=== PATIENT | male | born 1960 | race Hispanic/Latino ===

== ENCOUNTER 2018-06-22 18:56 | Emergency (ER) | payer OTHER ==
[2018-06-22 19:43] LABS: Absolute Lymphocytes (CBC) 1.8 K/uL (0.7-4.9); Absolute Monocytes 0.6 K/uL (0.1-1.3); Absolute Neutrophil 2.9 K/uL (1.8-8.0); Basophils % 0.7 % (0-1.3); Eosinophils % 2.5 % (0-4.4); Hematocrit 41.5 % (39.6-49.0); Lymphocytes % 32.4 % (15.3-44.8); MCH 32.9 pg (27.0-35.0); MPV 9.9 fL (7.6-11.3); Monocytes % 11.2 % (3.3-12.3); RBC Red Blood Cell Count 4.46 M/uL (4.33-5.43)
--- NOTE | 2018-06-22 20:16 | RAD REPORT ---
EXAM DESCRIPTION: CT - Head Brain Wo Cont - 06/22/2018 7:52 pm CLINICAL HISTORY: Right arm tremor/CVA COMPARISON: 2015 TECHNIQUE: Computed axial tomography of the head was obtained. IV contrast was not requested. All CT scans are performed using dose optimization technique as appropriate and may include automated exposure control or mA/KV adjustment according to patient size. FINDINGS: An intracranial bleed is not seen . The ventricles are normal in caliber. No extra-axial fluid collection is noted. Moderate to large area of cystic encephalomalacia is presen t within the right occipital lobe secondary to an old infarction. Fluid within the sinuses/ mastoids is not seen. IMPRESSION: No acute intracranial abnormality is seen. If patient's symptoms persist MRI of the bra in would be recommended.
[2018-06-22 21:00] LABS: Potassium 4.2 mmol/L (3.5-5.1)
--- NOTE | 2018-06-22 21:19 | ER ---
Nurse's Notes [facility] Name: Jd Rico Age: 58 yrs Sex: Male : 1960 Arrival Date: 06/22/2018 Time: 18:58 Bed 18 Private MD: Diagnosis: Tremor, unspecified Presentation: 06/22 19:01 Presenting complaint: Patient states: he has had an uncontrollable tremor in his right bb foot for the last 2 months and over the last two weeks it has moved to his right arm and to his tongue. Transition of care: patient was not received from another setting of care. Onset of symptoms was April 2018. Risk Assessment: Do you want to hurt yourself or someone else? Patient reports no desire to harm self or others. Initial Sepsis Screen: Does the patient meet any 2 criteria? No. Patient's initial sepsis screen is negative. Does the patient have a suspected source of infection? No. Patient's initial sepsis screen is negative. Care prior to arrival: None. 19:01 Method Of Arrival: Wheelchair bb 19:01 Acuity: MARIA L 3 bb Triage Assessment: 19:33 General: Appears in no apparent distress. Behavior is cooperative, anxious. Pain: ak1 Denies pain. EENT: No signs and/or symptoms were reported regarding the EENT system. Neuro: Level of Consciousness is awake, alert, obeys commands, Oriented to person, place, time, situation, [employer] are equal bilaterally Moves all extremities. Gait is steady, Speech is normal, Facial symmetry appears normal. Cardiovascular: No deficits noted. Respiratory: No deficits noted. GI: No signs and/or symptoms were reported involving the gastrointestinal system. : No signs and/or symptoms were reported regarding the genitourinary system. Derm: No signs and/or symptoms reported regarding the dermatologic system. Musculoskeletal: No signs and/or symptoms reported regarding the musculoskeletal system. Historical: - Allergies: 19:24 Trazodone; bb - Home Meds: 19:24 atorvastatin 40 mg Oral tab 1 tab once daily [Active]; buspirone 15 mg Oral tab 1 tab 2 bb times per day [Active]; divalproex 500 mg Oral Tb24 2 tabs once daily [Active]; divalproex 250 mg Oral Tb24 once daily [Active]; etodolac 400 mg Oral tab 1 tab 2 times per day [Active]; lisinopril-hydrochlorothiazide 10-12.5 mg Oral tab 1 tab once daily [Active]; metoprolol tartrate 50 mg Oral tab 2 tabs once daily [Active]; quetiapine 100 mg Oral tab 1 tab qhs prn [Active]; - PMHx: 19:24 Angina; Bipolar disorder; CVA; Hypertension; insomnia; Myocardial infarction; bb peripheral vision loss; Seizures; - PSHx: 19:24 Hernia repair; back surg; Heart stents; bb - Immunization history:: Adult Immunizations up to date. - Social history:: Smoking status: Patient/guardian denies using tobacco, Patient/guardian denies using alcohol, street drugs. - Ebola Screening: : No symptoms or risks identified at this time. - Family history:: not pertinent. - Hospitalizations: : No recent hospitalization is reported. Screenin:32 Abuse screen: Denies threats or abuse. Denies injuries from another. Nutritional ak1 screening: No deficits noted. Tuberculosis screening: No symptoms or risk factors identified. Fall Risk None identified. Assessment: 19:34 Reassessment: Patient appears in no apparent distress at this time. No changes from ak1 previously documented assessment. Patient and/or family updated on plan of care and expected duration. Pain level reassessed. Patient is alert, oriented x 3, equal unlabored respirations, skin warm/dry/pink. see triage assessment. General: Appears in no apparent distress. 21:03 Reassessment: Patient appears in no apparent distress at this time. No changes from ak1 previously documented assessment. Patient and/or family updated on plan of care and expected duration. Pain level reassessed. Patient is alert, oriented x 3, equal unlabored respirations, skin warm/dry/pink. Patient states symptoms have improved. pt resting comfortably in ER18 with no "twitching" or "tremors" observed at this time. will continue to monitor. . Vital Signs: 19:24 BP 165 / 95; Pulse 77; Resp 16 S; Temp 99(O); Pulse Ox 98% on R/A; Weight 65.77 kg (R); bb Height 5 ft. 4 in. (162.56 cm) (R); Pain 0/10; 20:39 BP 134 / 88; Pulse 59; Resp 16; Pulse Ox 98% on R/A; Pain 0/10; ak1 21:50 BP 132 / 84; Pulse 64; Resp 20; Temp 98.1; Pulse Ox 98% on R/A; Pain 0/10; ak1 19:24 Body Mass Index 24.89 (65.77 kg, 162.56 cm) ED Course: 18:58 Patient arrived in ED. tw3 19:04 Christiano Mccormack MD is Attending Physician. rn 19:19 Gosia Harp, RN is Primary Nurse. ak1 19:23 Triage completed. bb 19:24 Arm band placed on Patient placed in an exam room, on a stretcher, on pulse oximetry. bb Family accompanied patient. 19:32 Initial lab(s) drawn, by me, sent to lab. EKG done, by ED staff, reviewed by Christiano Mccormack MD. Inserted saline lock: 20 gauge in right forearm, using aseptic technique. Blood collected. 19:35 Patient has correct armband on for positive identification. Placed in gown. Bed in low ak1 position. Call light in reach. Side rails up X2. Adult w/ patient. court recording monitor on. Pulse ox on. NIBP on. 19:[address] mt 19:51 CT Head Brain wo Cont In Process Unspecified. EDMS 20:38 Lab(s) recollected, by me, sent to lab. ak1 21:04 No provider procedures requiring assistance completed. ak1 21:49 IV discontinued, intact, bleeding controlled, No redness/swelling at site. Pressure ak1 dressing applied. Administered Medications: No medications were administered Outcome: 21:18 Discharge ordered by . rn 21:50 Discharged to home ambulatory, with family. ak1 21:50 Condition: good 21:50 Discharge instructions given to patient, family, Instructed on discharge instructions, follow up and referral plans. Demonstrated understanding of instructions, follow-up care. 21:51 Patient left the ED. ak1 Signatures: Dispatcher [employer] EDMS Haydee Haile RN RN bb Nieto, Roman, MD MD rn Krenek, Amber, RN RN Shivam Fong, Shalonda tw3
--- NOTE | 2018-06-22 21:19 | EDPHYS ---
Physician Documentation [facility] Name: Jd Rico Age: 58 yrs Sex: Male : 1960 Arrival Date: 06/22/2018 Time: 18:58 Bed 18 Private MD: ED Physician Christiano Mccormack HPI: 06/22 19:37 This 58 yrs old Male presents to ER via Wheelchair with complaints of Tremor, rn S/S of Possible Stroke. 19:37 The patient's problem is reported as tremor, balance issues. rn 19:38 Onset: The symptoms/episode began/occurred 2 month(s) ago. Duration: The episodes are rn intermittent. The symptoms are alleviated by nothing. The symptoms are aggravated by nothing. Severity of symptoms: At their worst the symptoms were moderate in the emergency department the symptoms are unchanged. The patient has experienced similar episodes in the past. Reports last known stroke 2 months ago, since then has been having progressive tremors of right leg, now going to right arm, reports feels unsteady and has balance issues, not falling, almost fell off a ladder step, came in for evaluation. Reports depakote increased 4-5 months ago for manic episode, no other medication changes. No vomiting/diarrhea/chest pain/sob. . Historical: - Allergies: 19:24 Trazodone; bb - Home Meds: 19:24 atorvastatin 40 mg Oral tab 1 tab once daily [Active]; buspirone 15 mg Oral tab 1 tab 2 bb times per day [Active]; divalproex 500 mg Oral Tb24 2 tabs once daily [Active]; divalproex 250 mg Oral Tb24 once daily [Active]; etodolac 400 mg Oral tab 1 tab 2 times per day [Active]; lisinopril-hydrochlorothiazide 10-12.5 mg Oral tab 1 tab once daily [Active]; metoprolol tartrate 50 mg Oral tab 2 tabs once daily [Active]; quetiapine 100 mg Oral tab 1 tab qhs prn [Active]; - PMHx: 19:24 Angina; Bipolar disorder; CVA; Hypertension; insomnia; Myocardial infarction; bb peripheral vision loss; Seizures; - PSHx: 19:24 Hernia repair; back surg; Heart stents; bb - Immunization history:: Adult Immunizations up to date. - Social history:: Smoking status: Patient/guardian denies using tobacco, Patient/guardian denies using alcohol, street drugs. - Ebola Screening: : No symptoms or risks identified at this time. - Family history:: not pertinent. - Hospitalizations: : No recent hospitalization is reported. ROS: 19:38 Constitutional: Negative for fever, chills, and weight loss, Eyes: Negative for injury, rn pain, redness, and discharge, Neck: Negative for injury, pain, and swelling, Cardiovascular: Negative for chest pain, palpitations, and edema, Respiratory: Negative for shortness of breath, cough, wheezing, and pleuritic chest pain, Abdomen/GI: Negative for abdominal pain, nausea, vomiting, diarrhea, and constipation, MS/Extremity: Negative for injury and deformity, Skin: Negative for injury, rash, and discoloration, Neuro: Negative for headache, numbness, tingling, and seizure. Exam: 19:38 Constitutional: This is a well developed, well nourished patient who is awake, alert, rn and in no acute distress. Head/Face: Normocephalic, atraumatic. Eyes: Pupils equal round and reactive to light, extra-ocular motions intact. Lids and lashes normal. Conjunctiva and sclera are non-icteric and not injected. Cornea within normal limits. Periorbital areas with no swelling, redness, or edema. Cardiovascular: Regular rate. no murmur. No pulse deficits. Respiratory: Lungs have equal breath sounds bilaterally, clear to auscultation. Speaking full sentences. Abdomen/GI: Soft, non-tender, with normal bowel sounds. No distension or tympany. No guarding or rebound. No evidence of tenderness throughout. Skin: Warm, dry with normal turgor. Normal color with no rashes, no lesions, and no evidence of cellulitis. MS/ Extremity: Pulses equal, no cyanosis. Neurovascular intact. Full, normal range of motion. Equal circumference. Neuro: Awake and alert, GCS 15, oriented to person, place, time, and situation. Cranial nerves II-XII grossly intact. Motor strength 5/5 in all extremities. Sensory grossly intact. Cerebellar exam normal. + RLE coarse tremor. Worse with purposeful movement. Vital Signs: 19:24 BP 165 / 95; Pulse 77; Resp 16 S; Temp 99(O); Pulse Ox 98% on R/A; Weight 65.77 kg (R); bb Height 5 ft. 4 in. (162.56 cm) (R); Pain 0/10; 20:39 BP 134 / 88; Pulse 59; Resp 16; Pulse Ox 98% on R/A; Pain 0/10; ak1 21:50 BP 132 / 84; Pulse 64; Resp 20; Temp 98.1; Pulse Ox 98% on R/A; Pain 0/10; ak1 19:24 Body Mass Index 24.89 (65.77 kg, 162.56 cm) bb MDM: 19:04 Patient medically screened. rn 21:16 Differential diagnosis: CVA, TIA, metabolic disorder, drug effects. Data reviewed: rn vital signs, nurses notes, lab test result(s), EKG, radiologic studies, CT scan, and as a result, I will discharge patient. 21:17 Counseling: I had a detailed discussion with the patient and/or guardian regarding: the rn historical points, exam findings, and any diagnostic results supporting the discharge/admit diagnosis, lab results, radiology results, the need for outpatient follow up, to return to the emergency department if symptoms worsen or persist or if there are any questions or concerns that arise at home. Special discussion: I discussed with the patient/guardian in detail that at this point there is no indication for admission to the hospital. It is understood, however, that if the symptoms persist or worsen the patient needs to return immediately for re-evaluation. Based on the history and exam findings, there is no indication for further emergent testing or inpatient evaluation. I discussed with the patient/guardian the need to see the neurologist for further evaluation of the symptoms. ED course: NO new findings, tremor likely secondary to encephalomalacia from old stroke vs depakote side effect. . 06/22 19:19 Order name: Basic Metabolic Panel; Complete Time: : rn 06/22 19:19 Order name: CBC with Diff; Complete Time: rn 06/22 19:19 Order name: CT Head Brain wo Cont; Complete Time: : rn 06/22 19:19 Order name: Magnesium; Complete Time: : rn 06/22 19:19 Order name: Depakote; Complete Time: : rn 06/22 19:19 Order name: EKG; Complete Time: 19: rn 06/22 19:19 Order name: Cardiac monitoring; Complete Time: 19: rn 06/22 19:19 Order name: EKG - Nurse/Tech; Complete Time: : rn 06/22 19:19 Order name: IV Saline Lock; Complete Time: :29 rn 06/22 19:19 Order name: Labs collected and sent; Complete Time: :29 rn 06/22 19:19 Order name: NPO; Complete Time: : rn 06/22 19: Order name: O2 Per Protocol; Complete Time: : rn 06/22 19:19 Order name: O2 Sat Monitoring; Complete Time: :29 rn Administered Medications: No medications were administered Disposition: 06/22/18 21:18 Discharged to Home. Impression: Tremor, unspecified. - Condition is Stable. - Discharge Instructions: Tremor, Ataxia. - Medication Reconciliation Form, Thank You Letter, Antibiotic Education, Prescription Opioid Use form. - Follow up: Private Physician; When: As needed; Reason: Recheck today's complaints, Re-evaluation by your physician. - Problem is an ongoing problem. - Symptoms have improved. Signatures: Dispatcher [employer] [facility] Haydee Haile RN RN Christiano Rendon MD MD rn Krenek, Amber, RN RN ak1 Corrections: (The following items were deleted from the chart) 21:13 19:19 AMMONIA+C.LAB.BRZ ordered. [facility] 21:51 21:18 06/22/2018 21:18 Discharged to Home. Impression: Tremor, unspecified. Condition ak1 is Stable. Forms are Medication Reconciliation Form, Thank You Letter, Antibiotic Education, Prescription Opioid Use. Follow up: Private Physician; When: As needed; Reason: Recheck today's complaints, Re-evaluation by your physician. Problem is an ongoing problem. Symptoms have improved. rn
[2018-06-22 21:55] VITALS: O2SAT 98
[2018-06-22 21:58] VITALS: BP 132/84; TEMP 98.1
--- NOTE | 2018-06-23 17:34 | EKG ---
Test Date: 2018-06-22 Test Time: 19:34:36 Credentialer: JARRETT MEASUREMENT RESULTS: Intervals: Rate: 62 WA: 152 QRSD: 102 QT: 378 QTc: 383 Bayard: P: 41 WA: 152 QRS: -18 T: 55 INTERPRETIVE STATEMENTS: Normal sinus rhythm Minimal voltage criteria for LVH, may be normal variant Possible Anterior infarct, age undetermined Abnormal ECG Compared to ECG 06/03/2017 22:10:51 Left ventricular hypertrophy now present Sinus bradycardia no longer present Myocardial infarct finding still present Electronically Signed On 06-23-18 17:33:30 CDT by Gavino Looney
== END 2018-06-22 21:51 | disposition home or self-care (01) ==
LOC: ER 18:56
DX: R25.1 Tremor, unspecified (principal); I10 Essential (primary) hypertension; I25.2 Old myocardial infarction; Z88.5 Allergy status to narcotic agent; Z86.73 Personal history of transient ischemic attack (TIA), and cerebral infarction without residual deficits; Z95.818 Presence of other cardiac implants and grafts
CPT/HCPCS: 70450; 80048; 80164; 83735; 85025; 93005; 99285

== ENCOUNTER 2019-06-22 19:10 | Observation (INO) | payer OTHER ==
[2019-06-22] MEDS ORDERED: NA CHLORIDE 0.9% 1,000 ML ONE (19:36)
[2019-06-22] MEDS ORDERED: ONDANSETRON 4 MG/2 ML VIAL ONE (19:36)
[2019-06-22 19:46] LABS: Absolute Lymphocytes (CBC) 1.2 K/uL (0.7-4.9); Basophils % 0.5 % (0-1.3); Hematocrit 43.1 % (39.6-49.0); MPV 8.5 fL (7.6-11.3); RBC Red Blood Cell Count 4.67 M/uL (4.33-5.43)
[2019-06-22 19:49] LABS: Protime INR 0.99
--- NOTE | 2019-06-22 20:03 | RAD REPORT ---
EXAM DESCRIPTION: [facility] Single View06/22/2019 7:51 pm CLINICAL HISTORY: Chest pain COMPARISON: April 2019 FINDINGS: The lungs appear clear of acute infiltrate. The heart is normal size IMPRESSION: No acute abnormalities displayed
[2019-06-22 20:11] LABS: ALT/SGPT 37 U/L (12-78); AST/SGOT 23 U/L (15-37); Albumin 3.6 g/dL (3.4-5.0); Alkaline Phosphatase 64 U/L (45-117); BUN Blood Urea Nitrogen 16 mg/dL (7-18); Bicarbonate 32 mmol/L (21-32); Bilirubin Direct 0.1 mg/dL (0-0.2); Bilirubin Total 0.4 mg/dL (0.2-1.0); Creatine Phosphokinase 56 U/L (39-308); Glucose Level 166 mg/dL (74-106); HDL Cholesterol 57 mg/dL (40-60); LDL Cholesterol, Calculated 69 (<130); Lipase 68 U/L (73-393); NT PRO-BNP 322 pg/mL (<125); Potassium 4.2 mmol/L (3.5-5.1); Protein, Total 7.9 g/dL (6.4-8.2); Sodium Level 136 mmol/L (136-145); Troponin (Emerg Dept Use Only) < 0.02 ng/mL (0.0-0.045)
[2019-06-22] MEDS ORDERED: LORazepam 2 MG/ML VIAL ONE (20:23)
--- NOTE | 2019-06-22 20:24 | RAD REPORT ---
EXAM DESCRIPTION: CT - Head Brain Wo Cont - 06/22/2019 8:03 pm CLINICAL HISTORY: Weakness/CVA COMPARISON: 2018 TECHNIQUE: Computed axial tomography of the head was obtained. IV contrast was not requested. All CT scans are performed using dose optimization technique as appropriate and may include automated exposure control or mA/KV adjustment according to patient size. FINDINGS: An intracranial bleed is not seen . The ventricles are normal in caliber. No extra-axial fluid collection is noted. Moderate area of cystic encephalomalacia within the right occipital parietal region likely secondary to an old infarction. Fluid within the sinuses/ mastoids is not seen. IMPRESSION: No acute intracranial abnormality is seen. If patient's symptoms persist MRI of the bra in would be recommended.
--- NOTE | 2019-06-22 21:38 | ER ---
Nurse's Notes [facility] Name: Jd Rico Age: 59 yrs Sex: Male : 1960 Arrival Date: 06/22/2019 Time: 19:12 Bed 18 Private MD: Diagnosis: Vomiting;Weakness;Ataxic gait;Dizziness and giddiness;Bipolar disorder Presentation: 06/22 19:14 Presenting complaint: Patient states: nausea and vomiting X1 day. pt c/o dizziness, ak1 generalized weakness and fatigue. Transition of care: patient was not received from another setting of care. Onset of symptoms is unknown. Risk Assessment: Do you want to hurt yourself or someone else? Patient reports no desire to harm self or others. Initial Sepsis Screen: Does the patient meet any 2 criteria? No. Patient's initial sepsis screen is negative. Does the patient have a suspected source of infection? No. Patient's initial sepsis screen is negative. Care prior to arrival: None. 19:14 Method Of Arrival: EMS: [facility] ak1 19:14 Acuity: MARIA L 3 ak1 Triage Assessment: 19:13 General: Appears in no apparent distress. Behavior is calm, cooperative. Pain: Denies ak1 pain. EENT: No signs and/or symptoms were reported regarding the EENT system. Neuro: Level of Consciousness is awake, alert, obeys commands, Oriented to person, place, time, situation, Appropriate for age Edge Grinder are equal bilaterally Moves all extremities. Full function Gait is unsteady, pt with hx stroke and Parkinson's . Speech is normal. Cardiovascular: No deficits noted. Respiratory: No deficits noted. GI: Abdomen is round Reports nausea, vomiting. : No signs and/or symptoms were reported regarding the genitourinary system. Derm: No signs and/or symptoms reported regarding the dermatologic system. Musculoskeletal: No signs and/or symptoms reported regarding the musculoskeletal system. Historical: - Allergies: 19:17 Trazodone; ak1 - Home Meds: 19:17 Amitriptyline Oral 4 times per day [Active]; aspirin 325 mg Oral tab [Active]; ak1 divalproex 500 mg Oral Tb24 3 tabs once daily [Active]; lisinopril-hydrochlorothiazide 10-12.5 mg Oral tab 1 tab once daily [Active]; metoprolol tartrate 50 mg Oral tab 1 tab once daily [Active]; pravastatin 40 mg Oral tab 1 tab once daily [Active]; Xanax 0.5 mg Oral tab twice a day [Active]; - PMHx: 19:17 Angina; Bipolar disorder; CVA; Hypertension; insomnia; peripheral vision loss; ak1 Myocardial infarction; Seizures; - PSHx: 19:17 Hernia repair; Heart stents; back surg; ak1 - Immunization history:: Adult Immunizations unknown. - Social history:: Smoking status: Patient/guardian denies using tobacco. - Ebola Screening: : No symptoms or risks identified at this time. Screenin:18 Abuse screen: Denies threats or abuse. Denies injuries from another. Nutritional ak1 screening: No deficits noted. Tuberculosis screening: No symptoms or risk factors identified. Fall Risk None identified. Assessment: 19:18 Reassessment: Patient appears in no apparent distress at this time. No changes from ak1 previously documented assessment. Patient is alert, oriented x 3, equal unlabored respirations, skin warm/dry/pink. 20:39 Reassessment: Patient appears in no apparent distress at this time. Patient and/or aa1 family updated on plan of care and expected duration. Pain level reassessed. Patient is alert, oriented x 3, equal unlabored respirations, skin warm/dry/pink. Pt awaiting provider reassessment. 21:19 Reassessment: Patient appears in no apparent distress at this time. Patient and/or aa1 family updated on plan of care and expected duration. Pain level reassessed. Patient is alert, oriented x 3, equal unlabored respirations, skin warm/dry/pink. Continues to await provider reassessment. 22:15 Reassessment: Patient appears in no apparent distress at this time. Patient and/or aa1 family updated on plan of care and expected duration. Pain level reassessed. Patient is alert, oriented x 3, equal unlabored respirations, skin warm/dry/pink. Awaiting bed assignment. Pt resting quietly. 23:13 Reassessment: Patient appears in no apparent distress at this time. Patient and/or aa1 family updated on plan of care and expected duration. Pain level reassessed. Attempted to call report to 4th floor; pt has not been assigned to a nurse yet. Will call back. 23:29 Reassessment: Patient appears in no apparent distress at this time. Report given to salbador Oviedo RN on 4th floor. Vital Signs: 19:12 BP 161 / 118; Pulse 101; Resp 20; Temp 99.2(O); Pulse Ox 98% on R/A; Weight 68.49 kg ak1 (R); Height 5 ft. 4 in. (162.56 cm) (R); Pain 0/10; 20:24 BP 160 / 100; Pulse 99; Resp 14; Pulse Ox 98% on R/A; Pain 0/10; aa1 20:39 BP 139 / 99; Pulse 93; Resp 14; Pulse Ox 95% on R/A; Pain 0/10; aa1 21:19 BP 127 / 85; Pulse 94; Resp 18; Temp 97.7; Pulse Ox 95% on R/A; Pain 0/10; aa1 22:15 BP 113 / 85; Pulse 92; Resp 16; Pulse Ox 93% on R/A; Pain 0/10; aa1 23:17 BP 123 / 84; Pulse 83; Resp 20; Temp 97.9; Pulse Ox 94% on R/A; Pain 0/10; aa1 19:12 Body Mass Index 25.92 (68.49 kg, 162.56 cm) ak1 NIH Stroke Scale Scores: 19:54 NIHSS Score: 0 rosangela ED Course: 19:12 Patient arrived in ED. ak1 19:12 Arm band placed on Patient placed in an exam room, on a stretcher, on monitoring and evaluation advisor, ak1 on pulse oximetry, Patient notified of wait time. 19:16 Triage completed. ak1 19:18 Patient has correct armband on for positive identification. Placed in gown. Bed in low ak1 position. Call light in reach. Side rails up X2. monitor technician on. Pulse ox on. NIBP on. 19:31 Gosia Harp RN is Primary Nurse. ak1 19:32 Kareem Suarez MD is Attending Physician. [facility] 19:45 Initial lab(s) drawn, by ED staff, sent to lab. EKG done, by ED staff, reviewed by santana Suarez MD X-ray(s) taken. Inserted saline lock: 20 gauge in right antecubital area, using aseptic technique. ,using aseptic technique. placed by Abilio S. Blood collected. 19:51 XRAY Chest (1 view) In Process Unspecified. EDMS 19:57 CT Head Brain wo Cont Sent. ak1 20:03 CT Head Brain wo Cont In Process Unspecified. EDMS 20:03 CT completed. Patient tolerated procedure well. Patient moved back from CT. bq 21:35 Joey Navarrete is Hospitalizing Provider. rosangela 23:11 No provider procedures requiring assistance completed. Patient admitted, IV remains in aa1 place. Administered Medications: 19:57 Drug: NS 0.9% 1000 ml Route: IV; Rate: 125 ml/hr; Site: right antecubital; ak1 23:29 Follow up: IV Status: Infusion continued upon admission aa1 19:57 Drug: Zofran 4 mg Route: IVP; Site: right antecubital; ak1 19:57 Follow up: Response: No adverse reaction ak1 20:17 CANCELLED (Duplicate Order): Norvasc 10 mg PO once rosangela 20:26 Drug: Ativan 1 mg Route: IVP; Site: right antecubital; ak1 21:26 Follow up: Response: No adverse reaction; Marked relief of symptoms aa1 Outcome: 21:37 Decision to Hospitalize by Provider. rosangela 23:50 Admitted to Tele accompanied by tech, via stretcher, room 407, with chart, Report aa1 called to EHSAN Oviedo 23:50 Condition: stable 23:50 Discharge instructions given to significant other, Instructed on the need for admit, Demonstrated understanding of instructions, follow-up care. 23:51 Patient left the ED. aa1 NIH Stroke Scale - NIH Stroke Score Date: 06/22/2019 Time: 19:54 Total Score = 0 1a. Level of Consciousness (LOC) - 0(Alert) 1b. Level of Consciousness (LOC) (Year \T\ Age) - 0(Both) 1c. LOC Commands (Open \T\ Closes Eyes/Food Mixer Assembler) - 0(Both) 2. Best Gaze (Lateral Gaze Paresis) - 0(Normal) 3. Visual Field Loss - 0(No visual loss) 4. Facial Palsy - 0(Normal) 5a. Left Arm: Motor (10-second hold) - 0(No drift) 5b. Right Arm: Motor (10-second hold) - 0(No drift) 6a. Left Leg: Motor (5-second hold - always test supine) - 0(No drift) 6b. Right Leg: Motor (5-second hold - always test supine) - 0(No drift) 7. Limb Ataxia (finger/nose \T\ heel/barros - test with eyes open) - 0(Absent) 8. Sensory Loss (pinprick arms/legs/face) - 0(Normal) 9. Best Language: Aphasia (description/naming/reading) - 0(No aphasia) 10. Dysarthria (speech clarity - read or repeat words) - 0(Normal) 11. Extinction and Inattention (visual/tactile/auditory/spatial/personal) - 0(No abnormality) Initials: rosangela Signatures: Dispatcher [employer] EDWilla Zhang, RN RN aa1 Kareem Suarez MD MD cha Quilty, Betty bq Krenek, Amber, RN RN ak1
--- NOTE | 2019-06-22 21:39 | EDPHYS ---
Physician Documentation [facility] Name: Jd Rico Age: 59 yrs Sex: Male : 1960 Arrival Date: 06/22/2019 Time: 19:12 Bed 18 Private MD: ED Physician Kareem Suarez HPI: 06/22 19:49 This 59 yrs old Male presents to ER via EMS with complaints of Nausea/Vomiting.rosangela 19:49 The patient presents to the emergency department with nausea, that is mild. Onset: The rosangela symptoms/episode began/occurred 2 day(s) ago. Possible causes: unknown. The symptoms are aggravated by. Historical: - Allergies: 19:17 Trazodone; ak1 - Home Meds: 19:17 Amitriptyline Oral 4 times per day [Active]; aspirin 325 mg Oral tab [Active]; ak1 divalproex 500 mg Oral Tb24 3 tabs once daily [Active]; lisinopril-hydrochlorothiazide 10-12.5 mg Oral tab 1 tab once daily [Active]; metoprolol tartrate 50 mg Oral tab 1 tab once daily [Active]; pravastatin 40 mg Oral tab 1 tab once daily [Active]; Xanax 0.5 mg Oral tab twice a day [Active]; - PMHx: 19:17 Angina; Bipolar disorder; CVA; Hypertension; insomnia; peripheral vision loss; ak1 Myocardial infarction; Seizures; - PSHx: 19:17 Hernia repair; Heart stents; back surg; ak1 - Immunization history:: Adult Immunizations unknown. - Social history:: Smoking status: Patient/guardian denies using tobacco. - Ebola Screening: : No symptoms or risks identified at this time. ROS: 19:53 Constitutional: Negative for fever, chills, and weight loss, Eyes: Negative for injury, rosangela pain, redness, and discharge, ENT: Negative for injury, pain, and discharge, Neck: Negative for injury, pain, and swelling, Cardiovascular: Negative for chest pain, palpitations, and edema, Respiratory: Negative for shortness of breath, cough, wheezing, and pleuritic chest pain, Back: Negative for injury and pain, : Negative for injury, bleeding, discharge, and swelling, MS/Extremity: Negative for injury and deformity, Skin: Negative for injury, rash, and discoloration, Psych: Negative for depression, anxiety, suicide ideation, homicidal ideation, and hallucinations, Allergy/Immunology: Negative for hives, rash, and allergies, Endocrine: Negative for neck swelling, polydipsia, polyuria, polyphagia, and marked weight changes, Hematologic/Lymphatic: Negative for swollen nodes, abnormal bleeding, and unusual bruising. 19:53 Abdomen/GI: Positive for nausea, vomiting. 19:53 Neuro: Positive for dizziness, weakness. Exam: 19:54 Constitutional: This is a well developed, well nourished patient who is awake, alert, rosangela and in no acute distress. Head/Face: Normocephalic, atraumatic. Eyes: Pupils equal round and reactive to light, extra-ocular motions intact. Lids and lashes normal. Conjunctiva and sclera are non-icteric and not injected. Cornea within normal limits. Periorbital areas with no swelling, redness, or edema. ENT: Nares patent. No nasal discharge, no septal abnormalities noted. Tympanic membranes are normal and external auditory canals are clear. Oropharynx with no redness, swelling, or masses, exudates, or evidence of obstruction, uvula midline. Mucous membranes moist. Neck: Trachea midline, no thyromegaly or masses palpated, and no cervical lymphadenopathy. Supple, full range of motion without nuchal rigidity, or vertebral point tenderness. No Meningismus. Chest/axilla: Normal chest wall appearance and motion. Nontender with no deformity. No lesions are appreciated. Cardiovascular: Regular rate and rhythm with a normal S1 and S2. No gallops, murmurs, or rubs. Normal PMI, no JVD. No pulse deficits. Respiratory: Lungs have equal breath sounds bilaterally, clear to auscultation and percussion. No rales, rhonchi or wheezes noted. No increased work of breathing, no retractions or nasal flaring. Abdomen/GI: Soft, non-tender, with normal bowel sounds. No distension or tympany. No guarding or rebound. No evidence of tenderness throughout. Back: No spinal tenderness. No costovertebral tenderness. Full range of motion. Skin: Warm, dry with normal turgor. Normal color with no rashes, no lesions, and no evidence of cellulitis. MS/ Extremity: Pulses equal, no cyanosis. Neurovascular intact. Full, normal range of motion. Neuro: Awake and alert, GCS 15, oriented to person, place, time, and situation. Cranial nerves II-XII grossly intact. Motor strength 5/5 in all extremities. Sensory grossly intact. Cerebellar exam normal. Normal gait. Psych: Awake, alert, with orientation to person, place and time. Behavior, mood, and affect are within normal limits. Vital Signs: 19:12 BP 161 / 118; Pulse 101; Resp 20; Temp 99.2(O); Pulse Ox 98% on R/A; Weight 68.49 kg ak1 (R); Height 5 ft. 4 in. (162.56 cm) (R); Pain 0/10; 20:24 BP 160 / 100; Pulse 99; Resp 14; Pulse Ox 98% on R/A; Pain 0/10; aa1 20:39 BP 139 / 99; Pulse 93; Resp 14; Pulse Ox 95% on R/A; Pain 0/10; aa1 21:19 BP 127 / 85; Pulse 94; Resp 18; Temp 97.7; Pulse Ox 95% on R/A; Pain 0/10; aa1 22:15 BP 113 / 85; Pulse 92; Resp 16; Pulse Ox 93% on R/A; Pain 0/10; aa1 23:17 BP 123 / 84; Pulse 83; Resp 20; Temp 97.9; Pulse Ox 94% on R/A; Pain 0/10; aa1 19:12 Body Mass Index 25.92 (68.49 kg, 162.56 cm) ak NIH Stroke Scale Scores: 19:54 NIHSS Score: 0 rosangela MDM: 19:32 Patient medically screened. rosangela 19:55 Data reviewed: vital signs, nurses notes, lab test result(s), EKG, radiologic studies. [facility] 06/22 19:32 Order name: Basic Metabolic Panel; Complete Time: 20:16 [facility] 06/22 19:32 Order name: CBC with Diff; Complete Time: 20:16 [facility] 06/22 19:32 Order name: LFT's; Complete Time: 20:16 [facility] 06/22 19:32 Order name: Magnesium; Complete Time: 20:16 [facility] 06/22 19:32 Order name: NT PRO-BNP; Complete Time: 20:16 [facility] 06/22 19:32 Order name: PT-INR; Complete Time: 20:16 [facility] 06/22 19:32 Order name: Troponin (emerg Dept Use Only); Complete Time: 20:16 ak 06/22 19:32 Order name: Creatinine for Radiology; Complete Time: 20:16 [facility] 06/22 19:32 Order name: Lipase; Complete Time: 20:16 [facility] 06/22 19:32 Order name: Lipid Profile; Complete Time: 20:16 [facility] 06/22 19:58 Order name: Creatine Phosphokinase; Complete Time: 20:16 EDMS 06/22 19:32 Order name: XRAY Chest (1 view); Complete Time: 20:16 [facility] 06/22 19:32 Order name: EKG; Complete Time: 19:33 [facility] 06/22 19:32 Order name: Cardiac monitoring; Complete Time: 19:32 [facility] 06/22 19:32 Order name: EKG - Nurse/Tech; Complete Time: 19:45 [facility] 06/22 19:32 Order name: IV Saline Lock; Complete Time: 19:45 [facility] 06/22 19:32 Order name: Labs collected and sent; Complete Time: 19:45 [facility] 06/22 19:32 Order name: O2 Per Protocol; Complete Time: 19:32 [facility] 06/22 19:32 Order name: O2 Sat Monitoring; Complete Time: 19:32 [facility] 06/22 19:45 Order name: CT Head Brain wo Cont; Complete Time: 21:34 [facility] 06/22 19:58 Order name: CKMB Creatine Kinase MB; Complete Time: 20:16 EDMS 06/22 19:58 Order name: Valproic Acid (Depakene) Level; Complete Time: 20:16 EDMS 06/22 21:23 Order name: Urine Dipstick--Ancillary (enter results) [facility] 06/22 19:45 Order name: Urine Dipstick-Ancillary (obtain specimen); Complete Time: 21:19 rosangela Administered Medications: 19:57 Drug: NS 0.9% 1000 ml Route: IV; Rate: 125 ml/hr; Site: right antecubital; ak1 23:29 Follow up: IV Status: Infusion continued upon admission aa1 19:57 Drug: Zofran 4 mg Route: IVP; Site: right antecubital; ak1 19:57 Follow up: Response: No adverse reaction ak1 20:17 CANCELLED (Duplicate Order): Murrayc 10 mg PO once rosangela 20:26 Drug: Ativan 1 mg Route: IVP; Site: right antecubital; ak1 21:26 Follow up: Response: No adverse reaction; Marked relief of symptoms aa1 Disposition: 06/22/19 21:37 Hospitalization ordered by Joey Navarrete for Inpatient Admission. Preliminary diagnosis are Vomiting, Weakness, Ataxic gait, Dizziness and giddiness, Bipolar disorder. - Bed requested for Telemetry/MedSurg (Inpatient). - Status is Inpatient Admission. aa1 - Condition is Fair. - Problem is new. - Symptoms have improved. UTI on Admission? No NIH Stroke Scale - NIH Stroke Score Date: 06/22/2019 Time: 19:54 Total Score = 0 1a. Level of Consciousness (LOC) - 0(Alert) 1b. Level of Consciousness (LOC) (Year \T\ Age) - 0(Both) 1c. LOC Commands (Open \T\ Closes Eyes/Quality Control Auditor) - 0(Both) 2. Best Gaze (Lateral Gaze Paresis) - 0(Normal) 3. Visual Field Loss - 0(No visual loss) 4. Facial Palsy - 0(Normal) 5a. Left Arm: Motor (10-second hold) - 0(No drift) 5b. Right Arm: Motor (10-second hold) - 0(No drift) 6a. Left Leg: Motor (5-second hold - always test supine) - 0(No drift) 6b. Right Leg: Motor (5-second hold - always test supine) - 0(No drift) 7. Limb Ataxia (finger/nose \T\ heel/barros - test with eyes open) - 0(Absent) 8. Sensory Loss (pinprick arms/legs/face) - 0(Normal) 9. Best Language: Aphasia (description/naming/reading) - 0(No aphasia) 10. Dysarthria (speech clarity - read or repeat words) - 0(Normal) 11. Extinction and Inattention (visual/tactile/auditory/spatial/personal) - 0(No abnormality) Initials: rosangela Signatures: Dispatcher [employer] EDMS Willa Troy RN RN aa1 Kareem Suarez MD MD cha Krenek, Amber, RN RN ak1 Manju Castanon RN RN cg Corrections: (The following items were deleted from the chart) 19:59 19:56 VALPROIC ACID (DEPAKOTE)+C.LAB.BRZ ordered. EDMS EDMS 19:59 19:56 CREATINE PHOSPHOKINASE+C.LAB.BRZ ordered. EDMS EDMS 19:59 19:56 CKMB+C.LAB.BRZ ordered. EDNE EDMS 20:17 20:13 Norvasc 10 mg PO once ordered. [facility] 23:06 21:37 Hospitalization Ordered by Joey Navarrete for Inpatient Admission. cg Preliminary diagnosis is Vomiting; Weakness; Ataxic gait; Dizziness and giddiness; Bipolar disorder. Bed requested for Telemetry/MedSurg (Inpatient). Status is Inpatient Admission. Condition is Fair. Problem is new. Symptoms have improved. UTI on Admission? No. [facility] 23:51 23:06 06/22/2019 21:37 Hospitalization Ordered by Joey Navarrete for Inpatient aa1 Admission. Preliminary diagnosis is Vomiting; Weakness; Ataxic gait; Dizziness and giddiness; Bipolar disorder. Bed requested for Telemetry/MedSurg (Inpatient). Status is Inpatient Admission. Condition is Fair. Problem is new. Symptoms have improved. UTI on Admission? No. cg
[2019-06-22 21:42] LABS: Urine Blood NEGATIVE (NEG); Urine Glucose NEGATIVE (NEG); Urine Protein NEGATIVE (NEG)
--- NOTE | 2019-06-22 23:41 | P.HP ---
Certification for Inpatient Patient admitted to: Observation With expected LOS: <2 Midnights Practitioner: I am a practitioner with admitting privileges, knowledge of patient current condition, hospital course, and medical plan of care. Services: Services provided to patient in accordance with Admission requirements found in Title 42 Section 412.3 of the Code of Federal Regulations Patient History Date of Service: 06/23/19 Reason for admission: Vertigo, nausea and vomiting History of Present Illness: 59-year-old gentleman with a history of bipolar disorder. 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 According to the spouse, patient had been vomiting all day and have not been able to hold anything in. He has also been complaining of dizziness and unsteady gait. Spouse mentioned patient has been leaning to his right and needing assistance with ambulation which is new. He is on aspirin daily He was drowsy during my examination in the ED and could not provide much history. He is on Depakote for both seizure disorder and bipolar. Depakote level was only slightly above normal limit. CT head is unremarkable. EKG unremarkable and showing sinus rhythm and repolarization abnormalities. Patient is placed under observation for further stroke workup. Allergies No Known Drug Allergies Allergy (Unverified 02/16/15 05:49) Unknown Home medications list reviewed: Yes Home Medications: Amitriptyline HCl 10 mg PO BEDTIME 04/18/19 Aspirin Tab [Kayla Aspirin*] 325 mg PO DAILY 04/18/19 Atorvastatin Calcium [Lipitor] 40 mg PO DAILY 04/18/19 Divalproex Sodium [Depakote] 3 tab PO DAILY 04/18/19 ALPRAZolam [Alprazolam] 1 tab PO BID 06/23/19 Lisinopril 1 tab PO DAILY 06/23/19 Metoprolol Succinate [Toprol Xl*] 1 tab PO DAILY 06/23/19 - Past Medical/Surgical History Diabetic: No -: GA -: CARDIAC STENTS -: HYPERTENSION -: HYPERLIPIDEMIA -: STROKE -: PARKINSONS -: BACK SURGERY FOR HERNIATED DISC - Family History Father -: Heart disease, Hypertension Mother Notes: NO MEDICAL HISTORY - Social History Alcohol use: No CD- Drugs: No Caffeine use: Yes Review of Systems Other: General: No fever, no malaise, no unintentional weight loss. Eyes: No eye discharge, Respiratory: No cough, no shortness of breath. CVS: No chest pain, no palpitation, no lightheadedness. GI: No abdominal pain, no constipation, no diarrhea. Genitourinary: No dysuria, no urinary frequency, no incontinence, no hematuria. Musculoskeletal: No joint pains, or joint swelling. Neurology: No headache, no asymmetric, weakness, no problem with swallowing. Except as documented, all other systems reviewed and negative. Physical Examination - Physical Exam General: In no apparent distress, Cooperative, Other (Drowsy but easily arousable) HEENT: Atraumatic, Normocephalic, PERRLA, Mucous membr. moist/pink, EOMI Neck: Supple, 2+ carotid pulse no bruit, JVD not distended, No Thyromegaly Respiratory: Clear to auscultation bilaterally, Normal air movement Cardiovascular: No edema, Regular rate/rhythm, Normal S1 S2, No murmurs Capillary refill: <2 Seconds Gastrointestinal: Normal bowel sounds, Soft and benign, Non-distended, No tenderness Musculoskeletal: No swelling, No erythema Integumentary: No rashes, No erythema Neurological: Normal strength at 5/5 x4 extr, Cranial nerves 3-12 intact, Other (Incoordination, past-pointing in both the upper extremities. Past-pointing test is limited due to vision impairment.) - Studies Laboratory Data (last 24 hrs) 06/22/19 19:35: Creatinine 1.18 06/22/19 19:35: PT 11.7, INR 0.99 06/22/19 19:35: WBC 5.7, Hgb 14.7, Hct 43.1, Plt Count 170 06/22/19 19:35: Sodium 136, Potassium 4.2, BUN 16, Creatinine 1.21, Glucose 166 H, Magnesium 2.0, Total Bilirubin 0.4, AST 23, ALT 37, Alkaline Phosphatase 64, Triglycerides 108, Cholesterol 148, HDL Cholesterol 57, Cholesterol/HDL Ratio 2.60, Lipase 68 L Assessment and Plan - Problems (Diagnosis) (1) Vertigo Current Visit: Yes Status: Acute (2) Nausea & vomiting Current Visit: Yes Status: Acute (3) History of CVA (cerebrovascular accident) Current Visit: Yes Status: Acute (4) History of Parkinson's disease Current Visit: No Status: Acute (5) Presence of stent in coronary artery in patient with coronary artery disease Current Visit: No Status: Acute (6) Seizure disorder Current Visit: Yes Status: Acute - Plan Place patient under observation. Stroke workup with MRI of the brain, echocardiogram, carotid doppler. Neurology consult ASA, plavix and lipitor Supportive measures with Ativan and meclizine prn for vertigo Zofran p.r.n. for nausea Continue Depakote for seizures and bipolar disorder Xanax p.r.n. for Parkinson's tremors. Spouse states Xanax helps with his tremors. Continue home antihypertensives to keep SBP around 140. - Advance Directives Does patient have a Living Will: No Does patient have a Durable POA for Healthcare: No
[2019-06-23] MEDS ORDERED: NA CHLORIDE 0.9% 1,000 ML IV SCH (00:13)
[2019-06-23] MEDS ORDERED: ACETAMINOPHEN 500 MG TAB PO PRN (00:13)
[2019-06-23] MEDS ORDERED: ONDANSETRON 4 MG/2 ML VIAL IV PRN (00:13)
[2019-06-23] MEDS ORDERED: ALPRAZOLAM 0.5 MG TABLET PO PRN (00:13)
[2019-06-23 01:53] VITALS: BMI 26.1
[2019-06-23 05:36] LABS: Absolute Lymphocytes (CBC) 1.9 K/uL (0.7-4.9); Basophils % 0.6 % (0-1.3); Hematocrit 39.7 % (39.6-49.0); Lymphocytes % 29.8 % (15.3-44.8); MPV 8.7 fL (7.6-11.3); RBC Red Blood Cell Count 4.26 M/uL (4.33-5.43)
[2019-06-23 05:59] LABS: Magnesium 1.9 mg/dL (1.8-2.4); Phosphorus 2.9 mg/dL (2.5-4.9); Potassium 4.3 mmol/L (3.5-5.1); Thyroid Stimulating Hormone 1.19 uIU/mL (0.360-3.740)
--- NOTE | 2019-06-23 07:52 | EKG ---
Test Date: 2019-06-22 Test Time: 19:41:26 Bicycle Repairer: KELSEA MEASUREMENT RESULTS: Intervals: Rate: 90 DC: 150 QRSD: 90 QT: 324 QTc: 396 [place]: P: 46 DC: 150 QRS: -19 T: 25 INTERPRETIVE STATEMENTS: Normal sinus rhythm Left ventricular hypertrophy with repolarization abnormality Cannot rule out Septal infarct, age undetermined Abnormal ECG Compared to ECG 04/18/2019 01:12:10 Myocardial infarct finding still present Electronically Signed On 06-23-19 07:51:46 CDT by Conor Meza
[2019-06-23 08:18] VITALS: O2SAT 96
[2019-06-23] MEDS ORDERED: DIVALPROEX ER 250 MG TAB PO SCH (09:00)
[2019-06-23] MEDS ORDERED: METOPROLOL XL 25 MG TAB PO SCH (09:00)
[2019-06-23] MEDS ORDERED: ASPIRIN EC 81 MG TAB PO SCH (09:00)
[2019-06-23] MEDS ORDERED: ATORVASTATIN 40 MG TAB PO SCH (09:00)
[2019-06-23] MEDS ORDERED: ASPIRIN 325 MG TAB PO SCH (09:00)
[2019-06-23] MEDS ORDERED: DIVALPROEX DR 500MG TAB PO SCH (09:00)
[2019-06-23] MEDS ORDERED: CLOPIDOGREL 75 MG TABLET PO SCH (09:00)
[2019-06-23] MEDS ORDERED: ALPRAZOLAM 0.5 MG TABLET PO SCH (09:00)
[2019-06-23] MEDS ORDERED: ENOXAPARIN 40 MG/0.4 ML SQ SCH (09:00)
--- NOTE | 2019-06-23 10:19 | RAD REPORT ---
EXAM DESCRIPTION: MRI - Brain Wo Cont - 06/23/2019 8:43 am CLINICAL HISTORY: Vertigo and ataxia COMPARISON: June 22, 2019 cat scan TECHNIQUE: Axial, sagittal, and coronal magnetic images of the brain were obtained. Contrast was not requested FINDINGS: Moderate tumor area of abnormal signal within the right occipital lobe consistent with cys tic encephalomalacia secondary to old infarction. Diffusion-weighted/ADC mapping does not reveal evidence of acute infarction. The ventricles are normal caliber. 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
--- NOTE | 2019-06-23 11:07 | ECHO ---
HEIGHT: 5 ft 4 in WEIGHT: 152 lb 3.2 oz DATE OF STUDY: 06/23/[address]: laurence mata 2-DIMENSIONAL: YES M.MODE: YES DOPPLER: YES COLOR FLOW: YES TDS: NO PORTABLE: NO DEFINITY: NO BUBBLE STUDY: NO DIAGNOSIS: STROKE CARDIAC HISTORY: CATHERIZATION: YES SURGERY: NO PROSTHETIC VALVE: NO PACEMAKER: NO MEASUREMENTS (cm) DIASTOLIC (NORMALS) SYSTOLIC (NORMALS) IVSd 1.3 (0.6-1.2) LA Diam 3.0 (1.9-4.0) LVEF 50-55% LVIDd 3.4 (3.5-5.7) LVIDs 2.4 (2.0-3.5) %FS 31% LVPWd 0.9 (0.6-1.2) Ao Diam 2.3 (2.0-3.7) 2 DIMENSIONAL ASSESSMENT: RIGHT ATRIUM: NORMAL LEFT ATRIUM: NORMAL RIGHT VENTRICLE: NORMAL LEFT VENTRICLE: SEPTAL HYPERTROPHY TRICUSPID VALVE: NORMAL MITRAL VALVE: NORMAL PULMONIC VALVE: NORMAL AORTIC VALVE: NORMAL PERICARDIAL EFFUSION: NONE AORTIC ROOT: NORMAL LEFT VENTRICULAR WALL MOTION: DISTAL ANTERIOR, DISTAL SEPTAL, APICAL AKINESIS. DOPPLER/COLOR FLOW: NORMAL COMMENTS: NORMAL GLOBAL LEFT VENTRICULAR EJECTION FRACTION WITH ANTERIOR, SEPTAL, APICAL AKINESIS. LEFT VENTRICULAR SEPTAL HYPERTROPHY. NORMAL CARDIA DOPPLER, NO LEFT VENTRICULAR OUTFLOW TRACT GRADIENT. TECHNOLOGIST: Bonita GRACE
--- NOTE | 2019-06-23 11:12 | RAD REPORT ---
EXAM DESCRIPTION: USCarotid Artery Qpisokzio38/21/2019 9:36 am CLINICAL HISTORY: Vertigo COMPARISON: None FINDINGS: The velocity of the right internal carotid artery equals 69 cm/sec. The right ICA/CCA rati o 0.9 The velocity of the left internal carotid artery equals 70 cm/sec. The left ICA/CCA ratio 1 Mild plaque is present within the carotid arteries. The vertebral arteries demonstrate antegrade flow IMPRESSION: Mild plaque within the carotid arteries without evidence of a hemodynamically significan t stenosis NASCET criteria used. Mild 0-49% stenosis Moderate 50-69% stenosis Severe 70-99% stenosis
[2019-06-23 12:30] VITALS: BP 167/99; TEMP 97.6
--- NOTE | 2019-06-23 14:28 | P.SSS ---
Patient History Date of Service: 06/23/19 Reason for admission: Vertigo, nausea and vomiting History of Present Illness: 59-year-old gentleman with a history of bipolar disorder. 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 According to the spouse, patient had been vomiting all day and have not been able to hold anything in. He has also been complaining of dizziness and unsteady gait. Spouse mentioned patient has been leaning to his right and needing assistance with ambulation which is new. He is on aspirin daily He was drowsy during my examination in the ED and could not provide much history. He is on Depakote for both seizure disorder and bipolar. Depakote level was only slightly above normal limit. CT head is unremarkable. EKG unremarkable and showing sinus rhythm and repolarization abnormalities. Patient is placed under observation for further stroke workup. Allergies trazodone Allergy (Verified 06/23/19 09:33) Nausea/Vomiting Home Medications: Amitriptyline HCl 10 mg PO BEDTIME 04/18/19 Aspirin Tab [Kayla Aspirin*] 325 mg PO DAILY 04/18/19 Atorvastatin Calcium [Lipitor] 40 mg PO DAILY 04/18/19 Divalproex Sodium [Depakote] 3 tab PO DAILY 04/18/19 ALPRAZolam [Alprazolam] 1 tab PO BID 06/23/19 Aspirin 81 mg PO DAILY #30 tab.chew 06/23/19 Clopidogrel Bisulfate [Plavix*] 75 mg PO DAILY #30 tablet 06/23/19 Lisinopril 1 tab PO DAILY 06/23/19 Metoprolol Succinate [Toprol Xl*] 1 tab PO DAILY 06/23/19 - Past Medical/Surgical History Has patient received pneumonia vaccine in the past: No Diabetic: No -: VT -: CARDIAC STENTS -: HYPERTENSION -: HYPERLIPIDEMIA -: STROKE -: PARKINSONS -: CVA -: ANGINA -: BIPOLAR DISORDER -: INSOMNIA -: BACK SURGERY FOR HERNIATED DISC -: CARDIAC STENTS -: HERNIA REPAIR - Family History Father -: Heart disease, Hypertension Mother -: Heart disease Notes: NO MEDICAL HISTORY - Social History Smoking Status: Never smoker Alcohol use: No CD- Drugs: No Caffeine use: Yes Place of Residence: Home Review of Systems 10-point ROS is otherwise unremarkable Physical Examination - Vital Signs Temperature: 97.6 F Blood Pressure: 167/99 Pulse: 70 Respirations: 18 Pulse Ox (%): 98 - Physical Exam General: Alert, In no apparent distress HEENT: Atraumatic, PERRLA, Mucous membr. moist/pink, EOMI, Sclerae nonicteric Neck: Supple, 2+ carotid pulse no bruit, No LAD, Without JVD or thyroid abnormality Respiratory: Clear to auscultation bilaterally, Normal air movement Cardiovascular: Regular rate/rhythm, Normal S1 S2 Gastrointestinal: Normal bowel sounds, No tenderness Musculoskeletal: No tenderness Integumentary: No rashes Neurological: Normal gait, Normal speech, Normal strength at 5/5 x4 extr, Normal tone, Normal affect Lymphatics: No axilla or inguinal lymphadenopathy - Studies Laboratory Data (last 24 hrs) 06/22/19 19:35: Creatinine 1.18 06/22/19 19:35: PT 11.7, INR 0.99 06/22/19 19:35: WBC 5.7, Hgb 14.7, Hct 43.1, Plt Count 170 06/22/19 19:35: Sodium 136, Potassium 4.2, BUN 16, Creatinine 1.21, Glucose 166 H, Magnesium 2.0, Total Bilirubin 0.4, AST 23, ALT 37, Alkaline Phosphatase 64, Triglycerides 108, Cholesterol 148, HDL Cholesterol 57, Cholesterol/HDL Ratio 2.60, Lipase 68 L - Diagnosis (Problem(s)) (1) Vertigo Status: Acute (2) Nausea & vomiting Status: Acute Qualifiers: Vomiting type: unspecified Vomiting Intractability: non-intractable Qualified Code(s): R11.2 - Nausea with vomiting, unspecified (3) History of CVA (cerebrovascular accident) Status: Chronic (4) History of Parkinson's disease Status: Chronic (5) Seizure disorder Status: Chronic Treatment Summary: Overall during the hospital stay patient main stable Patient was initially admitted to the hospital for nausea vomiting generalized weakness along with signs and symptoms of vertigo. Patient however was to be ruled out for TIA or CVA due to extensive past medical history. Patient had MRI and ultrasound done here in the hospital which were both negative for any acute abnormality. Patient was admitted to the hospital for observation. Did well over the 24 hr. Was hydrated well started feeling well. Patient then was discharged home under stable condition was asked to follow up with Neurology in about 1-2 days post discharge. Patient's symptoms may be secondary to BPPV versus dehydration. Patient was also asked to follow up with primary care provider in about 1-2 days post discharge. Patient's medications were changed from aspirin 3252 aspirin 81 mg and Plavix was added along with Lipitor to prevent future CVA - Disposition Disposition: ROUTINE DISCHARGE Condition: GOOD Patient Discharge Instructions: New medication. ASA 81mg daily. Plavix 75mg Daily Diet: Regular Activity: Ad ariane
[2019-06-23] MEDS ORDERED: AMITRIPTYLINE 10 MG TAB PO SCH (21:00)
[2019-06-23] MEDS ORDERED: ATORVASTATIN 20 MG TAB PO SCH (21:00)
--- OUTSIDE RECORDS SUMMARY | 2019-07-13 03:36 | XMS REPORT ---
:1960 [facility] Address [address] [place] [address] Dr. Mejia [address] [place] [address] Care Team Providers Name Role Phone Unavailable Unavailable Unavailable Problems This patient has no known problems. Allergies, Adverse Reactions, Alerts This patient has no known allergies or adverse reactions. Medications This patient has no known medications.
--- OUTSIDE RECORDS SUMMARY | 2019-07-13 03:37 | XMS REPORT | Summary of Care ---
:1960 Author Organization [facility] Address [address] [place] [address] Care Team Providers Name Role Phone Zandra Cowart MD Primary Care Provider Seb Allison MD Unavailable Reason for Visit Reason Comments Refill Request Encounter Details Date Type Department Care Team Description 05/08/2019 Refill [facility] Laith Lopez MD Refill Request Neurology-[address] [place] [phone] [place] [address] [address] [place] [address] [phone] Allergies Active Allergy Reactions Severity Noted Date Comments Aripiprazole Other - See comments 11/12/2014 insomnia Trazodone Other - See comments 11/12/2014 insomnia documented as of this encounter (statuses as of 05/09/2019) Medications Medication Sig Dispensed Refills Start Date End Date Status aspirin 325 mg Take 325 mg by 0 Active tablet mouth daily. OMEGA-3 FATTY Take by mouth 0 Active ACIDS/FISH OIL daily. (OMEGA 3 FISH OIL ORAL) Cholecalciferol, Take by mouth 0 Active Vitamin D3, (VITAMIN daily. D3) 2,000 unit Cap VITAMIN E, Take 200 Units 0 Active DL,TOCOPHERYL ACET, by mouth (VITAMIN E, DL, daily. ACETATE, ORAL) atorvastatin 40 mg Take 1 tablet 90 tablet 3 08/08/2018 Active tablet by mouth daily. Diclofenac Sodium Apply to 300 g 3 09/09/2018 Active (VOLTAREN) 1 % area(s) 2 gelIndications: (two) times Chronic midline low daily as back pain without needed for sciatica Pain (scale 4-6). Olopatadine 0.2 % Place 1 Drop 2.5 mL 3 12/09/2018 Active ophthalmic in each eye dropsIndications: daily. Seasonal allergies amitriptyline 10 mg Take 1 tablet 120 tablet 3 01/03/2019 Active tabletIndications: by mouth at Primary insomnia bedtime. Can increase up to 4 at night to help with sleep. rOPINIRole (REQUIP One by mouth 30 tablet 1 01/07/2019 Active XL) 2 mg 24 hr per day. Take tabletIndications: in the am. Paralysis agitans lisinopril 10 mg Take 1 tablet 90 tablet 2 01/13/2019 Active tablet by mouth daily. OLANZapine 5 mg Take 1/2 30 tablet 1 01/20/2019 Active tabletIndications: tablet at Bipolar 1 disorder night with option to increase to full tablet after 2 days mirtazapine Take 1 tablet 30 tablet 2 01/20/2019 Active (REMERON) 15 mg by mouth at tabletIndications: bedtime as Insomnia, needed for unspecified type Insomnia. cholestyramine 4 Take 1 Packet 160 Packet 3 02/21/2019 Active gram by mouth 4 powderIndications: (four) times Tremor, Short-term daily. memory loss divalproex 500 mg EC Take 3 tablets 270 tablet 3 03/10/2019 Active tabletIndications: by mouth Seizure disorder, daily. Bipolar 1 disorder ALPRAZOLAM 0.5 mg TAKE 1 TABLET 60 tablet 0 05/09/2019 Active tabletIndications: BY MOUTH TWICE Paralysis agitans A DAY ALPRAZolam 0.5 mg Take 1 tablet 60 tablet 0 04/02/2019 Discontinued tabletIndications: by mouth 2 9 Paralysis agitans (two) times daily. 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 CAD (coronary artery disease) 11/25/2014 Seizure disorder 11/25/2014 Bipolar 1 disorder 11/25/2014 TIA (transient ischemic attack) 11/25/2014 Insomnia 11/25/2014 documented as of this encounter (statuses as of 05/09/2019) Immunizations Name Administration Dates Next Due Influenza Virus Vaccine 06/03/2018, 06/15/2016 Tdap 11/13/2016 documented as of this encounter Social History Tobacco Use Types Packs/Day Years Used Date Former Smoker Quit: 09/28/2000 Smokeless Tobacco: Never Used Alcohol Use Drinks/Week oz/Week Comments No Sex Assigned at Date Recorded Not on file Job Start Date Occupation Industry Not on file Not on file Not on file Travel History Travel Start Travel End No recent travel history available. documented as of this encounter Last Filed Vital Signs Not on filedocumented in this encounter Plan of Treatment Date Type Specialty Care Team Description 05/12/2019 Office Visit Cardiology Seb Allison MD [address] [place] [address] [address] [place], [place] [phone] 06/10/2019 Office Visit Internal Medicine Zandra Cowart MD [address] [place] [address] [address] [place], [place] [phone] Health Maintenance Due Date Last Done Comments PNEUMOCOCCAL 0-64 YEARS 1966 COMBINED SERIES (1 of 1 - PPSV23) INFLUENZA VACCINE (#1) 2019 06/03/2018, 06/15/2016 Zoster Recombinant Vaccine 09/09/2019 Postponed from 2009 (SHINGRIX) (1 of 2) (Parent Refused) COLONOSCOPY 05/19/2024 05/19/2014 (Previously completed) DTaP,Tdap,and Td Vaccines (2 11/13/2026 11/13/2016 - Td) HEPATITIS C (HCV) SCREEN Completed 2018 documented as of this encounter Results Not on filedocumented in this encounter Visit Diagnoses Diagnosis Paralysis agitans documented in this encounter Insurance Payer Benefit Plan / Subscriber ID Effective Dates Phone Address Type Group MEDICARE MEDICARE PART xxxxxxxxxxx 1996-Rodrigo [phone] Medicare A & B t 2 [id number] [place] [address] [facility] MEDICAID OF xxxxxxxxx 2013-Rodrigo [phone] Medicaid [place] t 0 [id number] [place] [address] documented as of this encounter Advance Directives Name Relationship Healthcare Agent Communication Relationship Jodi Tatum Spouse Primary healthcare agent [phone] (Mobile) [email or web address]
--- OUTSIDE RECORDS SUMMARY | 2019-07-13 03:37 | XMS REPORT | Summary of Care ---
:1960 Author Organization [facility] Address [address] [place] [address] Care Team Providers Name Role Phone Zandra Cowart MD Primary Care Provider Seb Allison MD Unavailable Reason for Visit Reason Comments Refill Request Encounter Details Date Type Department Care Team Description 05/09/2019 Refill [facility] Cardiology- Seb Allison MD Refill Request [address] [facility], [address] [place] [address] [place] [phone] Allergies Active Allergy Reactions Severity Noted Date [...] mouth Seizure disorder, daily. Bipolar 1 disorder ALPRAZolam 0.5 mg Take 1 tablet 60 tablet 0 04/02/2019 Active tabletIndications: by mouth 2 Paralysis agitans (two) times daily. metoprolol succinate Take 1 tablet 30 tablet 0 05/09/2019 Active XL 25 mg 24 hr by mouth tablet daily. metoprolol succinate Take 1 tablet 30 tablet 5 12/19/2018 Discontinued XL 25 mg 24 hr by mouth 9 tablet daily. 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 Medicare A & B t 2 [id number] [place] [id number] [facility] MEDICAID OF xxxxxxxxx 2013-Presen [phone] [address] Medicaid [place] t 0 [id number] [place] [address] documented as of this encounter Advance Directives Name Relationship Healthcare Agent Communication Relationship Jodi Tatum Spouse Primary healthcare agent [phone] (Mobile) [email or web address]
--- OUTSIDE RECORDS SUMMARY | 2019-07-13 03:38 | XMS REPORT | Summary of Care ---
:1960 Author Organization [facility] Address [address] [place] [address] Care Team Providers Name Role Phone Zandra Cowart MD Primary Care Provider Seb [place] MD Unavailable Reason for Visit Reason Comments Hospital F/U Ekg Done in office today CAD Coronary artery disease involving [place] coronary artery of [place] heart without angina pectoris Encounter Details Date Type Department Care Team Description 05/19/2019 Office Visit [facility] Seb [place] MD Coronary artery disease involving [place] coronary artery of [place] heart without angina pectoris (Primary Dx); Cardiology- [address] Essential hypertension, benign; [address] [place] [address] DRIVE Weakness; Drive, [address] Fall, initial encounter; [place] [address] Chronic systolic heart failure [id number] Allergies Active Allergy Reactions Severity Noted Date Comments Aripiprazole Other - See comments 11/12/2014 insomnia Trazodone Other - See comments 11/12/2014 insomnia documented as of this encounter (statuses as of 05/19/2019) Medications Medication Sig Dispensed Refills Start Date End Date Status aspirin 325 mg tablet Take 325 mg by 0 Active mouth daily. OMEGA-3 FATTY Take by mouth 0 Active ACIDS/FISH OIL (OMEGA 3 daily. FISH OIL ORAL) Cholecalciferol, Take by mouth 0 Active Vitamin D3, (VITAMIN daily. D3) 2,000 unit Cap VITAMIN E, Take 200 Units 0 Active DL,TOCOPHERYL ACET, by mouth daily. (VITAMIN E, DL, ACETATE, ORAL) atorvastatin 40 mg Take 1 tablet by 90 tablet 3 08/08/2018 Active tablet mouth daily. Diclofenac Sodium Apply to 300 g 3 09/09/2018 Active (VOLTAREN) 1 % area(s) 2 (two) gelIndications: Chronic times daily as midline low back pain needed for Pain without sciatica (scale 4-6). Olopatadine 0.2 % Place 1 Drop in 2.5 mL 3 12/09/2018 Active ophthalmic each eye daily. dropsIndications: Seasonal allergies amitriptyline 10 mg Take 1 tablet by 120 tablet 3 01/03/2019 Active tabletIndications: mouth at Primary insomnia bedtime. Can increase up to 4 at night to help with sleep. rOPINIRole (REQUIP XL) One by mouth per 30 tablet 1 01/07/2019 Active 2 mg 24 hr day. Take in the tabletIndications: am. Paralysis agitans lisinopril 10 mg tablet Take 1 tablet by 90 tablet 2 01/13/2019 Active mouth daily. OLANZapine 5 mg Take 1/2 tablet 30 tablet 1 01/20/2019 Active tabletIndications: at night with Bipolar 1 disorder option to increase to full tablet after 2 days mirtazapine (REMERON) Take 1 tablet by 30 tablet 2 01/20/2019 Active 15 mg mouth at bedtime tabletIndications: as needed for Insomnia, unspecified Insomnia. type cholestyramine 4 gram Take 1 Packet by 160 Packet 3 02/21/2019 Active powderIndications: mouth 4 (four) Tremor, Short-term times daily. memory loss divalproex 500 mg EC Take 3 tablets 270 tablet 3 03/10/2019 Active tabletIndications: by mouth daily. Seizure disorder, Bipolar 1 disorder ALPRAZOLAM 0.5 mg TAKE 1 TABLET BY 60 tablet 0 05/09/2019 Active tabletIndications: MOUTH TWICE A Paralysis agitans DAY metoprolol succinate XL Take 1 tablet by 30 tablet 0 05/09/2019 Active 25 mg 24 hr tablet mouth daily. 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 CAD (coronary artery disease) 11/25/2014 Seizure disorder 11/25/2014 Bipolar 1 disorder 11/25/2014 TIA (transient ischemic attack) 11/25/2014 Insomnia 11/25/2014 documented as of this encounter (statuses as of 05/19/2019) Immunizations Name Administration Dates Next Due Influenza [...] of this encounter Last Filed Vital Signs Vital Sign Reading Time Taken Comments Blood Pressure 119/83 05/19/2019 2:08 PM CDT Pulse 72 05/19/2019 2:08 PM CDT Temperature - - Respiratory Rate 19 05/19/2019 2:08 PM CDT Oxygen Saturation 96% 05/19/2019 2:08 PM CDT Inhaled Oxygen Concentration - - Weight 69.1 kg (152 lb 4.8 oz) 05/19/2019 2:08 PM CDT Height 162.6 cm (5' 4") 05/19/2019 2:08 PM CDT Body Mass Index 26.14 05/19/2019 2:08 PM CDT documented in this encounter Progress Notes Seb [place] MD - 05/19/2019 2:40 PM CDT CARDIOLOGY CLINIC NOTE 05/19/2019 Reason for Referral/Presenting Complaint: CAD, HTN, HFrEF PCP: Zandra Cowart History of Present Illness: Jd Rico is a 58 years old male with history of HTN, HLD, CAD AR s/p PCI in 1998, ICMP [id number]%, stroke, bipolar, anxiety, and seizure. He had AR in 1998. He underwent PCI with stenting in [place]. Stress test 2012-- reportedly normal. His activity level is normal. NO chest pain or GUERIN. Last ECHO in 09/2016 showed LVEF 35-40%. Last visitwe adjusted BP medications. His BP is normal now. No chest pain, dyspnea, or edema. No changes sincelast visit. In 04/2019 while at home he felt weak and fell. No syncope. Sharp chest pain lasting seconds before the fall. He went o [facility]. Unclear what was done. Possible stress test done. Past Medical History: Past Medical History: Diagnosis Date Anxiety Bipolar 1 disorder CAD (coronary artery disease) Hypertension Other and unspecified hyperlipidemia Seizures 2012 Stroke 2006 lost peripheral vision Current Medications: Current Outpatient Medications Medication Sig Dispense Refill ALPRAZOLAM 0.5 mg tablet TAKE 1 TABLET BY MOUTH TWICE A DAY 60 tablet 0 metoprolol succinate XL 25 mg 24 hr tablet Take 1 tablet by mouth daily. 30 tablet 0 divalproex 500 mg EC tablet Take 3 tablets by mouth daily. 270 tablet 3 cholestyramine 4 gram powder Take 1 Packet by mouth 4 (four) times daily. 160 Packet 3 mirtazapine (REMERON) 15 mg tablet Take 1 tablet by mouth at bedtime as needed for Insomnia. 30 tablet 2 OLANZapine 5 mg tablet Take 1/2 tablet at night with option to increase to full tablet after 2 days 30 tablet 1 lisinopril 10 mg tablet Take 1 tablet by mouth daily. 90 tablet 2 rOPINIRole (REQUIP XL) 2 mg 24 hr tablet One by mouth per day. Take in the am. 30 tablet 1 amitriptyline 10 mg tablet Take 1 tablet by mouth at bedtime. Can increase up to 4 at night to help with sleep. 120 tablet 3 Olopatadine 0.2 % ophthalmic drops Place 1 Drop in each eye daily. 2.5 mL 3 Diclofenac Sodium (VOLTAREN) 1 % gel Apply to area(s) 2 (two) times daily as needed for Pain (scale 4-6). 300 g 3 atorvastatin 40 mg tablet Take 1 tablet by mouth daily. 90 tablet 3 aspirin 325 mg tablet Take 325 mg by mouth daily. Cholecalciferol, Vitamin D3, (VITAMIN D3) 2,000 unit Cap Take by mouth daily. OMEGA-3 FATTY ACIDS/FISH OIL (OMEGA 3 FISH OIL ORAL) Take by mouth daily. VITAMIN E, DL,TOCOPHERYL ACET, (VITAMIN E, DL, ACETATE, ORAL) Take 200 Units by mouth daily. No current facility-administered medications for this visit. Allergies: Allergies Allergen Reactions Abilify [Aripiprazole] Other - See comments insomnia Trazodone Other - See comments insomnia Social History: Social History Socioeconomic History Marital status: Spouse name: Not on file Number of children: Not on file Years of education: Not on file Highest education level: Not on file Occupational History Not on file Social Needs Financial resource strain: Not on file Food insecurity: Worry: Not on file Inability: Not on file Transportation needs: Medical: Not on file Non-medical: Not on file Tobacco Use Smoking status: Former Smoker Last attempt to quit: 09/28/2000 Years since quittin.6 Smokeless tobacco: Never Used Substance and Sexual Activity Alcohol use: No Drug use: No Sexual activity: Not on file Lifestyle Physical activity: Days per week: Not on file Minutes per session: Not on file Stress: Not on file Relationships Social connections: Talks on phone: Not on file Gets together: Not on file Attends yazidi service: Not on file Active member of club or organization: Not on file Attends meetings of clubs or organizations: Not on file Relationship status: Not on file Intimate partner violence: Fear of current or ex partner: Not on file Emotionally abused: Not on file Physically abused: Not on file Forced sexual activity: Not on file Other Topics Concern Not on file Social History Narrative Not on file Family History Family History Problem Relation Age of Onset Heart Father CABG@72 Review of Systems: (-)=Negative,(+)=Positive General: (-) fever, (-) chills, (-) weight change, (-) dizziness, (-) fatigue Skin: (-) rash HEENT: (-) headache, (-) change in vision Neck: (-) difficulty swallowing Heme: negative Resp: (-) cough, (-) dyspnea on exertion Cardio: (-) chest pain, (-) palpitations, (-) syncope GI: (-) vomiting, (-) diarrhea : negative Endo: (-) diabetes, (-) thyroid disease Neuro: (-) numbness, (-) tingling, (-) weakness Back: (-) pain CATALINO: (-) muscle pain, (-) claudication Psych: (-) anxiety, (-) depression Physical Examination: BP 119/83 (BP Location: Left arm, Patient Position: Sitting, BP CUFF SIZE: Adult Medium) | Pulse 72 | Resp 19 | Ht 5' 4" (1.626 m) | Wt 152 lb 4.8 oz ( 69.1 kg) | SpO2 96% | BMI 26.14 kg/m Constitutional: alert and oriented x 3 (person, place and date/time); no apparent distress ENT: normocephalic atraumatic, supple, no lymphadenopathy, no bruits, no JVD Lungs: clear to auscultation bilaterally Cardiovascular: S1, S2 normal, regular; no murmurs, rubs or gallops GI: soft; non-tender; non-distended; normoactive bowel sounds : not examined Musculoskeletal: Extremities: no clubbing, cyanosis, or edema Skin: no rashes Neuro: no focal deficits Labs: CBC BMP PT/INR WBC (10*3/L) Date Value 2018 5.54 NA (mmol/L) Date Value 09/09/2018 139 No results found for: PT PLT (10*3/L) Date Value 2018 159 K (mmol/L) Date Value 09/09/2018 5.0 No results found for: PTINR HGB (g/dL) Date Value 2018 15.4 BUN (mg/dL) Date Value 09/09/2018 27 (H) HCT (%) Date Value 2018 45.2 CREATININE (mg/dL) Date Value 09/09/2018 1.20 LIPID PROFILE GLUCOSE (mg/dL) Date Value 09/09/2018 83 CHOL (mg/dL) Date Value 2018 160 TSH LDL CHOL (mg/dL) Date Value 2018 75 TSH (mIU/L) Date Value 2018 2.33 CARDIAC ENZYMES HDL (mg/dL) Date Value 2018 57 No results found for: CK TRIG (mg/dL) Date Value 2018 140 LFTs No results found for: CKMB AST(SGOT) (U/L) Date Value 09/09/2018 21 No results found for: TROPNI ALT(SGPT) (U/L) Date Value 09/09/2018 17 No results found for: BNP EKG: Sinus bradycardia, HR 49 bpm, anteroseptal infarct, probably old. ST-T abnormalities suggesting anterolateral ischemia. 05/19/2019 --- reviewed by me---Sinus rhythm, HR 67 bpm, anteroseptal infarct Cardiac Cath: 1998--PCI with stenting Stress Test: 2012--Nuclear stress test--no ischemia ECHO Left ventricular systolic function is moderately reduced. Ejection Fraction=35- 40%. Diastolic dysfunction. There are regional wall motion abnormalities as specified. Assessment/Plan: ICD-10-CM ICD-9-CM 1. Fall, initial encounter W19.XXXA E888.9 2. Essential hypertension, benign I10 401.1 3. Weakness R53.1 780.79 4. Chronic systolic heart failure I50.22 428.22 5. Coronary artery disease involving [place] coronary artery of [place] heart without angina pectoris I25.10 414.01 Weakness and fall--Unclear etiology. Different from previous cardiac symptoms. Will request records to decide on ECHO and stress test. HTN--Now well controlled. Will continue lisinopril/HCTZ 2 tablets daily. Continue Toprol XL 50 mg daily. HLD--His LDL was 75 in 2018. On lipitor 40 mg daily. CAD--s/p PCI. No angina. Continue ASA/metoprolol. HFrEF--No clinical volume overload. LVEF is stable. Not on lasix RTC 6 months if testing normal Seb [place] MD, FACC, FACP, ЕКАТЕРИНА Coverage Specialist, Division of Cardiology [facility] documented in this encounter Plan of Treatment Date Type Specialty Care Team Description 06/02/2019 Office Visit Internal Medicine Zandra Cowart MD [address] [place] [address] Dr Lu[address] [place] [address] [phone] 06/10/2019 Office Visit Internal Medicine Zandra Cowart MD [address] [place] [address] Dr Lu[address] [place] [address] [phone] 11/17/2019 Office Visit Cardiology Seb [place] MD [address] [place] [address] [address] [place], [place] 939385 Name Type Priority Associated Diagnoses Order Schedule EKG-12 LEAD ROUTINE HEART STATION Routine Essential Ordered: 05/19/2019 hypertension, benign Health Maintenance Due Date Last Done Comments [...] filedocumented in this encounter Visit Diagnoses Diagnosis Coronary artery disease involving [place] coronary artery of [place] heart without angina pectoris - Primary Essential hypertension, benign Weakness Other malaise and fatigue Fall, initial encounter Chronic systolic heart failure documented in this encounter Insurance Payer Benefit Plan / Subscriber ID Effective Dates Phone Address Type Group MEDICARE MEDICARE PART xxxxxxxxxxx 1996-Presen [phone] [address] Medicare A & B t 2 [id number] [place] [address] [facility] MEDICAID OF xxxxxxxxx 2013-Presen [phone] [address] Medicaid [place] t 0 [id number] [place] [address] documented as of this encounter Advance Directives Name Relationship Healthcare Agent Communication Relationship Jodi Tatum Spouse Primary healthcare agent [phone] (Mobile) [email or web address]
--- OUTSIDE RECORDS SUMMARY | 2019-07-13 03:38 | XMS REPORT | Summary of Care ---
:1960 Author Organization [facility] Address [address] [place] [address] Care Team Providers Name Role Phone Zandra Cowart MD Primary Care Provider Seb [place] MD Unavailable Reason for Visit Reason Comments Rx Concern/Question Encounter Details Date Type Department Care Team Description 05/09/2019 Telephone [facility] Cardiology- Seb [place] MD Rx Concern/Question [address], [address] [place] [address] [place], [place] 404175 Allergies Active Allergy Reactions Severity Noted Date Comments Aripiprazole Other - See comments 11/12/2014 insomnia Trazodone Other - See comments 11/12/2014 insomnia documented as of this encounter (statuses as of 05/12/2019) Medications Medication Sig Dispensed Refills Start Date [...] as of this encounter (statuses as of 05/12/2019) Active Problems Problem Noted Date Essential hypertension, benign 11/25/2014 Mixed hyperlipidemia 11/25/2014 Osteoarthritis 11/25/2014 Anxiety 11/25/2014 Vitamin D deficiency 11/25/2014 Overview: ICD10 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 CAD (coronary artery disease) 11/25/2014 Seizure disorder 11/25/2014 Bipolar 1 disorder 11/25/2014 TIA (transient ischemic attack) 11/25/2014 Insomnia 11/25/2014 documented as of this encounter (statuses as of 05/12/2019) Immunizations Name Administration Dates Next Due Influenza [...] Treatment Date Type Specialty Care Team Description 05/19/2019 Office Visit Cardiology Seb [place] MD [address] [place] [address] [address] [place], [place] [phone] 06/02/2019 Office Visit Internal Medicine Zandra Cowart MD [address] [place] [address] Dr Lu[address] [place] [address] [phone] 06/10/2019 Office Visit Internal Medicine Zandra Cowart MD [address] [place] [address] Dr Lu[address] [place] [address] [phone] Health Maintenance Due Date Last Done Comments [...] MEDICARE PART xxxxxxxxxxx 1996-Rodrigo [phone] [address] [facility] Medicare A & B t 2 [id number] [place] [id number] [facility] MEDICAID OF xxxxxxxxx 2013-Presen [phone] [address] Medicaid [place] t 0 [id number] [place] [address] documented as of this encounter Advance Directives Name Relationship Healthcare Agent Communication Relationship Jodi Tatum Spouse Primary healthcare agent [phone] (Mobile) [email or web address]
--- OUTSIDE RECORDS SUMMARY | 2019-07-13 03:38 | XMS REPORT | Summary of Care ---
:1960 Author Organization [facility] Address [address] [place] [address] Care Team Providers Name Role Phone Zandra Cowart MD Primary Care Provider Seb [place] MD Unavailable Reason for Visit Reason Comments Hospital F/U Ekg Done in office today CAD Coronary artery disease involving [place] coronary artery of [place] heart without angina pectoris Encounter Details Date Type Department Care Team Description 05/19/2019 Office Visit [facility] Seb [place] MD Coronary artery disease involving [place] coronary artery of [place] heart without angina pectoris (Primary Dx); Cardiology- [address] Essential hypertension, benign; [address] [place] [address] DRIVE Weakness; [address], [address] Fall, initial encounter; [place] [address] Chronic systolic heart failure [id number] Allergies Active Allergy Reactions Severity Noted Date [...] D deficiency 11/25/2014 Overview: ICD10 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 He had SD in 1998. He underwent PCI with stenting in [place]. Stress test 2012-- reportedly normal. His activity [...] seconds before the fall. He went o [facility]. Unclear what was done. Possible stress [...] file Gets together: Not on file Attends sabianist service: Not on file Active member of [...] I50.22 428.22 5. Coronary artery disease involving [place] coronary artery of [place] heart without angina pectoris I25.10 414.01 Weakness [...] normal Seb [place] MD, FACC, FACP, ЕКАТЕРИНА Credit Assessment Analyst, Division of Cardiology [facility] documented in this encounter Plan of Treatment Date Type Specialty Care Team Description 06/02/2019 Office Visit Internal Medicine Zandra Cowart MD [address] [place] [address] Dr Lu[address] [place] [address] [phone] 06/10/2019 Office Visit Internal Medicine Zandra Cowart MD [address] [place] [address] Dr Lu[address] [place] [address] [phone] 11/17/2019 Office Visit Cardiology Seb [place] MD [address] [place] [address] [address] [place], [place] 300155 Name Type Priority Associated Diagnoses Order Schedule [...] Visit Diagnoses Diagnosis Coronary artery disease involving [place] coronary artery of [place] heart without angina pectoris - Primary Essential hypertension, benign Weakness Other malaise and fatigue Fall, initial encounter Chronic systolic heart failure documented in this encounter Insurance Payer Benefit Plan / Subscriber ID Effective Dates Phone Address Type Group MEDICARE MEDICARE PART xxxxxxxxxxx 1996-Presen [phone] [address] Medicare A & B t 2 [id number] [place] [address] [facility] MEDICAID OF xxxxxxxxx 2013-Presen [phone] [address] Medicaid [place] t 0 [id number] [place] [address] documented as of this encounter Advance Directives Name Relationship Healthcare Agent Communication Relationship Jodi Tatum Spouse Primary healthcare agent [phone] (Mobile) [email or web address]
--- OUTSIDE RECORDS SUMMARY | 2019-07-13 03:39 | XMS REPORT | Summary of Care ---
:1960 Author Organization [facility] - Health Address [address] [place] [address] Care Team Providers Name Role Phone Zandra Cowart MD Primary Care Provider Seb [place] MD Unavailable Reason for Visit Reason Comments Refill Request Encounter Details Date Type Department Care Team Description 05/23/[address] [facility] Pediatric and Zandra Cowart, Refill Request Adult Primary Care- [address] [facility], [address] [place] [address] [place] [address] Allergies Active Allergy Reactions Severity Noted Date Comments Aripiprazole Other - See comments 11/12/2014 insomnia Trazodone Other - See comments 11/12/2014 insomnia documented as of this encounter (statuses as of 05/23/2019) Medications Medication Sig Dispensed Refills Start Date [...] 3 08/08/2018 Active tablet by mouth daily. Olopatadine 0.2 % Place 1 Drop 2.5 [...] BY MOUTH TWICE Paralysis agitans A DAY metoprolol succinate Take 1 tablet 30 tablet 0 05/09/2019 Active XL 25 mg 24 hr by mouth tablet daily. DICLOFENAC SODIUM 1 APPLY TO 900 g 1 05/23/2019 Active % gelIndications: AREA(S) 2 Chronic midline low (TWO) TIMES back pain without DAILY sciatica NEEDED FOR PAIN (SCALE 4-6). Diclofenac Sodium Apply to 300 g 3 09/09/2018 Discontinued (VOLTAREN) 1 % area(s) 2 9 gelIndications: (two) times Chronic midline low daily as back pain without needed for sciatica Pain (scale 4-6). 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 CAD (coronary artery disease) 11/25/2014 Seizure disorder 11/25/2014 Bipolar 1 disorder 11/25/2014 TIA (transient ischemic attack) 11/25/2014 Insomnia 11/25/2014 documented as of this encounter (statuses as of 05/23/2019) Immunizations Name Administration Dates Next Due Influenza [...] Treatment Date Type Specialty Care Team Description 06/10/2019 Office Visit Internal Medicine Zandra Cowart MD [address] [place] [address] Dr Lujan [address] [place] [address] [phone] 07/03/2019 Office Visit Internal Medicine Zandra Cowart MD [address] [place] [address] Dr Lujan [address] [place] [address] [phone] 11/17/2019 Office Visit Cardiology Seb [place] MD [address] [place] [address] [address] [place], [place] 588155 Health Maintenance Due Date Last Done Comments [...] filedocumented in this encounter Visit Diagnoses Diagnosis Chronic midline low back pain without sciatica documented in this encounter Insurance Payer Benefit Plan / Subscriber ID Effective Dates Phone Address Type Group MEDICARE MEDICARE PART xxxxxxxxxxx 1996-Rodrigo [phone] [address] Medicare A & B t 2 [id number] [place] [address] [facility] MEDICAID OF xxxxxxxxx 2013-Rodrigo [phone] [address] Medicaid [place] t 0 [id number] [place] [address] documented as of this encounter Advance Directives Name Relationship Healthcare Agent Communication Relationship Jodi Tatum Spouse Primary healthcare agent [phone] (Mobile) [email or web address]
--- OUTSIDE RECORDS SUMMARY | 2019-07-13 03:39 | XMS REPORT | Summary of Care ---
:1960 Author Organization [facility] Health Address [address] [place] [address] Care Team Providers Name Role Phone Zandra Cowart MD Primary Care Provider Seb Allison MD Unavailable Encounter Details Date Type Department Care Team Description 05/19/2019 Orders Only [facility] Doctor Unassigned, No [address] [facility] [place] [address] [place] [address] Allergies Active Allergy Reactions Severity Noted Date Comments Aripiprazole Other - See comments 11/12/2014 insomnia Trazodone Other - See comments 11/12/2014 insomnia documented as of this encounter (statuses as of 05/22/2019) Medications Medication Sig Dispensed Refills Start Date [...] as of this encounter (statuses as of 05/22/2019) Active Problems Problem Noted Date Essential hypertension, benign 11/25/2014 Mixed hyperlipidemia 11/25/2014 Osteoarthritis 11/25/2014 Anxiety 11/25/2014 Vitamin D deficiency 11/25/2014 Overview: ICD10 Diagnosis Term Appeals Assistant Utility CAD (coronary artery disease) 11/25/2014 Seizure disorder 11/25/2014 Bipolar 1 disorder 11/25/2014 TIA (transient ischemic attack) 11/25/2014 Insomnia 11/25/2014 documented as of this encounter (statuses as of 05/22/2019) Immunizations Name Administration Dates Next Due Influenza [...] Office Visit Internal Medicine Zandra Cowart MD [address] [place] [address] Dr Lujan [address] [place] [address] [phone] 07/03/2019 Office Visit Internal Medicine Zandra Cowart MD [address] [place] [address] Dr Lujan [address] [place] [address] [id number] 11/17/2019 Office Visit Cardiology Seb Allison MD [address] [place] [address] [address] [place], [place] [id number] Health Maintenance Due Date Last Done Comments PNEUMOCOCCAL 0-64 YEARS 1966 COMBINED SERIES (1 of 1 - PPSV23) INFLUENZA VACCINE (#1) 2019 06/03/2018, 06/15/2016 Zoster Recombinant Vaccine 09/09/2019 Postponed from 2009 (SHINGRIX) (1 of 2) (Parent Refused) COLONOSCOPY 05/19/2024 05/19/2014 (Previously completed) DTaP,Tdap,and Td Vaccines (2 11/13/2026 11/13/2016 - Td) HEPATITIS C (HCV) SCREEN Completed 2018 documented as of this encounter Procedures Procedure Name Priority Date/Time Associated Diagnosis Comments AUTHORIZATION TO RELEASE Routine 05/19/2019 12:01 AM PHI TO [facility] CDT documented in this encounter Results Not on filedocumented in this encounter Insurance Payer Benefit Plan / Subscriber ID Effective Dates Phone Address Type Group MEDICARE MEDICARE PART xxxxxxxxxxx 1996-Rodrigo [phone] [address] Medicare A & B t 2 [id number] [place] [id number] [employer] MEDICAID OF xxxxxxxxx 2013-Presen [phone] Medicaid [place] [id number] [place] [address] documented as of this encounter Advance Directives Name Relationship Healthcare Agent Communication Relationship Jodi Tatum Spouse Primary healthcare agent [phone] (Mobile) [email or web address]
--- OUTSIDE RECORDS SUMMARY | 2019-07-13 03:39 | XMS REPORT | Clinical Summary ---
:1960 Author Organization [facility] Address [address] [place] [address] Care Team Providers Name Role Phone Zandra Cowart MD Primary Care Provider Seb Allison MD Unavailable Allergies Active Allergy Reactions Severity Noted Date Comments Aripiprazole Other - See comments 11/12/2014 insomnia Trazodone Other - See comments 11/12/2014 insomnia Medications Medication Sig Dispensed Refills Start Date [...] tablet 3 08/08/2018 Active tablet mouth daily. Olopatadine 0.2 % Place 1 Drop in [...] increase to full tablet after 2 days cholestyramine 4 gram Take 1 Packet by [...] 25 mg 24 hr tablet mouth daily. DICLOFENAC SODIUM 1 % APPLY TO AREA(S) 900 g 1 05/23/2019 Active gelIndications: Chronic 2 (TWO) TIMES midline low back pain DAILY NEEDED without sciatica FOR PAIN (SCALE 4-6). mirtazapine (REMERON) Take 1 tablet by 30 tablet 0 06/09/2019 Active 15 mg mouth at bedtime tabletIndications: as needed for Insomnia, unspecified Insomnia. type Active Problems Problem Noted Date Essential hypertension, benign 11/25/2014 Mixed hyperlipidemia 11/25/2014 Osteoarthritis 11/25/2014 Anxiety 11/25/2014 Vitamin D deficiency 11/25/2014 Overview: ICD10 Diagnosis Term Remedy Developer Utility CAD (coronary artery disease) 11/25/2014 Seizure disorder 11/25/2014 Bipolar 1 disorder 11/25/2014 TIA (transient ischemic attack) 11/25/2014 Insomnia 11/25/2014 Encounters Date Type Specialty Care Team Description 05/23/2019 Refill Internal Medicine Zandra Cowart Refill Request MD Sammy 05/19/2019 Office Visit Cardiology Seb Allison MD Coronary artery disease involving tangirnaq coronary artery of tangirnaq heart without angina pectoris (Primary Dx); Essential hypertension, benign; Weakness; Fall, initial encounter; Chronic systolic heart failure 05/19/2019 Orders Only Doctor Unassigned, [place] 05/09/2019 Telephone Cardiology Seb Allison MD Rx Concern/Question 05/09/2019 Refill Cardiology Seb Allison MD Refill Request 05/08/2019 Refill Neurology Laith Lopez Refill Request MD 04/15/2019 Telephone Internal Medicine Zandra Cowart MD 04/04/2019 Telephone Internal Medicine Zandra Cowart MD 04/02/2019 Refill Neurology Laith Lopez Refill Request from Last 3 Months Immunizations Name Administration Dates Next Due Influenza Virus Vaccine 06/03/2018, 06/15/2016 Tdap 11/13/2016 Family History Medical History Relation Name Comments Heart Father [id number] Relation Name Status Comments Father Social History Tobacco Use Types Packs/Day Years Used Date Former Smoker Quit: 09/28/2000 Smokeless Tobacco: Never Used Tobacco Cessation: Counseling Given: No Alcohol Use Drinks/Week oz/Week Comments No Sex Assigned at Date Recorded Not on file Job Start Date Occupation Industry Not on file Not on file Not on file Travel History Travel Start Travel End No recent travel history available. Last Filed Vital Signs Vital Sign Reading Time Taken Comments Blood Pressure 119/83 05/19/2019 2:08 PM CDT Pulse 72 05/19/2019 2:08 PM CDT Temperature 36.6 C (97.9 F) 02/04/2019 2:23 PM CDT Respiratory Rate 19 05/19/2019 2:08 PM CDT Oxygen Saturation 96% 05/19/2019 2:08 PM CDT Inhaled Oxygen Concentration - - Weight 69.1 kg (152 lb 4.8 oz) 05/19/2019 2:08 PM CDT Height 162.6 cm (5' 4") 05/19/2019 2:08 PM CDT Body Mass Index 26.14 05/19/2019 2:08 PM CDT Plan of Treatment Date Type Specialty Care Team Description 06/10/2019 Office Visit Internal Medicine Zandra Cowart MD [address] [place] [address] Dr Lu[address] [place] [address] [phone] 07/03/2019 Office Visit Internal Medicine Zandra Cowart MD [address] [place] [address] Dr Lu[address] [place] [address] [phone] 11/17/2019 Office Visit Cardiology Seb Allison MD [address] [place] [address] [address] [place] [address] [phone] Health Maintenance Due Date Last Done Comments PNEUMOCOCCAL 0-64 YEARS 1966 COMBINED SERIES (1 of 1 - PPSV23) INFLUENZA VACCINE (#1) 2019 06/03/2018, 06/15/2016 Zoster Recombinant Vaccine 09/09/2019 Postponed from 2009 (SHINGRIX) (1 of 2) (Parent Refused) COLONOSCOPY 05/19/2024 05/19/2014 (Previously completed) DTaP,Tdap,and Td Vaccines (2 11/13/2026 11/13/2016 - Td) HEPATITIS C (HCV) SCREEN Completed 2018 Procedures Procedure Name Priority Date/Time Associated Diagnosis Comments EXTERNAL PROVIDER - ADC Routine 05/23/2019 12:01 AM CARDIOLOGY CDT EKG-12 LEAD Routine 05/19/2019 2:02 PM CDT AUTHORIZATION TO RELEASE Routine 05/19/2019 12:01 AM PHI TO [facility] CDT from Last 3 Months Results EXTERNAL PROVIDER - ADC CARDIOLOGY (05/23/2019 12:01 AM CDT) Specimen Performing Organization Address City/State/Zipcode Phone Number HIM EKG-12 LEAD (05/19/2019 2:02 PM CDT) Specimen Performing Organization Address City/State/Zipcode Phone Number HST AUTHORIZATION TO RELEASE PHI TO [facility] (05/19/2019 12:01 AM CDT) Specimen Performing Organization Address City/State/Zipcode Phone Number HIM from Last 3 Months Insurance Payer Benefit Plan / Subscriber ID Effective Dates Phone Address Type Group MEDICARE MEDICARE PART xxxxxxxxxxx 1996-Rodrigo [id number] Medicare A & B t 2 [id number] [place] [id number] [facility] MEDICAID OF xxxxxxxxx 2013-Rodrigo [phone] [address] Medicaid [place] t 0 [id number] [place] [address] Advance Directives Name Relationship Healthcare Agent Communication Relationship Jodi Tatum Spouse Primary healthcare agent [phone] (Mobile) [email or web address]
== END 2019-06-23 12:39 | disposition home or self-care (01) ==
LOC: ER 19:10 → EEVIPCON 23:30 → INTOOBSV 23:30 → 4TH 23:30
PROVIDERS: ADMIT Internal Medicine; ATTEND Internal Medicine
DX: R42 Dizziness and giddiness (principal); R11.2 Nausea with vomiting, unspecified; G20 Parkinson's disease; G40.909 Epilepsy, unspecified, not intractable, without status epilepticus; I25.10 Atherosclerotic heart disease of native coronary artery without angina pectoris; I25.2 Old myocardial infarction; Z86.73 Personal history of transient ischemic attack (TIA), and cerebral infarction without residual deficits; Z95.5 Presence of coronary angioplasty implant and graft
CPT/HCPCS: 96361; 93005; 93306; 85025 ×2; 80048 ×2; 36415; 83735 ×2; 82550; 84100; 85610; 80061 ×2; 80076; 80164; 84443; 81003; 84484 ×3; 82553; 83690; 83880; 70450; 71045; 93880; 70551; 92610; 94760 ×2; 96375; 96374; 99285; J1650; J7030 ×2; J2405; G0378 ×2

== ENCOUNTER 2019-07-23 14:08 | Emergency (ER) | payer OTHER ==
--- OUTSIDE RECORDS SUMMARY | 2019-07-23 14:10 | XMS REPORT ---
:1960 Author Organization [facility] Address [address] [place] [address] Dr. Mejia [address] [place] [address] Care Team Providers Name Role Phone Unavailable Unavailable Unavailable Problems This patient has no known problems. Allergies, Adverse Reactions, Alerts This patient has no known allergies or adverse reactions. Medications This patient has no known medications.
--- OUTSIDE RECORDS SUMMARY | 2019-07-23 14:13 | XMS REPORT | Clinical Summary ---
:1960 Author Organization [facility] Address [address] [place] [address] Care Team Providers Name Role Phone Zandra Cowart MD Primary Care Provider Seb Allison MD Unavailable Allergies Active Allergy Reactions Severity Noted Date Comments Aripiprazole Other - See comments 11/12/2014 insomnia Trazodone Other - See comments 11/12/2014 insomnia Medications Medication Sig Dispensed Refills Start Date End Date Status OMEGA-3 FATTY Take by mouth 0 Active [...] ophthalmic each eye daily. dropsIndications: Seasonal allergies rOPINIRole (REQUIP XL) One by mouth per 30 tablet 1 01/07/2019 Active 2 mg 24 hr day. Take in the tabletIndications: am. Paralysis agitans lisinopril 10 mg tablet Take 1 tablet by 90 tablet 2 01/13/2019 Active mouth daily. cholestyramine 4 gram Take 1 Packet by 160 Packet 3 02/21/2019 Active powderIndications: mouth 4 (four) Tremor, Short-term times daily. memory loss divalproex 500 mg EC Take 3 tablets 270 tablet 3 03/10/2019 Active tabletIndications: by mouth daily. Seizure disorder, Bipolar 1 disorder DICLOFENAC SODIUM 1 % APPLY TO AREA(S) 900 g 1 05/23/2019 Active gelIndications: Chronic 2 (TWO) TIMES midline low back pain DAILY NEEDED without sciatica FOR PAIN (SCALE 4-6). ALPRAZOLAM 0.5 mg TAKE 1 TABLET BY 60 tablet 0 06/11/2019 Active tabletIndications: MOUTH TWICE A Paralysis agitans DAY atorvastatin 20 mg Take 1 tablet by 30 tablet 3 06/20/2019 Active tabletIndications: mouth at Coronary artery disease bedtime. Take involving spokane with 40mg coronary artery of atorvastatin. [place]ok[place] heart without angina pectoris amitriptyline 10 mg Take 1 tablet by 120 tablet 3 07/02/2019 Active tabletIndications: mouth at Primary insomnia bedtime. Can increase up to 4 at night to help with sleep. aspirin 81 mg EC Take 1 tablet by 0 07/01/2019 Active tabletIndications: mouth daily. Essential hypertension, benign cloNIDine 0.1 mg 2 times a day as 10 tablet 0 07/01/2019 Active tabletIndications: needed for SBP > Essential hypertension, 180 mmHg benign metoprolol succinate XL Take 1 tablet by 30 tablet 0 07/11/2019 Active 25 mg 24 hr tablet mouth daily. mirtazapine (REMERON) Take 1 tablet by 30 tablet 2 07/14/2019 Active 15 mg mouth at bedtime tabletIndications: as needed for Insomnia, unspecified Insomnia. type OLANZapine 5 mg Take 1 tablet by 30 tablet 2 07/14/2019 Active tabletIndications: mouth at Bipolar 1 disorder bedtime. 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 CAD (coronary artery disease) 11/25/2014 Seizure disorder 11/25/2014 Bipolar 1 disorder 11/25/2014 TIA (transient ischemic attack) 11/25/2014 Insomnia 11/25/2014 Encounters Date Type Specialty Care Team Description 07/14/2019 Emergency Emergency Medicine Denisse Cruz, Acute right-sided PAC low back pain, unspecified whether sciatica present (Primary Dx) 07/14/2019 Orders Only Doctor Unassigned, [place] 07/11/2019 Refill Cardiology Seb Allison MD Refill Request 07/03/2019 Office Visit Internal Medicine Zandra Cowart MD 07/02/2019 Telephone Cardiology Seb Allison MD Letters (jury release) 07/01/2019 Office Visit Cardiology Seb Allison MD Essential hypertension , benign (Primary Dx); Mixed hyperlipidemia; Coronary artery disease involving spokane coronary artery of spokane heart without angina pectoris; Chronic systolic heart failure 06/24/2019 Telephone Cardiology Seb Allison MD Notification (Was just released from [facility]); Medication Dose Change (Asa , Plavix) 06/23/2019 Refill Internal Medicine Sofya, Refill Request Zandra Christianson MD 06/20/2019 Office Visit Internal Medicine Papi Cowart (Primary Dx); Zandra Christianson MD Essential hypertension, benign; Fatigue, unspecified type; Reactive depression; Memory problem; Weakness of both lower extremities; Coronary artery disease involving spokane coronary artery of spokane heart without angina pectoris; Need for vaccination; Problems with sight 06/19/2019 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 Clinical Medical Sofya, Short-term memory loss; Laboratory Zandra Chrsitianson MD Other halfway (current) drug therapy; 1, [facility] Other specified health status ; Abnormal levels of other serum enzymes 06/12/2019 Refill Neurology Laith Lopez Refill Request MD Shaka 06/11/2019 Refill Laith Cross Refill Request MD Shaka 05/23/2019 Refill Internal Medicine Sofya, Refill Request Zandra Christianson MD 05/19/2019 Office Visit Cardiology Seb Allison MD Coronary artery disease involving spokane coronary artery of spokane heart without angina pectoris (Primary Dx); Essential hypertension, benign; Weakness; Fall, initial encounter; Chronic systolic heart failure 05/19/2019 Orders Only Doctor Unassigned, [place] 05/09/2019 Telephone Cardiology Seb Allison MD Rx Concern/Question 05/09/2019 Refill Cardiology Seb Allison MD Refill Request 05/08/2019 Refill Neurology Laith Lopez Refill Request MD Shaka 04/15/2019 Telephone Internal Medicine Sofya, David Christianson MD from Last 3 Months Immunizations Name Administration Dates Next Due Influenza Virus Vaccine 06/03/2018, 06/15/2016 Influenza Virus Vaccine Recomb Quad 06/20/2019 IM, Preserv and ABX Free 18-64 YRS Pneumococcal Polysaccharide, PPSV23 06/30/2019 (Deferred: Patient Refused - (PNEUMOVAX) Patient will come back for PPSV) Tdap 11/13/2016 Family History Medical History Relation [...] Sign Reading Time Taken Comments Blood Pressure 168/100 07/14/2019 5:01 PM FRUIT OR NUT PICKER Pulse 68 07/14/2019 5:00 PM FRUIT OR NUT PICKER Temperature 37.3 C (99.1 F) 07/14/2019 5:01 PM FRUIT OR NUT PICKER Respiratory Rate 19 07/14/2019 5:00 PM FRUIT OR NUT PICKER Oxygen Saturation 100% 07/14/2019 5:00 PM FRUIT OR NUT PICKER Inhaled Oxygen Concentration - - Weight 68 kg (150 lb) 07/14/2019 5:00 PM FRUIT OR NUT PICKER Height 162.6 cm (5' 4") 07/14/2019 2:16 PM FRUIT OR NUT PICKER Body Mass Index 25.75 07/14/2019 2:16 PM FRUIT OR NUT PICKER Plan of Treatment Date Type Specialty Care Team Description 07/18/2019 Office Visit Neurology Laith Lopez MD [address] [place] [phone] 08/29/2019 Office Visit Internal Medicine Zandra Cowart MD [address] [place] [address] [address] [place], [place] [address] 11/17/2019 Office Visit Cardiology Seb Allison MD [address] [address] [address] [place] [address] Health Maintenance Due Date Last Done Comments PNEUMOCOCCAL 0-64 YEARS 1966 COMBINED SERIES (1 of 1 - PPSV23) Zoster Recombinant Vaccine 09/09/2019 Postponed from 2009 (SHINGRIX) (1 of 2) (Parent Refused) COLONOSCOPY 05/19/2024 05/19/2014 (Previously completed) DTaP,Tdap,and Td Vaccines (2 11/13/2026 11/13/2016 - Td) HEPATITIS C (HCV) SCREEN Completed 2018 INFLUENZA VACCINE Completed 06/20/2019, 06/03/2018, 06/15/2016 Procedures Procedure Name Priority Date/Time Associated Comments Diagnosis NOTICE OF PRIVACY PRACTICES Routine 07/14/2019 4:48 PM FRUIT OR NUT PICKER CONSENT/REFUSAL FOR DIAGNOSIS Routine 07/14/2019 AND TREATMENT 4:48 PM FRUIT OR NUT PICKER FLU VACC(), 50-64 Routine 06/20/2019 Need for YRS, IM, QUAD (FLUBLOK) 11:06 AM CDT vaccination TESTOSTERONE, FREE AND TOTAL Routine 06/19/2019 Short-term memory Results for 8:51 AM CDT loss this procedure are in the results section. COPPER, SERUM Routine 06/19/2019 Short-term memory Results for 8:51 AM CDT loss this procedure are in the results section. ZINC, SERUM Routine 06/19/2019 Short-term memory Results for 8:51 AM CDT loss this procedure are in the results section. FREE T3 Routine 06/19/2019 Short-term memory Results for 8:51 AM CDT loss this procedure are in the results section. FREE T4 Routine 06/19/2019 Short-term memory Results for 8:51 AM CDT loss this procedure are in the results section. THYROID STIMULATING HORMONE Routine 06/19/2019 Short-term memory Results for 8:51 AM CDT loss this procedure are in the results section. INSULIN, LEVEL Routine 06/19/2019 Short-term memory Results for 8:51 AM CDT loss this procedure are in the results section. LIPID PANEL (10588)(TOTAL Routine 06/19/2019 Short-term memory Results for CHOLESTEROL, TRIGLYCERIDES, 8:51 AM CDT loss this procedure HDL) Abnormal levels are in the of other serum results enzymes section. DEHYDROEPIANDROSTERONE Routine 06/19/2019 Short-term memory Results for SULFATE 8:51 AM CDT loss this procedure are in the results section. CORTISOL AM Routine 06/19/2019 Short-term memory Results for 8:51 AM CDT loss this procedure are in the results section. COMP. METABOLIC PANEL (44079) Routine 06/19/2019 Short-term memory Results for 8:51 AM CDT loss this procedure are in the results section. FOLATE Routine 06/19/2019 Short-term memory Results for 8:51 AM CDT loss this procedure Other moth exterminator are in the (current) drug results therapy section. VITAMIN D, 25-OH Routine 06/19/2019 Short-term memory Results for 8:51 AM CDT loss this procedure Other moth exterminator are in the (current) drug results therapy section. VITAMIN B12, LEVEL Routine 06/19/2019 Short-term memory Results for 8:51 AM CDT loss this procedure Other halfway are in the (current) drug results therapy section. VITAMIN B6, PLASMA Routine 06/19/2019 Short-term memory Results for 8:51 AM CDT loss this procedure Abnormal levels are in the of other serum results enzymes section. HOMOCYSTEINE Routine 06/19/2019 Short-term memory Results for 8:51 AM CDT loss this procedure Abnormal levels are in the of other serum results enzymes section. HIGH SENSITIVITY CRP Routine 06/19/2019 Other specified Results for 8:51 AM CDT health status this procedure Short-term memory are in the loss results section. VITAMIN B1 (THIAMINE), WHOLE Routine 06/19/2019 Short-term memory Results for BLOOD 8:51 AM CDT loss this procedure Other moth exterminator are in the (current) drug results therapy section. EXTERNAL PROVIDER - ADC Routine 05/23/2019 CARDIOLOGY 12:01 AM CDT EKG-12 LEAD Routine 05/19/2019 2:02 PM CDT AUTHORIZATION TO RELEASE PHI Routine 05/19/2019 TO [facility] 12:01 AM CDT from Last 3 Months Results NOTICE OF PRIVACY PRACTICES (07/14/2019 4:48 PM FRUIT OR NUT PICKER) Specimen Performing Organization Address City/State/Zipcode Phone Number [facility] CONSENT/REFUSAL FOR DIAGNOSIS AND TREATMENT (07/14/2019 4:48 PM FRUIT OR NUT PICKER) Specimen Performing Organization Address City/State/Zipcode Phone Number [facility] VITAMIN B1 (THIAMINE), WHOLE BLOOD (06/19/2019 8:51 AM CDT) Vitamin B1, Whole 196 (H) 70 - 180 [facility] Blood Comment: nmol/L INTERPRETIVE INFORMATION: Vitamin B1, Whole Blood This assay measures the concentration of thiamine diphosphate (TDP), the primary active form of vitamin B1. Approximately 90 percent of vitamin B1 present in whole blood is TDP. Thiamine and thiamine monophosphate, which comprise the remaining 10 percent, are not measured. Test developed and characteristics determined by [employer]. See Compliance Statement B: [email or web address]/CS Performed by [employer], [address] [place] [address] [email or web address], Paco Hale MD, Lab. Director Specimen Blood - ARM, RIGHT Performing Organization Address [facility] Cent[facility] Phone Number [facility] [address] [place] [address] FREE T3 (06/19/2019 8:51 AM CDT) FREE T3 5.25 2.77 - 5.27 pg/mL [facility] Specimen Blood - ARM, RIGHT Performing Organization Address [facility] Phone Number [facility] CLIA: [id number], [address] [place] [address] VITAMIN D, 25-OH (06/19/2019 8:51 AM CDT) VIT D 25OH 49 25 - 80 ng/mL [facility] 25-Hydroxy D3 48.6 ng/mL [facility] 25-Hydroxy D2 <2.5 ng/mL [facility] Specimen Blood - ARM, RIGHT Narrative Performed At Test developed and characteristics determined by [facility] Laboratory Services. Performing Organization Address [facility] Phone Number [facility] CLIA: [id number], [address] [place] [address] [facility] HOMOCYSTEINE (06/19/2019 8:51 AM CDT) Homocysteine 11.4 6.6 - 14.8 umol/L [facility] Specimen Blood - ARM, RIGHT Performing Organization Address [facility] Cent[facility]ode Phone Number [facility] CLIA: [id number], [address] [place] [address] [phone] [facility] HIGH SENSITIVITY CRP (06/19/2019 8:51 AM CDT) HS CRP 0.18 <0.74 mg/dL [facility] Specimen Blood - ARM, RIGHT Performing Organization Address [facility] Cent[facility]ode Phone Number [facility] CLIA: [id number], [address] [place] [address] [facility] DEHYDROEPIANDROSTERONE SULFATE (06/19/2019 8:51 AM CDT) DHEA-S 2,016.1 ng/mL [facility] Specimen Blood - ARM, RIGHT Narrative Performed At Normal Ranges for DHEA SO4 [facility] Prepubertal: 50-995 ng/mL Adult: 650-3400 ng/mL Adult levels may decrease with age after age 50. Decreased level may be seen in term pregnancies. Pubertal is based on physical examination. Performing Organization Address City/State/Zipcode Phone Number [facility] CLIA: [id number], [address] [place] [address] [phone] [facility] LIPID PANEL (65301)(TOTAL CHOLESTEROL, TRIGLYCERIDES, HDL) (06/19/2019 8:51 AM CDT) CHOL 205 (H) 120 - 200 mg/dL [facility] HDL 56 >40 mg/dL [facility] HDLC RATIO 3.7 <=5.0 [facility] TRIG 206 (H) 30 - 170 mg/dL [facility] LDL CHOL 108 <=160 mg/dL [facility] VLDL 41 5 - 60 mg/dL [facility] Specimen Blood - ARM, RIGHT Performing Organization Address City/State/Zipcode Phone Number [facility] CLIA: [id number], [address] [place] [address] COMP. METABOLIC PANEL (33559) (06/19/2019 8:51 AM CDT) NA 139 135 - 145 [facility] mmol/L [facility] K 4.4 3.5 - 5.0 [facility] mmol/L [facility] CL 102 98 - 108 mmol/L [facility] CO2 TOTAL 26 23 - 31 mmol/L [facility] AGAP 11 2 - 16 [facility] BUN 19 7 - 23 mg/dL [facility] GLUCOSE 88 70 - 110 mg/dL [facility] CREATININE 1.00 0.60 - 1.25 [facility] mg/dL HOSPITAL [facility] TOTAL BILI 0.7 0.1 - 1.1 mg/dL [facility] CALCIUM 10.4 8.6 - 10.6 [facility] mg/dL [facility] T PROTEIN 8.4 (H) 6.3 - 8.2 g/dL [facility] ALBUMIN 4.7 3.5 - 5.0 g/dL [facility] ALK PHOS 67 34 - 122 U/L [facility] ALTv 42 5 - 50 U/L [facility] AST(SGOT) 33 13 - 40 U/L [facility] eGFR Calculation 76.2 mL/min/1.73m2 [facility] ([facility] LABORATORY [place]) eGFR Calculation 92.4 mL/min/1.73m2 [facility] () [facility] Specimen Blood - ARM, RIGHT Narrative Performed At Association of Glomerular Filtration Rate (GFR) [facility] and Staging of Kidney Disease* + + +- + | GFR (mL/min/1.73 m2) | With Kidney Damage | Without Kidney Damage + + +- + | >90 | Stage one | Normal + + +- + | 60-89 | Stage two | Decreased GFR + + +- + | 30-59 | Stage three | Stage three + + +- + | 15-29 | Stage four | Stage four + + +- + | <15 (or dialysis) | Stage five | Stage five + + +- + *Each stage assumes the associated GFR level has been in effect for at least three months. Stages 1 to 5, with or without kidney disease, indicate chronic kidney disease. Notes: Determination of stages one and two (with eGFR >59mL/min/1.73 m2) requires estimation of kidney damage for at least three months as defined by structural or functional abnormalities of the kidney, manifested by either: Pathological abnormalities or Markers of kidney damage (including abnormalities in the composition of the blood or urine or abnormalities in imaging tests). Performing Organization Address [facility]/Zipcode Phone Number [facility] CLIA: [id number], [address] [place] [address] THYROID STIMULATING HORMONE (06/19/2019 8:51 AM CDT) TSH 5.02 (H) 0.45 - 4.70 mIU/L [facility] Specimen Blood - ARM, RIGHT Performing Organization Address [facility]/Zipcode Phone Number [facility] CLIA: [id number], [address] [place] [address] FREE T4 (06/19/2019 8:51 AM CDT) FREE T4 1.18 0.78 - 2.20 ng/dL [facility] Specimen Blood - ARM, RIGHT Performing Organization Address City/[facility] Phone Number [facility] CLIA: [id number], [address] [place] [address] INSULIN, LEVEL (06/19/2019 8:51 AM CDT) Insulin 23.5 (H) 1.9 - 23.0 uIU/mL [facility] Specimen Blood - ARM, RIGHT Performing Organization Address City/[facility] Centercode Phone Number [facility] CLIA: [id number], [address] [place] [address] [phone] [facility] FOLATE (06/19/2019 8:51 AM CDT) FOLATE SER 11.6 3.0 - 20.0 ng/mL [facility] Specimen Blood - ARM, RIGHT Performing Organization Address [facility] Phone Number [facility] CLIA: [id number], [address] [place] [address] [phone] [facility] VITAMIN B12, LEVEL (06/19/2019 8:51 AM CDT) VIT B12 847 240 - 930 pg/mL [facility] Specimen Blood - ARM, RIGHT Narrative Performed At Biotin has been reported to cause a positive bias, interpret [facility] results relative to patient's use of biotin. Performing Organization Address City/State/[facility] Cent[facility] Phone Number [facility] CLIA: [id number], [address] [place] [id number] [phone] [facility] CORTISOL AM (06/19/2019 8:51 AM CDT) ADELA AM 6.1 4.5 - 23.0 ug/dL [facility] Specimen Blood - ARM, RIGHT Narrative Performed At Biotin has been reported to cause a positive bias, interpret [facility] results relative to patient's use of biotin. Performing Organization Address City/State/Zipcode Phone Number [facility] CLIA: [id number], [address] [place] [address] [facility] VITAMIN B6, PLASMA (06/19/2019 8:51 AM CDT) VIT B6 270.9 (H) 20.0 - 125.0 [facility] Comment: nmol/L INTERPRETIVE INFORMATION: Vitamin B6 (Pyridoxal 5-Phosphate) Pyridoxal 5'-phosphate measured in a specimen collected following an 8-hour or overnight fast accurately indicates vitamin B6 nutritional status. Non-fasting specimen concentration reflects recent vitamin intake. Test developed and characteristics determined by [employer]. See Compliance Statement B: [employer]/CS Performed by [employer], [address], [place] [id number] [email or web address], Paco Hale MD, Lab. Director Specimen Blood - ARM, RIGHT Performing Organization Address City/[facility]/Zipcode Phone Number [facility] [address] [place] [address] TESTOSTERONE, FREE AND TOTAL (06/19/2019 8:51 AM CDT) Pathologist [facility] TESTOST 293 (L) 300 - 720 [facility] Comment: ng/dL REFERENCE INTERVAL: Testosterone, Adult Male Access complete set of age- and/or gender-specific reference intervals for this test in the [facility] Laboratory Test Directory ([employer]). Sex Hormone 87 (H) 11 - 80 [facility] Binding Globulin Comment: nmol/L REFERENCE INTERVAL: Sex Hormone Binding Globulin Access complete set of age- and/or gender-specific reference intervals for this test in the [employer] Laboratory Test Directory ([employer]). FREE TESTO 27 (L) 47 - 244 [facility] Comment: pg/mL INTERPRETIVE INFORMATION: Testosterone, Free Gagan Stage IV 35 - 169 pg/mL Gagan Stage V 41 - 239 pg/mL The concentration of Free Testosterone is derived from a mathematical expression based on the constant for the binding of testosterone to Sex Hormone Binding Globulin (SHBG). Access complete set of age- and/or gender-specific reference intervals for this test in the [employer] Laboratory Test Directory ([employer]). %FREE TEST 0.9 (L) 1.6 - 2.9 % [facility] Comment: Performed by [employer], [address] [place] [id number] [email or web address], Paco Hale MD, Lab. Director Specimen Blood - ARM, RIGHT Performing Organization Address [facility] Phone Number [facility] [address] [place] [address] ZINC, SERUM (06/19/2019 8:51 AM CDT) ZINC 96.2 60.0 - 120.0 [facility] Comment: ug/dL INTERPRETIVE INFORMATION: Zinc, Serum or Plasma Elevated results may be due to skin or collection-related contamination, including the use of a noncertified metal-free collection/transport tube. If contamination concerns exist due to elevated levels of serum/plasma zinc, confirmation with a second specimen collected in a certified metal-free tube is recommended. Circulating zinc concentrations are dependent on albumin status and are depressed with malnutrition. Zinc may also be lowered with infection, inflammation, stress, oral contraceptives, and . Zinc may be elevated with zinc supplementation or fasting. Elevated zinc concentrations may interfere with copper absorption. Test developed and characteristics determined by [employer]. See Compliance Statement B: [employer]/CS Performed by [employer], [address] [place] [id number] [email or web address], Paco Hale MD, Lab. Director Specimen Blood - ARM, RIGHT Performing Organization Address [facility] Phone Number [facility] [address] [place] [address] COPPER, SERUM (06/19/2019 8:51 AM CDT) COPPER 84.8 70.0 - 140.0 [facility] Comment: ug/dL INTERPRETIVE INFORMATION: Copper, Serum or Plasma Elevated results may be due to skin or collection-related contamination, including the use of a noncertified metal-free collection/transport tube. If contamination concerns exist due to elevated levels of serum/plasma copper, confirmation with a second specimen collected in a certified metal-free tube is recommended. Serum copper may be elevated with infection, inflammation, stress, and copper supplementation. In females, elevated copper may also be caused by oral contraceptives and (concentrations may be elevated up to 3 times normal during the third trimester). Test developed and characteristics determined by [employer]. See Compliance Statement B: [email or web address]/CS Performed by [employer], [address] [place] [address] [email or web address], Paco Hale MD, Lab. Director Specimen Blood - ARM, RIGHT Performing Organization Address City/State/Zipcode Phone Number [facility] [address] [place] [address] EXTERNAL PROVIDER - ADC CARDIOLOGY (05/23/2019 12:01 AM CDT) Specimen Performing Organization Address City/State/Zipcode Phone Number HIM EKG-12 LEAD (05/19/2019 2:02 PM CDT) Specimen Performing Organization Address City/State/Zipcode Phone Number HST AUTHORIZATION TO RELEASE PHI TO [facility] [place] (05/19/2019 12:01 AM CDT) Specimen Performing Organization Address City/State/Zipcode Phone Number HIM from Last 3 Months Insurance Payer Benefit Plan / Subscriber ID Effective Dates Phone Address Type Group MEDICARE MEDICARE PART xxxxxxxxxxx 1996-Presen [phone] [address] Medicare A & B t 2 [id number] [place] [address] [facility] MEDICAID OF xxxxxxxxx 2013-Presemi [phone] [address] Medicaid [place] t 0 [id number] [place] [address] Advance Directives Name Relationship Healthcare Agent Communication Relationship Jodi Tatum Spouse Primary healthcare agent [phone] (Home)[email or web address]
--- OUTSIDE RECORDS SUMMARY | 2019-07-23 14:14 | XMS REPORT | Clinical Summary ---
:1960 Author Organization [facility] - [facility] Address [address] [place] [address] Care Team Providers Name Role Phone Zandra [...] at Coronary artery disease bedtime. Take involving winnebago with 40mg coronary artery of atorvastatin. 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 Overview: ICD10 Diagnosis Term Bench Mover Utility CAD (coronary artery disease) 11/25/2014 Seizure disorder 11/25/2014 Bipolar 1 disorder 11/25/2014 TIA (transient ischemic attack) 11/25/2014 Insomnia 11/25/2014 Encounters Date Type Specialty Care Team Description 07/14/2019 Emergency Emergency Medicine Denisse Cruz, Acute right-sided PAC low back pain, unspecified whether sciatica present (Primary Dx) 07/14/2019 Orders Only Doctor Unassigned, [place] 07/11/2019 Refill Cardiology Seb Allison MD Refill Request 07/03/2019 Office Visit Internal Medicine Zandra Cowart MD 07/02/2019 Telephone Cardiology Seb Allison MD Letters (jury release) 07/01/2019 Office Visit Cardiology Seb Allison MD Essential hypertension , benign (Primary Dx); Mixed hyperlipidemia; Coronary artery disease involving winnebago coronary artery of winnebago heart without angina pectoris; Chronic systolic heart failure 06/24/2019 Telephone Cardiology Seb Allison MD Notification (Was just released from [facility]); Medication Dose Change (Asa , Plavix) 06/23/2019 Refill Internal Medicine Sofya, Refill Request Zandra Christianson MD 06/20/2019 Office Visit Internal Medicine Papi Cowart (Primary Dx); Zandra Christianson MD Essential hypertension, benign; Fatigue, unspecified type; Reactive depression; Memory problem; Weakness of both lower extremities; Coronary artery disease involving winnebago coronary artery of winnebago heart without angina pectoris; Need for vaccination; Problems with sight 06/19/2019 Sales/Marketing Visit Clinical Medical Sofya, Short-term memory loss; Laboratory Zandra Christianson MD Other long-term (current) drug therapy; 1, [facility] Lab Other specified health status ; Abnormal levels of other serum enzymes 06/12/2019 Refill Neurology Laith Lopez Refill Request MD Shaka 06/11/2019 Refill Laith Cross Refill Request MD Shaka 05/23/2019 Refill Internal Medicine Sofya, Refill Request Zandra Christianson MD 05/19/2019 Office Visit Cardiology Seb Allison MD Coronary artery disease involving winnebago coronary artery of winnebago heart without angina pectoris (Primary Dx); Essential hypertension, benign; Weakness; Fall, initial encounter; Chronic systolic heart failure 05/19/2019 Orders Only Doctor Unassigned, [place] 05/09/2019 Telephone Cardiology Seb Allison MD Rx [...] Comments Blood Pressure 168/100 07/14/2019 5:01 PM WASTE MACHINE OPERATOR Pulse 68 07/14/2019 5:00 PM WASTE MACHINE OPERATOR Temperature 37.3 C (99.1 F) 07/14/2019 5:01 PM WASTE MACHINE OPERATOR Respiratory Rate 19 07/14/2019 5:00 PM WASTE MACHINE OPERATOR Oxygen Saturation 100% 07/14/2019 5:00 PM WASTE MACHINE OPERATOR Inhaled Oxygen Concentration - - Weight 68 kg (150 lb) 07/14/2019 5:00 PM WASTE MACHINE OPERATOR Height 162.6 cm (5' 4") 07/14/2019 2:16 PM WASTE MACHINE OPERATOR Body Mass Index 25.75 07/14/2019 2:16 PM WASTE MACHINE OPERATOR Plan of Treatment Date Type Specialty Care Team Description 07/18/2019 Office Visit Neurology Laith Lopez MD [address] [place] [address] [phone] 08/29/2019 Office Visit Internal Medicine Zandra Cowart MD [address] [place] [address] [address] [place], [place] [phone] 11/17/2019 Office Visit Cardiology Seb Allison MD [address] [place] [address] [address] [place] [address] Health Maintenance Due Date Last [...] OF PRIVACY PRACTICES Routine 07/14/2019 4:48 PM WASTE MACHINE OPERATOR CONSENT/REFUSAL FOR DIAGNOSIS Routine 07/14/2019 AND TREATMENT 4:48 PM WASTE MACHINE OPERATOR FLU VACC(), 50-64 Routine 06/20/2019 Need for [...] are in the results section. LIPID PANEL (12083)(TOTAL Routine 06/19/2019 Short-term memory Results for CHOLESTEROL, [...] in the results section. COMP. METABOLIC PANEL (95949) Routine 06/19/2019 Short-term memory Results for 8:51 AM CDT loss this procedure are in the results section. FOLATE Routine 06/19/2019 Short-term memory Results for 8:51 AM CDT loss this procedure Other international trade manager are in the (current) drug results therapy section. VITAMIN D, 25-OH Routine 06/19/2019 Short-term memory Results for 8:51 AM CDT loss this procedure Other international trade manager are in the (current) drug results therapy section. VITAMIN B12, LEVEL Routine 06/19/2019 Short-term memory Results for 8:51 AM CDT loss this procedure Other long-term are in the (current) drug results therapy [...] 8:51 AM CDT loss this procedure Other international trade manager are in the (current) drug results therapy section. EXTERNAL PROVIDER - ADC Routine 05/23/2019 CARDIOLOGY 12:01 AM CDT EKG-12 LEAD Routine 05/19/2019 2:02 PM CDT AUTHORIZATION TO RELEASE PHI Routine 05/19/2019 TO [facility] 12:01 AM CDT from Last 3 Months Results NOTICE OF PRIVACY PRACTICES (07/14/2019 4:48 PM WASTE MACHINE OPERATOR) Specimen Performing Organization Address City/State/Zipcode Phone Number [facility] CONSENT/REFUSAL FOR DIAGNOSIS AND TREATMENT (07/14/2019 4:48 PM WASTE MACHINE OPERATOR) Specimen Performing Organization Address City/State/Zipcode Phone Number [facility] VITAMIN B1 (THIAMINE), WHOLE BLOOD (06/19/2019 8:51 [...] measured. Test developed and characteristics determined by [employer]. See Compliance Statement B: [email or web address]/CS Performed by [facility], [address] [place] [address] [email or web address], Paco Hale MD, Lab. Director Specimen Blood - ARM, RIGHT Performing Organization Address [facility] Phone Number [facility] [address] [place] [address] FREE T3 (06/19/2019 8:51 AM CDT) FREE T3 5.25 2.77 - 5.27 pg/mL [facility] Specimen Blood - ARM, RIGHT Performing Organization Address [facility] Phone Number [facility] CLIA: [id number], [address] [place] [address] VITAMIN D, 25-OH (06/19/2019 8:51 AM CDT) VIT D 25OH 49 25 - 80 ng/mL [facility] SERVICES 25-Hydroxy D3 48.6 ng/mL [facility] 25-Hydroxy D2 <2.5 ng/mL [facility] Specimen Blood - ARM, RIGHT Narrative Performed At Test developed and characteristics determined by [facility] Laboratory Services. Performing Organization Address [facility] Phone Number [facility] CLIA: [id number], [address] [place] [address] [facility] HOMOCYSTEINE (06/19/2019 8:51 AM CDT) Homocysteine 11.4 6.6 - 14.8 umol/L [facility] SERVICES Specimen Blood - ARM, RIGHT Performing Organization Address [facility] Phone Number [facility] CLIA: [id number], [address] [place] [address] [facility] HIGH SENSITIVITY CRP (06/19/2019 8:51 AM CDT) HS CRP 0.18 <0.74 mg/dL [facility] Specimen Blood - ARM, RIGHT Performing Organization Address [facility] Phone Number [facility] CLIA: [id number], [address] [place] [address] [phone] [facility] DEHYDROEPIANDROSTERONE SULFATE (06/19/2019 8:51 AM CDT) DHEA-S 2,016.1 ng/mL [facility] Specimen Blood - ARM, RIGHT Narrative Performed At Normal Ranges for DHEA SO4 [facility] Prepubertal: 50-995 ng/mL Adult: 650-3400 ng/mL Adult levels may decrease with age after age 50. Decreased level may be seen in term pregnancies. Pubertal is based on physical examination. Performing Organization Address City/State/Zipcode Phone Number [facility] CLIA: [id number], [address] [place] [address] [phone] [facility] LIPID PANEL ([id number])(TOTAL CHOLESTEROL, TRIGLYCERIDES, HDL) (06/19/2019 8:51 AM CDT) CHOL 205 (H) 120 - 200 mg/dL [facility] HDL 56 >40 mg/dL [facility] HDLC RATIO 3.7 <=5.0 [facility] TRIG 206 (H) 30 - 170 mg/dL [facility] LDL CHOL 108 <=160 mg/dL [facility] VLDL 41 5 - 60 mg/dL [facility] Specimen Blood - ARM, RIGHT Performing Organization Address City/State/Zipcode Phone Number [facility] CLIA: [id number], [address] [place] [address] COMP. METABOLIC PANEL (55652) (06/19/2019 8:51 AM CDT) NA 139 135 - 145 [facility] mmol/L [facility] K 4.4 3.5 - 5.0 [facility] mmol/L [facility] CL 102 98 - 108 mmol/L [facility] CO2 TOTAL 26 23 - 31 mmol/L [facility] AGAP 11 2 - 16 [facility] BUN 19 7 - 23 mg/dL [facility] GLUCOSE 88 70 - 110 mg/dL [facility] CREATININE 1.00 0.60 - 1.25 [facility] mg/dL H[facility]ITAL [facility] TOTAL BILI 0.7 0.1 - 1.1 mg/dL [facility] CALCIUM 10.4 8.6 - 10.6 [facility] mg/dL [facility] T PROTEIN 8.4 (H) 6.3 - 8.2 g/dL [facility] ALBUMIN 4.7 3.5 - 5.0 g/dL [facility] ALK PHOS 67 34 - 122 U/L [facility] ALTv 42 5 - 50 U/L [facility] AST(SGOT) 33 13 - 40 U/L [facility] eGFR Calculation 76.2 mL/min/1.73m2 [facility] (Non[facility] LABORATORY [place]) eGFR Calculation 92.4 mL/min/1.73m2 [facility] () [facility] Specimen Blood - ARM, RIGHT Narrative Performed At Association of Glomerular Filtration Rate (GFR) [facility] and Staging of Kidney Disease* [...] abnormalities in imaging tests). Performing Organization Address [facility]/Zipcode Phone Number [facility] CLIA: [id number], [address] [place] [address] THYROID STIMULATING HORMONE (06/19/2019 8:51 AM CDT) TSH 5.02 (H) 0.45 - 4.70 mIU/L [facility] Specimen Blood - ARM, RIGHT Performing Organization Address [facility]/Zipcode Phone Number [facility] CLIA: [id number], [address] [place] [address] FREE T4 (06/19/2019 8:51 AM CDT) FREE T4 1.18 0.78 - 2.20 ng/dL [facility] Specimen Blood - ARM, RIGHT Performing Organization Address City/[facility] Phone Number [facility] CLIA: [id number], [address] [place] [address] INSULIN, LEVEL (06/19/2019 8:51 AM CDT) Insulin 23.5 (H) 1.9 - 23.0 uIU/mL [facility] Specimen Blood - ARM, RIGHT Performing Organization Address City/[facility] Phone Number [facility] CLIA: [id number], [address] [place] [phone] [facility] FOLATE (06/19/2019 8:51 AM CDT) FOLATE SER 11.6 3.0 - 20.0 ng/mL [facility] Specimen Blood - ARM, RIGHT Performing Organization Address [facility] Phone Number [facility] CLIA: [id number], [address] [place] [address] [facility] VITAMIN B12, LEVEL (06/19/2019 8:51 AM CDT) VIT B12 847 240 - 930 pg/mL [facility] Specimen Blood - ARM, RIGHT Narrative Performed At Biotin has been reported to cause a positive bias, interpret [facility] results relative to patient's use of biotin. Performing Organization Address City/State/[facility] Phone Number [facility] CLIA: [id number], [address] [place] [phone] [facility] CORTISOL AM (06/19/2019 8:51 AM CDT) ADELA AM 6.1 4.5 - 23.0 ug/dL [facility] Specimen Blood - ARM, RIGHT Narrative Performed At Biotin has been reported to cause a positive bias, interpret [facility] results relative to patient's use of biotin. Performing Organization Address City/State/Zipcode Phone Number [facility] CLIA: [id number], [address] [place] [address] [phone] [facility] VITAMIN B6, PLASMA (06/19/2019 8:51 AM CDT) VIT B6 270.9 (H) 20.0 - 125.0 [place] Comment: nmol/L INTERPRETIVE INFORMATION: Vitamin B6 (Pyridoxal 5-Phosphate) Pyridoxal 5'-phosphate measured in a specimen collected following an 8-hour or overnight fast accurately indicates vitamin B6 nutritional status. Non-fasting specimen concentration reflects recent vitamin intake. Test developed and characteristics determined by [employer]. See Compliance Statement B: [employer]CS Performed by [employer], [address] [place], [place] [id number] [email or web address], Paco Hale MD, Lab. Director Specimen Blood - ARM, RIGHT Performing Organization Address City/[facility]/Zipcode Phone Number [facility] [address] [place] [address] TESTOSTERONE, FREE AND TOTAL (06/19/2019 8:51 AM CDT) Pathologist [facility] TESTOST 293 (L) 300 - 720 [facility] Comment: ng/dL REFERENCE INTERVAL: Testosterone, Adult Male Access complete set of age- and/or gender-specific reference intervals for this test in the [facility] Test Directory ([employer]). Sex Hormone 87 (H) 11 - 80 [facility] Binding Globulin Comment: nmol/L REFERENCE INTERVAL: Sex Hormone Binding Globulin Access complete set of age- and/or gender-specific reference intervals for this test in the [employer] [facility] Test Directory ([employer]). FREE TESTO 27 (L) 47 - 244 [facility] Comment: pg/mL INTERPRETIVE INFORMATION: Testosterone, Free Gagan Stage IV 35 - 169 pg/mL Gagan Stage V 41 - 239 pg/mL The concentration of Free Testosterone is derived from a mathematical expression based on the constant for the binding of testosterone to Sex Hormone Binding Globulin (SHBG). Access complete set of age- and/or gender-specific reference intervals for this test in the [facility] Test Directory ([employer]). %FREE TEST 0.9 (L) 1.6 - 2.9 % [facility] Comment: Performed by [employer], [address] [place] [id number] [email or web address], Paco Hale MD, Lab. Director Specimen Blood - ARM, RIGHT Performing Organization Address [facility] Phone Number [facility] [address] [place] [address] ZINC, SERUM (06/19/2019 8:51 AM CDT) ZINC 96.2 60.0 - 120.0 [facility] Comment: ug/dL INTERPRETIVE INFORMATION: Zinc, Serum or [...] absorption. Test developed and characteristics determined by [employer]. See Compliance Statement B: [employer] Performed by [employer], [address] [place] [id number] www.[email or web address], Paco Hale MD, Lab. Director Specimen Blood - ARM, RIGHT Performing Organization Address [facility] Phone Number [facility] [address] [place] [address] COPPER, SERUM (06/19/2019 8:51 AM CDT) COPPER 84.8 70.0 - 140.0 [facility] Comment: ug/dL INTERPRETIVE INFORMATION: Copper, Serum or [...] trimester). Test developed and characteristics determined by [employer]. See Compliance Statement B: [employer]/CS Performed by [employer], [address] [place] [address] www.[email or web address], Paco Hale MD, Lab. Director Specimen Blood - ARM, RIGHT Performing Organization Address City/State/Zipcode Phone Number [facility] [address] [place] [address] EXTERNAL PROVIDER - ADC CARDIOLOGY (05/23/2019 12:01 AM CDT) Specimen Performing Organization Address City/State/Zipcode Phone Number HIM EKG-12 LEAD (05/19/2019 2:02 PM CDT) Specimen Performing Organization Address City/State/Zipcode Phone Number HST AUTHORIZATION TO RELEASE PHI TO [facility] (05/19/2019 12:01 AM CDT) Specimen Performing Organization Address City/State/Zipcode Phone Number HIM from Last 3 Months Insurance Payer Benefit Plan / Subscriber ID Effective Dates Phone Address Type Group MEDICARE MEDICARE PART xxxxxxxxxxx 1996-Presen [phone] [address] Medicare A & B t 2 [id number] [place] [address] [facility] MEDICAID OF xxxxxxxxx 2013-Presemi [phone] [address] Medicaid [place] t 0 [id number] [place] [address] Advance Directives Name Relationship Healthcare Agent Communication Relationship Jodi Tatum Spouse Primary healthcare agent [phone] (Home)[email or web address]
--- OUTSIDE RECORDS SUMMARY | 2019-07-23 14:14 | XMS REPORT | Clinical Summary ---
:1960 Author Organization [facility] - [facility] Address [address] [place] [address] Care Team Providers Name Role Phone Zandra [...] at Coronary artery disease bedtime. Take involving ely shoshone with 40mg coronary artery of atorvastatin. ely shoshone heart without angina pectoris amitriptyline 10 mg [...] D deficiency 11/25/2014 Overview: ICD10 Diagnosis Term Remote Sensing Analyst Utility CAD (coronary artery disease) 11/25/2014 Seizure disorder 11/25/2014 Bipolar 1 disorder 11/25/2014 TIA (transient ischemic attack) 11/25/2014 Insomnia 11/25/2014 Encounters Date Type Specialty Care Team Description 07/14/2019 Emergency Emergency Medicine Denisse Cruz, Acute right-sided PAC low back pain, unspecified whether sciatica present (Primary Dx) 07/14/2019 Orders Only Doctor Unassigned, [place] 07/11/2019 Refill Cardiology Seb Allison MD Refill Request 07/03/2019 Office Visit Internal Medicine Zandra Cowart MD 07/02/2019 Telephone Cardiology Seb Allison MD Letters (jury release) 07/01/2019 Office Visit Cardiology Seb Allison MD Essential hypertension , benign (Primary Dx); Mixed hyperlipidemia; Coronary artery disease involving ely shoshone coronary artery of ely shoshone heart without angina pectoris; Chronic systolic heart failure 06/24/2019 Telephone Cardiology Seb Allison MD Notification (Was just released from [facility]); Medication Dose Change (Asa , Plavix) 06/23/2019 Refill Internal Medicine Sofya, Refill Request Zandra Chritsianson MD 06/20/2019 Office Visit Internal Medicine Papi Cowart (Primary Dx); Zandra Christianson MD Essential hypertension, benign; Fatigue, unspecified type; Reactive depression; Memory problem; Weakness of both lower extremities; Coronary artery disease involving ely shoshone coronary artery of ely shoshone heart without angina pectoris; Need for vaccination; Problems with sight 06/19/2019 Outside Sales Visit Clinical Medical Sofya, Short-term memory loss; Laboratory Zandra Christianson MD Other prison (current) drug therapy; 1, [facility] Other specified health status ; Abnormal levels of other serum enzymes 06/12/2019 Refill Neurology Laith Lopez Refill Request MD [place] 06/11/2019 Refill Laith Cross Refill Request MD [place] 05/23/2019 Refill Internal Medicine Sofya, Refill Request Zandra Christianson MD 05/19/2019 Office Visit Cardiology Seb Allison MD Coronary artery disease involving ely shoshone coronary artery of ely shoshone heart without angina pectoris (Primary Dx); Essential hypertension, benign; Weakness; Fall, initial encounter; Chronic systolic heart failure 05/19/2019 Orders Only Doctor Unassigned, [place] 05/09/2019 Telephone Cardiology Seb Allison MD Rx [...] Comments Blood Pressure 168/100 07/14/2019 5:01 PM SPORTS INFORMATION DIRECTOR Pulse 68 07/14/2019 5:00 PM SPORTS INFORMATION DIRECTOR Temperature 37.3 C (99.1 F) 07/14/2019 5:01 PM SPORTS INFORMATION DIRECTOR Respiratory Rate 19 07/14/2019 5:00 PM SPORTS INFORMATION DIRECTOR Oxygen Saturation 100% 07/14/2019 5:00 PM SPORTS INFORMATION DIRECTOR Inhaled Oxygen Concentration - - Weight 68 kg (150 lb) 07/14/2019 5:00 PM SPORTS INFORMATION DIRECTOR Height 162.6 cm (5' 4") 07/14/2019 2:16 PM SPORTS INFORMATION DIRECTOR Body Mass Index 25.75 07/14/2019 2:16 PM SPORTS INFORMATION DIRECTOR Plan of Treatment Date Type Specialty Care Team Description 07/18/2019 Office Visit Neurology Laith Lopez MD [address] [place] [address] [phone] 08/29/2019 Office Visit Internal Medicine Zandra Cowart MD [address] [place] [address] [address] [place], [place] [address] 11/17/2019 Office Visit Cardiology Seb Allison MD [address] [place] [address] [address] [place] [address] Health Maintenance Due Date Last [...] OF PRIVACY PRACTICES Routine 07/14/2019 4:48 PM SPORTS INFORMATION DIRECTOR CONSENT/REFUSAL FOR DIAGNOSIS Routine 07/14/2019 AND TREATMENT 4:48 PM SPORTS INFORMATION DIRECTOR FLU VACC(), 50-64 Routine 06/20/2019 Need for [...] are in the results section. LIPID PANEL (96387)(TOTAL Routine 06/19/2019 Short-term memory Results for CHOLESTEROL, [...] in the results section. COMP. METABOLIC PANEL (83864) Routine 06/19/2019 Short-term memory Results for 8:51 AM CDT loss this procedure are in the results section. FOLATE Routine 06/19/2019 Short-term memory Results for 8:51 AM CDT loss this procedure Other ferry terminal agent are in the (current) drug results therapy section. VITAMIN D, 25-OH Routine 06/19/2019 Short-term memory Results for 8:51 AM CDT loss this procedure Other ferry terminal agent are in the (current) drug results therapy section. VITAMIN B12, LEVEL Routine 06/19/2019 Short-term memory Results for 8:51 AM CDT loss this procedure Other prison are in the (current) drug results therapy [...] 8:51 AM CDT loss this procedure Other ferry terminal agent are in the (current) drug results therapy section. EXTERNAL PROVIDER - ADC Routine 05/23/2019 CARDIOLOGY 12:01 AM CDT EKG-12 LEAD Routine 05/19/2019 2:02 PM CDT AUTHORIZATION TO RELEASE PHI Routine 05/19/2019 TO [facility] 12:01 AM CDT from Last 3 Months Results NOTICE OF PRIVACY PRACTICES (07/14/2019 4:48 PM SPORTS INFORMATION DIRECTOR) Specimen Performing Organization Address City/State/Zipcode Phone Number [facility] CONSENT/REFUSAL FOR DIAGNOSIS AND TREATMENT (07/14/2019 4:48 PM SPORTS INFORMATION DIRECTOR) Specimen Performing Organization Address City/State/Zipcode Phone Number [facility] VITAMIN B1 (THIAMINE), WHOLE BLOOD (06/19/2019 8:51 [...] measured. Test developed and characteristics determined by [employer] See Compliance Statement B: [email or web address] Performed by [employer] [address] [place] [address] [email or web address], Paco Hale MD, Lab. Director Specimen Blood - ARM, RIGHT Performing Organization Address [facility] Phone Number [facility] [address] [place] [address] FREE T3 (06/19/2019 8:51 AM CDT) FREE T3 5.25 2.77 - 5.27 pg/mL [facility] Specimen Blood - ARM, RIGHT Performing Organization Address [facility] Phone Number [facility] CLIA: [id number], [address] [place] [address] VITAMIN D, 25-OH (06/19/2019 8:51 AM CDT) VIT D 25OH 49 25 - 80 ng/mL [facility] 25-Hydroxy D3 48.6 ng/mL [facility] 25-Hydroxy D2 <2.5 ng/mL [facility] Specimen Blood - ARM, RIGHT Narrative Performed At Test developed and characteristics determined by [facility] Laboratory Services. Performing Organization Address [facility] Phone Number [facility] CLIA: [id number], [address] [place] [address] [facility] HOMOCYSTEINE (06/19/2019 8:51 AM CDT) Homocysteine 11.4 6.6 - 14.8 umol/L [facility] Specimen Blood - ARM, RIGHT Performing Organization Address [facility] Phone Number [facility] CLIA: [id number], [address] [place] [address] [facility] HIGH SENSITIVITY CRP (06/19/2019 8:51 AM CDT) HS CRP 0.18 <0.74 mg/dL [facility] Specimen Blood - ARM, RIGHT Performing Organization Address [facility] Phone Number [facility] CLIA: [id number], [address] [place] [address] [facility] DEHYDROEPIANDROSTERONE SULFATE (06/19/2019 8:51 AM CDT) DHEA-S 2,016.1 ng/mL [facility] Specimen Blood - ARM, RIGHT Narrative Performed At Normal Ranges for DHEA SO4 [facility] Prepubertal: 50-995 ng/mL Adult: 650-3400 ng/mL Adult levels may decrease with age after age 50. Decreased level may be seen in term pregnancies. Pubertal is based on physical examination. Performing Organization Address City/State/Zipcode Phone Number [facility] CLIA: [id number], [address] [place] [address] [facility] LIPID PANEL ([id number])(TOTAL CHOLESTEROL, TRIGLYCERIDES, HDL) (06/19/2019 8:51 AM CDT) CHOL 205 (H) 120 - 200 mg/dL [facility] HDL 56 >40 mg/dL [facility] HDLC RATIO 3.7 <=5.0 [facility] TRIG 206 (H) 30 - 170 mg/dL [facility] LDL CHOL 108 <=160 mg/dL [facility] VLDL 41 5 - 60 mg/dL [facility] Specimen Blood - ARM, RIGHT Performing Organization Address City/State/Zipcode Phone Number [facility] CLIA: [id number], [address] [place] [address] COMP. METABOLIC PANEL ([id number]) (06/19/2019 8:51 AM CDT) NA 139 135 - 145 [facility] mmol/L [facility] K 4.4 3.5 - 5.0 [facility] mmol/L [facility] CL 102 98 - 108 mmol/L [facility] CO2 TOTAL 26 23 - 31 mmol/L [facility] AGAP 11 2 - 16 [facility] BUN 19 7 - 23 mg/dL [facility] GLUCOSE 88 70 - 110 mg/dL [facility] CREATININE 1.00 0.60 - 1.25 [facility] mg/dL HOSPITAL LABORATORY TOTAL BILI 0.7 0.1 - 1.1 mg/dL [facility] CALCIUM 10.4 8.6 - 10.6 [facility] mg/dL [facility] T PROTEIN 8.4 (H) 6.3 - 8.2 g/dL [facility] ALBUMIN 4.7 3.5 - 5.0 g/dL [facility] ALK PHOS 67 34 - 122 U/L [facility] ALTv 42 5 - 50 U/L [facility] AST(SGOT) 33 13 - 40 U/L [facility] eGFR Calculation 76.2 mL/min/1.73m2 [facility] (Non[facility] LABORATORY [place]) eGFR Calculation 92.4 mL/min/1.73m2 [facility] () [facility] Specimen Blood - ARM, RIGHT Narrative Performed At Association of Glomerular Filtration Rate (GFR) [facility] and Staging of Kidney Disease* [...] abnormalities in imaging tests). Performing Organization Address [facility]/Zipcode Phone Number [facility] CLIA: [id number], [address] [place] [address] THYROID STIMULATING HORMONE (06/19/2019 8:51 AM CDT) TSH 5.02 (H) 0.45 - 4.70 mIU/L [facility] Specimen Blood - ARM, RIGHT Performing Organization Address [facility]/Zipcode Phone Number [facility] CLIA: [id number], [address] [place] [address] FREE T4 (06/19/2019 8:51 AM CDT) FREE T4 1.18 0.78 - 2.20 ng/dL [facility] Specimen Blood - ARM, RIGHT Performing Organization Address City/[facility] Phone Number [facility] CLIA: [id number], [address] [place] [address] INSULIN, LEVEL (06/19/2019 8:51 AM CDT) Insulin 23.5 (H) 1.9 - 23.0 uIU/mL [facility] Specimen Blood - ARM, RIGHT Performing Organization Address City/[facility] Phone Number [facility] CLIA: [id number], [address] [place] [address] 035904 [phone] [facility] FOLATE (06/19/2019 8:51 AM CDT) FOLATE SER 11.6 3.0 - 20.0 ng/mL [facility] Specimen Blood - ARM, RIGHT Performing Organization Address [facility] Phone Number [facility] CLIA: [id number], [address] [place] [address] [facility] VITAMIN B12, LEVEL (06/19/2019 8:51 AM CDT) VIT B12 847 240 - 930 pg/mL [facility] Specimen Blood - ARM, RIGHT Narrative Performed At Biotin has been reported to cause a positive bias, interpret [facility] results relative to patient's use of biotin. Performing Organization Address City/State/[facility] Phone Number [facility] CLIA: [id number], [address] [place] [address] [phone] [facility] CORTISOL AM (06/19/2019 8:51 AM CDT) ADELA AM 6.1 4.5 - 23.0 ug/dL [facility] Specimen Blood - ARM, RIGHT Narrative Performed At Biotin has been reported to cause a positive bias, interpret [facility] results relative to patient's use of biotin. Performing Organization Address City/State/Zipcode Phone Number [facility] CLIA: [id number], [address] [place] [address] [facility] VITAMIN B6, PLASMA (06/19/2019 8:51 AM CDT) VIT B6 270.9 (H) 20.0 - 125.0 [place] Comment: nmol/L INTERPRETIVE INFORMATION: Vitamin B6 (Pyridoxal 5-Phosphate) Pyridoxal 5'-phosphate measured in a specimen collected following an 8-hour or overnight fast accurately indicates vitamin B6 nutritional status. Non-fasting specimen concentration reflects recent vitamin intake. Test developed and characteristics determined by [employer] See Compliance Statement B: RENTISH/CS Performed by [employer] [address] [place], [place] [id number] [email or web address], Paco Hale MD, Lab. Director Specimen Blood - ARM, RIGHT Performing Organization Address City/[facility]/Zipcode Phone Number [facility] [address] [place] [address] TESTOSTERONE, FREE AND TOTAL (06/19/2019 8:51 AM CDT) Pathologist [facility] TESTOST 293 (L) 300 - 720 [facility] Comment: ng/dL REFERENCE INTERVAL: Testosterone, Adult Male Access complete set of age- and/or gender-specific reference intervals for this test in the [employer] [facility] Test Directory (RENTISH). Sex Hormone 87 (H) 11 - 80 [facility] Binding Globulin Comment: nmol/L REFERENCE INTERVAL: Sex Hormone Binding Globulin Access complete set of age- and/or gender-specific reference intervals for this test in the [employer] [facility] Test Directory (RENTISH). FREE TESTO 27 (L) 47 - 244 [facility] Comment: pg/mL INTERPRETIVE INFORMATION: Testosterone, Free Gagan Stage IV 35 - 169 pg/mL Gagan Stage V 41 - 239 pg/mL The concentration of Free Testosterone is derived from a mathematical expression based on the constant for the binding of testosterone to Sex Hormone Binding Globulin (SHBG). Access complete set of age- and/or gender-specific reference intervals for this test in the [employer] [facility] Test Directory (RENTISH). %FREE TEST 0.9 (L) 1.6 - 2.9 % [facility] Comment: Performed by [employer] [address] [place] [id number] [email or web address], Paco Hale MD, Lab. Director Specimen Blood - ARM, RIGHT Performing Organization Address [facility] Phone Number [facility] [address] [place] [address] ZINC, SERUM (06/19/2019 8:51 AM CDT) ZINC 96.2 60.0 - 120.0 [facility] Comment: ug/dL INTERPRETIVE INFORMATION: Zinc, Serum [...] absorption. Test developed and characteristics determined by [employer] See Compliance Statement B: RENTISH/CS Performed by [employer] [address] [place] [id number] [email or web address], Paco Hale MD, Lab. Director Specimen Blood - ARM, RIGHT Performing Organization Address [facility] Phone Number [facility] [address] [place] [address] COPPER, SERUM (06/19/2019 8:51 AM CDT) COPPER 84.8 70.0 - 140.0 [facility] Comment: ug/dL INTERPRETIVE INFORMATION: Copper, Serum [...] trimester). Test developed and characteristics determined by [employer] See Compliance Statement B: [email or web address] Performed by [employer] [address] [place] [address] [email or web address], Paco Hale MD, Lab. Director Specimen Blood - ARM, RIGHT Performing Organization Address City/State/Zipcode Phone Number [facility] [address] [place] [address] EXTERNAL PROVIDER - ADC CARDIOLOGY (05/23/2019 12:01 AM CDT) Specimen Performing Organization Address City/State/Zipcode Phone Number [facility] EKG-12 LEAD (05/19/2019 2:02 PM CDT) Specimen Performing Organization Address City/State/Zipcode Phone Number [facility] AUTHORIZATION TO RELEASE PHI TO [facility] (05/19/2019 12:01 AM CDT) Specimen Performing Organization Address City/State/Zipcode Phone Number HIM from Last 3 Months Insurance Payer Benefit Plan / Subscriber ID Effective Dates Phone Address Type Group MEDICARE MEDICARE PART xxxxxxxxxxx 1996-Presen [phone] Medicare A & B t [address] [id number] [place] [address] [facility] MEDICAID OF xxxxxxxxx 2013-Presemi [phone] Medicaid [place] t 0 [id number] [place] [address] Advance Directives Name Relationship Healthcare Agent Communication Relationship Jodi Tatum Spouse Primary healthcare agent [phone] ([email or web address]
[2019-07-23] MEDS ORDERED: ONDANSETRON 4 MG/2 ML VIAL ONE (16:33)
[2019-07-23] MEDS ORDERED: NA CHLORIDE 0.9% 1,000 ML ONE (16:33)
[2019-07-23 16:38] LABS: Absolute Lymphocytes (CBC) 1.5 K/uL (0.7-4.9); Basophils % 0.6 % (0-1.3); Lymphocytes % 21.8 % (15.3-44.8); MPV 8.9 fL (7.6-11.3); RBC Red Blood Cell Count 4.83 M/uL (4.33-5.43)
[2019-07-23 16:58] LABS: Albumin 3.5 g/dL (3.4-5.0); Bilirubin Direct 0.2 mg/dL (0-0.2); Bilirubin Total 0.4 mg/dL (0.2-1.0); Protein, Total 7.7 g/dL (6.4-8.2)
--- NOTE | 2019-07-23 18:19 | ER ---
Nurse's Notes [facility] Name: Jd Rico Age: 59 yrs Sex: Male : 1960 Arrival Date: 07/23/2019 Time: 14:09 Bed 14 Private MD: Diagnosis: Nausea and vomiting Presentation: 07/23 14:11 Presenting complaint: Patient states: nausea/ vomiting, fatigue and feeling unbalanced ss x 2-3 days. Pt reports this has happened before and gave him IV fluid for rehydration and nausea medication. Transition of care: patient was not received from another setting of care. Onset of symptoms was July 20, 2019. Risk Assessment: Do you want to hurt yourself or someone else? Patient reports no desire to harm self or others. Initial Sepsis Screen: Does the patient meet any 2 criteria? No. Patient's initial sepsis screen is negative. Does the patient have a suspected source of infection? No. Patient's initial sepsis screen is negative. Care prior to arrival: None. 14:11 Method Of Arrival: Ambulatory ss 14:11 Acuity: MARIA L 3 ss Historical: - Allergies: 14:15 Trazodone; ss - Home Meds: 14:15 aspirin 81 mg oral TbEC 1 tab once daily [Active]; Plavix 75 mg Oral tab 1 tab once ss daily [Active]; lisinopril-hydrochlorothiazide 10-12.5 mg Oral tab 1 tab once daily [Active]; metoprolol tartrate 50 mg Oral tab 1 tab once daily [Active]; pravastatin 40 mg Oral tab 1 tab once daily [Active]; Xanax 0.5 mg Oral tab twice a day [Active]; divalproex 500 mg Oral Tb24 3 tabs once daily [Active]; Amitriptyline Oral 4 times per day [Active]; - PMHx: 14:15 Angina; Bipolar disorder; CVA; Hypertension; insomnia; Myocardial infarction; ss peripheral vision loss; Seizures; dementia; Parkinsons; - PSHx: 14:15 Hernia repair; back surg; Heart stents; ss - Immunization history:: Adult Immunizations up to date. - Social history:: Smoking status: Patient/guardian denies using tobacco. - Ebola Screening: : Patient denies exposure to infectious person Patient denies travel to an Ebola-affected area in the 21 days before illness onset. Screenin:36 Abuse screen: Denies threats or abuse. Denies injuries from another. Nutritional bp screening: No deficits noted. Tuberculosis screening: No symptoms or risk factors identified. Fall Risk No fall in past 12 months (0 pts). Secondary diagnosis (15 points) PARKINSON'S. IV access (20 points). Ambulatory Aid- Crutches/Cane/Walker (15 pts). Gait- Weak (10 pts.). Mental Status- Oriented to own ability (0 pts). Total Stephen Fall Scale indicates High Risk Score (45 or more points). Fall prevention measures have been instituted. Side Rails Up X 2 Placed Close to Nursing Station Frequent Obs/Assessments Occuring Family Present and informed to notify staff if the need to leave the bedside As available patient and family educated on Fall Prevention Program and Strategies. Assessment: 16:15 General: Appears in no apparent distress. comfortable, Behavior is cooperative, bp appropriate for age, anxious. Pain: Denies pain. Neuro: No deficits noted. Cardiovascular: No deficits noted. Respiratory: No deficits noted. GI: Abdomen is non-distended, Reports nausea, vomiting. : No signs and/or symptoms were reported regarding the genitourinary system. EENT: No deficits noted. Derm: No deficits noted. Musculoskeletal: No deficits noted. 17:40 Reassessment: PO CHALLENGE SUCCESSFUL. bp Vital Signs: 14:15 Resp 18; Temp 98.3(O); Pulse Ox 96% on R/A; Weight 68.04 kg; Height 5 ft. 4 in. (162.56 ss cm); Pain 0/10; 14:17 BP 151 / 98; Pulse 79; ss 16:00 BP 128 / 86 Supine; Pulse 70; bp 16:05 BP 163 / 107 Standing; Pulse 72; bp 16:38 BP 163 / 102; Pulse 64; Resp 16; Pulse Ox 97% ; bp 17:40 BP 157 / 96; Pulse 85; Resp 16; Pulse Ox 99% ; bp 14:15 Body Mass Index 25.75 (68.04 kg, 162.56 cm) ss ED Course: 14:09 Patient arrived in ED. as 14:13 Triage completed. ss 14:15 Arm band placed on right wrist. ss 15:09 Evans Peterson, RN is Primary Nurse. bp 15:10 Tashia Aceves FNP-C is PHCP. kb 15:10 Marie Aggarwal MD is Attending Physician. kb 16:30 Inserted saline lock: 22 gauge in right wrist, using aseptic technique. bp 16:36 Patient has correct armband on for positive identification. Bed in low position. Call bp light in reach. Side rails up X2. Adult w/ patient. Administered Medications: 16:30 Drug: NS 0.9% 1000 ml Route: IV; Rate: 1000 ml; Site: right wrist; bp 16:30 Drug: Zofran 4 mg Route: IVP; Site: right wrist; bp 17:33 Follow up: Response: Nausea is decreased bp Outcome: 18:18 Discharge ordered by MD. kb 18:42 Patient left the ED. bp Signatures: Tashia Aceves, GREG-C GREG-Mey Sarmiento Shelby, RN RN ss Evans Peterson, EHSAN RN bp
--- NOTE | 2019-07-23 18:20 | EDPHYS ---
Physician Documentation [facility] Name: Jd Rico Age: 59 yrs Sex: Male : 1960 Arrival Date: 07/23/2019 Time: 14:09 Bed 14 Private MD: ED Physician Marie Aggarwal HPI: 07/23 15:36 This 59 yrs old Male presents to ER via Ambulatory with complaints of kb Nausea/Vomiting. 15:36 The patient presents to the emergency department with nausea, vomiting. Onset: The kb symptoms/episode began/occurred yesterday. Possible causes: unknown. The symptoms are aggravated by nothing. The symptoms are alleviated by nothing. Associated signs and symptoms: Pertinent positives: nausea, vomiting, Pertinent negatives: abdominal pain, diarrhea, fever. Severity of symptoms: At their worst the symptoms were moderate in the emergency department the symptoms are unchanged. The patient has not experienced similar symptoms in the past. The patient has not recently seen a physician. Pt reports he has been vomiting since yesterday. Significant other reports pt has had intermittent numbness in right leg that he is supposed to get an MRI for, but the last time he had an MRI he felt a pulling in his chest so they are waiting to find out what material was used for a stent. States he has been having the intermittent low back pain and right leg numbness since the MRI. PT states "but I came here for the vomiting. Everything else is being taken care of." S.O. also concerned about possible side effects of new medications. States they have been changing his meds and thinks the vomiting could be due to that. Educated that pt needs to keep appt to have MRI done for the back pain and numbness. Educated that they need to follow up with PCP regarding medications. No new medications reported recently. Pt reports "I just want the vomiting to stop because I'm dehydrating myself every time I do it." Denies chest pain, numbness, weakness. . Historical: - Allergies: 14:15 Trazodone; ss - Home Meds: 14:15 aspirin 81 mg oral TbEC 1 tab once daily [Active]; Plavix 75 mg Oral tab 1 tab once ss daily [Active]; lisinopril-hydrochlorothiazide 10-12.5 mg Oral tab 1 tab once daily [Active]; metoprolol tartrate 50 mg Oral tab 1 tab once daily [Active]; pravastatin 40 mg Oral tab 1 tab once daily [Active]; Xanax 0.5 mg Oral tab twice a day [Active]; divalproex 500 mg Oral Tb24 3 tabs once daily [Active]; Amitriptyline Oral 4 times per day [Active]; - PMHx: 14:15 Angina; Bipolar disorder; CVA; Hypertension; insomnia; Myocardial infarction; ss peripheral vision loss; Seizures; dementia; Parkinsons; - PSHx: 14:15 Hernia repair; back surg; Heart stents; ss - Immunization history:: Adult Immunizations up to date. - Social history:: Smoking status: Patient/guardian denies using tobacco. - Ebola Screening: : Patient denies exposure to infectious person Patient denies travel to an Ebola-affected area in the 21 days before illness onset. ROS: 16:02 Constitutional: Negative for fever, chills, and weight loss, ENT: Negative for injury, kb pain, and discharge, Neck: Negative for injury, pain, and swelling, Cardiovascular: Negative for chest pain, palpitations, and edema, Respiratory: Negative for shortness of breath, cough, wheezing, and pleuritic chest pain, Back: Negative for injury and pain, : Negative for injury, bleeding, discharge, and swelling, MS/Extremity: Negative for injury and deformity, Skin: Negative for injury, rash, and discoloration, Neuro: Negative for headache, weakness, numbness, tingling, and seizure. 16:02 Abdomen/GI: Positive for nausea and vomiting, Negative for abdominal pain, diarrhea, constipation. Exam: 16:02 Constitutional: This is a well developed, well nourished patient who is awake, alert, kb and in no acute distress. Head/Face: Normocephalic, atraumatic. ENT: Nares patent. No nasal discharge, no septal abnormalities noted. Tympanic membranes are normal and external auditory canals are clear. Oropharynx with no redness, swelling, or masses, exudates, or evidence of obstruction, uvula midline. Mucous membranes moist. Neck: Trachea midline, no thyromegaly or masses palpated, and no cervical lymphadenopathy. Supple, full range of motion without nuchal rigidity, or vertebral point tenderness. No Meningismus. Chest/axilla: Normal chest wall appearance and motion. Nontender with no deformity. No lesions are appreciated. Cardiovascular: Regular rate and rhythm with a normal S1 and S2. No gallops, murmurs, or rubs. Normal PMI, no JVD. No pulse deficits. Respiratory: Lungs have equal breath sounds bilaterally, clear to auscultation and percussion. No rales, rhonchi or wheezes noted. No increased work of breathing, no retractions or nasal flaring. Abdomen/GI: Soft, non-tender, with normal bowel sounds. No distension or tympany. No guarding or rebound. No evidence of tenderness throughout. Skin: Warm, dry with normal turgor. Normal color with no rashes, no lesions, and no evidence of cellulitis. MS/ Extremity: Pulses equal, no cyanosis. Neurovascular intact. Full, normal range of motion. Neuro: Awake and alert, GCS 15, oriented to person, place, time, and situation. Cranial nerves II-XII grossly intact. Motor strength 5/5 in all extremities. Sensory grossly intact. Cerebellar exam normal. Normal gait. Vital Signs: 14:15 Resp 18; Temp 98.3(O); Pulse Ox 96% on R/A; Weight 68.04 kg; Height 5 ft. 4 in. (162.56 ss cm); Pain 0/10; 14:17 BP 151 / 98; Pulse 79; ss 16:00 BP 128 / 86 Supine; Pulse 70; bp 16:05 BP 163 / 107 Standing; Pulse 72; bp 16:38 BP 163 / 102; Pulse 64; Resp 16; Pulse Ox 97% ; bp 17:40 BP 157 / 96; Pulse 85; Resp 16; Pulse Ox 99% ; bp 14:15 Body Mass Index 25.75 (68.04 kg, 162.56 cm) ss MDM: 15:11 Patient medically screened. kb 15:35 Data reviewed: vital signs, nurses notes. Data interpreted: Pulse oximetry: on room air kb is 96 %. Interpretation: normal. 18:18 Counseling: I had a detailed discussion with the patient and/or guardian regarding: the kb historical points, exam findings, and any diagnostic results supporting the discharge/admit diagnosis, lab results, the need for outpatient follow up, a family practitioner, to return to the emergency department if symptoms worsen or persist or if there are any questions or concerns that arise at home. 18:19 ED course: Pt tolerated bottle of water and is ready to go home. . kb 07/23 15:33 Order name: Basic Metabolic Panel; Complete Time: 17:09 kb 07/23 15:33 Order name: CBC with Diff; Complete Time: 16:40 kb 07/23 15:33 Order name: Hepatic Function; Complete Time: 17:09 kb 07/23 15:33 Order name: Lipase; Complete Time: 17:09 kb 07/23 15:11 Order name: Orthostatics; Complete Time: 16:11 kb 07/23 15:33 Order name: IV Saline Lock; Complete Time: 16:42 kb 07/23 15:33 Order name: Labs collected and sent; Complete Time: 16:42 kb 07/23 17:20 Order name: PO challenge; Complete Time: 17:39 kb Administered Medications: 16:30 Drug: NS 0.9% 1000 ml Route: IV; Rate: 1000 ml; Site: right wrist; bp 16:30 Drug: Zofran 4 mg Route: IVP; Site: right wrist; bp 17:33 Follow up: Response: Nausea is decreased bp Disposition: 07/23/19 18:18 Discharged to Home. Impression: Nausea and vomiting. - Condition is Stable. - Discharge Instructions: Nausea and Vomiting, Adult, [id number]. - Prescriptions for Zofran ODT 4 mg Oral tablet,disintegrating - place 1 tablet by TRANSLINGUAL route every 6 hours; 20 tablet. - Medication Reconciliation Form, Thank You Letter, Antibiotic Education, Prescription Opioid Use form. - Follow up: Emergency Department; When: As needed; Reason: Worsening of condition. Follow up: Private Physician; When: 2 - 3 days; Reason: Recheck today's complaints, Continuance of care, Re-evaluation by your physician. Signatures: Dispatcher [employer] EDMS Tashia Aceves, GREG-C STOVE CLEANER-Doris Coyne, EHSAN RN Evans Erwin RN RN bp Corrections: (The following items were deleted from the chart) 18:42 18:18 07/23/2019 18:18 Discharged to Home. Impression: Nausea and vomiting. Condition bp is Stable. Forms are Medication Reconciliation Form, Thank You Letter, Antibiotic Education, Prescription Opioid Use. Follow up: Emergency Department; When: As needed; Reason: Worsening of condition. Follow up: Private Physician; When: 2 - 3 days; Reason: Recheck today's complaints, Continuance of care, Re-evaluation by your physician. kb
[2019-07-23 20:19] VITALS: TEMP 98.3
[2019-07-23 20:25] VITALS: BP 157/96; O2SAT 99
== END 2019-07-23 18:42 | disposition home or self-care (01) ==
LOC: ER 14:08
DX: R11.2 Nausea with vomiting, unspecified (principal); I10 Essential (primary) hypertension; G40.909 Epilepsy, unspecified, not intractable, without status epilepticus; G20 Parkinson's disease; F02.80 Dementia in other diseases classified elsewhere, unspecified severity, without behavioral disturbance, psychotic disturbance, mood disturbance, and anxiety; Z95.818 Presence of other cardiac implants and grafts; Z79.01 Long term (current) use of anticoagulants
CPT/HCPCS: 85025; 80048; 36415; 80076; 83690; 96374; 99283; J7030; J2405

== ENCOUNTER 2020-01-04 09:54 | Emergency (ER) | payer OTHER ==
--- OUTSIDE RECORDS SUMMARY | 2020-01-04 09:57 | XMS REPORT ---
:1960 Author Organization [facility] t Address [address] [place] [address] Dr. Mejia [address] [place] [id number] Care Team Providers Name Role Phone Unavailable Unavailable Unavailable Problems This patient has no known problems. Allergies, Adverse Reactions, Alerts This patient has no known allergies or adverse reactions. Medications This patient has no known medications.
--- OUTSIDE RECORDS SUMMARY | 2020-01-04 10:04 | XMS REPORT | Clinical Summary ---
:1960 Author Organization [facility] Address [address] [place] [id number] Care Team Providers Name Role Phone Sammy Cowart MD Primary Care Provider MD Keegan Unavailable Allergies Active Allergy Reactions Severity Noted Date Comments Aripiprazole Other - See comments 11/12/2014 insomni a Trazodone Other - See comments 11/12/2014 insomni a Medications Medication Sig Dispensed Refills Start Date End Date Status Cholecalciferol, Take by mouth 0 Active Vitamin D3, (VITAMIN daily. D3) 2,000 unit Cap Olopatadine 0.2 % Place 1 Drop in 2.5 mL 3 12/09/2018 Active ophthalmic each eye daily. dropsIndications: Seasonal allergies rOPINIRole (REQUIP XL) One by mouth per 30 tablet 1 01/07/2019 Active 2 mg 24 hr day. Take in the tabletIndications: am. Paralysis agitans lisinopril 10 mg Take 1 tablet by 90 tablet 2 01/13/2019 Active tablet mouth daily. divalproex 500 mg EC Take 3 tablets by 270 tablet 3 03/10/2019 Active tabletIndications: mouth daily. Seizure disorder, Bipolar 1 disorder amitriptyline 10 mg Take 1 tablet by 120 tablet 3 07/02/2019 Active tabletIndications: mouth at bedtime. Primary insomnia Can increase up to 4 at night to help with sleep. aspirin 81 mg EC Take 1 tablet by 0 07/01/2019 Active tabletIndications: mouth daily. Essential hypertension, benign cloNIDine 0.1 mg 2 times a day as 10 tablet 0 07/01/2019 Active tabletIndications: needed for SBP > Essential 180 mmHg hypertension, benign mirtazapine (REMERON) Take 1 tablet by 30 tablet 2 07/14/2019 Active 15 mg mouth at bedtime tabletIndications: as needed for Insomnia, unspecified Insomnia. type OLANZapine 5 mg Take 1 tablet by 30 tablet 2 07/14/2019 Active tabletIndications: mouth at bedtime. Bipolar 1 disorder atorvastatin 40 mg Take 1 tablet by 90 tablet 3 08/13/2019 Active tablet mouth daily. Diclofenac Sodium 1 % Apply to area(s) 900 g 11 09/09/2019 Active gelIndications: 2 (two) times Chronic midline low daily as needed back pain without for Pain (scale sciatica 4-6). METOPROLOL SUCCINATE TAKE 1 TABLET BY 30 tablet 5 09/11/2019 Active XL 25 mg 24 hr tablet MOUTH EVERY DAY ALPRAZolam 0.5 mg Take 1 tablet by 60 tablet 5 09/12/2019 Active tabletIndications: mouth 2 (two) Paralysis agitans times daily. 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 CAD (coronary artery disease) 11/25/2014 Seizure disorder 11/25/2014 Bipolar 1 disorder 11/25/2014 TIA (transient ischemic attack) 11/25/2014 Insomnia 11/25/2014 Encounters Date Type Specialty Care Team Description 09/11/2019 Refill Cardiology Jose Luis Sendmirta Segovia MD 09/09/2019 Office Visit Internal Medicine Lyndon Cowart fficulty, unspecified laterality (Primary Dx); Zandra Christianson MD Teeth proble m; Chronic midline low back pain without sciatica; Need for vaccin ation; Short-term ashley ry loss; Abnormal levels of other serum enzymes; Other care home (current) drug therapy; Other specified health status ; Coronary artery disease involving qagan tayagungin coronary artery of qagan tayagungin heart without angina pectoris 08/25/2019 Refill Neurology Laith Lopez Refill Andre Sherwood MD 08/13/2019 Refill Cardiology Seb Allison MD Refill Req uest 08/11/2019 Refill Cardiology Jose Luis Sendil Refill Jorge Segovia MD 08/07/2019 Hospital Encounter Radiology Laith Lopez MD 08/07/2019 Telephone Neurology Laith Lopez Notification (The MD Shaka patient's called and woud like t o speak with the office ) 07/24/2019 Telephone Cardiology Seb Allison MD Orders; No tification 07/24/2019 Telephone Neurology Laith Lopez Assessment MD Shaka 07/22/2019 Telephone Neurology Liath Lopez Notification MD Shaka 07/21/2019 Orders Only Doctor Unassigned, [place] 07/21/2019 Case Management Internal Medicine Sofya, Orders Zandra Christianson MD 07/18/2019 Office Visit Neurology Laith Lopez Lumbar radic ulopathy (Primary Dx); MD Shaka Paralysis agita ns; Bipolar affecti ve disorder in remission; Lumbosacral spo ndylosis without myelopathy 07/18/2019 Orders Only Doctor Unassigned, [place] 07/14/2019 Emergency Emergency Medicine Denisse Cruz S, Acute right-sided low PAC back pain, unspecified whe ther sciatica presen t (Primary Dx) 07/14/2019 Orders Only Doctor Unassigned, [place] 07/11/2019 Refill Cardiology Seb Allison MD Refill Req uest 07/03/2019 Office Visit Internal Medicine Sofya, LEFT W/O B EING SEEN Zandra Christianson MD (Primary Dx) 07/02/2019 Telephone Cardiology Seb Allison MD Letters (j ury release) 07/01/2019 Office Visit Cardiology Seb Allison MD Essential hypertension, benign (Primary Dx); Mixed hyperlipi demia; Coronary artery disease involving qagan tayagungin coronary artery of qagan tayagungin heart without angina pectoris; Chronic systoli c heart failure 07/01/2019 Orders Only Doctor Unassigned, [place] 06/24/2019 Telephone Cardiology Seb Allison MD Notificati on (Was just released f rom 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 Clinical Medical Ganga Cowart memory loss; Laboratory Zandra Christianson MD Other care home (current) drug therapy; 1, [facility] Other specified health status ; Abnormal levels of other serum enzymes 06/12/2019 Refill Neurology Laith Lopez Refill Andre Sherwood MD from Last 3 Months Immunizations Name Administration Dates Next Due Influenza Virus Vaccine 06/03/2018, 06/15/2016 Influenza Virus Vaccine Recomb Quad 06/20/2019 IM, Preserv and ABX Free 18-64 YRS Pneumococcal Polysaccharide, PPSV23 09/09/2019, 06/30/2019 ( Deferred: (PNEUMOVAX) Patient Refused - Patient will come back for PPSV) Tdap 11/13/2016 Family History Medical History Relation Name Comments Heart Father CABG@72 Relation Name Status Comments Father Social History Tobacco Use Types Packs/Day Years Used Date Former Smoker Quit: 09/28/19 Smokeless Tobacco: Never Used Tobacco Cessation: Counseling Given: No Alcohol Use Drinks/Week oz/Week Comments No Sex Assigned at Date Recorded Not on file Job Start Date Occupation Industry Not on file Not on file Not on file Travel History Travel Start Travel End No recent travel history available. Last Filed Vital Signs Vital Sign Reading Time Taken Comments Blood Pressure 119/80 09/09/2019 2:46 PM SOCIAL MEDIA MANAGER Pulse 62 09/09/2019 2:46 PM SOCIAL MEDIA MANAGER Temperature 36.7 C (98.1 F) 09/09/2019 2:46 PM SOCIAL MEDIA MANAGER Respiratory Rate 18 09/09/2019 2:46 PM SOCIAL MEDIA MANAGER Oxygen Saturation 97% 09/09/2019 2:46 PM SOCIAL MEDIA MANAGER Inhaled Oxygen Concentration - - Weight 64.9 kg (143 lb) 09/09/2019 2:46 PM SOCIAL MEDIA MANAGER Height 162.6 cm (5' 4") 07/14/2019 2:16 PM SOCIAL MEDIA MANAGER Body Mass Index 24.55 07/14/2019 2:16 PM SOCIAL MEDIA MANAGER Plan of Treatment Date Type Specialty Care Team Description 11/17/2019 Office Visit Cardiology Seb Allison M D [address] [place] [address] 15 [phone] 01/08/2020 Office Visit Internal Medicine Jesica Cowart MD [address] [place] [address] 15 [phone] Health Maintenance Due Date Last Done Comments Zoster Recombinant Vaccine (SHINGRIX) 2009 (1 of 2) COLONOSCOPY 05/19/2024 05/19/2014 (Previously completed) DTaP,Tdap,and Td Vaccines (2 - Td) 11/13/2026 11/13/2016 HEPATITIS C (HCV) SCREEN Completed 2018 INFLUENZA VACCINE Completed 06/20/2019, 06/03/2018, 06/15/2016 PNEUMOCOCCAL 0-64 YEARS COMBINED Completed 09/09/2019 SERIES Procedures Procedure Name Priority Date/Time Associated Comments Diagnosis PNEUMOCOCCAL VACCINE, Routine 09/09/2019 Need for 23-VALENT (PNEUMOVAX) 4:06 PM SOCIAL MEDIA MANAGER vaccination CT LUMBAR SPINE WO CONTRAST Routine 08/07/2019 Weak ness Results for 10:52 AM SOCIAL MEDIA MANAGER Fall, initial this procedure encounter are in the results section. PATIENT QUESTIONNAIRE Routine 08/07/2019 12:01 AM SOCIAL MEDIA MANAGER PHYSICIAN CERTIFICATION Routine 07/21/2019 STATEMENT 12:01 AM SOCIAL MEDIA MANAGER EXTERNAL PROVIDER RECORDS Routine 07/21/2019 12:01 AM SOCIAL MEDIA MANAGER AUTHORIZATION TO RELEASE PHI Routine 07/18/2019 TO [facility] 12:01 AM SOCIAL MEDIA MANAGER NOTICE OF PRIVACY PRACTICES Routine 07/14/2019 4:48 PM SOCIAL MEDIA MANAGER CONSENT/REFUSAL FOR DIAGNOSIS Routine 07/14/2019 AND TREATMENT 4:48 PM SOCIAL MEDIA MANAGER EMERGENCY SERVICES AGREEMENTS Routine 07/14/2019 AND AUTHORIZATIONS 12:01 AM SOCIAL MEDIA MANAGER MEDICAL RELEASE/CLEARANCE Routine 07/01/2019 FORMS 12:01 AM CDT AUTHORIZATION TO RELEASE PHI Routine 07/01/2019 TO [facility] 12:01 AM CDT EXTERNAL PROVIDER - ADC Routine 07/01/2019 CARDIOLOGY 12:01 AM CDT FLU VACC([id number]), 50-64 Routine 06/20/2019 Need for YRS, IM, QUAD (FLUBLOK) 11:06 AM CDT vaccination TESTOSTERONE, FREE AND TOTAL Routine 06/19/2019 Short-term m terrie Results for 8:51 AM CDT loss this procedure are in the results section. COPPER, SERUM Routine 06/19/2019 Short-term memory Results f or 8:51 AM CDT loss this procedure are in the results section. ZINC, SERUM Routine 06/19/2019 Short-term memory Results fo r 8:51 AM CDT loss this procedure are in the results section. FREE T3 Routine 06/19/2019 Short-term memory Results fo r 8:51 AM CDT loss this procedure are in the results section. FREE T4 Routine 06/19/2019 Short-term memory Results fo r 8:51 AM CDT loss this procedure are in the results section. THYROID STIMULATING HORMONE Routine 06/19/2019 Short-term me vince Results for 8:51 AM CDT loss this procedure are in the results section. INSULIN, LEVEL Routine 06/19/2019 Short-term memory Results for 8:51 AM CDT loss this procedure are in the results section. LIPID PANEL ([id number])(TOTAL Routine 06/19/2019 Short-term ashley ry Results for CHOLESTEROL, TRIGLYCERIDES, 8:51 AM CDT loss this procedure HDL) Abnormal levels are in the of other serum results enzymes section. DEHYDROEPIANDROSTERONE Routine 06/19/2019 Short-term memory Results for SULFATE 8:51 AM CDT loss this procedure are in the results section. CORTISOL AM Routine 06/19/2019 Short-term memory Results fo r 8:51 AM CDT loss this procedure are in the results section. COMP. METABOLIC PANEL ([id number]) Routine 06/19/2019 Short-term memory Results for 8:51 AM CDT loss this procedure are in the results section. 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 VITAMIN D, 25-OH Routine 06/19/2019 Short-term memory Result s for 8:51 AM CDT loss this procedure Other care home are in the (current) drug results therapy section. VITAMIN B12, LEVEL Routine 06/19/2019 Short-term memory Resu lts for 8:51 AM CDT loss this procedure Other care home are in the (current) drug results therapy section. VITAMIN B6, PLASMA Routine 06/19/2019 Short-term memory Resu lts for 8:51 AM CDT loss this procedure Abnormal levels are in the of other serum results enzymes section. HOMOCYSTEINE Routine 06/19/2019 Short-term memory Results fo r 8:51 AM CDT loss this procedure Abnormal levels are in the of other serum results enzymes section. HIGH SENSITIVITY CRP Routine 06/19/2019 Other specified Resu lts for 8:51 AM CDT health status this procedure Short-term memory are in the loss results section. VITAMIN B1 (THIAMINE), WHOLE Routine 06/19/2019 Short-term m new enterprise Results for BLOOD 8:51 AM CDT loss this procedure Other care home are in the (current) drug results therapy section. from Last [address] LUMBAR SPINE WO CONTRAST (08/07/2019 10:52 AM SOCIAL MEDIA MANAGER) Specimen Narrative Performed At HISTORY: History of fall and weakness. PACS/VR/DOSE TECHNIQUE: 64-mutidetector Spiral CT lumbar spine was obtained the patient on the back. Subsequently multiple sagittal and cerrato l reformations were obtained. FINDINGS: Five lumbar vertebrae assumed and the levels are accordingly labeled. No compression fracture or aggr essive bone lesions. Atherosclerosis of the abdominal aorta n oted with focal ectasia of the infrarenal segment of the abdominal aorta with maximum diameter of 2.3 cm. No abdominal aortic aneurysm visualized. T12-L1: Small osteophytes along the vert ebral margins. L1-L2: Unremarkable. L2-L3: Mild degenerative changes in the vertebral satnam ins and minimal disc bulge with minimal thecal sac compression without fora deepa encroachment. L3-L4: Mild degenerative changes in the vertebral satnam ins, minimal diffuse bulging of the disc and slightly thicken ed ligamentum flavum with mild thecal sac compression. No significant f oraminal encroachment. L4-L5: Mild degenerative changes in the ventral dural margins, diffuse bulging of the disc, facet arthritis, mo re on the right side, thickened ligamentum flavum noted with mild sac compression. For aminal encroachment is not significant. L5-S1: Moderate to severe degenerative disc disease wi th narrowing of the disc more than 90%, vacuum phenomenon in the disc material, endplate sclerosis, osteophytes along the ventral vertebral margins, minimal retrolisthesis of L5 over S1, degenerati ve cystic lesion in the dorsal lower portion of L5 vertebral body noted . Disc osteophyte complex encroaching into the spinal canal causing mild thecal sac compression and mild foraminal encroachment without sign ificant nerve root compression. Mild bilateral facet arthritis noted. CONCLUSIONS: 1. Moderate to severe degenerative disc disease at L5- S1 with mild thecal sac compression. 2. Mild degenerative spondylosis in the upper lumbar spines without disc herniation or significant foraminal sten osis at any of the upper lumbar levels. Procedure Note [facility], Radiant Results Inft User - 2018 10:59 AM SOCIAL MEDIA MANAGER HISTORY: History of fall and weakness. TECHNIQUE: 64-mutidetector Spiral CT lum bar spine was obtained the patient on the back. Subsequently multiple sagit nicolasa and coronal reformations were obtained. FINDINGS: Five lumbar vertebrae assumed and the levels are accordingly labeled. No compression fracture or aggr essive bone lesions. Atherosclerosis of the abdominal aorta n oted with focal ectasia of the infrarenal segment of the abdominal aort a with maximum diameter of 2.3 cm. No abdominal aortic aneurysm visualized. T12-L1: Small osteophytes along the vert ebral margins. L1-L2: Unremarkable. L2-L3: Mild degenerative changes in the vertebral margins and minimal disc bulge with minimal thecal sac compressio n without foraminal encroachment. L3-L4: Mild degenerative changes in the vertebral margins, minimal diffuse bulging of the disc and slightly thicken ed ligamentum flavum with mild thecal sac compression. No significant f oraminal encroachment. L4-L5: Mild degenerative changes in the ventral dural margins, diffuse bulging of the disc, facet arthritis, mo re on the right side, thickened ligamentum flavum noted with mild sac co mpression. Foraminal encroachment is not significant. L5-S1: Moderate to severe degenerative d isc disease with narrowing of the disc more than 90%, vacuum phenomenon in the disc material, endplate sclerosis, osteophytes along the ventral vertebral margins, minimal retrolisthesis of L5 over S1, degenerati ve cystic lesion in the dorsal lower portion of L5 vertebral body noted . Disc osteophyte complex encroaching into the spinal canal causin g mild thecal sac compression and mild foraminal encroachment without sign ificant nerve root compression. Mild bilateral facet arthritis noted. CONCLUSIONS: 1. Moderate to severe degenerative disc disease at L5-S1 with mild thecal sac compression. 2. Mild degenerative spondylosis in the upper lumbar spines without disc herniation or significant foraminal sten osis at any of the upper lumbar levels. Performing Organization Address City/State/Zipcode Phone Number PACS/VR/DOSE PATIENT QUESTIONNAIRE (08/07/2019 12:01 AM SOCIAL MEDIA MANAGER) Specimen Performing Organization Address [facility] Phone Number [facility] PHYSICIAN CERTIFICATION STATEMENT (07/21/2019 12:01 AM SOCIAL MEDIA MANAGER) Specimen Performing Organization Address [facility] Phone Number [facility] EXTERNAL PROVIDER RECORDS (07/21/2019 12:01 AM SOCIAL MEDIA MANAGER) Specimen Performing Organization Address [facility]/State[facility] Phone Number [facility] AUTHORIZATION TO RELEASE PHI TO [facility] (07/18/2019 12:01 AM SOCIAL MEDIA MANAGER)Only the most recent of2 resultswithin the time period is included. Specimen Performing Organization Address [facility] Phone Number [facility] NOTICE OF PRIVACY PRACTICES (07/14/2019 4:48 PM SOCIAL MEDIA MANAGER) Specimen Performing Organization Address [facility] Phone Number [facility] CONSENT/REFUSAL FOR DIAGNOSIS AND TREATMENT (07/14/2019 4:48 PM SOCIAL MEDIA MANAGER) Specimen Performing Organization [facility] Phone Number [facility] EMERGENCY SERVICES AGREEMENTS AND AUTHORIZATIONS (07/14/2019 12:01 AM SOCIAL MEDIA MANAGER) Specimen Performing Organization [facility] Phone Number [facility] EXTERNAL PROVIDER - ADC CARDIOLOGY (07/01/2019 12:01 AM CDT) Specimen Performing Organization Address [facility] Phone Number [facility] MEDICAL RELEASE/CLEARANCE FORMS (07/01/2019 12:01 AM CDT) Specimen Performing Organization [facility] [place] Phone Number [facility] VITAMIN B1 (THIAMINE), WHOLE BLOOD (06/19/2019 8:51 AM CDT) Vitamin B1, Whole 196 (H) 70 - 180 [facility] Blood Comment: nmol/L INTERPRETIVE INFORMATION: Vitamin B1, Whole Blood This assay measures the concentration of thiamine diph osphate (TDP), the primary active form of vitamin B1. Approxim ately 90 percent of vitamin B1 present in whole blood is TDP. T hiamine and thiamine monophosphate, which comprise the remaining 1 0 percent, are not measured. Test developed and characteristics determined by [employer]. See Compliance Statement B: [employer]/ CS Performed by [employer], [address], [place] [id number] [email or web address], Paco Hale MD, Lab. Director Specimen Blood - ARM, RIGHT Performing [facility] [place] Phone Number [facility] [address] [place] [address] FREE T3 (06/19/2019 8:51 AM CDT) Pathologist Sig nature FREE T3 5.25 2.77 - 5.27 pg/mL [facility] Specimen Blood - ARM, RIGHT Performing Organization Address City/[facility]/Zipcode Phone Number [facility] CLIA: [id number], [address] [place], [place] [address] VITAMIN D, 25-OH (06/19/2019 8:51 AM CDT) Pathologist Sig nature VIT D 25OH 49 25 - 80 ng/mL [facility] 25-Hydroxy D3 48.6 ng/mL [facility] 25-Hydroxy D2 <2.5 ng/mL [facility] Specimen Blood - ARM, RIGHT Narrative Performed At Test developed and characteristics determined by [facility] Laboratory Services. Performing Organization Address City/[facility] Phone Number [facility] CLIA: [id number], [address] [place] [address] [address] [facility] HOMOCYSTEINE (06/19/2019 8:51 AM CDT) Pathologist Sig nature Homocysteine 11.4 6.6 - 14.8 umol/L [facility] S Specimen Blood - ARM, RIGHT Performing Organization Address [facility] Phone Number [facility] CLIA: [id number], [address] [place] [address] [address] [facility] HIGH SENSITIVITY CRP (06/19/2019 8:51 AM CDT) Pathologist Sig nature HS CRP 0.18 <0.74 mg/dL [facility] Specimen Blood - ARM, RIGHT Performing Organization Address City/[facility]/Zipcode Phone Number [facility] CLIA: [id number], [address] [place] [address] [address] [facility] DEHYDROEPIANDROSTERONE SULFATE (06/19/2019 8:51 AM CDT) Pathologist Sig nature DHEA-S 2,016.1 ng/mL [facility] Specimen Blood - ARM, RIGHT Narrative Performed At Normal Ranges for DHEA SO4 [facility] Prepubertal: 50-995 ng/mL Adult: 650-3400 ng/mL Adult levels may decrease with age after age 50. Decreased level may be seen in term preg nancies. Pubertal is based on physical examination. Performing Organization Address City/State/Zipcode Phone Number [facility] CLIA: [id number], [address] [place], [place] [address] LIPID PANEL ([id number])(TOTAL CHOLESTEROL, TRIGLYCERIDES, HDL) (06/19/2019 8:51 AM CDT) Pathologist Sig nature CHOL 205 (H) 120 - 200 mg/dL [facility] HDL 56 >40 mg/dL [facility] HDLC RATIO 3.7 <=5.0 [facility] TRIG 206 (H) 30 - 170 mg/dL [facility] LDL CHOL 108 <=160 mg/dL [facility] VLDL 41 5 - 60 mg/dL [facility] Specimen Blood - ARM, RIGHT Performing Organization Address City/[facility]/Zipcode Phone Number [facility] CLIA: [id number], [address] [place], [place] [address] COMP. METABOLIC PANEL ([id number]) (06/19/2019 8:51 AM CDT) Pathologist Sig nature NA 139 135 - 145 [facility] mmol/L [facility] K 4.4 3.5 - 5.0 [facility] mmol/L [facility] CL 102 98 - 108 mmol/L [facility] CO2 TOTAL 26 23 - 31 mmol/L [facility] AGAP 11 2 - 16 [facility] BUN 19 7 - 23 mg/dL [facility] GLUCOSE 88 70 - 110 mg/dL [facility] CREATININE 1.00 0.60 - 1.25 [facility] mg/dL H[facility]PITAL [facility] TOTAL BILI 0.7 0.1 - 1.1 mg/dL [facility] CALCIUM 10.4 8.6 - 10.6 [facility] mg/dL [facility] T PROTEIN 8.4 (H) 6.3 - 8.2 g/dL [facility] ALBUMIN 4.7 3.5 - 5.0 g/dL [facility] ALK PHOS 67 34 - 122 U/L [facility] ALTv 42 5 - 50 U/L [facility] AST(SGOT) 33 13 - 40 U/L [facility] [place] eGFR Calculation 76.2 mL/min/1.73m2 [facility] ([facility] LABORATORY Citizen Of [place]) eGFR Calculation 92.4 mL/min/1.73m2 [facility] () [facility] LABORAT[facility] Specimen Blood - ARM, RIGHT Narrative Performed At [facility] [place] of Glomerular Filtration Rate (GFR) [facility] LAB[facility] and Staging of Kidney Disease* [...] abnormalities in imaging tests). Performing Organization Address [facility] [place] Phone Number [facility]: [id number], [address] [place] [address] THYROID STIMULATING HORMONE (06/19/2019 8:51 AM CDT) [facility] Sig nature TSH 5.02 (H) 0.45 - 4.70 mIU/L [facility] LABORATORY Specimen Blood - ARM, RIGHT Performing Organization Address [facility] [place] Phone Number [facility] [id number], [address] [place] [address] FREE T4 (06/19/2019 8:51 AM CDT) [facility] Sig nature FREE T4 1.18 0.78 - 2.20 ng/dL [facility] LABOR[facility] Specimen Blood - ARM, RIGHT Performing Organization Address [facility] [place] Phone Number [facility] [id number], [address] [place] [address] INSULIN, LEVEL (06/19/2019 8:51 AM CDT) Pathologist Sig nature Insulin 23.5 (H) 1.9 - 23.0 uIU/mL [facility] LABORATORY SERVICE S Specimen Blood - ARM, RIGHT Performing Organization Address City/[facility] Phone Number [facility]OR[facility] SERVICES CLIA: [id number], [address] [place] [address] [address] [facility] FOLATE (06/19/2019 8:51 AM CDT) Pathologist Sig nature FOLATE SER 11.6 3.0 - 20.0 ng/mL [facility] LABORATORY SERVICES Specimen Blood - ARM, RIGHT Performing Organization Address [facility] Phone Number [facility]OR[facility] SERVICES CLIA: [id number], [address] [place] [address] [address] [facility] VITAMIN B12, LEVEL (06/19/2019 8:51 AM CDT) Pathologist Sig nature VIT B12 847 240 - 930 pg/mL [facility] LABORATORY SERVICES Specimen Blood - ARM, RIGHT Narrative Performed At [facility] has been reported to cause a positive bias, int erpret [facility] LABORATORY SERVICES results relative to patient's use of biotin. Performing Organization Address City/[facility] Phone Number [facility] LABORATORY SERVICES CLIA: [id number], [address] [place] [address] [address] [facility] CORTISOL AM (06/19/2019 8:51 AM CDT) Pathologist Sig nature ADELA AM 6.1 4.5 - 23.0 ug/dL [facility] LABORATORY SERVICES Specimen Blood - ARM, RIGHT Narrative Performed At [facility] has been reported to cause a positive bias, int erpret [facility] LABORATORY SERVICES results relative to patient's use of biotin. Performing Organization Address City/State/[facility] Phone Number [facility] LABORATORY SERVICES CLIA: [id number], [address] [place] [address] [address] [facility] VITAMIN B6, PLASMA (06/19/2019 8:51 AM CDT) Pathologist Sig nature VIT B6 270.9 (H) 20.0 - 125.0 [facility] Comment: nmol/L INTERPRETIVE INFORMATION: Vitamin B6 (Pyridoxal 5-Phos phate) Pyridoxal 5'-phosphate measured in a specimen collecte d following an 8-hour or overnight fast accurately indicates vitam in B6 nutritional status. Non-fasting specimen concentration reflects recent vitamin intake. Test developed and characteristics determined by [employer]. See Compliance Statement B: [facility]/ Performed by [employer], [address] [place] [address] [id number] [email or web address], Paco Hale MD, Lab. Director Specimen Blood - ARM, RIGHT Performing Organization Address [facility] Phone Number [facility] [address] [place] [address] TESTOSTERONE, FREE AND TOTAL (06/19/2019 8:51 AM CDT) [facility] TESTOST 293 (L) 300 - 720 [facility] Comment: ng/dL REFERENCE INTERVAL: Testosterone, Adult Male Access complete set of age- and/or gender-specific ref erence intervals for this test in the [facility] Laboratory Test Di rectory ([facility]). Sex Hormone 87 (H) 11 - 80 [facility] Binding Globulin Comment: nmol/L REFERENCE INTERVAL: Sex Hormone Binding Globulin Access complete set of age- and/or gender-specific ref erence intervals for this test in the [facility] Test Di rectory ([facility]). FREE TESTO 27 (L) 47 - 244 [facility] Comment: pg/mL INTERPRETIVE INFORMATION: Testosterone, Free Gagan Stage IV 35 - 169 pg/mL Gagan Stage V 41 - 239 pg/mL The concentration of Free Testosterone is derived from a mathematical expression based on the constant for the binding of testosterone to Sex Hormone Binding Globulin (SHBG). Access complete set of age- and/or gender-specific ref erence intervals for this test in the [facility] Test Di rectory ([facility]). %FREE TEST 0.9 (L) 1.6 - 2.9 % [facility] Comment: Performed by [employer], [address], [place] [id number] www.[email or web address], Paco Hale MD, Lab. Director Specimen Blood - ARM, RIGHT Performing Organization Address [facility] Phone Number [facility] [address] [place] [address] ZINC, SERUM (06/19/2019 8:51 AM CDT) Pathologist Sig nature ZINC 96.2 60.0 - 120.0 [facility] Comment: ug/dL INTERPRETIVE INFORMATION: Zinc, Serum or Plasma Elevated results may be due to skin or collection-rela joel contamination, including the use of a noncertified met al-free collection/transport tube. If contamination concerns e xist due to elevated levels of serum/plasma zinc, confirmation wit h a second specimen collected in a certified metal-free tube is r ecommended. Circulating zinc concentrations are dependent on album in status and are depressed with malnutrition. Zinc may also b e lowered with infection, inflammation, stress, oral contracepti ves, and . Zinc may be elevated with zinc supplement ation or fasting. Elevated zinc concentrations may interfere with copper absorption. Test developed and characteristics determined by [employer]. See Compliance Statement B: [facility]/ CS Performed by [employer], [address] [place] [address] www.[email or web address], Paco Hale MD, Lab. Director Specimen Blood - ARM, RIGHT [facility] Organization Address City/State/Zipcode Phone Number [facility] [address] [place] [address] COPPER, SERUM (06/19/2019 8:51 AM CDT) Pathologist [facility] COPPER 84.8 70.0 - 140.0 [facility] Comment: ug/dL INTERPRETIVE INFORMATION: Copper, Serum or Plasma Elevated results may be due to skin or collection-rela joel contamination, including the use of a noncertified met al-free collection/transport tube. If contamination concerns e xist due to elevated levels of serum/plasma copper, confirmation w ith a second specimen collected in a certified metal-free tube is r ecommended. Serum copper may be elevated with infection, inflammat ion, stress, and copper supplementation. In females, elevated coppe r may also be caused by oral contraceptives and (concen trations may be elevated up to 3 times normal during the third trim raoldo). Test developed and characteristics determined by [employer]. See Compliance Statement B: [facility]/ CS Performed by [employer], [address] [place] [address] www.[email or web address], Paco Hale MD, Lab. Director Specimen Blood - ARM, RIGHT Performing Organization Address City/State/Zipcode Phone [place] [address] from Last 3 Months Insurance Payer Benefit Plan / Subscriber ID Effective Dates Phone Addre ss Type Group MEDICARE MEDICARE PART xxxxxxxxxxx 1996-Presen [phone] Medicare A & B t 2 [id number] ALTHEA BARNETT [id number] [facility] MEDICAID OF xxxxxxxxx 2013-Presen [phone] [place] [address] [id number] [place] [address] Advance Directives Name Relationship Healthcare Agent Communication Relationship Jodi Tatum Spouse Primary healthcare agent
--- OUTSIDE RECORDS SUMMARY | 2020-01-04 10:04 | XMS REPORT | Clinical Summary ---
:1960 Author Organization [facility] - [facility] Address [address] [place] [address] Care Team Providers Name Role Phone Sammy Cowart MD Primary Care Provider MD Keegan Unavailable Allergies Active Allergy Reactions Severity Noted Date Comments Aripiprazole Other - See comments 11/12/2014 insomni a Trazodone Other - See comments 11/12/2014 insomni a Medications Medication Sig Dispensed Refills Start Date End Date Status OMEGA-3 FATTY Take by mouth 0 A ctive ACIDS/FISH OIL (OMEGA 3 daily. FISH OIL ORAL) Cholecalciferol, Take by mouth 0 Active Vitamin D3, (VITAMIN daily. D3) 2,000 unit Cap VITAMIN E, Take 200 Units 0 Acti ve DL,TOCOPHERYL ACET, by mouth daily. (VITAMIN E, DL, ACETATE, ORAL) Olopatadine 0.2 % Place 1 Drop in 2.5 mL 3 12/09/2018 Active ophthalmic each eye daily. dropsIndications: Seasonal allergies rOPINIRole (REQUIP XL) One by mouth per 30 tablet 1 01/07/2019 Active 2 mg 24 hr day. Take in the tabletIndications: am. Paralysis agitans lisinopril 10 mg tablet Take 1 tablet by 90 tablet 2 9 Active mouth daily. cholestyramine 4 gram Take [...] NEEDED without sciatica FOR PAIN (SCALE 4-6). amitriptyline 10 mg Take 1 tablet by [...] SBP > Essential hypertension, 180 mmHg benign mirtazapine (REMERON) Take 1 tablet by 30 tablet 2 07/14/2019 Active 15 mg mouth at bedtime tabletIndications: as needed for Insomnia, unspecified Insomnia. type OLANZapine 5 mg Take 1 tablet by 30 tablet 2 07/14/2019 Active tabletIndications: mouth at Bipolar 1 disorder bedtime. METOPROLOL SUCCINATE XL TAKE 1 TABLET BY 30 tablet 0 9 Active 25 mg 24 hr tablet MOUTH EVERY DAY atorvastatin 40 mg Take 1 tablet by 90 tablet 3 08/13/2019 Active tablet mouth daily. 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 CAD (coronary artery disease) 11/25/2014 Seizure disorder 11/25/2014 Bipolar 1 disorder 11/25/2014 TIA (transient ischemic attack) 11/25/2014 Insomnia 11/25/2014 Encounters Date Type Specialty Care Team Description 08/25/2019 Refill Neurology Laith Lopez Refill Andre Sherwood MD 08/13/2019 Refill Cardiology Seb Allison MD Refill Req uest 08/11/2019 Refill Cardiology Cheyenne Amayaill Jorge Segovia MD 08/07/2019 Hospital Encounter Radiology Laith Lopez MD 08/07/2019 Telephone Neurology Laith Lopez Notification (The MD Shaka patient's called and woud like t o speak with the office ) 07/24/2019 Telephone Cardiology Seb Allison MD Orders; No tification 07/24/2019 Telephone Neurology Laith Lopez Assessment MD Shaka 07/22/2019 Telephone Neurology Laith Lopez Notification MD Shaka 07/21/2019 Orders Only Doctor Unassigned, [place] 07/21/2019 Case Management Internal Medicine Sofya, Orders Zandra Christianson MD 07/18/2019 Office Visit Neurology Laith Lopez Lumbar radic ulopathy (Primary Dx); MD Shaka Paralysis agita ns; Bipolar affecti ve disorder in remission; Lumbosacral spo ndylosis without myelopathy 07/18/2019 Orders Only Doctor Unassigned, [place] 07/14/2019 Emergency Emergency Medicine Denisse Cruz S, Acute right-sided low PAC back pain, unspecified whe ther sciatica presen t (Primary Dx) 07/14/2019 Orders Only Doctor Unassigned, [place] 07/11/2019 Refill Cardiology Seb Allison MD Refill Req uest 07/03/2019 Office Visit Internal Medicine Sofya, LEFT W/O B EING SEEN Zandra Christianson MD (Primary Dx) 07/02/2019 Telephone Cardiology Seb Allison MD Letters (j ury release) 07/01/2019 Office Visit Cardiology Seb Allison MD Essential hypertension, benign (Primary Dx); Mixed hyperlipi demia; Coronary artery disease involving chenega coronary artery of chenega heart without angina pectoris; Chronic systoli c heart failure 07/01/2019 Orders Only Doctor Unassigned, [place] 06/24/2019 Telephone Cardiology Seb Allison MD Notificati on (Was just released f rom 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 Clinical Medical Ganga Cowart memory loss; Laboratory Zandra Christianson MD Other senior care (current) drug therapy; 1, [facility] Lab Other specified health status ; Abnormal levels of other serum enzymes 06/12/2019 Refill Neurology Laith Lopez Refill Andre Sherwood MD 06/11/2019 Refill Neurology Laith Lopez Refill Andre Sherwood MD from Last 3 Months Immunizations Name Administration Dates Next Due Influenza Virus Vaccine 06/03/2018, 06/15/2016 Influenza Virus Vaccine Recomb Quad 06/20/2019 IM, Preserv and ABX Free 18-64 YRS Pneumococcal Polysaccharide, PPSV23 06/30/2019 (Deferred: Chema lowe Refused - (PNEUMOVAX) Patient will come back [...] Sign Reading Time Taken Comments Blood Pressure 166/99 07/18/2019 10:58 AM BULK INTAKE WORKER Pulse 68 07/18/2019 10:58 AM BULK INTAKE WORKER Temperature 37.3 C (99.1 F) 07/18/2019 10:58 AM BULK INTAKE WORKER Respiratory Rate 18 07/18/2019 10:58 AM BULK INTAKE WORKER Oxygen Saturation 100% 07/14/2019 5:00 PM BULK INTAKE WORKER Inhaled Oxygen Concentration - - Weight 68 kg (150 lb) 07/18/2019 10:58 AM BULK INTAKE WORKER Height 162.6 cm (5' 4") 07/14/2019 2:16 PM BULK INTAKE WORKER Body Mass Index 25.75 07/14/2019 2:16 PM BULK INTAKE WORKER Plan of Treatment Date Type Specialty Care Team Description 09/09/2019 Office Visit Internal Medicine Jesica Cowart MD [address] [place] [address] [phone] 09/12/2019 Office Visit Neurology Laith Lopez MD [address] [place] [address] [address] [place], [place] [address] [phone] 11/17/2019 Office Visit Cardiology Seb Allison M D [address] [facility] [address] [place], [place] [address] Health Maintenance Due Date Last Done Comments PNEUMOCOCCAL 0-64 YEARS 1966 COMBINED SERIES (1 of 1 - PPSV23) Zoster Recombinant Vaccine 09/09/2019 Postp oned from 2009 (SHINGRIX) (1 of 2) (Parent Refu sed) COLONOSCOPY 05/19/2024 05/19/2014 (Previously completed) DTaP,Tdap,and Td Vaccines (2 11/13/2026 11/13/2016 - Td) HEPATITIS C (HCV) SCREEN Completed 2018 INFLUENZA VACCINE Completed 06/20/2019, 06/03/2018, 06/15/2016 Procedures Procedure Name Priority Date/Time Associated Comments Diagnosis CT LUMBAR SPINE WO CONTRAST Routine 08/07/2019 Weak ness Results for 10:52 AM BULK INTAKE WORKER Fall, initial this procedure encounter are in the results section. PATIENT QUESTIONNAIRE Routine 08/07/2019 12:01 AM BULK INTAKE WORKER PHYSICIAN CERTIFICATION Routine 07/21/2019 STATEMENT 12:01 AM BULK INTAKE WORKER EXTERNAL PROVIDER RECORDS Routine 07/21/2019 12:01 AM BULK INTAKE WORKER AUTHORIZATION TO RELEASE PHI Routine 07/18/2019 TO [facility] 12:01 AM BULK INTAKE WORKER NOTICE OF PRIVACY PRACTICES Routine 07/14/2019 4:48 PM BULK INTAKE WORKER CONSENT/REFUSAL FOR DIAGNOSIS Routine 07/14/2019 AND TREATMENT 4:48 PM BULK INTAKE WORKER EMERGENCY SERVICES AGREEMENTS Routine 07/14/2019 AND AUTHORIZATIONS 12:01 AM BULK INTAKE WORKER MEDICAL RELEASE/CLEARANCE Routine 07/01/2019 FORMS 12:01 AM CDT AUTHORIZATION TO RELEASE PHI Routine 07/01/2019 TO [facility] 12:01 AM CDT EXTERNAL PROVIDER - ADC Routine 07/01/2019 CARDIOLOGY 12:01 AM CDT FLU VACC([id number]), 50-64 Routine 06/20/2019 Need for YRS, IM, QUAD (FLUBLOK) 11:06 AM CDT vaccination TESTOSTERONE, FREE AND TOTAL Routine 06/19/2019 Short-term critical [facility] hospital Results for 8:51 AM CDT loss this [...] are in the results section. LIPID PANEL ([id number])(TOTAL Routine 06/19/2019 Short-term ashley ry Results for [...] in the results section. COMP. METABOLIC PANEL ([id number]) Routine 06/19/2019 Short-term memory Results for 8:51 AM CDT loss this procedure are in the results section. FOLATE Routine 06/19/2019 Short-term memory Results fo r 8:51 AM CDT loss this procedure Other manager intermediate are in the (current) drug results therapy section. VITAMIN D, 25-OH Routine 06/19/2019 Short-term memory Result s for 8:51 AM CDT loss this procedure Other senior care are in the (current) drug results therapy section. VITAMIN B12, LEVEL Routine 06/19/2019 Short-term memory Resu lts for 8:51 AM CDT loss this procedure Other manager intermediate are in the (current) drug results therapy [...] B1 (THIAMINE), WHOLE Routine 06/19/2019 Short-term [place] Results for BLOOD 8:51 AM CDT loss this procedure Other manager intermediate are in the (current) drug results therapy section. from Last [address] LUMBAR SPINE WO CONTRAST (08/07/2019 10:52 AM BULK INTAKE WORKER) Specimen Narrative Performed At HISTORY: History of [...] of the upper lumbar levels. Procedure Note [facility], Radiant Results Inft User - 2018 10:59 AM BULK INTAKE WORKER HISTORY: History of fall and weakness. TECHNIQUE: [...] Number PACS/VR/DOSE PATIENT QUESTIONNAIRE (08/07/2019 12:01 AM BULK INTAKE WORKER) Specimen Performing Organization Address [facility]/State/[facility] Centercode Phone Number [facility] PHYSICIAN CERTIFICATION STATEMENT (07/21/2019 12:01 AM BULK INTAKE WORKER) Specimen Performing Organization Address [facility]/State/[facility] Centercode Phone Number [facility] EXTERNAL PROVIDER RECORDS (07/21/2019 12:01 AM BULK INTAKE WORKER) Specimen Performing Organization Address [facility]/State/[facility] Centercode Phone Number [facility] AUTHORIZATION TO RELEASE PHI TO [facility] (07/18/2019 12:01 AM BULK INTAKE WORKER)Only the most recent of2 resultswithin the time period is included. Specimen Performing Organization Address [facility]/State/[facility] Centercode Phone Number [facility] NOTICE OF PRIVACY PRACTICES (07/14/2019 4:48 PM BULK INTAKE WORKER) Specimen Performing Organization Address [facility]/State/[facility] Centercode Phone Number [facility] CONSENT/REFUSAL FOR DIAGNOSIS AND TREATMENT (07/14/2019 4:48 PM BULK INTAKE WORKER) Specimen Performing Organization [facility] Centercode Phone Number [facility] EMERGENCY SERVICES AGREEMENTS AND AUTHORIZATIONS (07/14/2019 12:01 AM BULK INTAKE WORKER) Specimen Performing Organization Address [facility] Centercode Phone Number [facility] EXTERNAL PROVIDER - ADC CARDIOLOGY (07/01/2019 12:01 AM CDT) Specimen Performing Organization Address [facility] Centercode Phone Number [facility] MEDICAL RELEASE/CLEARANCE FORMS (07/01/2019 12:01 AM CDT) Specimen Performing Organization [facility] Centercode Phone Number [facility] VITAMIN B1 (THIAMINE), WHOLE BLOOD (06/19/2019 8:51 AM CDT) Vitamin B1, Whole 196 (H) 70 - 180 [facility] Blood Comment: nmol/L INTERPRETIVE INFORMATION: Vitamin B1, Whole Blood This assay measures the concentration of thiamine diph osphate (TDP), the primary active form of vitamin B1. Approxim ately 90 percent of vitamin B1 present in whole blood is TDP. T hiamine and thiamine monophosphate, which comprise the remaining 1 0 percent, are not measured. Test developed and characteristics determined by [facility]. See Compliance Statement B: [email or web address] CS Performed by [facility], [address] [place] [id number] [email or web address], Paco Hale MD, Lab. Director Specimen Blood - ARM, RIGHT Performing Organization Address City/State/Zipcode Phone Number [facility] [address] [place] [address] FREE T3 (06/19/2019 8:51 AM CDT) Pathologist Sig nature FREE T3 5.25 2.77 - 5.27 pg/mL [facility] Specimen Blood - ARM, RIGHT Performing Organization Address City/[facility]/Zipcode Phone Number [facility] CLIA: [id number], [address] [place], [place] [address] VITAMIN D, 25-OH (06/19/2019 8:51 AM CDT) Pathologist Sig nature VIT D 25OH 49 25 - 80 ng/mL [facility] LABORATORY SERVICES 25-Hydroxy D3 48.6 ng/mL [facility] LABORATORY SERVICES 25-Hydroxy D2 <2.5 ng/mL [facility] LABORATORY SERVICES Specimen Blood - ARM, RIGHT Narrative Performed At Test developed and characteristics determined by [facility] LABORATORY SERVICES Laboratory Services. Performing Organization Address City/[facility] Centercode Phone Number [facility] LABORATORY SERVICES CLIA: [id number], [address] [place] [address] [address] [facility] HOMOCYSTEINE (06/19/2019 8:51 AM CDT) Pathologist Sig nature Homocysteine 11.4 6.6 - 14.8 umol/L [facility] LABORATORY SERVICE S Specimen Blood - ARM, RIGHT Performing Organization Address [facility] Centercofl Phone Number [facility] LABORATORY SERVICES CLIA: [id number], [address] [place] [address] [address] [facility] HIGH SENSITIVITY CRP (06/19/2019 8:51 AM CDT) Pathologist Sig nature HS CRP 0.18 <0.74 mg/dL [facility] LABORATORY SERVICES Specimen Blood - ARM, RIGHT Performing Organization Address City/[facility] Centercode Phone Number [facility] LABORATORY SERVICES CLIA: [id number], [address] [place] [address] [address] [facility] DEHYDROEPIANDROSTERONE SULFATE (06/19/2019 8:51 AM CDT) Pathologist Sig nature DHEA-S 2,016.1 ng/mL [facility] LABORATORY SERVICES Specimen Blood - ARM, RIGHT Narrative Performed At Normal Ranges for DHEA SO4 [facility] LABORATORY SERVICES Prepubertal: 50-995 ng/mL Adult: 650-3400 ng/mL Adult levels may decrease with age after age 50. Decreased level may be seen in term preg nancies. Pubertal is based on physical examination. Performing Organization Address City/State/Zipcode Phone Number [facility] LABORATORY SERVICES CLIA: [id number], [address] [place], [place] [address] [facility] LIPID PANEL ([id number])(TOTAL CHOLESTEROL, TRIGLYCERIDES, HDL) (06/19/2019 8:51 AM CDT) Pathologist Sig nature CHOL 205 (H) 120 - 200 mg/dL [facility] HDL 56 >40 mg/dL [facility] HDLC RATIO 3.7 <=5.0 [facility] TRIG 206 (H) 30 - 170 mg/dL [facility] LDL CHOL 108 <=160 mg/dL [facility] VLDL 41 5 - 60 mg/dL [facility] Specimen Blood - ARM, RIGHT Performing Organization Address City/State/Zipcode Phone Number [facility] CLIA: [id number], [address] [place], [place] [address] COMP. METABOLIC PANEL ([id number]) (06/19/2019 8:51 AM CDT) Pathologist Sig nature NA 139 135 - 145 [facility] mmol/L [facility] K 4.4 3.5 - 5.0 [facility] mmol/L [facility] CL 102 98 - 108 mmol/L [facility] CO2 TOTAL 26 23 - 31 mmol/L [facility] AGAP 11 2 - 16 [facility] BUN 19 7 - 23 mg/dL [facility] GLUCOSE 88 70 - 110 mg/dL [facility] CREATININE 1.00 0.60 - 1.25 [facility] mg/dL [facility] TOTAL BILI 0.7 0.1 - 1.1 mg/dL [facility] CALCIUM 10.4 8.6 - 10.6 [facility] mg/dL HOSPITAL LABORATORY T PROTEIN 8.4 (H) 6.3 - 8.2 g/dL [facility] ALBUMIN 4.7 3.5 - 5.0 g/dL [facility] ALK PHOS 67 34 - 122 U/L [facility] ALTv 42 5 - 50 U/L [facility] AST(SGOT) 33 13 - 40 U/L [facility] eGFR Calculation 76.2 mL/min/1.73m2 [facility] (Non-[facility] LABORATORY [place]) eGFR Calculation 92.4 mL/min/1.73m2 [facility] () [facility] Specimen Blood - ARM, RIGHT Narrative Performed At [facility] [place] of Glomerular Filtration Rate (GFR) [facility] and Staging of Kidney Disease* [...] abnormalities in imaging tests). Performing Organization Address [facility] Centercode Phone Number [facility] CLIA: [id number], [address] [place] [address] THYROID STIMULATING HORMONE (06/19/2019 8:51 AM CDT) Pathologist Sig nature TSH 5.02 (H) 0.45 - 4.70 mIU/L [facility] Specimen Blood - ARM, RIGHT Performing Organization Address [facility] Centercode Phone Number [facility] CLIA: [id number], [address] [place] [address] FREE T4 (06/19/2019 8:51 AM CDT) Pathologist Sig nature FREE T4 1.18 0.78 - 2.20 ng/dL [facility] Specimen Blood - ARM, RIGHT Performing Organization Address City/[facility] Centercode Phone Number [facility] CLIA: [id number], [address] [place], [place] [address] [facility] [address] INSULIN, LEVEL (06/19/2019 8:51 AM CDT) Pathologist Sig nature Insulin 23.5 (H) 1.9 - 23.0 uIU/mL [facility] LABORATORY SERVICE S Specimen Blood - ARM, RIGHT Performing Organization Address City/[facility] Centercode Phone Number [facility] LABORATORY SERVICES CLIA: [id number], [address] [place] [address] [address] [facility] FOLATE (06/19/2019 8:51 AM CDT) Pathologist Sig nature FOLATE SER 11.6 3.0 - 20.0 ng/mL [facility] LABORATORY SERVICES Specimen Blood - ARM, RIGHT Performing Organization Address [facility] Centercofl Phone Number [facility] LABORATORY SERVICES CLIA: [id number], [address] [place] [address] [address] [facility] VITAMIN B12, LEVEL (06/19/2019 8:51 AM CDT) Pathologist Sig nature VIT B12 847 240 - 930 pg/mL [facility] LABORATORY SERVICES Specimen Blood - ARM, RIGHT Narrative Performed At Biotin has been reported to cause a positive bias, int erpret [facility] LABORATORY SERVICES results relative to patient's use of biotin. Performing Organization Address City/[facility] Centercode Phone Number [facility] LABORATORY SERVICES CLIA: [id number], [address] [place] [address] [address] [facility] CORTISOL AM (06/19/2019 8:51 AM CDT) Pathologist Sig nature ADELA AM 6.1 4.5 - 23.0 ug/dL [facility] LABORATORY SERVICES Specimen Blood - ARM, RIGHT Narrative Performed At Biotin has been reported to cause a positive bias, int erpret [facility] LABORATORY SERVICES results relative to patient's use of biotin. Performing Organization Address City/State/[facility] Centercode Phone Number [facility] LABORATORY SERVICES CLIA: [id number], [address] [place] [address] [address] [facility] VITAMIN B6, PLASMA (06/19/2019 8:51 AM CDT) Pathologist Sig nature VIT B6 270.9 (H) 20.0 - 125.0 [facility] Comment: nmol/L INTERPRETIVE INFORMATION: Vitamin B6 (Pyridoxal 5-Phos phate) Pyridoxal 5'-phosphate measured in a specimen collecte d following an 8-hour or overnight fast accurately indicates vitam in B6 nutritional status. Non-fasting specimen concentration reflects recent vitamin intake. Test developed and characteristics determined by [facility]. See Compliance Statement B: [facility]/ Performed by [facility], [address] [place] [address] [email or web address], Paco Hale MD, Lab. Director Specimen Blood - ARM, RIGHT Performing Organization Address City/State/Zipcode Phone Number [facility] [address] [place] [address] TESTOSTERONE, FREE AND TOTAL (06/19/2019 8:51 AM CDT) TESTOST 293 (L) 300 - 720 [facility] Comment: ng/dL REFERENCE INTERVAL: Testosterone, Adult Male Access complete set of age- and/or gender-specific ref erence intervals for this test in the [facility] Test Di rectory ([facility]). Sex Hormone 87 (H) 11 - 80 [facility] Binding Globulin Comment: nmol/L REFERENCE INTERVAL: Sex Hormone Binding Globulin Access complete set of age- and/or gender-specific ref erence intervals for this test in the [facility] Test Di rectory ([facility]). FREE TESTO 27 (L) 47 - 244 [facility] Comment: pg/mL INTERPRETIVE INFORMATION: Testosterone, Free Gagan Stage IV 35 - 169 pg/mL Gagan Stage V 41 - 239 pg/mL The concentration of Free Testosterone is derived from a mathematical expression based on the constant for the binding of testosterone to Sex Hormone Binding Globulin (SHBG). Access complete set of age- and/or gender-specific ref erence intervals for this test in the [facility] Test Di rectory ([facility]). %FREE TEST 0.9 (L) 1.6 - 2.9 % [facility] Comment: Performed by [facility], [address] [facility] Hospital[facility],[place] [id number] [email or web address], Paco Hale MD, Lab. Director Specimen Blood - ARM, RIGHT Performing Organization Address [facility] Centercofl Phone Number [facility] [address] [place] [address] ZINC, SERUM (06/19/2019 8:51 AM CDT) Pathologist Sig nature ZINC 96.2 60.0 - 120.0 [facility] Comment: ug/dL INTERPRETIVE INFORMATION: Zinc, Serum [...] absorption. Test developed and characteristics determined by [facility]. See Compliance Statement B: [facility]/ CS Performed by [facility], [address] [place], [place] [id number] [email or web address], Paco Hale MD, Lab. Director Specimen Blood - ARM, RIGHT Performing Organization Address [facility] Centercofl Phone Number [facility] [address] [place] [address] COPPER, SERUM (06/19/2019 8:51 AM CDT) Pathologist [facility] COPPER 84.8 70.0 - 140.0 [facility] Comment: ug/dL INTERPRETIVE INFORMATION: Copper, Serum [...] 3 times normal during the third trim aroldo). Test developed and characteristics determined by [facility]. See Compliance Statement B: [facility]/ CS Performed by [facility], [address] [place], [place] [id number] [email or web address], Paco Hale MD, Lab. Director Specimen Blood - ARM, RIGHT Performing Organization Address City/State/Zipcode Phone Number [facility] [address] [place] [address] from Last 3 Months Insurance Payer Benefit Plan / Subscriber ID Effective Dates Phone Addre ss Type Group MEDICARE MEDICARE PART xxxxxxxxxxx 1996-Presen [phone] [address] Medicare A & B t 2 [id number] [place] [address] [facility] MEDICAID OF xxxxxxxxx 2013-Rodrigo [phone] [address] Medicaid [place] t 0 [id number] [place] [address] Advance Directives Name Relationship Healthcare Agent Communication Relationship Jodi Tatum Spouse Primary healthcare agent
--- OUTSIDE RECORDS SUMMARY | 2020-01-04 10:05 | XMS REPORT | Clinical Summary ---
:1960 Author Organization [facility] Address [address] [place] [address] Care Team Providers Name Role Phone Sammy [...] SBP > Essential 180 mmHg hypertension, benign OLANZapine 5 mg Take 1 tablet by [...] mouth 2 (two) Paralysis agitans times daily. ATORVASTATIN 20 mg TAKE 1 TABLET BY 90 tablet 3 09/15/2019 Active tabletIndications: MOUTH AT BEDTIME Coronary artery (TAKE WITH 40MG disease involving ATORVASTATIN) [place] coronary artery of [place] heart without angina pectoris MIRTAZAPINE 15 mg TAKE 1 TABLET BY 90 tablet 1 09/24/2019 Active tabletIndications: MOUTH EVERY DAY Insomnia, unspecified AT BEDTIME type NEEDED FOR INSOMNIA Active Problems Problem Noted Date Essential hypertension, benign 11/25/2014 Mixed hyperlipidemia 11/25/2014 Osteoarthritis 11/25/2014 Anxiety 11/25/2014 Vitamin D deficiency 11/25/2014 Overview: ICD10 Diagnosis 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 CAD (coronary artery disease) 11/25/2014 Seizure disorder 11/25/2014 Bipolar 1 disorder 11/25/2014 TIA (transient ischemic attack) 11/25/2014 Insomnia 11/25/2014 Encounters Date Type Specialty Care Team Description 09/15/2019 Refill Internal Medicine Sofya Refill Req uest Zandra Christianson MD 09/11/2019 Refill Cardiology Jose Luis, Sendil Refill Jorge Segovia MD 09/09/2019 Office Visit Internal Medicine Sofya, Hearing di fficulty, unspecified laterality (Primary Dx); Zandra Christianson MD Teeth proble m; Chronic midline low back pain without sciatica; Need for vaccin ation; Short-term ashley ry loss; Abnormal levels of other serum enzymes; 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; Other specified health status ; Coronary artery disease involving ottawa coronary artery of ottawa heart without angina pectoris 08/25/2019 Refill Neurology Laith Lopez Refill Reque st MD Shaka 08/13/2019 Refill Cardiology Seb Allison MD Refill Req uest 08/11/2019 Refill Cardiology Cheyenne Amaya Refill Jorge Segovia MD 08/07/2019 Hospital Encounter Radiology Laith Lopez MD 08/07/2019 Telephone Neurology Laith Lopez Notification (The MD Shaka patient's called and woud like t o speak with the office ) 07/24/2019 Telephone Cardiology Seb Allison MD Orders; No tification 07/24/2019 Telephone Neurology Laith Lopez Assessment MD [place] 07/22/2019 Telephone Neurology Laith Lopez Notification MD [place] 07/21/2019 Orders Only Doctor Unassigned, [place] 07/21/2019 Case Management Internal Medicine Sofya, Xochitl Christianson MD 07/18/2019 Office Visit Neurology Laith Lopez Lumbar radic ulopathy (Primary Dx); MD Shaka Paralysis agita ns; Bipolar affecti ve disorder in remission; Lumbosacral spo ndylosis without myelopathy 07/18/2019 Orders Only Doctor Unassigned, [place] 07/14/2019 Emergency Emergency Medicine Cruz, Denisse S, Acute right-sided low PAC back pain, unspecified whe ther sciatica presen t (Primary Dx) 07/14/2019 Orders Only Doctor Unassigned, [place] 07/11/2019 Refill Cardiology Seb Allison MD Refill Req uest 07/03/2019 Office Visit Internal Medicine Sofya, LEFT W/O B EING SEEN Zandra Christianson MD (Primary Dx) 07/02/2019 Telephone Cardiology Seb Allison MD Letters (j ury release) 07/01/2019 Office Visit Cardiology Seb Allison MD Essential hypertension, benign (Primary Dx); Mixed hyperlipi demia; Coronary artery disease involving [place] coronary artery of [place] heart without angina pectoris; Chronic systoli c heart failure 07/01/2019 Orders Only Doctor Unassigned, [place] 06/24/2019 Telephone Cardiology Seb Allison MD Notificati on (Was just released f rom [facility]); Medication Dose Change (Asa , P lavix) from Last 3 Months Immunizations Name Administration [...] Comments Blood Pressure 119/80 09/09/2019 2:46 PM SPRAYER OPERATOR Pulse 62 09/09/2019 2:46 PM SPRAYER OPERATOR Temperature 36.7 C (98.1 F) 09/09/2019 2:46 PM SPRAYER OPERATOR Respiratory Rate 18 09/09/2019 2:46 PM SPRAYER OPERATOR Oxygen Saturation 97% 09/09/2019 2:46 PM SPRAYER OPERATOR Inhaled Oxygen Concentration - - Weight 64.9 kg (143 lb) 09/09/2019 2:46 PM SPRAYER OPERATOR Height 162.6 cm (5' 4") 07/14/2019 2:16 PM SPRAYER OPERATOR Body Mass Index 24.55 07/14/2019 2:16 PM SPRAYER OPERATOR Plan of Treatment Date Type Specialty Care Team Description 11/17/2019 Office Visit Cardiology Seb Allison M D [address] [place] [address] [address] [place] [address] 15 01/08/2020 Office Visit Internal Medicine Jesica Cowart MD [address] [facility] [address] [place] [address] 15 Health Maintenance Due Date Last Done Comments Zoster Recombinant Vaccine (SHINGRIX) 2009 (1 of 2) COLONOSCOPY 05/19/2024 05/19/2014 (Previously completed) DTaP,Tdap,and Td Vaccines (2 - Td) 11/13/2026 11/13/2016 HEPATITIS C (HCV) SCREEN Completed 2018 INFLUENZA VACCINE Completed 06/20/2019, 06/03/2018, 06/15/2016 PNEUMOCOCCAL 0-64 YEARS COMBINED Completed 09/09/2019 SERIES Procedures Procedure Name Priority Date/Time Associated Comments Diagnosis PNEUMOCOCCAL VACCINE, Routine 09/09/2019 4:06 Need for 23-VALENT (PNEUMOVAX) PM SPRAYER OPERATOR vaccination CT LUMBAR SPINE WO Routine 08/07/2019 10:52 Weakness Results for this CONTRAST AM SPRAYER OPERATOR Fall, initial procedure are in encounter the results section. PATIENT QUESTIONNAIRE Routine 08/07/2019 12:01 AM SPRAYER OPERATOR PHYSICIAN CERTIFICATION Routine 07/21/2019 12:01 STATEMENT AM SPRAYER OPERATOR EXTERNAL PROVIDER Routine 07/21/2019 12:01 RECORDS AM SPRAYER OPERATOR AUTHORIZATION TO Routine 07/18/2019 12:01 RELEASE PHI TO [facility] AM SPRAYER OPERATOR NOTICE OF PRIVACY Routine 07/14/2019 4:48 PRACTICES PM SPRAYER OPERATOR CONSENT/REFUSAL FOR Routine 07/14/2019 4:48 DIAGNOSIS AND TREATMENT PM SPRAYER OPERATOR EMERGENCY SERVICES Routine 07/14/2019 12:01 AGREEMENTS AND AM SPRAYER OPERATOR AUTHORIZATIONS MEDICAL Routine 07/01/2019 12:01 RELEASE/CLEARANCE FORMS AM CDT AUTHORIZATION TO Routine 07/01/2019 12:01 RELEASE PHI TO [facility] AM CDT EXTERNAL PROVIDER - ADC Routine 07/01/2019 12:01 CARDIOLOGY AM CDT from Last [address] LUMBAR SPINE WO CONTRAST (08/07/2019 10:52 AM SPRAYER OPERATOR) Specimen Narrative Performed At HISTORY: History of [...] of the upper lumbar levels. Procedure Note [facility], Radiant Results Inft User - 2018 10:59 AM SPRAYER OPERATOR HISTORY: History of fall and weakness. TECHNIQUE: [...] Number PACS/VR/DOSE PATIENT QUESTIONNAIRE (08/07/2019 12:01 AM SPRAYER OPERATOR) Specimen Performing Organization Address City/State/Zipcode Phone Number [employer] PHYSICIAN CERTIFICATION STATEMENT (07/21/2019 12:01 AM SPRAYER OPERATOR) Specimen Performing Organization Address [facility]/State/Zipcode Phone Number [employer] EXTERNAL PROVIDER RECORDS (07/21/2019 12:01 AM SPRAYER OPERATOR) Specimen Performing Organization Address [facility]/State/Zipcode Phone Number [employer] AUTHORIZATION TO RELEASE PHI TO [facility] (07/18/2019 12:01 AM SPRAYER OPERATOR)Only the most recent of2 resultswithin the time period is included. Specimen Performing Organization Address City/State/Zipcode Phone Number [employer] NOTICE OF PRIVACY PRACTICES (07/14/2019 4:48 PM SPRAYER OPERATOR) Specimen Performing Organization Address City/State/Zipcode Phone Number [employer] CONSENT/REFUSAL FOR DIAGNOSIS AND TREATMENT (07/14/2019 4:48 PM SPRAYER OPERATOR) Specimen Performing Organization Address [facility]/State/Zipcode Phone Number [employer] [facility] EMERGENCY SERVICES AGREEMENTS AND AUTHORIZATIONS (07/14/2019 12:01 AM SPRAYER OPERATOR) Specimen Performing Organization Address City/State/Zipcode Phone Number [employer] EXTERNAL PROVIDER - [facility] CARDIOLOGY (07/01/2019 12:01 AM CDT) Specimen Performing Organization Address City/State/Zipcode Phone Number [employer] MEDICAL RELEASE/CLEARANCE FORMS (07/01/2019 12:01 AM CDT) Specimen Performing Organization Address City/State/Zipcode Phone Number [employer] from Last 3 Months Insurance Payer Benefit Plan / Subscriber ID Effective Dates Phone Addre ss Type Group MEDICARE MEDICARE PART xxxxxxxxxxx 1996-Rodrigo [phone] Medicare A & B t 2 [id number] [place] [id number] [facility] MEDICAID OF xxxxxxxxx 2013-Rodrigo [phone] [address] Medicaid [place] t 0 [id number] [place] [address] Advance Directives Name Relationship Healthcare Agent Communication Relationship Jodi Tatum Spouse Primary healthcare agent
--- OUTSIDE RECORDS SUMMARY | 2020-01-04 10:05 | XMS REPORT | Summary of Care ---
:1960 Author Organization [facility] Address [address] [place] [address] Care Team Providers Name Role Phone Sammy Cowart MD Primary Care Provider MD Keegan Unavailable Reason for Visit Reason Comments Refill Request Encounter Details Date Type Department Care Team Description 10/13/2019 Refill [facility] Cardiology- Shannan Allison MD Refill Request [address] [facility], [address] [place] [address] [place] [address] [phone] Allergies Active Allergy Reactions Severity Noted Date Comments Aripiprazole Other - See comments 11/12/2014 insomni a Trazodone Other - See comments 11/12/2014 insomni a documented as of this encounter (statuses as of 10/15/2019) Medications Medication Sig Dispensed Refills Start Date End Date Status Cholecalciferol, Take by 0 Act rigoberto Vitamin D3, mouth daily. (VITAMIN D3) 2,000 unit Cap Olopatadine 0.2 % Place 1 Drop 2.5 mL 3 12/09/2018 Active ophthalmic in each eye dropsIndications: daily. Seasonal allergies rOPINIRole (REQUIP One by mouth 30 tablet 1 01/07/2019 Active XL) 2 mg 24 hr per day. Take tabletIndications: in the am. Paralysis agitans divalproex 500 mg Take 3 270 tablet 3 03/10/2019 Active EC tablets by tabletIndications: mouth daily. Seizure disorder, Bipolar 1 disorder amitriptyline 10 Take 1 tablet 120 tablet 3 07/02/2019 Active mg by mouth at tabletIndications: bedtime. Can Primary insomnia increase up to 4 at night to help with sleep. aspirin 81 mg EC Take 1 tablet 0 07/01/2019 Active tabletIndications: by mouth Essential daily. hypertension, benign cloNIDine 0.1 mg 2 times a day 10 tablet 0 07/01/2019 Active tabletIndications: as needed for Essential SBP > 180 hypertension, mmHg benign OLANZapine 5 mg Take 1 tablet 30 tablet 2 07/14/2019 Active tabletIndications: by mouth at Bipolar 1 disorder bedtime. atorvastatin 40 mg Take 1 tablet 90 tablet 3 08/13/2019 Active tablet by mouth daily. Diclofenac Sodium Apply to 900 g 11 09/09/2019 A ctive 1 % area(s) 2 gelIndications: (two) times Chronic midline daily as low back pain needed for without sciatica Pain (scale 4-6). METOPROLOL TAKE 1 TABLET 30 tablet 5 09/11/2019 Acti ve SUCCINATE XL 25 mg BY MOUTH 24 hr tablet EVERY DAY ALPRAZolam 0.5 mg Take 1 tablet 60 tablet 5 09/12/2019 Active tabletIndications: by mouth 2 Paralysis agitans (two) times daily. ATORVASTATIN 20 mg TAKE 1 TABLET 90 tablet 3 09/15/2019 Active tabletIndications: BY MOUTH AT Coronary artery BEDTIME (TAKE disease involving WITH 40MG [place] post[place] coronary ATORVASTATIN) artery of [place] heart without angina pectoris MIRTAZAPINE 15 mg TAKE 1 TABLET 90 tablet 1 09/24/2019 Active tabletIndications: BY MOUTH Insomnia, EVERY DAY AT unspecified type BEDTIME NEEDED FOR INSOMNIA lisinopril 10 mg Take 1 tablet 90 tablet 2 10/15/2019 Active tablet by mouth daily. lisinopril 10 mg Take 1 tablet 90 tablet 2 01/13/2019 10/15/19 2 Discontinued tablet by mouth 0 (Reorder) daily. 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 CAD (coronary artery disease) 11/25/2014 Seizure disorder 11/25/2014 Bipolar 1 disorder 11/25/2014 TIA (transient ischemic attack) 11/25/2014 Insomnia 11/25/2014 documented as of this encounter (statuses as of 10/15/2019) Immunizations Name Administration Dates Next Due Influenza Virus Vaccine 06/03/2018, 06/15/2016 Influenza Virus Vaccine Recomb Quad 06/20/2019 IM, Preserv and ABX Free 18-64 YRS Pneumococcal Polysaccharide, PPSV23 09/09/2019, 06/30/2019 ( Deferred: (PNEUMOVAX) Patient Refused - Patient will come back for PPSV) Tdap 11/13/2016 documented as of this encounter Social History Tobacco Use Types Packs/Day Years Used Date Former Smoker Quit: 09/28/19 Smokeless Tobacco: Never Used Alcohol Use Drinks/Week [...] Treatment Date Type Specialty Care Team Description 11/12/2019 Office Visit Psychiatry Janine Sood MD [address] [place] [address]. [place] [phone] 11/17/2019 Office Visit Cardiology Seb Allison M D [address] [place] [address] [address] [place] [address] 15 01/08/2020 Office Visit Internal Medicine Jesica Cowart MD [address] [place] [address] [address] [place] [address] 15 [phone] Health Maintenance Due Date Last Done Comments Zoster Recombinant Vaccine (SHINGRIX) 2009 (1 of 2) COLONOSCOPY 05/19/2024 05/19/2014 (Previously completed) DTaP,Tdap,and Td Vaccines (2 - Td) 11/13/2026 11/13/2016 HEPATITIS C (HCV) SCREEN Completed 2018 INFLUENZA VACCINE Completed 06/20/2019, 06/03/2018, 06/15/2016 PNEUMOCOCCAL 0-64 YEARS COMBINED Completed 09/09/2019 SERIES documented as of this encounter Results Not on filedocumented in this encounter Insurance Payer Benefit Plan / Subscriber ID Effective Dates Phone Addre ss Type Group MEDICARE MEDICARE PART xxxxxxxxxxx 1996-Presen [phone] [address] Medicare A & B t 2 [id number] [place] [address] [facility] MEDICAID OF xxxxxxxxx 2013-Presemi [phone] [address] Medicaid [place] t 0 [id number] [place] [address] documented as of this encounter Advance Directives Name Relationship Healthcare Agent Communication Relationship Jodi Tatum Spouse Primary healthcare agent
--- OUTSIDE RECORDS SUMMARY | 2020-01-04 10:06 | XMS REPORT | Clinical Summary ---
:1960 Author Organization [facility] Address [address] [place] [address] Care Team Providers Name Role Phone Sammy [...] Take in the tabletIndications: am. Paralysis agitans divalproex 500 mg EC Take 3 tablets [...] artery (TAKE WITH 40MG disease involving ATORVASTATIN) [place] coronary artery of [place] heart without angina pectoris MIRTAZAPINE 15 mg TAKE 1 TABLET BY 90 tablet 1 09/24/2019 Active tabletIndications: MOUTH EVERY DAY Insomnia, unspecified AT BEDTIME type NEEDED FOR INSOMNIA lisinopril 10 mg Take 1 tablet by 90 tablet 2 10/15/2019 Active tablet mouth daily. 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 CAD (coronary artery disease) 11/25/2014 Seizure disorder 11/25/2014 Bipolar 1 disorder 11/25/2014 TIA (transient ischemic attack) 11/25/2014 Insomnia 11/25/2014 Encounters Date Type Specialty Care Team Description 10/13/2019 Refill Cardiology eSb Allison MD Refill Req uest 09/15/2019 Refill Internal Medicine Zandra Cowart Re fill Request MD Sammy 09/11/2019 Refill Cardiology Cheyenne AmayaHEddie, Refill Request 09/09/2019 Office Visit Internal Medicine Zandra Cowart arifanny difficulty, unspecified laterality (Primary Dx); MD Sammy Teeth problem; Chronic midline low back pain without sciatica; Need for vaccin ation; Short-term ashley ry loss; Abnormal levels of other serum enzymes; 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; Other specified health status ; Coronary artery disease involving [place] coronary artery of [place] heart without angina pectoris 08/25/2019 Refill Neurology Laith Lopez, Refill Request from Last 3 Months Immunizations [...] Comments Blood Pressure 119/80 09/09/2019 2:46 PM RESPIRATORY THERAPY MANAGER Pulse 62 09/09/2019 2:46 PM RESPIRATORY THERAPY MANAGER Temperature 36.7 C (98.1 F) 09/09/2019 2:46 PM RESPIRATORY THERAPY MANAGER Respiratory Rate 18 09/09/2019 2:46 PM RESPIRATORY THERAPY MANAGER Oxygen Saturation 97% 09/09/2019 2:46 PM RESPIRATORY THERAPY MANAGER Inhaled Oxygen Concentration - - Weight 64.9 kg (143 lb) 09/09/2019 2:46 PM RESPIRATORY THERAPY MANAGER Height 162.6 cm (5' 4") 07/14/2019 2:16 PM RESPIRATORY THERAPY MANAGER Body Mass Index 24.55 07/14/2019 2:16 PM RESPIRATORY THERAPY MANAGER Plan of Treatment Date Type Specialty Care Team Description 11/17/2019 Office Visit Cardiology Seb Allison M D [address] [facility] [address] [place], [place] [address] 01/08/2020 Office Visit Internal Medicine Jesica Cowart MD 146 [facility] [address] [place], [place] [address] Health Maintenance Due Date Last Done Comments Zoster Recombinant Vaccine (SHINGRIX) 2009 (1 of 2) COLONOSCOPY 05/19/2024 05/19/2014 (Previously completed) DTaP,Tdap,and Td Vaccines (2 - Td) 11/13/2026 11/13/2016 HEPATITIS C (HCV) SCREEN Completed 2018 INFLUENZA VACCINE Completed 06/20/2019, 06/03/2018, 06/15/2016 PNEUMOCOCCAL 0-64 YEARS COMBINED Completed 09/09/2019 SERIES Procedures Procedure Name Priority Date/Time Associated Diagnosis Comme nts PNEUMOCOCCAL VACCINE, Routine 09/09/2019 4:06 PM Need for vac cination 23-VALENT (PNEUMOVAX) RESPIRATORY THERAPY MANAGER from Last 3 Months Results Not on filefrom Last 3 Months Insurance Payer Benefit Plan / Subscriber ID Effective Dates Phone Addre ss Type Group MEDICARE MEDICARE PART xxxxxxxxxxx 1996-Rodrigo [phone] [address] Medicare A & B t 2 [id number] [place] [id number] [facility] MEDICAID OF xxxxxxxxx 2013-Rodrigo [phone] [address] Medicaid [place] t 0 [id number] [place] [address] Advance Directives Name Relationship Healthcare Agent Communication Relationship Jodi Tatum Spouse Primary healthcare agent
--- OUTSIDE RECORDS SUMMARY | 2020-01-04 10:06 | XMS REPORT | Summary of Care ---
:1960 Author Organization [facility] - [facility] Address [address] [place] [id number] Care Team Providers Name Role Phone Sammy Cowart MD Primary Care Provider MD Keegan Unavailable Reason for Visit Reason Comments CAD Encounter Details Date Type Department Care Team Description 12/08/2019 Telemedicine Visit [facility] Seb Allison, Coronar y artery disease involving [place] coronary artery of [place] heart without angina pectoris (Primary Dx); Cardiology- Essential hypertension, benign; Juda [address] [facility] Mixed hyperlipidemia [address] [facility], [address] [place] [id number] [phone] Allergies Active Allergy Reactions Severity Noted Date Comments Aripiprazole Other - See comments 11/12/2014 insomni a Trazodone Other - See comments 11/12/2014 insomni a documented as of this encounter (statuses as of 12/08/2019) Medications Medication Sig Dispensed Refills Start Date [...] artery (TAKE WITH 40MG disease involving ATORVASTATIN) [place] coronary artery of [place] heart without angina pectoris MIRTAZAPINE 15 mg TAKE 1 TABLET BY 90 tablet 1 09/24/2019 Active tabletIndications: MOUTH EVERY DAY Insomnia, unspecified AT BEDTIME type NEEDED FOR INSOMNIA lisinopril 10 mg Take 1 tablet by 90 tablet 2 10/15/2019 Active tablet mouth daily. 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 CAD (coronary artery disease) 11/25/2014 Seizure disorder 11/25/2014 Bipolar 1 disorder 11/25/2014 TIA (transient ischemic attack) 11/25/2014 Insomnia 11/25/2014 documented as of this encounter (statuses as of 12/08/2019) Immunizations Name Administration Dates Next Due Influenza [...] Signs Not on filedocumented in this encounter Progress Notes Seb Allison MD - 12/08/2019 11:00 AM CDT CARDIOLOGY CLINIC NOTE 12/08/2019 Reason for Referral/Presenting Complaint: CAD, HTN PCP: Zandra Cowart History of Present Illness: Jd Rico is a 59 years old male with history of HTN, HLD, CAD GA s/p PCI in 1998, ICMP HODD73-75% now normalized, stroke, bipolar, anxiety, and seizure. He had GA in 1998. He underwent PCI with stenting in [place]. Stress test 2012 normal. NO chest painor GUERIN. ECHO in 09/2016 showed LVEF 35-40%. We adjusted BP medications. His BP is usually normal. In 04/2019 while at home he felt weak and fell. No syncope. Sharp chest pain lasting seconds before the fall. He went o [facility]. ECHO and MPI normal. In 06/2019 he was admitted to [facility] due to altered mental status (nonsense talk, eye rolling) and elevated BP @ 189/127. BP meds were not changed. Plavix was added. Since last visit he has been feeling well from cardiac standpoint. However he is more depressed. Does not do much activity. Lost a few lbs. Past Medical History: Past Medical History: Diagnosis Date Anxiety Bipolar 1 disorder CAD (coronary artery disease) Hypertension Other and unspecified hyperlipidemia Seizures 2013 Stroke 2007 lost peripheral vision Current Medications: Current Outpatient Medications Medication Sig Dispense Refill lisinopril 10 mg tablet Take 1 tablet by mouth daily. 90 tablet 2 MIRTAZAPINE 15 mg tablet TAKE 1 TABLET BY MOUTH EVERY DAY AT BEDTIME NEEDED FOR INSOMNIA 90 tablet 1 ATORVASTATIN 20 mg tablet TAKE 1 TABLET BY MOUTH AT BEDTIME (TAKE WITH 40MG ATORVASTATIN) 90 tablet 3 ALPRAZolam 0.5 mg tablet Take 1 tablet by mouth 2 (two) times daily. 60 tablet 5 METOPROLOL SUCCINATE XL 25 mg 24 hr tablet TAKE 1 TABLET BY MOUTH EVERY DAY 30 tablet 5 Diclofenac Sodium 1 % gel Apply to area(s) 2 (two) times daily as needed for Pain (scale 4-6). 900 g 11 atorvastatin 40 mg tablet Take 1 tablet by mouth daily. 90 tablet 3 OLANZapine 5 mg tablet Take 1 tablet by mouth at bedtime. 30 tablet 2 amitriptyline 10 mg tablet Take 1 tablet by mouth at bedtime. Can increase up to 4 at night to help with sleep. 120 tablet 3 aspirin 81 mg EC tablet Take 1 tablet by mouth daily. cloNIDine 0.1 mg tablet 2 times a day as needed for SBP > 180 mmHg 10 tablet 0 divalproex 500 mg EC tablet Take 3 tablets by mouth daily. 270 tablet 3 rOPINIRole (REQUIP XL) 2 mg 24 hr tablet One by mouth per day. Take in the am. 30 tablet 1 Olopatadine 0.2 % ophthalmic drops Place 1 Drop in each eye daily. 2.5 mL 3 Cholecalciferol, Vitamin D3, (VITAMIN D3) 2,000 unit Cap Take by mouth daily. No current facility-administered medications [...] Last attempt to quit: 09/28/2000 Years since quittin.2 Smokeless tobacco: Never Used Substance and Sexual Activity Alcohol use: No Drug use: No Sexual activity: Not on file Lifestyle Physical activity: Days per week: Not on file Minutes per session: Not on file Stress: Not on file Relationships Social connections: Talks on phone: Not on file Gets together: Not on file Attends advent service: Not on file Active member of [...] muscle pain, (-) claudication Psych: (-) anxiety, (+) depression Physical Examination: Constitutional: Alert and in no distress Respiratory: Breathing comfortably Neurology: Answers questions appropriately Labs: CBC BMP PT/INR WBC (10*3/L) Date Value 2018 5.54 NA (mmol/L) Date Value 06/19/2019 139 No results found for: PT PLT (10*3/L) Date Value 2018 159 K (mmol/L) Date Value 06/19/2019 4.4 No results found for: PTINR HGB (g/dL) Date Value 2018 15.4 BUN (mg/dL) Date Value 06/19/2019 19 HCT (%) Date Value 2018 45.2 CREATININE (mg/dL) Date Value 06/19/2019 1.00 LIPID PROFILE GLUCOSE (mg/dL) Date Value 06/19/2019 88 CHOL (mg/dL) Date Value 06/19/2019 205 (H) TSH LDL CHOL (mg/dL) Date Value 06/19/2019 108 TSH (mIU/L) Date Value 06/19/2019 5.02 (H) CARDIAC ENZYMES HDL (mg/dL) Date Value 06/19/2019 56 No results found for: CK TRIG (mg/dL) Date Value 06/19/2019 206 (H) LFTs No results found for: CKMB AST(SGOT) (U/L) Date Value 06/19/2019 33 No results found for: TROPNI ALT(SGPT) (U/L) Date Value 09/09/2018 17 ALTv (U/L) Date Value 06/19/2019 42 No results found for: BNP EKG: Sinus bradycardia, HR 49 bpm, anteroseptal infarct, probably old. ST-T abnormalities suggesting anterolateral ischemia. 05/19/2019 --- reviewed by me---Sinus rhythm, HR 67 bpm, anteroseptal infarct Cardiac Cath: 1998--PCI with stenting Stress Test: 2012--Nuclear stress test--no ischemia ECHO Left ventricular systolic function is moderately reduced. Ejection Fraction = 35-40%. Diastolic dysfunction. There are regional wall motion abnormalities as specified. 04/2019 ECHO--Normal LVEF Lexiscan stress test 06/22/2019--ECHO--LVEF 50-55% with anterior, septal and apical akinesis LDL 46; Cr 0.88; BNP 322 Carotid--NO stenosis MRI--old R occipital lobe infarct CXR--clear Vertigo, N/V Assessment/Plan: ICD-10-CM ICD-9-CM 1. Coronary artery disease involving [place] coronary artery of [place] heart without angina pectoris I25.10 414.01 2. Essential hypertension, benign I10 401.1 3. Mixed hyperlipidemia E78.2 272.2 HTN--Usually well controlled. Now normal. Will continue lisinopril/metoprolol. HLD--His LDL was 46 in 2019. On lipitor 40 mg daily. CAD--s/p PCI. No angina. Continue ASA/plavix/metoprolol/lipitor. HFrEF--No clinical volume overload. LVEF has normalized. Not on lasix RTC 9 months Telehealth service ? Verbal consent obtained from patient Jd Rico for telehealth sevice provided ? My location: [facility] cardiology clinic ? Patient location: Home ? Format: Communication with patient was conducted via Telephone due to patient unable to obtain video call option ? A total of 25 minutes spent on the telephone with the patient Seb Allison MD, [facility] [place] Link Machine Operator, Division of Cardiology [facility] documented in this encounter Plan of Treatment Date Type Specialty Care Team Description 01/08/2020 Telemedicine Visit Internal Medicine Phil Cowart MD [address] [place] [address] [phone] Health Maintenance Due Date Last Done Comments [...] Visit Diagnoses Diagnosis Coronary artery disease involving [place] coronary artery of [place] heart without angina pectoris - Primary Essential hypertension, benign Mixed hyperlipidemia documented in this encounter Insurance Payer Benefit Plan / Subscriber ID Effective Dates Phone Addre ss Type Group MEDICARE MEDICARE PART xxxxxxxxxxx 1996-Rodrigo [phone] Medicare A & B t 2 [id number] ALTHEA BARNETT [id number] [facility] MEDICAID OF xxxxxxxxx 2013-Rodrigo [phone] Medicaid [place] t [address] [id number] [place] [address] documented as of this encounter Advance Directives Name Relationship Healthcare Agent Communication Relationship Jodi Tatum Spouse Primary healthcare agent
[2020-01-04 10:43] LABS: Absolute Lymphocytes (CBC) 1.2 K/uL (0.7-4.9); Basophils % 0.3 % (0-1.3); Hematocrit 46.3 % (39.6-49.0); Lymphocytes % 11.2 % (15.3-44.8); MPV 8.3 fL (7.6-11.3); RBC Red Blood Cell Count 4.95 M/uL (4.33-5.43)
[2020-01-04 10:59] LABS: Albumin 3.6 g/dL (3.4-5.0); Bilirubin Direct 0.1 mg/dL (0-0.2); Bilirubin Total 0.3 mg/dL (0.2-1.0); Magnesium 2.4 mg/dL (1.8-2.4); Potassium 4.4 mmol/L (3.5-5.1); Protein, Total 8.4 g/dL (6.4-8.2)
[2020-01-04] MEDS ORDERED: ONDANSETRON 4 MG/2 ML VIAL ONE ×2 (11:08→12:05)
[2020-01-04] MEDS ORDERED: FAMOTIDINE 20 MG/2 ML VIAL IV ONE (11:08)
[2020-01-04] MEDS ORDERED: NA CHLORIDE 0.9% 500 ML ONE (11:08)
--- NOTE | 2020-01-04 11:54 | ER ---
Nurse's Notes [facility] Name: Jd Rico Age: 59 yrs Sex: Male : 1960 Arrival Date: 01/04/2020 Time: 09:56 Bed 5 Private MD: Diagnosis: Nausea and vomiting Presentation: 01/03 09:57 Chief complaint: Patient states: "I ate breakfast today and my stomach started feeling aa5 upset and I've been vomiting for the last 2 hours". Pt denies diarrhea, denies abd pain. 09:57 Coronavirus screen: Proceed with normal triage. Patient denies a cough. Patient denies aa5 shortness of breath or difficulty breathing. Patient denies measured and/or subjective temperature greater than 100.4F prior to today's visit. Patient denies travel on a cruise ship or to a country the [facility] currently lists as an affected area. Patient denies contact with known and/or suspected case of COVID-19. Ebola Screen: Patient negative for fever greater than or equal to 101.5 degrees Fahrenheit, and additional compatible Ebola Virus Disease symptoms. Initial Sepsis Screen: Does the patient meet any 2 criteria? No. Patient's initial sepsis screen is negative. Does the patient have a suspected source of infection? No. Patient's initial sepsis screen is negative. Risk Assessment: Do you want to hurt yourself or someone else? Patient reports no desire to harm self or others. Onset of symptoms was January 2020. 09:57 Acuity: MARIA L 3 aa5 09:57 Method Of Arrival: Ambulatory aa5 Triage Assessment: 10:00 General: Appears in no apparent distress. comfortable, Behavior is cooperative, bp appropriate for age, anxious. Pain: Denies pain. EENT: No deficits noted. Neuro: No deficits noted. Cardiovascular: No deficits noted. Respiratory: No deficits noted. GI: Reports nausea, vomiting. : No signs and/or symptoms were reported regarding the genitourinary system. Derm: No deficits noted. Musculoskeletal: No deficits noted. Historical: - Allergies: : Trazodone; aa5 - PMHx: : Angina; Bipolar disorder; CVA; Dementia; insomnia; Hypertension; Myocardial infarction; aa5 Parkinsons; peripheral vision loss; Seizures; - PSHx: : Hernia repair; back surg; Heart stents; aa5 - Immunization history:: Adult Immunizations up to date. - Social history:: Smoking status: Patient denies any tobacco usage or history of. Screenin:10 Abuse screen: Denies threats or abuse. Denies injuries from another. Nutritional bp screening: No deficits noted. Tuberculosis screening: No symptoms or risk factors identified. Fall Risk None identified. Assessment: 10:00 General: SEE TRIAGE NOTE. GI: Abdomen is non-distended. bp 12:00 Reassessment: PO CHALLENGE SUCCESSFUL. bp 12:31 Reassessment: PT D/C HOME AMBULATORY, DX WITH NAUSEA AND VOMITING. bp Vital Signs: 09:57 BP 166 / 100; Pulse 89; Resp 16 S; Temp 97.8(TE); Pulse Ox 99% on R/A; Weight 68.04 kg aa5 (R); Height 5 ft. 4 in. (162.56 cm) (R); Pain 0/10; 12:00 BP 156 / 99; Pulse 96; Resp 17; Temp 98; Pulse Ox 99% ; bp 09:57 Body Mass Index 25.75 (68.04 kg, 162.56 cm) aa5 ED Course: 09:56 Patient arrived in ED. ag5 09:57 Kareem Carpenter PA is PHCP. cp 09:57 Christiano Mccormack MD is Attending Physician. cp 09:57 Arm band placed on Patient placed in an exam room, on a stretcher. aa5 10:00 Inserted saline lock: 20 gauge in right antecubital area, using aseptic technique. bp Blood collected. 10:06 Triage completed. aa5 10:33 Janine Garduno, RN is Primary Nurse. iw 11:10 Patient has correct armband on for positive identification. Bed in low position. Call bp light in reach. Side rails up X2. 12:31 No provider procedures requiring assistance completed. IV discontinued, intact, bp bleeding controlled, No redness/swelling at site. Pressure dressing applied. Administered Medications: 11:08 Drug: NS 0.9% 500 ml Route: IV; Rate: bolus; Site: right antecubital; iw 12:33 Follow up: IV Status: Completed infusion; IV Intake: 500ml bp 11:09 Drug: Zofran (Ondansetron) 4 mg Route: IVP; Site: right antecubital; iw 12:32 Follow up: Response: Nausea is decreased bp 11:09 Drug: Pepcid 20 mg Route: IVP; Site: right antecubital; iw 12:33 Follow up: Response: Nausea is decreased bp 11:30 Drug: Zofran (Ondansetron) 4 mg Route: IVP; Site: right antecubital; bp 12:32 Follow up: Response: Nausea is decreased bp Intake: 12:33 IV: 500ml; Total: 500ml. bp Outcome: 11:54 Discharge ordered by MD. cp 12:31 Discharged to home ambulatory. bp 12:31 Condition: stable 12:31 Discharge instructions given to patient, Instructed on discharge instructions, follow up and referral plans. medication usage, Demonstrated understanding of instructions, follow-up care, medications, Prescriptions given X 2. 12:33 Patient left the ED. bp Signatures: Janine Garduno, RN RN iw Rashida Mitchell, RN RN aa5 Kareem Carpenter PA PA cp Peltier, Brian RN RN Unruly Mancia ag5
--- NOTE | 2020-01-04 11:54 | EDPHYS ---
Physician Documentation [facility] Name: Jd Rico Age: 59 yrs Sex: Male : 1960 Arrival Date: 01/04/2020 Time: 09:56 Bed 5 Private MD: ED Physician Christiano Mccormack HPI: 01/03 10:20 This 59 yrs old Male presents to ER via Ambulatory with complaints of cp Nausea/Vomiting. 10:20 The patient presents to the emergency department with nausea, vomiting, that is cp intermittent. Onset: The symptoms/episode began/occurred 2 hour(s) ago. 10:20 Possible causes: unknown. Associated signs and symptoms: Pertinent negatives: abdominal cp pain, constipation, diarrhea, fever, GI bleeding, chest pain. 10:20 Severity of symptoms: in the emergency department the symptoms are unchanged despite cp home interventions. Historical: - Allergies: 09:57 Trazodone; aa5 - PMHx: 09:57 Angina; Bipolar disorder; CVA; Dementia; insomnia; Hypertension; Myocardial infarction; aa5 Parkinsons; peripheral vision loss; Seizures; - PSHx: 09:57 Hernia repair; back surg; Heart stents; aa5 - Immunization history:: Adult Immunizations up to date. - Social history:: Smoking status: Patient denies any tobacco usage or history of. ROS: 10:30 Constitutional: Negative for body aches, chills, fever, poor PO intake. cp 10:30 Eyes: Negative for injury, pain, redness, and discharge. cp 10:30 ENT: Negative for drainage from ear(s), ear pain, sore throat, difficulty swallowing, difficulty handling secretions. 10:30 Cardiovascular: Negative for chest pain, edema, palpitations. 10:30 Respiratory: Negative for cough, shortness of breath, wheezing. 10:30 Abdomen/GI: Positive for nausea and vomiting, Negative for abdominal pain, diarrhea, constipation, hematemesis, black/tarry stool, rectal bleeding. 10:30 Back: Negative for pain at rest, pain with movement. 10:30 Neuro: Negative for altered mental status, dizziness, headache, weakness. Exam: 10:35 Constitutional: The patient appears in no acute distress, alert, awake, comfortable, cp non-diaphoretic, non-toxic, well developed, well nourished. 10:35 Head/Face: Normocephalic, atraumatic. cp 10:35 Eyes: Periorbital structures: appear normal, Conjunctiva: normal, no exudate, no injection, Sclera: no appreciated abnormality, Lids and lashes: appear normal, bilaterally. 10:35 ENT: External ear(s): are unremarkable, Nose: is normal, Mouth: is normal, Posterior pharynx: is normal, airway is patent, no erythema, no exudate. 10:35 Neck: ROM/movement: is normal, is supple, without pain, no range of motions limitations, no nuchal rigidity. 10:35 Chest/axilla: Inspection: normal, Palpation: is normal, no crepitus, no tenderness. 10:35 Cardiovascular: Rate: normal, Rhythm: regular, Edema: is not appreciated, JVD: is not appreciated. 10:35 Respiratory: the patient does not display signs of respiratory distress, Respirations: normal, no use of accessory muscles, no retractions, labored breathing, is not present, Breath sounds: are clear throughout, no decreased breath sounds, no stridor, no wheezing. 10:35 Abdomen/GI: Inspection: abdomen appears normal, Bowel sounds: normal, in all quadrants, Palpation: abdomen is soft and non-tender, in all quadrants, rebound tenderness, is not appreciated, voluntary guarding, is not appreciated, involuntary guarding, is not appreciated. 10:35 Back: pain, is absent, ROM is normal. 10:35 Skin: no rash present. 10:35 Neuro: Orientation: to person, place \T\ time. Mentation: is normal, Motor: moves all fours, strength is normal. Vital Signs: 09:57 BP 166 / 100; Pulse 89; Resp 16 S; Temp 97.8(TE); Pulse Ox 99% on R/A; Weight 68.04 kg aa5 (R); Height 5 ft. 4 in. (162.56 cm) (R); Pain 0/10; 12:00 BP 156 / 99; Pulse 96; Resp 17; Temp 98; Pulse Ox 99% ; bp 09:57 Body Mass Index 25.75 (68.04 kg, 162.56 cm) aa5 MDM: 10:03 Patient medically screened. cp 10:30 Differential diagnosis: gastritis, cholecystitis, pancreatitis, viral gastroenteritis, cp gastroenteritis. 11:53 Data reviewed: vital signs, nurses notes, lab test result(s), and as a result, I will cp discharge patient. 11:53 Counseling: I had a detailed discussion with the patient and/or guardian regarding: the cp historical points, exam findings, and any diagnostic results supporting the discharge/admit diagnosis, lab results, to return to the emergency department if symptoms worsen or persist or if there are any questions or concerns that arise at home. 11:53 Response to treatment: the patient's symptoms have markedly improved after treatment. cp ED course: VSS. Nausea improved and vomiting resolved. Patient tolerating po fluids. Will discharge to home for continued monitoring. 01/03 10:17 Order name: Basic Metabolic Panel; Complete Time: 11:09 cp 01/03 11:09 Interpretation: Normal except: GLUC 141; BUN 20; GFR 62. cp 01/03 10:17 Order name: CBC with Diff; Complete Time: 11:02 cp 01/03 11:02 Interpretation: Normal except: AIYANA% 84.9; LYM% 11.2; MN% 3.2; NEUT A 9.0. cp 01/03 10:17 Order name: Creatinine for Radiology; Complete Time: 11:02 cp 01/03 10:17 Order name: Hepatic Function; Complete Time: 11:09 cp 01/03 10:17 Order name: Lipase; Complete Time: 11:09 cp 01/03 10:17 Order name: Magnesium; Complete Time: 11:09 cp 01/03 10:17 Order name: IV Saline Lock; Complete Time: 10:33 cp 01/03 10:17 Order name: Labs collected and sent; Complete Time: 10:33 cp 01/03 11:09 Order name: PO challenge; Complete Time: 12:10 cp Administered Medications: 11:08 Drug: NS 0.9% 500 ml Route: IV; Rate: bolus; Site: right antecubital; iw 12:33 Follow up: IV Status: Completed infusion; IV Intake: 500ml bp 11:09 Drug: Zofran (Ondansetron) 4 mg Route: IVP; Site: right antecubital; iw 12:32 Follow up: Response: Nausea is decreased bp 11:09 Drug: Pepcid 20 mg Route: IVP; Site: right antecubital; iw 12:33 Follow up: Response: Nausea is decreased bp 11:30 Drug: Zofran (Ondansetron) 4 mg Route: IVP; Site: right antecubital; bp 12:32 Follow up: Response: Nausea is decreased bp Disposition: 15:05 Co-signature as Attending Physician, Christiano Mccormack MD. rn Disposition: 01/04/20 11:54 Discharged to Home. Impression: Nausea and vomiting. - Condition is Stable. - Discharge Instructions: Nausea and Vomiting, Adult. - Prescriptions for Pepcid 20 mg Oral Tablet - take 1 tablet by ORAL route every 12 hours for 10 days; 20 tablet. Zofran 4 mg Oral Tablet - take 1 tablet by ORAL route every 12 hours As needed; 20 tablet. - Medication Reconciliation Form, Thank You Letter, Antibiotic Education, Prescription Opioid Use form. - Follow up: Private Physician; When: 1 - 2 days; Reason: Recheck today's complaints. - Problem is new. - Symptoms have improved. Signatures: Dispatcher [employer] Janine Patel RN RN iw Nieto, Roman, MD MD rn Calderon, Audri, RN RN aa5 Kareem Carpenter PA PA Evans Taylor RN RN bp Corrections: (The following items were deleted from the chart) 12:33 11:54 01/04/2020 11:54 Discharged to Home. Impression: Nausea and vomiting. Condition bp is Stable. Forms are Medication Reconciliation Form, Thank You Letter, Antibiotic Education, Prescription Opioid Use. Follow up: Private Physician; When: 1 - 2 days; Reason: Recheck today's complaints. Problem is new. Symptoms have improved. cp
[2020-01-04 12:43] VITALS: O2SAT 99
[2020-01-04 12:45] VITALS: BP 156/99; TEMP 98
== END 2020-01-04 12:33 | disposition home or self-care (01) ==
LOC: ER 09:54
DX: R11.2 Nausea with vomiting, unspecified (principal); I10 Essential (primary) hypertension; G20 Parkinson's disease; F02.80 Dementia in other diseases classified elsewhere, unspecified severity, without behavioral disturbance, psychotic disturbance, mood disturbance, and anxiety; Z88.5 Allergy status to narcotic agent; Z95.818 Presence of other cardiac implants and grafts
CPT/HCPCS: 96361; 85025; 80048; 36415; 83735; 80076; 83690; 96375; 96374; 99284; J7040; J2405 ×2

== ENCOUNTER 2020-04-20 16:02 | Emergency (ER) | payer OTHER ==
--- OUTSIDE RECORDS SUMMARY | 2020-04-20 16:04 | XMS REPORT | Continuity of Care Document ---
:1960 Author Organization [facility] t Address [address] [place] [address] [address]. [address]. [address] [place] [address] Care Team Providers Name Role Phone Sammy Cowart MD Attending Clinician Problems This patient has no known problems. Allergies, Adverse Reactions, Alerts This patient has no known allergies or adverse reactions. Medications This patient has no known medications. Procedures This patient has no known procedures. Encounters Start End Encounter Admission Attending Care Care Encounter Source Date/Time Date/Time Type Type Clinicians Facility Department ID 2020-04-20 2020-04-20 Telephone ALEKS Cowart [id number] 00:00:00 00:00:00 Zandra Franco [id number] Yuki [id number] Faraz [id number] nal 044 [facility] Results This patient has no known results.
--- OUTSIDE RECORDS SUMMARY | 2020-04-20 16:04 | XMS REPORT | Summary of Care ---
:1960 Author Organization [facility] - Health Address [address] [place] [address] Care Team Providers Name Role Phone Sammy Cowart MD Primary Care Provider MD Keegan Unavailable Reason for Visit Reason Comments Follow-up Encounter Details Date Type Department Care Team Description 01/08/2020 Telemedicine Visit [facility] Papi Cowart (P rimary Dx); Pediatric and Adult Zandra Christianson MD History of stroke; Primary Care- [address] Hearing difficulty, unspecified laterali ty; [place] [address] Difficulty seeing; [address] [place] [address], [place], [place] Routine adult health maintenance [id number] [place] [address] [phone] Allergies Active Allergy Reactions Severity Noted Date Comments Aripiprazole Other - See comments 11/12/2014 insomni a Trazodone Other - See comments 11/12/2014 insomni a documented as of this encounter (statuses as of 01/23/2020) Medications Medication Sig Dispensed Refills Start Date [...] mouth daily. Seizure disorder, Bipolar 1 disorder aspirin 81 mg EC Take 1 tablet [...] artery (TAKE WITH 40MG disease involving ATORVASTATIN) [place] coronary artery of [place] heart without angina pectoris MIRTAZAPINE 15 mg TAKE 1 TABLET BY 90 tablet 1 09/24/2019 Active tabletIndications: MOUTH EVERY DAY Insomnia, unspecified AT BEDTIME type NEEDED FOR INSOMNIA lisinopril 10 mg Take 1 tablet by 90 tablet 2 10/15/2019 Active tablet mouth daily. amitriptyline 25 mg Take 1 tablet by 60 tablet 2 12/26/2019 Active tabletIndications: mouth 2 (two) Bipolar affective times daily. 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 COVID-19 Exposure Response Date Recorded In the last month, have you been in contact Unable to assess 01/07/2020 11:21 AM CDT with someone who was confirmed or suspected to have Coronavirus / COVID-19? documented as of this encounter Last Filed Vital Signs Not on filedocumented in this encounter Patient Instructions Patient InstructionsEli Barnett - 01/08/2020 1:40 PM CDTTo promote ketosis, you combine a low-carbohydrate diet (minimizing simple carbs such as sugars, bread, white potatoes, white rice, soft drinks, alcohol, candy, cakes, and processed foods), moderate exercise (at least 150 minutes per week of brisk walking or something more vigorous), and fasting for at least twelve hours between your last meal of the night and your first meal of the next morning. Consuming fats such as MCT oil (medium-chain triglyceride oil) or unsaturated fats such as olive oil or avocado or nuts also promote mild ketosis. documented in this encounter Progress Notes Zandra Cowart MD - 01/08/2020 1:40 PM CDT DOS: 01/08/2020 CC: Follow up of chronic conditions Verbal consent obtained from Patient: Jd Rico for telehealth services provided below. Communication with patient was conducted via Telephone due to patient unable to obtain video call option. Attempted to do video but had issues with the connection. Location of Patient: Home Location of Provider: Clinic Date of Service: 01/08/2020 HPI: Jd Rico is a 59 year old male with history including has a past medical history of Anxiety, Bipolar 1 disorder, CAD (coronary artery disease), Hypertension, Other and unspecified hyperlipidemia, Seizures (2013), and Stroke (2007). who is being seen today for follow up of chronic conditions. Patient states he cut back on his sugar intake. He's states he eats a variety of fruits and vegetables. He still takes zinc. There might be a little improvement in memory. He has difficulty hearing. [facility] and he got disability for hearing loss and it doubled his income. He follows with neurology for tremors. On chart review, wanted to increase benzos to decrease tremors. Neurology is concerned about him being on too much benzos over time. They continued current dose for now. He has trouble seeing. Because of his vision he had to sell all his tools, his didn't want him working. He was worried about not having a mask but he found a full box of N95 masks when going through his tools. Health Maintenance Discuss at future visit. Medications reviewed in EPIC, past medical history and social history and allergies reviewed. Review of Systems HENT: Positive for hearing loss. Eyes: + trouble seeing Neurological: Positive for tremors. PE: This is a televisit unable to get vitals. Physical Exam Constitutional: Alert and oriented Pulmonary/Chest: Breath sounds normal. No respiratory distress. He has no wheezes. Breathing comfortably Neurological: Answers questions appropriately Psychiatric: He has a normal mood and affect. Thought content normal. Results: No new labs A total of 39 minutes was spent on the Telephone due to patient unable to obtain video call option with the patient. A/P: Jd Rico is a 59 year old male with history including has a past medical history of Anxiety, Bipolar 1 disorder, CAD (coronary artery disease), Hypertension, Other and unspecified hyperlipidemia, Seizures (2013), and Stroke (2007). who is being seen today for chronic medical conditions. Tremor (primary encounter diagnosis) Comment: he follows with neurology. Plan: continue following with neurology. Continue alprazolam 0.5mg twice a day. History of stroke Comment: consider MRI Plan: need to see if radiology can run the neuroquant scan on previous MRI. Hearing difficulty, unspecified laterality Comment: [facility] did [facility] and he got disability for hearing loss Plan: monitor. Difficulty seeing Comment: because of his vision he had to sell all of his tools, didn't want him working. Plan: monitor. Routine adult health maintenance Comment: patient is due for routine labs. Plan: CBC WITH DIFF, CBC WITH DIFFERENTIAL Return for follow-up in first week of February to review lab results.. Plan of care, desired health behaviors, goals,& medication discussed with patient and educational resources and self management tools provided as appropriate. Patient/family/guardian voices understanding. Patient verbalized understanding & agrees to plan of care. Barriers to care: none Ability to manage care: good Scribe's Attestation Eli Osorio , am scribing for, and in the presence of, Zandra Cowart MD who performed the services described here-in. Eli Barnett, January 08, 2020, 2:42 PM Physician's Attestation Zandra Osorio MD, personally performed the services described in this documentation , asscribed by, Eli Barnett in my presence and it is both accurate and complete. Zandra Cowart MD January 23, 2020, 9:21 AM documented in this encounter Plan of Treatment Date Type Specialty Care Team Description 02/03/2020 Office Visit Internal Medicine Jesica Cowart MD 146 [facility] r [facility] [address] [place] [address] 15 09/08/2020 Office Visit Cardiology Seb Allison M D 146 [facility] [address] [place] [id number] 15 Name Type Priority Associated Diagnoses Order S chedule CBC WITH DIFF LAB Routine Routine adult health Ordere d: 01/08/2020 maintenance CBC WITH DIFFERENTIAL LAB Routine Routine adult healt h Ordered: 01/08/2020 maintenance Health Maintenance Due Date Last Done Comments Zoster Recombinant Vaccine 2009 (SHINGRIX) (1 of 2) COLONOSCOPY 05/19/2024 05/19/2014 (Previously completed) DTaP,Tdap,and Td Vaccines (2 - Td) 11/13/2026 11/13/2016 HEPATITIS C (HCV) SCREEN Completed 2018 INFLUENZA VACCINE Completed 06/20/2019, 06/03/2018, 06/15/2016, Additional history exists PNEUMOCOCCAL 0-64 YEARS COMBINED Completed 09/09/2019 SERIES documented as of this encounter Results Not on filedocumented in this encounter Visit Diagnoses Diagnosis Tremor - Primary Abnormal involuntary movements History of stroke Transient ischemic attack (TIA), and cer ebral infarction without residual deficits Hearing difficulty, unspecified laterali ty Difficulty seeing Other ill-defined disorder of eye Routine adult health maintenance Routine general medical examination at a health care facility documented in this encounter Insurance Payer Benefit Plan / Subscriber ID Effective Dates Phone Addre ss Type Group MEDICARE MEDICARE PART xxxxxxxxxxx 1996-Presen [id number] Medicare A & B t 2 [id number] [place] [address] [facility] MEDICAID OF xxxxxxxxx 2013-Presemi [phone] [address] Medicaid [place] t 0 [id number] [place] [address] documented as of this encounter Advance Directives Name Relationship Healthcare Agent Communication Relationship Jodi Tatum Spouse Primary healthcare agent
--- OUTSIDE RECORDS SUMMARY | 2020-04-20 16:05 | XMS REPORT | Summary of Care ---
:1960 Author Organization [facility] - Health Address [address] [place] [address] Care Team Providers Name Role Phone Sammy Cowart MD Primary Care Provider MD Keegan Unavailable Reason for Visit Reason Comments Refill Request Encounter Details Date Type Department Care Team Description 01/28/2020 Refill [facility] Pediatric and Laura Cowart, Refill Request Adult Primary Care- MD Franco [address] [place] [address] 146 [facility], [address] [place] [address] [place] [address] [phone] Allergies Active Allergy Reactions Severity Noted Date Comments Aripiprazole Other - See comments 11/12/2014 insomni a Trazodone Other - See comments 11/12/2014 insomni a documented as of this encounter (statuses as of 01/29/2020) Medications Medication Sig Dispensed Refills Start Date End Date Status Cholecalciferol, Take by mouth 0 Active Vitamin D3, daily. (VITAMIN D3) 2,000 unit Cap Olopatadine 0.2 % Place 1 Drop 2.5 mL 3 12/09/2018 Active ophthalmic in each eye dropsIndications: daily. Seasonal allergies rOPINIRole (REQUIP One by mouth 30 tablet 1 01/07/2019 Active XL) 2 mg 24 hr per day. Take tabletIndications: in the am. Paralysis agitans divalproex 500 mg Take 3 tablets 270 tablet 3 03/10/2019 Active EC by mouth tabletIndications: daily. Seizure disorder, Bipolar 1 disorder aspirin 81 mg EC Take 1 tablet 0 07/01/2019 Active tabletIndications: by mouth Essential daily. hypertension, benign cloNIDine 0.1 mg 2 times a day 10 tablet 0 07/01/2019 Active tabletIndications: as needed for Essential SBP > 180 mmHg hypertension, benign OLANZapine 5 mg Take 1 tablet 30 tablet 2 07/14/2019 Active tabletIndications: by mouth at Bipolar 1 disorder bedtime. atorvastatin 40 mg Take 1 tablet 90 tablet 3 08/13/2019 Active tablet by mouth daily. ALPRAZolam 0.5 mg Take 1 tablet 60 tablet 5 09/12/2019 Active tabletIndications: by mouth 2 Paralysis agitans (two) times daily. ATORVASTATIN 20 mg TAKE 1 TABLET 90 tablet 3 09/15/2019 Active tabletIndications: BY MOUTH AT Coronary artery BEDTIME (TAKE disease involving WITH 40MG [place] coronary ATORVASTATIN) artery of [place] heart without angina pectoris MIRTAZAPINE 15 mg TAKE 1 TABLET 90 tablet 1 09/24/2019 Active tabletIndications: BY MOUTH EVERY Insomnia, DAY AT BEDTIME unspecified type NEEDED FOR INSOMNIA lisinopril 10 mg Take 1 tablet 90 tablet 2 10/15/2019 Active tablet by mouth daily. amitriptyline 25 mg Take 1 tablet 60 tablet 2 12/26/2019 Active tabletIndications: by mouth 2 Bipolar affective (two) times disorder in daily. remission metoprolol Take 1 tablet 30 tablet 5 01/27/2020 Acti ve succinate XL 25 mg by mouth 24 hr tablet daily. DICLOFENAC SODIUM 1 APPLY TO 900 g 1 01/29/2020 Active % gelIndications: AREA(S) 2 Chronic midline low (TWO) TIMES back pain without DAILY sciatica NEEDED FOR PAIN (SCALE 4-6). Diclofenac Sodium 1 Apply to 900 g 11 09/09/2019 Discontinued % gelIndications: area(s) 2 0 Chronic midline low (two) times back pain without daily as sciatica needed for Pain (scale 4-6). 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 CAD (coronary artery disease) 11/25/2014 Seizure disorder 11/25/2014 Bipolar 1 disorder 11/25/2014 TIA (transient ischemic attack) 11/25/2014 Insomnia 11/25/2014 documented as of this encounter (statuses as of 01/29/2020) Immunizations Name Administration Dates Next Due Influenza [...] Visit Internal Medicine Jesica Cowart MD 146 [facility] [address] [place] [address] 15 09/08/2020 Office Visit Cardiology Seb Allison M D [address] [place] [address] [address] [place] [address] 15 [phone] Health Maintenance Due Date Last Done Comments Zoster Recombinant Vaccine 2009 (SHINGRIX) (1 of 2) Depression Screening 07/18/2020 07/18/2019, 07/14/2019 COLONOSCOPY 05/19/2024 05/19/2014 (Previously completed) DTaP,Tdap,and Td Vaccines (2 - Td) 11/13/2026 11/13/2016 HEPATITIS C (HCV) SCREEN Completed 2018 INFLUENZA VACCINE Completed 06/20/2019, 06/03/2018, 06/15/2016, Additional history exists PNEUMOCOCCAL 0-64 YEARS COMBINED Completed 09/09/2019 SERIES documented as of this encounter Results Not on filedocumented in this encounter Visit Diagnoses Diagnosis Chronic midline low back pain without sc iatica documented in this encounter Insurance Payer Benefit Plan / Subscriber ID Effective Dates Phone Addre ss Type Group MEDICARE MEDICARE PART xxxxxxxxxxx 1996-Rodrigo [phone] [address] Medicare A & B t 2 [id number] ALTHEA BARNETT [address] [facility] MEDICAID OF xxxxxxxxx 2013-Rodrigo [phone] [place] t 0 [id number] [place] [address] documented as of this encounter Advance Directives Name Relationship Healthcare Agent Communication Relationship Jodi Tatum Spouse Primary healthcare agent
--- OUTSIDE RECORDS SUMMARY | 2020-04-20 16:05 | XMS REPORT | Summary of Care ---
:1960 Author Organization [facility] - Health Address [address] [place] [address] Care Team Providers Name Role Phone Sammy Cowart MD Primary Care Provider MD Keegan Unavailable Reason for Visit Reason Comments Results Encounter Details Date Type Department Care Team Description 03/18/2020 Telephone [facility] Pediatric and Laura Cowart, Results Adult Primary Care- MD Franco [address] [place] [address] 146 [facility] 103 [address] [place] [address] [place] [address] [phone] Allergies Active Allergy Reactions Severity Noted Date Comments Aripiprazole Other - See comments 11/12/2014 insomni a Trazodone Other - See comments 11/12/2014 insomni a documented as of this encounter (statuses as of 03/19/2020) Medications Medication Sig Dispensed Refills Start Date [...] tablet 3 08/13/2019 Active tablet mouth daily. ALPRAZolam 0.5 mg Take 1 tablet by 60 tablet 5 09/12/2019 Active tabletIndications: mouth 2 (two) Paralysis agitans times daily. ATORVASTATIN 20 mg TAKE 1 TABLET BY 90 tablet 3 09/15/2019 Active tabletIndications: MOUTH AT BEDTIME Coronary artery (TAKE WITH 40MG disease involving ATORVASTATIN) [place] coronary artery of [place] heart without angina pectoris MIRTAZAPINE 15 mg TAKE 1 TABLET BY 90 tablet 1 09/24/2019 Active tabletIndications: MOUTH EVERY DAY Insomnia, unspecified AT BEDTIME type NEEDED FOR INSOMNIA lisinopril 10 mg Take 1 tablet by 90 tablet 2 10/15/2019 Active tablet mouth daily. DICLOFENAC SODIUM 1 % APPLY TO AREA(S) 900 g 1 01/29/2020 Active gelIndications: 2 (TWO) TIMES Chronic midline low DAILY NEEDED back pain without FOR PAIN (SCALE sciatica 4-6). METOPROLOL SUCCINATE TAKE 1 TABLET BY 90 tablet 1 02/06/2020 Active XL 25 mg 24 hr tablet MOUTH EVERY DAY amitriptyline 25 mg Take 1 tablet by 60 tablet 2 02/08/2020 Active tabletIndications: mouth 2 (two) Bipolar affective times daily. 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 CAD (coronary artery disease) 11/25/2014 Seizure disorder 11/25/2014 Bipolar 1 disorder 11/25/2014 TIA (transient ischemic attack) 11/25/2014 Insomnia 11/25/2014 documented as of this encounter (statuses as of 03/19/2020) Immunizations Name Administration Dates Next Due Influenza Virus Vaccine 06/03/2018, 06/15/2016 Influenza Virus Vaccine Recomb Quad 06/20/2019 IM, Preserv and ABX Free 18-64 YRS Pneumococcal Polysaccharide, PPSV23 09/09/2019, 06/30/2019 ( Deferred: (PNEUMOVAX) Patient Refused - Patient will come back for PPSV) TDAP 11/13/2016 documented as of this encounter Social [...] Treatment Date Type Specialty Care Team Description 09/08/2020 Office Visit Cardiology Seb Allison M D [address] [place] [address] 15 Health Maintenance Due Date Last Done Comments Zoster Recombinant Vaccine 2009 (SHINGRIX) (1 of 2) INFLUENZA VACCINE (#1) 2020 06/20/2019, 06/03/2018, 06/15/2016, Additional history exists Depression Screening 07/18/2020 07/18/2019, 07/14/2019 COLONOSCOPY 05/19/2024 05/19/2014 (Previously completed) DTaP,Tdap,and Td Vaccines (2 - Td) 11/13/2026 11/13/2016 HEPATITIS C (HCV) SCREEN Completed 2018 PNEUMOCOCCAL 0-64 YEARS COMBINED Completed 09/09/2019 SERIES documented as of this encounter Results Not on filedocumented in this encounter Insurance Payer Benefit Plan / Subscriber ID Effective Dates Phone Addre ss Type Group MEDICARE MEDICARE PART xxxxxxxxxxx 1996-Presemi [phone] [address] Medicare A & B t 2 [id number] ALTHEA BARNETT [id number] [facility] MEDICAID OF xxxxxxxxx 2013-Presemi [phone] [address] Medicaid [place] t 0 [id number] [place] [address] documented as of this encounter Advance Directives Name Relationship Healthcare Agent Communication Relationship Jodi Tatum Spouse Primary healthcare agent
--- OUTSIDE RECORDS SUMMARY | 2020-04-20 16:05 | XMS REPORT | Summary of Care ---
:1960 Author Organization [facility] Address [address] [place] [address] Care Team Providers Name Role Phone Sammy Cowart MD Primary Care Provider MD Keegan Unavailable Reason for Visit Reason Comments Refill Request Encounter Details Date Type Department Care Team Description 02/05/2020 Refill [facility]- Shannan Allison MD Refill Request [address] 146 [facility], [address] [place] [address] [place] [address] [phone] Allergies Active Allergy Reactions Severity Noted Date Comments Aripiprazole Other - See comments 11/12/2014 insomni a Trazodone Other - See comments 11/12/2014 insomni a documented as of this encounter (statuses as of 02/06/2020) Medications Medication Sig Dispensed Refills Start Date [...] artery BEDTIME (TAKE disease involving WITH 40MG [place] coronary ATORVASTATIN) artery of [place] heart without angina pectoris MIRTAZAPINE 15 mg [...] affective (two) times disorder in daily. remission DICLOFENAC SODIUM 1 APPLY TO 900 g 1 01/29/2020 Active % gelIndications: AREA(S) 2 Chronic midline low (TWO) TIMES back pain without DAILY sciatica NEEDED FOR PAIN (SCALE 4-6). METOPROLOL TAKE 1 TABLET 90 tablet 1 02/06/2020 Acti ve SUCCINATE XL 25 mg BY MOUTH EVERY 24 hr tablet DAY metoprolol Take 1 tablet 30 tablet 5 01/27/2020 Disc ontinued succinate XL 25 mg by mouth 0 24 hr tablet daily. 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 documented as of this encounter Last Filed Vital Signs Not on filedocumented in this encounter Plan of Treatment Date Type Specialty Care Team Description 09/08/2020 Office Visit Cardiology Seb Allison M D [address] [place] [address] [phone] Health Maintenance Due Date Last Done Comments [...] Type Group MEDICARE MEDICARE PART xxxxxxxxxxx 1996-Rodrigo [phone] [address] Medicare A & B t 2 [id number] [place] [address] [facility] MEDICAID OF xxxxxxxxx 2013-Rodrigo [phone] [address] Medicaid [place] t 0 [id number] [place] [address] documented as of this encounter Advance Directives Name Relationship Healthcare Agent Communication Relationship Jodi Tatum Spouse Primary healthcare agent
--- OUTSIDE RECORDS SUMMARY | 2020-04-20 16:05 | XMS REPORT | Summary of Care ---
:1960 Author Organization [facility] Address [address] [place] [address] Care Team Providers Name Role Phone Sammy Cowart MD Primary Care Provider MD Keegan Unavailable Reason for Visit Reason Comments LAB WORK Auth/Cert Status Reason Specialty Diagnoses / Procedures Referred By Antoine bangura Referred To Contact Phlebotomy Diagnoses Short-term memory loss Adc Pob Lab Draw Procedures LIPID PANEL (43248)(TOTAL CHOLESTEROL, TRIGLYCERIDES, HDL) Professional Office Building [address] [place] [address] , [address] [place] [address] Phone: Fax: Encounter Details Date Type Department Care Team Description 02/06/2020 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 [facility] Laura Cowart MD [address] [place] [address] [address] [place] [address] Routine general Professional Office Pob, Adc Lab Main medical examination Building Phlebotomy at a [facility] care Lab facility Professional Office Building [address] [place] [address] , [address] [place] [address] Allergies Active Allergy Reactions Severity Noted Date [...] artery (TAKE WITH 40MG disease involving ATORVASTATIN) [place] coronary artery of [place] heart without angina pectoris MIRTAZAPINE 15 mg [...] Bipolar affective times daily. disorder in remission DICLOFENAC SODIUM 1 % APPLY TO AREA(S) 900 g 1 01/29/2020 Active gelIndications: 2 (TWO) TIMES Chronic midline low DAILY NEEDED back pain without FOR PAIN (SCALE sciatica 4-6). 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 Medicare A & B t 2 [id number] ALTHEA BARNETT [id number] [facility] MEDICAID OF xxxxxxxxx 2013-Presen [phone] [address] Medicaid [place] t 0 [id number] [place] [address] documented as of this encounter Advance Directives Name Relationship Healthcare Agent Communication Relationship Jodi Tatum Spouse Primary healthcare agent
--- OUTSIDE RECORDS SUMMARY | 2020-04-20 16:05 | XMS REPORT | Summary of Care ---
:1960 Author Organization [facility] - Health Address [address] [place] [address] Care Team Providers Name Role Phone Sammy Cowart MD Primary Care Provider MD Keegan Unavailable Reason for Visit Reason Comments Refill Request Encounter Details Date Type Department Care Team Description 02/05/2020 Refill [facility] and Laura Cowart, Refill Request Adult Primary Care- [address] [place] [address] [address] [place] [address] [place] [address] [phone] Allergies Active Allergy Reactions Severity Noted Date Comments Aripiprazole Other - See comments 11/12/2014 insomni a Trazodone Other - See comments 11/12/2014 insomni a documented as of this encounter (statuses as of 02/08/2020) Medications Medication Sig Dispensed Refills Start Date [...] artery BEDTIME (TAKE disease involving WITH 40MG [place] coronary ATORVASTATIN) artery of [place] heart without angina pectoris MIRTAZAPINE 15 mg TAKE 1 TABLET 90 tablet 1 09/24/2019 Active tabletIndications: BY MOUTH Insomnia, EVERY DAY AT unspecified type BEDTIME NEEDED FOR INSOMNIA lisinopril 10 mg Take 1 tablet 90 tablet 2 10/15/2019 Active tablet by mouth daily. DICLOFENAC SODIUM APPLY TO 900 g 1 01/29/2020 A ctive 1 % AREA(S) 2 gelIndications: (TWO) TIMES Chronic midline DAILY low back pain NEEDED FOR without sciatica PAIN (SCALE 4-6). METOPROLOL TAKE 1 TABLET 90 tablet 1 02/06/2020 Acti ve SUCCINATE XL 25 mg BY MOUTH 24 hr tablet EVERY DAY amitriptyline 25 Take 1 tablet 60 tablet 2 02/08/2020 Active mg by mouth 2 tabletIndications: (two) times Bipolar affective daily. disorder in remission amitriptyline 25 Take 1 tablet 60 tablet 2 12/26/2019 02/08/20 2 Discontinued mg by mouth 2 0 (Reorder) tabletIndications: (two) times Bipolar affective daily. 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 CAD (coronary artery disease) 11/25/2014 Seizure disorder 11/25/2014 Bipolar 1 disorder 11/25/2014 TIA (transient ischemic attack) 11/25/2014 Insomnia 11/25/2014 documented as of this encounter (statuses as of 02/08/2020) Immunizations Name Administration Dates Next Due Influenza [...] Office Visit Cardiology Seb Allison M D [address] [place] [address] 15 [phone] Health Maintenance Due Date Last Done Comments [...] filedocumented in this encounter Visit Diagnoses Diagnosis Primary insomnia Persistent disorder of initiating or evelyn ntaining sleep Bipolar affective disorder in remission documented in this encounter Insurance Payer Benefit Plan / Subscriber ID Effective Dates Phone Addre ss Type Group MEDICARE MEDICARE PART xxxxxxxxxxx 1996-Presemi [phone] [address] Medicare A & B t 2 [id number] SUZANNE [employer]YE[employer] [place] [id number] [facility] MEDICAID OF xxxxxxxxx 2013-Rodrigo [phone] [address] Medicaid [place] t 0 [id number] [place] [address] documented as of this encounter Advance Directives Name Relationship Healthcare Agent Communication Relationship Jodi Tatum Spouse Primary healthcare agent
--- OUTSIDE RECORDS SUMMARY | 2020-04-20 16:05 | XMS REPORT | Summary of Care ---
:1960 Author Organization [facility] Address [address] [place] [address] Care Team Providers Name Role Phone Sammy Cowart MD Primary Care Provider MD Keegan Unavailable Reason for Visit Reason Comments Refill Request Encounter Details Date Type Department Care Team Description 01/27/2020 Refill [facility] Cardiology- Shannan Allison MD Refill Request [address] [facility], [address] [place] [address] [place] [address] [phone] Allergies Active Allergy Reactions Severity Noted Date Comments Aripiprazole Other - See comments 11/12/2014 insomni a Trazodone Other - See comments 11/12/2014 insomni a documented as of this encounter (statuses as of 01/27/2020) Medications Medication Sig Dispensed Refills Start Date [...] needed for without sciatica Pain (scale 4-6). ALPRAZolam 0.5 mg Take 1 tablet 60 tablet 5 09/12/2019 Active tabletIndications: by mouth 2 Paralysis agitans (two) times daily. ATORVASTATIN 20 mg TAKE 1 TABLET 90 tablet 3 09/15/2019 Active tabletIndications: BY MOUTH AT Coronary artery BEDTIME (TAKE disease involving WITH 40MG [place] coronary ATORVASTATIN) artery of [place] heart without angina pectoris MIRTAZAPINE 15 mg TAKE 1 TABLET 90 tablet 1 09/24/2019 Active tabletIndications: BY MOUTH Insomnia, EVERY DAY AT unspecified type BEDTIME NEEDED FOR INSOMNIA lisinopril 10 mg Take 1 tablet 90 tablet 2 10/15/2019 Active tablet by mouth daily. amitriptyline 25 Take 1 tablet 60 tablet 2 12/26/2019 Active mg by mouth 2 tabletIndications: (two) times Bipolar affective daily. disorder in remission metoprolol Take 1 tablet 30 tablet 5 01/27/2020 Acti ve succinate XL 25 mg by mouth 24 hr tablet daily. 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 CAD (coronary artery disease) 11/25/2014 Seizure disorder 11/25/2014 Bipolar 1 disorder 11/25/2014 TIA (transient ischemic attack) 11/25/2014 Insomnia 11/25/2014 documented as of this encounter (statuses as of 01/27/2020) Immunizations Name Administration Dates Next Due Influenza [...] Office Visit Internal Medicine Jesica Cowart MD [address] [place] [address] 15 [phone] 09/08/2020 Office Visit Cardiology Seb Allison M D [address] [place] [address] [address] [place] [address] 15 [phone] Health Maintenance Due Date Last Done Comments [...] Type Group MEDICARE MEDICARE PART xxxxxxxxxxx 1996-Presemi [phone] Medicare A & B t 2 [id number] ALTHEA BARNETT [id number] [facility] MEDICAID OF xxxxxxxxx 2013-Rodrigo [phone] [address] Medicaid [place] t 0 [id number] [place] [address] documented as of this encounter Advance Directives Name Relationship Healthcare Agent Communication Relationship Jodi Tatum Spouse Primary healthcare agent
--- OUTSIDE RECORDS SUMMARY | 2020-04-20 16:06 | XMS REPORT | Clinical Summary ---
:1960 Author Organization [facility] Address [address] [place] [address] Care Team Providers Name Role Phone Sammy [...] artery (TAKE WITH 40MG disease involving ATORVASTATIN) stillaguamish coronary artery of still[place] heart without angina pectoris MIRTAZAPINE 15 mg [...] Bipolar affective times daily. 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 CAD (coronary artery disease) 11/25/2014 Seizure disorder 11/25/2014 Bipolar 1 disorder 11/25/2014 TIA (transient ischemic attack) 11/25/2014 Insomnia 11/25/2014 Encounters Date Type Specialty Care Team Description 03/18/2020 Telephone Family Medicine Kadie Cowart MD 02/06/2020 Developer Designer Visit Phlebotomy Sofya, Routine gen georgia Christianson MD medical examination Pob, Adc [facility] 02/06/2020 Travel 02/05/2020 Refill Cardiology Seb Allison MD Refill Req uest 02/05/2020 Refill Internal Medicine Sofya Refill Req shirin Christianson MD 02/02/2020 Travel 01/28/2020 Refill Internal Medicine Sofya Refill Req shirin Christianson MD 01/27/2020 Refill Cardiology Seb Allison MD Refill Req uest 01/21/2020 Refill Neurology Laith Lopez Refill Requcristina Sherwood MD 01/08/2020 Telemedicine Visit Internal Medicine Tiff Cowart or (Primary Dx); Zandra Christianson MD History of s troke; Hearing difficu lty, unspecified laterality; Difficulty seei ng; Routine adult h ealth maintenance 01/07/2020 Travel from Last 3 Months Immunizations Name Administration Dates Next Due Influenza Virus Vaccine 06/03/2018, 06/15/2016 Influenza Virus Vaccine Recomb Quad 06/20/2019 IM, Preserv and ABX Free 18-64 YRS Pneumococcal Polysaccharide, PPSV23 09/09/2019, 06/30/2019 ( Deferred: (PNEUMOVAX) Patient Refused - Patient will come back for PPSV) TDAP 11/13/2016 Family History Medical History Relation Name Comments Heart Father CABG@72 Relation Name Status Comments Father Social History Tobacco Use Types Packs/Day Years Used Date Former Smoker Quit: 09/28/19 Smokeless Tobacco: Never Used Tobacco Cessation: Counseling Given: No Alcohol Use Drinks/Week oz/Week Comments No Sex Assigned at Date Recorded Not on file Last Filed Vital Signs Vital Sign Reading Time Taken Comments Blood Pressure 119/80 09/09/2019 2:46 PM TOOL LAPPER [facility] Pulse 62 09/09/2019 2:46 PM TOOL LAP[facility] Temperature 36.7 C (98.1 F) 09/09/2019 2:46 PM TOOL [facility] Respiratory Rate 18 09/09/2019 2:46 PM TOOL LAP[facility] Oxygen Saturation 97% 09/09/2019 2:46 PM TOOL [facility] HAND Inhaled Oxygen Concentration - - Weight 64.9 kg (143 lb) 09/09/2019 2:46 PM [facility] Height 162.6 cm (5' 4") 07/14/2019 2:16 PM TOOL [facility] Body Mass Index 24.55 07/14/2019 2:16 PM TOOL LAPPER [facility] Plan of Treatment Date Type Specialty Care Team Description 09/08/2020 Office Visit Cardiology Seb Allison M D [address] [place] [address] 15 [phone] Health Maintenance Due Date Last Done Comments COLON CANCER SCREENING ANNUAL 2009 FIT/FOBT COLON CANCER SCREENING FIT DNA 2009 EVERY 3 YEARS COLON CANCER SCREENING 2009 SIGMOIDOSCOPY EVERY 5 YEARS Zoster Recombinant Vaccine 2009 (SHINGRIX) (1 of 2) INFLUENZA VACCINE (#1) 2020 06/20/2019, 06/03/2018, 06/15/2016, Additional history exists Depression Screening 07/18/2020 07/18/2019, 07/14/2019 COLONOSCOPY 05/19/2024 05/19/2014 (Previously completed) Colorectal Cancer Screening 05/19/2024 DTaP,Tdap,and Td Vaccines (2 - Td) 11/13/2026 11/13/2016 HEPATITIS C (HCV) SCREEN Completed 2018 PNEUMOCOCCAL 0-64 YEARS COMBINED Completed 09/09/2019 SERIES Procedures Procedure Name Priority Date/Time Associated Comments Diagnosis CBC WITH DIFFERENTIAL Routine 02/06/2020 Routine adult Resul ts for 9:43 AM CDT health this procedure maintenance are in the results section. CBC WITH DIFF Routine 02/06/2020 Routine adult Results for 9:43 AM CDT health this procedure maintenance are in the results section. COPPER, SERUM Routine 02/06/2020 Short-term memory Results f or 9:43 AM CDT loss this procedure are in the results section. ZINC, SERUM Routine 02/06/2020 Short-term memory Results fo r 9:43 AM CDT loss this procedure are in the results section. FREE T3 Routine 02/06/2020 Short-term memory Results fo r 9:43 AM CDT loss this procedure are in the results section. FREE T4 Routine 02/06/2020 Short-term memory Results fo r 9:43 AM CDT loss this procedure are in the results section. THYROID STIMULATING HORMONE Routine 02/06/2020 Short-term me vince Results for 9:43 AM CDT loss this procedure are in the results section. TESTOSTERONE, FREE AND TOTAL Routine 02/06/2020 Short-term m terrie Results for 9:43 AM CDT loss this procedure are in the results section. DEHYDROEPIANDROSTERONE Routine 02/06/2020 Short-term memory Results for SULFATE 9:43 AM CDT loss this procedure are in the results section. LIPID PANEL ([id number])(TOTAL Routine 02/06/2020 Short-term ashley ry Results for CHOLESTEROL, TRIGLYCERIDES, 9:43 AM CDT loss this procedure HDL) Coronary artery are in the disease involving results still[place] coronary section. artery of [place] heart without angina pectoris INSULIN, LEVEL Routine 02/06/2020 Short-term memory Results for 9:43 AM CDT loss this procedure are in the results section. COMP. METABOLIC PANEL (36558) Routine 02/06/2020 Short-term memory Results for 9:43 AM CDT loss this procedure are in the results section. FOLATE Routine 02/06/2020 Short-term memory Results fo r 9:43 AM CDT loss this procedure Other residential are in the (current) drug results therapy section. VITAMIN D, 25-OH Routine 02/06/2020 Short-term memory Result s for 9:43 AM CDT loss this procedure Other residential are in the (current) drug results therapy section. VITAMIN B12, LEVEL Routine 02/06/2020 Short-term memory Resu lts for 9:43 AM CDT loss this procedure Other value advisor are in the (current) drug results therapy section. VITAMIN B6, PLASMA Routine 02/06/2020 Short-term memory Resu lts for 9:43 AM CDT loss this procedure Abnormal levels are in the of other serum results enzymes section. Other value advisor (current) drug therapy VITAMIN B1 (THIAMINE), WHOLE Routine 02/06/2020 Short-term m dresher Results for BLOOD 9:43 AM CDT loss this procedure Other residential are in the (current) drug results therapy section. HOMOCYSTEINE Routine 02/06/2020 Short-term memory Results fo r 9:43 AM CDT loss this procedure are in the results section. HIGH SENSITIVITY CRP Routine 02/06/2020 Short-term memory Re sults for 9:43 AM CDT loss this procedure Other specified are in the health status results section. from Last 3 Months Results VITAMIN B1 (THIAMINE), WHOLE BLOOD (02/06/2020 9:43 AM CDT) [facility] Vitamin B1, Whole 198 (H) 70 - 180 [facility] Blood Comment: nmol/L INTERPRETIVE INFORMATION: Vitamin B1, Whole Blood This assay measures the concentration of thiamine diph osphate (TDP), the primary active form of vitamin B1. Approxim ately 90 percent of vitamin B1 present in whole blood is TDP. T hiamine and thiamine monophosphate, which comprise the remaining 1 0 percent, are not measured. Test developed and characteristics determined by [facility] [employer]. See Compliance Statement B: [email or web address]/ CS Performed by [facility], [address] [place] [address] [email or web address], Paco Hale MD, Lab. Director Specimen Blood Performing Organization Address City/State/Zipcode [place] [address] CBC WITH DIFFERENTIAL (02/06/2020 9:43 AM CDT) [facility] WBC 7.37 4.20 - 10.70 [facility] 10*3/L HOS[facility]ITAL [facility]ORY RBC 5.29 4.26 - 5.52 [facility] 10*6/L [facility] HGB 16.7 (H) 12.2 - 16.4 [facility] g/dL [facility] HCT 49.6 (H) 38.4 - 49.3 % [facility] MCV 93.8 81.7 - 95.6 fL [facility] MCH 31.6 26.1 - 32.7 pg [facility] MCHC 33.7 31.2 - 35.0 [facility] g/dL [facility] RDW-SD 45.6 38.5 - 51.6 fL [facility] RDW-CV 13.2 12.1 - 15.4 % [facility] PLT 226 150 - 328 [facility] 10*3/L [facility] MPV 10.1 9.8 - 13.0 fL [facility] NRBC/100 WBC 0.0 0.0 - 10.0 /100 [facility] WBCs [facility] NRBC x10^3 <0.01 10*3/L [facility] GRAN MAT (NEUT) % 64.3 % [facility] IMM GRAN % 0.50 % [facility] LYMPH % 24.8 % [facility] MONO % 8.3 % [facility] EOS % 1.6 % [facility] BASO % 0.5 % [facility] GRAN MAT x10^3(ANC) 4.73 1.99 - 6.95 [facility] 10*3/uL [facility]OS[facility]ITAL LAB[facility] IMM GRAN x10^3 0.04 0.00 - 0.06 [facility] 10*3/uL [facility]ITAL [facility] LYMPH x10^3 1.83 1.09 - 3.23 [facility] 10*3/uL [facility] MONO x10^3 0.61 0.36 - 1.02 [facility] 10*3/uL [facility]ITAL [facility] EOS x10^3 0.12 0.06 - 0.53 [facility] 10*3/uL [facility] BASO x10^3 0.04 0.01 - 0.09 [facility] 10*3/uL [facility]ITAL [facility] Specimen Blood Performing Organization Address City/[facility] Phone Number [facility] CLIA: [id number] [place] [address] FREE T3 (02/06/2020 9:43 AM CDT) Pathologist Sig nature FREE T3 4.43 2.77 - 5.27 pg/mL [facility] Specimen Blood Performing Organization Address [facility] Phone Number [facility] CLIA: [id number] [place], [place] [address] LABORATORY [address] VITAMIN D, 25-OH (02/06/2020 9:43 AM CDT) Pathologist Sig nature VIT D 25OH 44 25 - 80 ng/mL [facility]ORAT[facility] SERVICES Specimen Blood Narrative Performed At Deficiency: <20 ng/mL [facility] SERVICES Insufficiency: 20-24 ng/mL Optimal: 25-80 ng/mL Performing Organization Address [facility] Phone Number [facility] SERVICES CLIA: [id number] [place] [address] [place] [address] HOMOCYSTEINE (02/06/2020 9:43 AM CDT) Pathologist Sig nature Homocysteine 13.7 6.6 - 14.8 umol/L [facility]ORATORY SERVICE S Specimen Blood Performing Organization Address [facility] Phone Number [facility] SERVICES CLIA: [id number] [place] [address] [place] [address] HIGH SENSITIVITY CRP (02/06/2020 9:43 AM CDT) Pathologist Sig nature HS CRP 0.07 <0.74 mg/dL [facility] SERVICES Specimen Blood Performing Organization Address [facility] Phone Number [facility] SERVICES CLIA: [id number] [place] [address] [place] [address] DEHYDROEPIANDROSTERONE SULFATE (02/06/2020 9:43 AM CDT) Pathologist Sig nature DHEA-S 1,454.1 ng/mL [facility] SERVICES Specimen Blood Narrative Performed At Normal Ranges for DHEA SO4 [facility] SERVICES Prepubertal: 50-995 ng/mL Adult: 650-3400 ng/mL Adult levels may decrease with age after age 50. Decreased level may be seen in term preg nancies. Pubertal is based on physical examination. Performing Organization Address City/[facility]/Zipcode Phone Number [facility] SERVICES CLIA: [id number] [place] [address] [place] [address] LIPID PANEL ([id number])(TOTAL CHOLESTEROL, TRIGLYCERIDES, HDL) (02/06/2020 9:43 AM CDT) Pathologist Sig nature CHOL 211 (H) 120 - 200 mg/dL [facility] HDL 61 >40 mg/dL [facility] HDLC RATIO 3.5 <=5.0 [facility] TRIG 199 (H) 30 - 170 mg/dL [facility] LDL CHOL 110 <=160 mg/dL [facility] VLDL 40 5 - 60 mg/dL [facility] Specimen Blood Performing Organization Address City/[facility]/Zipcode Phone Number [facility] CLIA: [id number] [place] [address] COMP. METABOLIC PANEL ([id number]) (02/06/2020 9:43 AM CDT) NA 137 135 - 145 [facility] mmol/L [facility] K 4.8 3.5 - 5.0 [facility] mmol/L [facility] CL 101 98 - 108 mmol/L [facility] CO2 TOTAL 28 23 - 31 mmol/L [facility] AGAP 8 2 - 16 [facility] BUN 20 7 - 23 mg/dL [facility] GLUCOSE 86 70 - 110 mg/dL [facility] CREATININE 1.26 (H) 0.60 - 1.25 [facility] mg/dL [facility] TOTAL BILI 0.6 0.1 - 1.1 mg/dL [facility] CALCIUM 11.0 (H) 8.6 - 10.6 [facility] mg/dL [facility] T PROTEIN 8.3 (H) 6.3 - 8.2 g/dL [facility] ALBUMIN 4.8 3.5 - 5.0 g/dL [facility] ALK PHOS 73 34 - 122 U/L [facility] ALTv 14 5 - 50 U/L [facility] AST(SGOT) 23 13 - 40 U/L [facility] eGFR Calculation 58.4 mL/min/1.73m2 [facility] ([facility] LABORATORY Barbadian) eGFR Calculation 70.8 mL/min/1.73m2 [facility] () [facility] Specimen Blood Narrative Performed At Association of Glomerular Filtration Rate (GFR) [facility] and Staging of Kidney Disease* [...] abnormalities in imaging tests). Performing Organization Address City/[facility]/Zipcode Phone Number [facility] CLIA: [id number] [place] [address] THYROID STIMULATING HORMONE (02/06/2020 9:43 AM CDT) [facility] TSH 4.82 (H) 0.45 - 4.70 mIU/L [facility] LABORATORY Specimen Blood Performing Organization Address [facility]/Zipcode Phone Number [facility] CLIA: [id number] [place] [address] FREE T4 (02/06/2020 9:43 AM CDT) Pathologist Sig [facility] FREE T4 1.07 0.78 - 2.20 ng/dL [facility] HOSPIT AL LABORATORY Specimen Blood Performing Organization Address City/[facility] Phone Number [facility] CLIA: [id number] [place] [address] INSULIN, LEVEL (02/06/2020 9:43 AM CDT) Pathologist [facility] Insulin 12.4 1.9 - 23.0 uIU/mL [facility] LABORATORY SERVICE S Specimen Blood Performing Organization Address [facility] Phone Number [facility] SERVICES CLIA: [id number] [place] [address] [place] [address] FOLATE (02/06/2020 9:43 AM CDT) Pathologist [facility] FOLATE SER >20.0 (H) 3.0 - 20.0 ng/mL [facility] SERVICES Specimen Blood Performing Organization Address [facility] Phone Number [facility] SERVICES CLIA: [id number] [place] [address] [place] [address] VITAMIN B12, LEVEL (02/06/2020 9:43 AM CDT) Pathologist [facility] VIT B12 873 240 - 930 pg/mL [facility] SERVICES Specimen Blood Narrative Performed At Biotin has been reported to cause a positive bias, int erpret [facility] SERVICES results relative to patient's use of biotin. Performing Organization Address City/[facility] Cent[facility] Phone Number [facility] SERVICES CLIA: [id number] [place] [address] [phone] [address] [facility] VITAMIN B6, PLASMA (02/06/2020 9:43 AM CDT) Pathologist Sig nature VIT B6 171.6 (H) 20.0 - 125.0 [facility] Comment: nmol/L INTERPRETIVE INFORMATION: Vitamin B6 (Pyridoxal 5-Phos phate) Pyridoxal 5'-phosphate measured in a specimen collecte d following an 8-hour or overnight fast accurately indicates vitam in B6 nutritional status. Non-fasting specimen concentration reflects recent vitamin intake. Test developed and characteristics determined by [facility]. See Compliance Statement B: [employer]/ CS Performed by [facility], [address] [place] [id number] [email or web address], Paco Hale MD, Lab. Director Specimen Blood Performing Organization Address [facility] Cent[facility]ode Phone Number [facility] [address] [place] [address] TESTOSTERONE, FREE AND TOTAL (02/06/2020 9:43 AM CDT) TESTOST 669 300 - 720 [facility] Comment: ng/dL REFERENCE INTERVAL: Testosterone, Adult Male Access complete set of age- and/or gender-specific ref erence intervals for this test in the [facility] Laboratory Test Di rectory (Shelfie). Sex Hormone 77 11 - 80 [facility] Binding Globulin Comment: nmol/L REFERENCE INTERVAL: Sex Hormone Binding Globulin Access complete set of age- and/or gender-specific ref erence intervals for this test in the [facility] Laboratory Test Di rectory (Shelfie). FREE TESTO 75 47 - 244 [facility] Comment: pg/mL INTERPRETIVE INFORMATION: Testosterone, Free Gagan Stage IV 35 - 169 pg/mL Gagan Stage V 41 - 239 pg/mL The concentration of Free Testosterone is derived from a mathematical expression based on the constant for the binding of testosterone to Sex Hormone Binding Globulin (SHBG). Access complete set of age- and/or gender-specific ref erence intervals for this test in the [facility] Laboratory Test Di rectory (Shelfie). %FREE TEST 1.1 (L) 1.6 - 2.9 % [facility] Comment: Performed by [facility], [address] [place] [id number] [email or web address], Paco Hale MD, Lab. Director Specimen Blood Performing Organization Address [facility] Centercode Phone Number [facility] [address] [place] [address] ZINC, SERUM (02/06/2020 9:43 AM CDT) Pathologist Sig nature ZINC 114.0 60.0 - 120.0 [facility] Comment: ug/dL INTERPRETIVE INFORMATION: Zinc, Serum or [...] absorption. Test developed and characteristics determined by [facility]. See Compliance Statement B: [employer]/ CS Performed by [facility], [address] [place] [id number] [email or web address], Paco Hale MD, Lab. Director Specimen Blood Performing Organization Address [facility] Phone Number [facility] [address] [place] [address] COPPER, SERUM (02/06/2020 9:43 AM CDT) Pathologist Sig [facility] COPPER 88.2 70.0 - 140.0 [place] Comment: ug/dL INTERPRETIVE INFORMATION: Copper, Serum or [...] aroldo). Test developed and characteristics determined by [facility]. See Compliance Statement B: [employer]/ CS Performed by [facility], [address] [place] [id number] [email or web address], Paco Hale MD, Lab. Director Specimen Blood Performing Organization Address [facility] CenterKnodium Phone Number [facility] [address] [place] [address] from Last 3 Months Insurance Payer Benefit Plan / Subscriber ID Effective Dates Phone Addre ss Type Group MEDICARE MEDICARE PART [id number] 1996-Rodrigo [phone] Medicare A & B t 2 [id number] [place]THEA BARNETT [address] [facility] MEDICAID OF [id number] 2013-Rodrigo [phone] Medicaid [place] t [address] [id number] [place] [address] Advance Directives Name Relationship Healthcare Agent Communication Relationship Jodi Tatum Spouse Health Care Agent
--- OUTSIDE RECORDS SUMMARY | 2020-04-20 16:07 | XMS REPORT | Clinical Summary ---
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 CAD (coronary artery disease) 11/25/2014 Seizure disorder 11/25/2014 Bipolar 1 disorder 11/25/2014 TIA (transient ischemic attack) 11/25/2014 Insomnia 11/25/2014 Encounters Date Type Specialty Care Team Description 03/18/2020 Telephone Family Medicine Kadie Cowart MD 02/06/2020 Body Wirer Visit Phlebotomy Sofya, Routine gen georgia Christianson MD medical examination Pob, Adc Lab Main at [facility] 02/06/2020 Travel 02/05/2020 Refill Cardiology Seb [...] Comments Blood Pressure 119/80 09/09/2019 2:46 PM FISHING CAPTAIN Pulse 62 09/09/2019 2:46 PM FISHING CAPTAIN Temperature 36.7 C (98.1 F) 09/09/2019 2:46 PM FISHING CAPTAIN Respiratory Rate 18 09/09/2019 2:46 PM FISHING CAPTAIN Oxygen Saturation 97% 09/09/2019 2:46 PM FISHING CAPTAIN Inhaled Oxygen Concentration - - Weight 64.9 kg (143 lb) 09/09/2019 2:46 PM FISHING CAPTAIN Height 162.6 cm (5' 4") 07/14/2019 2:16 PM FISHING CAPTAIN Body Mass Index 24.55 07/14/2019 2:16 PM FISHING CAPTAIN Plan of Treatment Date Type Specialty Care Team Description 09/08/2020 Office Visit Cardiology Seb Allison M D [address] [place] [address] 15 [phone] Health Maintenance Due Date Last Done Comments [...] are in the results section. LIPID PANEL (59513)(TOTAL Routine 02/06/2020 Short-term ashley ry Results for CHOLESTEROL, TRIGLYCERIDES, 9:43 AM CDT loss this procedure HDL) Coronary artery are in the disease involving results gambell coronary section. artery of gambell heart without angina pectoris INSULIN, LEVEL Routine 02/06/2020 Short-term memory Results for 9:43 AM CDT loss this procedure are in the results section. COMP. METABOLIC PANEL (17410) Routine 02/06/2020 Short-term memory Results for 9:43 AM CDT loss this procedure are in the results section. FOLATE Routine 02/06/2020 Short-term memory Results fo r 9:43 AM CDT loss this procedure Other longterm are in the (current) drug results therapy section. VITAMIN D, 25-OH Routine 02/06/2020 Short-term memory Result s for 9:43 AM CDT loss this procedure Other longterm are in the (current) drug results therapy section. VITAMIN B12, LEVEL Routine 02/06/2020 Short-term memory Resu lts for 9:43 AM CDT loss this procedure Other terminologist are in the (current) drug results therapy section. VITAMIN B6, PLASMA Routine 02/06/2020 Short-term memory Resu lts for 9:43 AM CDT loss this procedure Abnormal levels are in the of other serum results enzymes section. Other terminologist (current) drug therapy VITAMIN B1 (THIAMINE), WHOLE Routine 02/06/2020 Short-term m [place] Results for BLOOD 9:43 AM CDT loss this procedure Other longterm are in the (current) drug results therapy [...] (THIAMINE), WHOLE BLOOD (02/06/2020 9:43 AM CDT) [facility] Vitamin B1, Whole 198 (H) 70 - 180 [facility] Blood Comment: nmol/L INTERPRETIVE INFORMATION: Vitamin B1, Whole Blood This assay measures the concentration of thiamine diph osphate (TDP), the primary active form of vitamin B1. Approxim ately 90 percent of vitamin B1 present in whole blood is TDP. T hiamine and thiamine monophosphate, which comprise the remaining 1 0 percent, are not measured. Test developed and characteristics determined by [facility]. See Compliance Statement B: [email or web address]/ CS Performed by [facility], [address] [place] [address] [email or web address], Paco Hale MD, Lab. Director Specimen Blood Performing Organization Address City/State/Zipcode [place] [address] CBC WITH DIFFERENTIAL (02/06/2020 9:43 AM CDT) [facility] WBC 7.37 4.20 - 10.70 [facility] 10*3/L HOSPITAL LAB[facility]ORY RBC 5.29 4.26 - 5.52 [facility] 10*6/L [facility] HGB 16.7 (H) 12.2 - 16.4 [facility] g/dL [facility] HCT 49.6 (H) 38.4 - 49.3 % [facility] MCV 93.8 81.7 - 95.6 fL [facility] MCH 31.6 26.1 - 32.7 pg [facility] MCHC 33.7 31.2 - 35.0 [facility] g/dL [facility] RDW-SD 45.6 38.5 - 51.6 fL [facility] RDW-CV 13.2 12.1 - 15.4 % [facility] PLT 226 150 - 328 [facility] 10*3/L [facility] MPV 10.1 9.8 - 13.0 fL [facility] NRBC/100 WBC 0.0 0.0 - 10.0 /100 [facility] WBCs [facility] NRBC x10^3 <0.01 10*3/L [facility] GRAN MAT (NEUT) % 64.3 % [facility] IMM GRAN % 0.50 % [facility] LYMPH % 24.8 % [facility] MONO % 8.3 % [facility] EOS % 1.6 % [facility] BASO % 0.5 % [facility] GRAN MAT x10^3(ANC) 4.73 1.99 - 6.95 [facility] 10*3/uL HOSPITAL [facility] IMM GRAN x10^3 0.04 0.00 - 0.06 [facility] 10*3/uL [facility]ITAL [facility] LYMPH x10^3 1.83 1.09 - 3.23 [facility] 10*3/uL [facility] MONO x10^3 0.61 0.36 - 1.02 [facility] 10*3/uL HOS[facility]ITAL [facility] EOS x10^3 0.12 0.06 - 0.53 [facility] 10*3/uL [facility]ITAL [facility] BASO x10^3 0.04 0.01 - 0.09 [facility] 10*3/uL [facility]ITAL [facility] Specimen Blood Performing Organization Address City/[facility] Phone Number [facility] CLIA: [id number] [place] [address] FREE T3 (02/06/2020 9:43 AM CDT) Pathologist Sig nature FREE T3 4.43 2.77 - 5.27 pg/mL [facility] Specimen Blood Performing Organization Address [facility] Phone Number [facility] CLIA: [id number] [place], [place] [address] LABORATORY [address] VITAMIN D, 25-OH (02/06/2020 9:43 AM CDT) Pathologist Sig nature VIT D 25OH 44 25 - 80 ng/mL [facility] SERVICES Specimen Blood Narrative Performed At Deficiency: <20 ng/mL [facility] Insufficiency: 20-24 ng/mL Optimal: 25-80 ng/mL Performing Organization Address [facility] Phone Number [facility] CLIA: [id number] [place] [address] [place] [address] HOMOCYSTEINE (02/06/2020 9:43 AM CDT) Pathologist Sig nature Homocysteine 13.7 6.6 - 14.8 umol/L [facility] SERVICE S Specimen Blood Performing Organization Address [facility] Phone Number [facility] CLIA: [id number] [place] [address] [place] [address] HIGH SENSITIVITY CRP (02/06/2020 9:43 AM CDT) Pathologist Sig nature HS CRP 0.07 <0.74 mg/dL [facility] SERVICES Specimen Blood Performing Organization Address [facility] Phone Number [facility] CLIA: [id number] [place] [address] [place] [address] DEHYDROEPIANDROSTERONE SULFATE (02/06/2020 9:43 AM CDT) Pathologist Sig nature DHEA-S 1,454.1 ng/mL [facility] SERVICES Specimen Blood Narrative Performed At Normal Ranges for DHEA SO4 [facility] Prepubertal: 50-995 ng/mL Adult: 650-3400 ng/mL Adult levels may decrease with age after age 50. Decreased level may be seen in term preg nancies. Pubertal is based on physical examination. Performing Organization Address City/[facility]/Zipcode Phone Number [facility] CLIA: [id number] [place] [address] [place] [address] LIPID PANEL ([id number])(TOTAL CHOLESTEROL, TRIGLYCERIDES, HDL) (02/06/2020 9:43 AM CDT) Pathologist Sig nature CHOL 211 (H) 120 - 200 mg/dL [facility] HDL 61 >40 mg/dL [facility] HDLC RATIO 3.5 <=5.0 [facility] TRIG 199 (H) 30 - 170 mg/dL [facility] LDL CHOL 110 <=160 mg/dL [facility] VLDL 40 5 - 60 mg/dL [facility] Specimen Blood Performing Organization Address City/[facility]/Zipcode Phone Number [facility] CLIA: [id number] [place] [address] COMP. METABOLIC PANEL ([id number]) (02/06/2020 9:43 AM CDT) NA 137 135 - 145 [facility] mmol/L [facility] K 4.8 3.5 - 5.0 [facility] mmol/L [facility] CL 101 98 - 108 mmol/L [facility] CO2 TOTAL 28 23 - 31 mmol/L [facility] AGAP 8 2 - 16 [facility] BUN 20 7 - 23 mg/dL [facility] GLUCOSE 86 70 - 110 mg/dL [facility] CREATININE 1.26 (H) 0.60 - 1.25 [facility] mg/dL [facility] TOTAL BILI 0.6 0.1 - 1.1 mg/dL [facility] CALCIUM 11.0 (H) 8.6 - 10.6 [facility] mg/dL [facility] T PROTEIN 8.3 (H) 6.3 - 8.2 g/dL [facility] ALBUMIN 4.8 3.5 - 5.0 g/dL [facility] ALK PHOS 73 34 - 122 U/L [facility] LAB[facility] ALTv 14 5 - 50 U/L [facility] AST(SGOT) 23 13 - 40 U/L [facility] eGFR Calculation 58.4 mL/min/1.73m2 [facility] ([facility] LABORATORY Tanzanian) eGFR Calculation 70.8 mL/min/1.73m2 [facility] () [facility] Specimen Blood Narrative Performed At Association of Glomerular Filtration Rate (GFR) [facility] LABORATORY and Staging of Kidney Disease* [...] abnormalities in imaging tests). Performing Organization Address City/[facility]/Zipcode Phone Number [facility] CLIA: [id number] [place] [address] THYROID STIMULATING HORMONE (02/06/2020 9:43 AM CDT) [facility] TSH 4.82 (H) 0.45 - 4.70 mIU/L [facility] LABORAT[facility] Specimen Blood Performing Organization Address [facility]/Zipcode Phone Number [facility] CLIA: [id number] [place] [address] FREE T4 (02/06/2020 9:43 AM CDT) Pathologist Sig [facility] FREE T4 1.07 0.78 - 2.20 ng/dL [facility] LAB[facility]ORY Specimen Blood Performing Organization Address City/[facility] Phone Number [facility] CLIA: [id number] [place] [address] INSULIN, LEVEL (02/06/2020 9:43 AM CDT) Pathologist [facility] Insulin 12.4 1.9 - 23.0 uIU/mL [facility] LABORATORY SERVICE S Specimen Blood Performing Organization Address [facility] Phone Number [facility] CLIA: [id number] [place] [address] [place] [address] FOLATE (02/06/2020 9:43 AM CDT) Pathologist [facility] FOLATE SER >20.0 (H) 3.0 - 20.0 ng/mL [facility] SERVICES Specimen Blood Performing Organization Address [facility] Phone Number [facility] CLIA: [id number] [place] [address] [place] [address] VITAMIN B12, LEVEL (02/06/2020 9:43 AM CDT) Pathologist [facility] VIT B12 873 240 - 930 pg/mL [facility] SERVICES Specimen Blood Narrative Performed At Biotin has been reported to cause a positive bias, int erpret [facility] SERVICES results relative to patient's use of biotin. Performing Organization Address City/[facility] Phone Number [facility] CLIA: [id number] [place] [address] [phone] [facility] VITAMIN B6, PLASMA (02/06/2020 9:43 AM CDT) Pathologist Sig nature VIT B6 171.6 (H) 20.0 - 125.0 [facility] Comment: nmol/L INTERPRETIVE INFORMATION: Vitamin B6 (Pyridoxal 5-Phos phate) Pyridoxal 5'-phosphate measured in a specimen collecte d following an 8-hour or overnight fast accurately indicates vitam in B6 nutritional status. Non-fasting specimen concentration reflects recent vitamin intake. Test developed and characteristics determined by [facility]. See Compliance Statement B: [employer]/ CS Performed by [facility], [address] [place] [address] [id number] [email or web address].[employer], Paco Hale MD, Lab. Director Specimen Blood Performing Organization Address [facility] Phone Number [facility] [address] [place] [address] TESTOSTERONE, FREE AND TOTAL (02/06/2020 9:43 AM CDT) TESTOST 669 300 - 720 [facility] Comment: ng/dL REFERENCE INTERVAL: Testosterone, Adult Male Access complete set of age- and/or gender-specific ref erence intervals for this test in the [facility] Di [facility] ([employer]). Sex Hormone 77 11 - 80 [facility] Binding Globulin Comment: nmol/L REFERENCE INTERVAL: Sex Hormone Binding Globulin Access complete set of age- and/or gender-specific ref erence intervals for this test in the [facility] ([employer]). FREE TESTO 75 47 - 244 [facility] Comment: pg/mL INTERPRETIVE INFORMATION: Testosterone, Free Gagan Stage IV 35 - 169 pg/mL Gagan Stage V 41 - 239 pg/mL The concentration of Free Testosterone is derived from a mathematical expression based on the constant for the binding of testosterone to Sex Hormone Binding Globulin (SHBG). Access complete set of age- and/or gender-specific ref erence intervals for this test in the [facility] ([employer]). %FREE TEST 1.1 (L) 1.6 - 2.9 % [facility] Comment: Performed by [facility], [address] [place] [address] [id number] [email or web address], Paco Hale MD, Lab. Director Specimen Blood Performing Organization Address [facility] Phone Number [facility] [address] [place] [address] ZINC, SERUM (02/06/2020 9:43 AM CDT) Pathologist [...] absorption. Test developed and characteristics determined by [facility]. See Compliance Statement B: [employer]/ CS Performed by [facility], [address] [place] [id number] [email or web address].[employer], Paco Hale MD, Lab. Director Specimen Blood Performing Organization Address [facility] Phone Number [facility] [address] [place] [address] COPPER, SERUM (02/06/2020 9:43 AM CDT) Pathologist Sig [facility] COPPER 88.2 70.0 - 140.0 [place] Comment: [...] aroldo). Test developed and characteristics determined by [facility]. See Compliance Statement B: [employer]/ CS Performed by [facility], [address] [place] [id number] [email or web address], Paco Hale MD, Lab. Director Specimen Blood Performing Organization Address [facility] 911 Phone Number [facility] [address] [place] [address] from Last 3 Months Insurance Payer Benefit Plan / Subscriber ID Effective Dates Phone Addre ss Type Group MEDICARE MEDICARE PART [id number] 1996-Rodrigo [phone] [address] Medicare A & B t 2 [id number] ALTHEA BARNETT [phone] [facility] MEDICAID OF [id number] 2013-Rodrigo [phone] Medicaid [place] t 0 [id number] [place] [address] Advance Directives Name Relationship Healthcare Agent Communication Relationship Jodi Tatum Spouse Health Care Agent
--- OUTSIDE RECORDS SUMMARY | 2020-04-20 16:07 | XMS REPORT | Summary of Care ---
:1960 Author Organization [facility] Address [address] [place] [address] Care Team Providers Name Role Phone Sammy Cowart MD Primary Care Provider MD Keegan Unavailable Reason for Visit Reason Comments Assessment Triage Encounter Details Date Type Department Care Team Description 04/20/2020 Telephone [facility] Pediatric Hellen Cowart Assessment (Triage ) and Adult Primary MD Sammy Care- [address], [address] [phone] [address] [phone] Allergies Active Allergy Reactions Severity Noted Date Comments Aripiprazole Other - See comments 11/12/2014 insomni a Trazodone Other - See comments 11/12/2014 insomni a documented as of this encounter (statuses as of 04/20/2020) Medications Medication Sig Dispensed Refills Start Date [...] artery (TAKE WITH 40MG disease involving ATORVASTATIN) lytton coronary artery of lytton heart without angina pectoris MIRTAZAPINE 15 mg [...] as of this encounter (statuses as of 04/20/2020) Active Problems Problem Noted Date Essential hypertension, benign 11/25/2014 Mixed hyperlipidemia 11/25/2014 Osteoarthritis 11/25/2014 Anxiety 11/25/2014 Vitamin D deficiency 11/25/2014 Overview: ICD10 Diagnosis Term 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 Patient states he stays nauseated. Patient has not eaten in 3 days, he sips boost but patient is not keeping it down. Patient complains of no energy, weakness, and dizziness. Patient states he has has some hard stools and he has been urinating. Patient advised to go to the ER to be evaluated. WOP states she is taking him to the in to be evaluated. elephone Encounter - Ally Ye - 04/20/2020 3:19 PM CDTWOP is calling stating that the patient hasn't eaten anything in 3 days and is drinking very little.WOP is stating that he is bumping into jeffers, vomiting and is very lethargic. WOP is being transferred to a nurse. documented in this encounter Plan of Treatment Date Type Specialty Care Team Description 09/08/2020 Office Visit Cardiology Seb Allison M D [address] [place] [address] 15 [phone] Health Maintenance Due Date Last Done Comments COLON CANCER SCREENING ANNUAL 2009 FIT/FOBT COLON CANCER SCREENING FIT DNA 2009 EVERY 3 YEARS COLON CANCER SCREENING 2009 SIGMOIDOSCOPY EVERY 5 YEARS Zoster Recombinant Vaccine 2009 (SHINGRIX) (1 of 2) Depression Screening 07/18/2020 07/18/2019, 07/14/2019 PNEUMOCOCCAL 0-64 YEARS COMBINED 09/09/2020 09/09/2019 SERIES (2 of 3 - PCV13) COLONOSCOPY 05/19/2024 05/19/2014 (Previously completed) Colorectal Cancer Screening 05/19/2024 DTaP,Tdap,and Td Vaccines (2 - Td) 11/13/2026 11/13/2016 HEPATITIS C (HCV) SCREEN Completed 2018 INFLUENZA VACCINE Completed 04/14/2020, 06/20/2019, 06/03/2018, Additional history exists documented as of this encounter Results Not on filedocumented in this encounter Insurance Payer Benefit Plan / Subscriber ID Effective Dates Phone Addre ss Type Group MEDICARE MEDICARE PART [id number] 1996-Presen [phone] [address] Medicare A & B t 2 [id number] [place] [address] [facility] MEDICAID OF [id number] 2013-Presen [phone] [address] Medicaid [place] t 0 [id number] [place] [address] documented as of this encounter Advance Directives Name Relationship Healthcare Agent Communication Relationship Jodi Tatum Spouse Health Care Agent
[2020-04-20] MEDS ORDERED: NA CHLORIDE 0.9% 1,000 ML ONE (17:00)
[2020-04-20 17:39] LABS: Albumin 3.4 g/dL (3.4-5.0); Bilirubin Direct 0.2 mg/dL (0-0.2); Bilirubin Total 0.6 mg/dL (0.2-1.0); Potassium 4.3 mmol/L (3.5-5.1); Protein, Total 7.6 g/dL (6.4-8.2)
[2020-04-20 17:45] LABS: Absolute Lymphocytes (CBC) 1.5 K/uL (0.7-4.9); Basophils % 0.4 % (0-1.3); Lymphocytes % 15.1 % (15.3-44.8); MPV 9.4 fL (7.6-11.3); RBC Red Blood Cell Count 4.74 M/uL (4.33-5.43)
--- NOTE | 2020-04-20 18:01 | ER ---
Nurse's Notes [facility] Name: Jd Rico Age: 59 yrs Sex: Male : 1960 Arrival Date: 04/20/2020 Time: 16:04 Bed 16 Private MD: Diagnosis: Dehydration;Nausea Presentation: 04/20 16:08 Chief complaint: Patient states: Loss of appetite, when tried to eat I throw up. since ca1 March. I feel like am losing weight and getting weaker. Spouse and/or significant other states: : He is very nauseated. He has dementia and he also forgets to take his Ensure. Coronavirus screen: Client denies travel out of the [place] in the last 14 days. At this time, the client does not indicate any symptoms associated with coronavirus-19. Ebola Screen: Patient negative for fever greater than or equal to 101.5 degrees Fahrenheit, and additional compatible Ebola Virus Disease symptoms Patient denies exposure to infectious person. Patient denies travel to an Ebola-affected area in the 21 days before illness onset. No symptoms or risks identified at this time. Initial Sepsis Screen: Does the patient meet any 2 criteria? No. Patient's initial sepsis screen is negative. Does the patient have a suspected source of infection? No. Patient's initial sepsis screen is negative. Risk Assessment: Do you want to hurt yourself or someone else? Patient reports no desire to harm self or others. Onset of symptoms was April 20, 2020. 16:08 Method Of Arrival: Ambulatory ca1 16:08 Acuity: MARIA L 3 ca1 Historical: - Allergies: 16:13 Trazodone; ca1 - PMHx: 16:13 Angina; Bipolar disorder; CVA; Dementia; Hypertension; insomnia; Myocardial infarction; ca1 Parkinsons; peripheral vision loss; Seizures; - PSHx: 16:13 Hernia repair; back surg; Heart stents; ca1 - Immunization history:: Adult Immunizations up to date. - Social history:: Smoking status: Patient/guardian denies using tobacco, the patient reports quitting approximately 20 years ago. Screenin:45 Abuse screen: Denies threats or abuse. Denies injuries from another. Nutritional jl7 screening: No deficits noted. Tuberculosis screening: No symptoms or risk factors identified. Fall Risk IV access (20 points). Total Stephen Fall Scale indicates No Risk (0-24 pts). Assessment: 16:30 General: Appears in no apparent distress. uncomfortable, Behavior is calm, cooperative, jl7 appropriate for age. Pain: Denies pain. Neuro: Level of Consciousness is awake, alert, obeys commands, Oriented to person, place, time, situation. Cardiovascular: Patient's skin is warm and dry. Respiratory: Airway is patent Respiratory effort is even, unlabored, Respiratory pattern is regular, symmetrical. GI: Abdomen is flat, non-distended, Reports anorexia. : No signs and/or symptoms were reported regarding the genitourinary system. Derm: Skin is pink, warm \T\ dry. 18:00 Reassessment: Patient appears in no apparent distress at this time. Patient and/or jl7 family updated on plan of care and expected duration. Pain level reassessed. Patient is alert, oriented x 3, equal unlabored respirations, skin warm/dry/pink. Patient states feeling better. Patient states symptoms have improved. Vital Signs: 16:08 BP 128 / 96; Pulse 83; Resp 15 S; Temp 97.2(TE); Pulse Ox 100% on R/A; Weight 65.77 kg ca1 (R); Height 5 ft. 4 in. (162.56 cm); Pain 0/10; 18:00 BP 148 / 95; Pulse 76; Resp 17; Pulse Ox 99% ; jl7 16:08 Body Mass Index 24.89 (65.77 kg, 162.56 cm) ca1 ED Course: 16:04 Patient arrived in ED. rg4 16:08 Arm band placed on right wrist. ca1 16:12 Triage completed. ca1 16:14 Josué Mike PA is PHCP. jr8 16:14 Christiano Mccormack MD is Attending Physician. jr8 16:15 Patient has correct armband on for positive identification. Placed in gown. Bed in low jl7 position. Call light in reach. Side rails up X2. mattress filling machine tender on. Pulse ox on. NIBP on. Warm blanket given. 16:17 Saulo Alberts RN is Primary Nurse. jl7 16:45 Initial lab(s) drawn, by ri, sent to lab. Urine collected: clean catch specimen, clear. jl7 Inserted saline lock: 20 gauge in right hand, using aseptic technique. Blood collected. 18:20 No provider procedures requiring assistance completed. IV discontinued, intact, jl7 bleeding controlled, No redness/swelling at site. Pressure dressing applied. Administered Medications: 17:05 Drug: NS 0.9% 1000 ml Route: IV; Rate: 1000 ml; Site: left hand; jl7 18:00 Follow up: Response: No adverse reaction; IV Status: Completed infusion jl7 Outcome: 18:01 Discharge ordered by MD. banuelos 18:20 Discharged to home ambulatory. jl7 18:20 Condition: stable 18:20 Discharge instructions given to patient, family, Instructed on discharge instructions, follow up and referral plans. Demonstrated understanding of instructions, follow-up care. 18:21 Patient left the ED. jl7 Signatures: Josué Mike PA PA jr8 Garcia, Rubi rg4 Saulo Alberts RN RN jl7 Zaina Randolph RN RN ca1 Corrections: (The following items were deleted from the chart) 16:13 16:08 Pulse 83bpm; Resp 15bpm; Spontaneous; Pulse Ox 100% RA; Temp 97.2F Temporal; ca1 65.77 kg Reported; Height 5 ft. 4 in.; BMI: 24.8; Pain 0/10; ca1
--- NOTE | 2020-04-20 18:02 | EDPHYS ---
Physician Documentation [facility] Name: Jd Rico Age: 59 yrs Sex: Male : 1960 Arrival Date: 04/20/2020 Time: 16:04 Bed 16 Private MD: ED Physician Christiano Mccormack HPI: 04/20 18:01 This 59 yrs old Male presents to ER via Ambulatory with complaints of jr8 Nausea/Vomiting, Trouble Sleeping. 18:01 Onset: The symptoms/episode began/occurred gradually, 3 week(s) ago. Possible causes: jr8 unknown. The symptoms are aggravated by food , The symptoms are alleviated by nothing. Associated signs and symptoms: The patient has no apparent associated signs or symptoms. Severity of symptoms: At their worst the symptoms were mild in the emergency department the symptoms are unchanged. It is unknown whether or not the patient has had similar symptoms in the past. The patient has not recently seen a physician. Patient stated that he has had trouble sleeping and n/v. Denies change in medicine or recent sick contacts. Talked to nurse at PCP office who advised them to come to ED for further evaluation . Historical: - Allergies: 16:13 Trazodone; ca1 - PMHx: 16:13 Angina; Bipolar disorder; CVA; Dementia; Hypertension; insomnia; Myocardial infarction; ca1 Parkinsons; peripheral vision loss; Seizures; - PSHx: 16:13 Hernia repair; back surg; Heart stents; ca1 - Immunization history:: Adult Immunizations up to date. - Social history:: Smoking status: Patient/guardian denies using tobacco, the patient reports quitting approximately 20 years ago. ROS: 18:01 Eyes: Negative for injury, pain, redness, and discharge, ENT: Negative for injury, jr8 pain, and discharge, Neck: Negative for injury, pain, and swelling, Cardiovascular: Negative for chest pain, palpitations, and edema, Respiratory: Negative for shortness of breath, cough, wheezing, and pleuritic chest pain, Back: Negative for injury and pain, MS/Extremity: Negative for injury and deformity, Skin: Negative for injury, rash, and discoloration, Neuro: Negative for headache, weakness, numbness, tingling, and seizure. 18:01 Abdomen/GI: Positive for nausea and vomiting, Negative for abdominal pain, diarrhea, constipation, abdominal cramps, abdominal distension, anorexia, dysphagia, hematemesis, black/tarry stool, rectal pain, rectal bleeding, bowel incontinence, flatulence. Exam: 18:01 Eyes: Pupils equal round and reactive to light, extra-ocular motions intact. Lids and jr8 lashes normal. Conjunctiva and sclera are non-icteric and not injected. Cornea within normal limits. Periorbital areas with no swelling, redness, or edema. ENT: Nares patent. No nasal discharge, no septal abnormalities noted. Tympanic membranes are normal and external auditory canals are clear. Oropharynx with no redness, swelling, or masses, exudates, or evidence of obstruction, uvula midline. Mucous membranes moist. Neck: Trachea midline, no thyromegaly or masses palpated, and no cervical lymphadenopathy. Supple, full range of motion without nuchal rigidity, or vertebral point tenderness. No Meningismus. Cardiovascular: Regular rate and rhythm with a normal S1 and S2. No gallops, murmurs, or rubs. Normal PMI, no JVD. No pulse deficits. Respiratory: Lungs have equal breath sounds bilaterally, clear to auscultation and percussion. No rales, rhonchi or wheezes noted. No increased work of breathing, no retractions or nasal flaring. Abdomen/GI: Soft, non-tender, with normal bowel sounds. No distension or tympany. No guarding or rebound. No evidence of tenderness throughout. Back: No spinal tenderness. No costovertebral tenderness. Full range of motion. Skin: Warm, dry with normal turgor. Normal color with no rashes, no lesions, and no evidence of cellulitis. MS/ Extremity: Pulses equal, no cyanosis. Neurovascular intact. Full, normal range of motion. Neuro: Awake and alert, GCS 15, oriented to person, place, time, and situation. Cranial nerves II-XII grossly intact. Motor strength 5/5 in all extremities. Sensory grossly intact. Cerebellar exam normal. Normal gait. Vital Signs: 16:08 BP 128 / 96; Pulse 83; Resp 15 S; Temp 97.2(TE); Pulse Ox 100% on R/A; Weight 65.77 kg ca1 (R); Height 5 ft. 4 in. (162.56 cm); Pain 0/10; 18:00 BP 148 / 95; Pulse 76; Resp 17; Pulse Ox 99% ; jl7 16:08 Body Mass Index 24.89 (65.77 kg, 162.56 cm) ca1 MDM: 16:15 Patient medically screened. jr8 17:59 Data reviewed: vital signs, nurses notes, lab test result(s), and as a result, I will jr8 discharge patient. Data interpreted: Pulse oximetry: on room air is 100 %. Interpretation: normal. Counseling: I had a detailed discussion with the patient and/or guardian regarding: the historical points, exam findings, and any diagnostic results supporting the discharge/admit diagnosis, lab results, the need for outpatient follow up, a family practitioner, to return to the emergency department if symptoms worsen or persist or if there are any questions or concerns that arise at home. Response to treatment: the patient's symptoms have resolved after treatment, patient is well hydrated. ED course: Feeling much better. Has appetite. Wants to go home and eat. Will f/u with PCP. Knows to come back if worse. 04/20 16:42 Order name: Basic Metabolic Panel; Complete Time: 17:49 04/20 16:42 Order name: CBC with Diff; Complete Time: 17:49 [facility] 04/20 16:42 Order name: Hepatic Function; Complete Time: 17:49 [facility] 04/20 16:42 Order name: Lipase; Complete Time: 17:49 04/20 17:19 Order name: Urine Dipstick--Ancillary (enter results); Complete Time: 18:47 04/20 16:42 Order name: IV Saline Lock; Complete Time: 17:09 04/20 16:42 Order name: Labs collected and sent; Complete Time: 17:09 04/20 16:43 Order name: Urine Dipstick-Ancillary (obtain specimen); Complete Time: 17:09 Administered Medications: 17:05 Drug: NS 0.9% 1000 ml Route: IV; Rate: 1000 ml; Site: left hand; [facility] 18:00 Follow up: Response: No adverse reaction; IV Status: Completed infusion Disposition: 18:54 Co-signature as Attending Physician, Christiano Mccormack MD. rn Disposition: 04/20/20 18:01 Discharged to Home. Impression: Dehydration, Nausea. - Condition is Stable. - Discharge Instructions: Dehydration, Adult, Nausea, Adult. - Medication Reconciliation Form, Thank You Letter, Antibiotic Education, Prescription Opioid Use form. - Follow up: Private Physician; When: 2 - 3 days; Reason: Recheck today's complaints, Continuance of care, Re-evaluation by your physician. - Problem is new. - Symptoms have improved. Signatures: Dispatcher [employer] EDMS Christiano Mccormack MD MD rn Josué Mike PA PA jr8 Saulo Alberts RN RN jl7 Zaina Randolph RN RN ca1 Corrections: (The following items were deleted from the chart) 18:21 18:01 04/20/2020 18:01 Discharged to Home. Impression: Dehydration; Nausea. Condition jl7 is Stable. Forms are Medication Reconciliation Form, Thank You Letter, Antibiotic Education, Prescription Opioid Use. Follow up: Private Physician; When: 2 - 3 days; Reason: Recheck today's complaints, Continuance of care, Re-evaluation by your physician. Problem is new. Symptoms have improved. jr8
[2020-04-20 18:12] LABS: Urine Blood NEGATIVE (NEG); Urine Glucose NEGATIVE (NEG); Urine Protein NEGATIVE (NEG); Urine Specific Gravity 1.025 (1.005-1.030); Urine pH 6.5 (5.0-7.0)
[2020-04-20 19:37] VITALS: TEMP 97.2
[2020-04-20 19:38] VITALS: BP 148/95; O2SAT 99
== END 2020-04-20 18:21 | disposition home or self-care (01) ==
LOC: ER 16:02
DX: E86.0 Dehydration (principal); I10 Essential (primary) hypertension; G20 Parkinson's disease; F02.80 Dementia in other diseases classified elsewhere, unspecified severity, without behavioral disturbance, psychotic disturbance, mood disturbance, and anxiety; Z88.5 Allergy status to narcotic agent; Z95.818 Presence of other cardiac implants and grafts
CPT/HCPCS: 85025; 80048; 36415; 80076; 81003; 83690; 96360; 99284; J7030

== ENCOUNTER 2020-10-26 17:43 | Emergency (ER) | payer OTHER ==
--- OUTSIDE RECORDS SUMMARY | 2020-10-26 17:46 | XMS REPORT | Continuity of Care Document ---
:1960 Author Organization [facility] t Address [address] [place] [address] [address]. [address]. [address] [place] [address] Care Team Providers Name Role Phone Keegan GRANDE Attending Clinician Problems This patient has no known problems. Allergies, Adverse Reactions, Alerts This patient has no known allergies or adverse reactions. Medications This patient has no known medications. Procedures This patient has no known procedures. Encounters Start End Encounter Admission Attending Care Care Encounter Source Date/Time Date/Time Type Type Clinicians Facility Department ID 2020-09-28 2020-09-28 Office ALEKS Allison [id number] 13:02:10 14:09:10 Visit Seb Franco [id number] Yuki [id number] Faraz [id number] nal 059 Building Results This patient has no known results.
[2020-10-26 18:39] LABS: Absolute Lymphocytes (CBC) 1.1 K/uL (0.7-4.9); Basophils % 0.4 % (0-1.3); Hematocrit 46.2 % (39.6-49.0); Lymphocytes % 13.8 % (15.3-44.8); MPV 9.4 fL (7.6-11.3); RBC Red Blood Cell Count 4.95 M/uL (4.33-5.43)
[2020-10-26] MEDS ORDERED: NA CHLORIDE 0.9% 1,000 ML ONE (18:43)
[2020-10-26] MEDS ORDERED: FAMOTIDINE 20 MG/2 ML VIAL IV ONE (18:43)
[2020-10-26] MEDS ORDERED: ONDANSETRON 4 MG/2 ML VIAL ONE (18:43)
[2020-10-26 18:54] LABS: ALT/SGPT 17 U/L (12-78); AST/SGOT 15 U/L (15-37); Albumin 3.6 g/dL (3.4-5.0); Alkaline Phosphatase 70 U/L (45-117); BUN Blood Urea Nitrogen 23 mg/dL (7-18); Bicarbonate 31 mmol/L (21-32); Bilirubin Direct 0.2 mg/dL (0-0.2); Bilirubin Total 0.4 mg/dL (0.2-1.0); Glucose Level 143 mg/dL (74-106); Lipase 124 U/L (73-393); Magnesium 2.4 mg/dL (1.8-2.4); Potassium 3.9 mmol/L (3.5-5.1); Protein, Total 7.6 g/dL (6.4-8.2); Sodium Level 144 mmol/L (136-145); Troponin (Emerg Dept Use Only) < 0.02 ng/mL (0.0-0.045)
--- NOTE | 2020-10-26 19:11 | RAD REPORT ---
EXAM DESCRIPTION: RAD - Chest Single View - 10/26/2020 6:41 pm CLINICAL HISTORY: ABDOMINAL DISTENTION COMPARISON: Portable June 2019 TECHNIQUE: AP portable chest image was obtained 10/26/2020 6:41 pm . FINDINGS: Lung volumes are low. No peripheral mass or consolidation. Interstitial pattern is accentu ated by the low lung volumes. Significant or acute cardiopulmonary finding is unlikely. Heart and vas culature are normal. No measurable pleural effusion and no pneumothorax. No acute bony abnormality se en. No acute aortic findings suspected. IMPRESSION: Limited shallow inspiration exam without acute cardiopulmonary finding. No significant change from comparison.
--- NOTE | 2020-10-26 19:37 | RAD REPORT ---
EXAM DESCRIPTION: CT - Abdomen Pelvis W Contrast - 10/26/2020 7:20 pm CLINICAL HISTORY: ABD PAIN COMPARISON: Abdomen Pelvis W Contrast dated 01/28/2016 TECHNIQUE: Biphasic, helical CT imaging of the abdomen and pelvis was performed following 100 ml non -ionic IV contrast. No oral contrast administered. All CT scans are performed using dose optimization technique as appropriate and may include automated exposure control or mA/KV adjustment according to patient size. FINDINGS: No suspicious findings in the lung bases. The liver, spleen, and pancreas show no suspicious findings. Gallbladder and biliary tree are also wi thout suspicious finding. Symmetric renal function is seen with no hydronephrosis or suspicious renal mass. No pyelonephritis o r acute parenchymal process. Lower pole left renal cyst is slightly larger than 2016 but continues to show benign characteristics. No adrenal abnormalities. No urinary bladder abnormality. Stomach is dilated with food and fluid. There is no dilatation of the duodenal bulb or duodenum. No d efinitive mass at the pylorus. A small mass or stricture is possible. The gastric jeffers are not thick ened or edematous. No gastric wall mass seen. No dilated large or small bowel loops. Appendix is norm al. Patient has mild diverticulosis in a tortuous sigmoid colon. No free air, free fluid or inflammatory stranding. No hernia, mass or bulky lymphadenopathy. No suspicious bony findings. IMPRESSION: Dilated stomach without gastric wall thickening or definable mass. Duodenal bulb and rem ainder the duodenum are unremarkable. Patient could have gastroparesis or possibly a pyloric stricture or small mass. No ascites or other acute abdominal or pelvic finding.
--- NOTE | 2020-10-26 20:56 | RAD REPORT ---
EXAM DESCRIPTION: US - Abdomen Exam Limited - 10/26/2020 8:23 pm CLINICAL HISTORY: ABD PAIN COMPARISON: Abdomen Pelvis W Contrast dated 10/26/2020 FINDINGS: No gallstones, sludge or other abnormalities within the gallbladder lumen. There is no wal l thickening or pericholecystic fluid. No common duct stone or biliary tree dilatation identified. IMPRESSION: Normal gallbladder and biliary tree ultrasound.
--- NOTE | 2020-10-26 21:50 | ER ---
Nurse's Notes [facility] Name: Jd Rico Age: 60 yrs Sex: Male : 1960 Arrival Date: 10/26/2020 Time: 17:55 Bed 20 Private MD: Diagnosis: Abdominal tenderness Presentation: 10/26 18:07 Chief complaint: EMS states: ABD pain and Nausea. Stated patient felt BP increasing and vg1 called EMS. Upon EMS arrival BP was 180/120. Coronavirus screen: Client denies travel out of the [place] in the last 14 days. Ebola Screen: Patient negative for fever greater than or equal to 101.5 degrees Fahrenheit, and additional compatible Ebola Virus Disease symptoms. Initial Sepsis Screen: Does the patient meet any 2 criteria? No. Patient's initial sepsis screen is negative. Does the patient have a suspected source of infection? No. Patient's initial sepsis screen is negative. Risk Assessment: Do you want to hurt yourself or someone else? Patient reports no desire to harm self or others. Onset of symptoms was October 26, 2020. 18:07 Method Of Arrival: EMS: [facility] vg1 18:07 Acuity: MARIA L 3 vg1 Historical: - Allergies: 18:12 Trazodone; vg1 - Home Meds: 18:12 Amitriptyline Oral 4 times per day [Active]; aspirin 81 mg Oral TbEC 1 tab once daily vg1 [Active]; divalproex 500 mg Oral Tb24 3 tabs once daily [Active]; lisinopril-hydrochlorothiazide 10-12.5 mg Oral tab 1 tab once daily [Active]; metoprolol tartrate 50 mg Oral tab 1 tab once daily [Active]; pravastatin 40 mg Oral tab 1 tab once daily [Active]; Xanax 0.5 mg Oral tab twice a day [Active]; Depakote Oral [Active]; atorvastatin oral oral [Active]; Alprazolam Oral [Active]; - PMHx: 18:12 Angina; Bipolar disorder; CVA; Dementia; Hypertension; insomnia; Myocardial infarction; vg1 Parkinsons; peripheral vision loss; Seizures; - PSHx: 18:12 Hernia repair; Back; Stent; vg1 - Immunization history:: Adult Immunizations up to date. - Social history:: Smoking status: Patient/guardian denies using tobacco. - Family history:: not pertinent. Screenin:12 Abuse screen: Denies threats or abuse. Nutritional screening: No deficits noted. vg1 Tuberculosis screening: No symptoms or risk factors identified. Fall Risk No fall in past 12 months (0 pts). No secondary diagnosis (0 pts). IV access (20 points). Ambulatory Aid- Crutches/Cane/Walker (15 pts). Gait- Normal/Bed Rest/Wheelchair (0 pts) Mental Status- Oriented to own ability (0 pts). Total Stephen Fall Scale indicates Low Risk Score (25-44 pts). Fall prevention measures have been instituted. Side Rails Up X 2 Placed close to Nursing Station Family Present and informed to notify staff if they need to leave bedside. Assessment: 18:05 General: Appears in no apparent distress. comfortable, Behavior is calm, cooperative. vg1 Pain: Complains of pain in epigastric area Pain currently is 5 out of 10 on a pain scale. Quality of pain is described as dull. Neuro: Level of Consciousness is awake, alert, obeys commands, Oriented to person, place, time. Cardiovascular: Patient's skin is warm and dry. Respiratory: Airway is patent Respiratory effort is even, unlabored. GI: Abd is soft X 4 quads Abdomen is tender to palpation in epigastric area Reports nausea, Patient currently denies diarrhea, vomiting. : No signs and/or symptoms were reported regarding the genitourinary system. EENT: No signs and/or symptoms were reported regarding the EENT system. Derm: Skin is intact, is healthy with good turgor. Musculoskeletal: Circulation, motion, and sensation intact. 19:36 Reassessment: Patient appears in no apparent distress at this time. Patient and/or vg1 family updated on plan of care and expected duration. Pain level reassessed. Patient is alert, oriented x 3, equal unlabored respirations, skin warm/dry/pink. Patient denies pain at this time. Patient states feeling better. 20:33 Reassessment: Patient appears in no apparent distress at this time. No changes from vg1 previously documented assessment. Patient is alert, oriented x 3, equal unlabored respirations, skin warm/dry/pink. Vital Signs: 18:07 BP 169 / 85; Pulse 56; Resp 16; Pulse Ox 97% on R/A; vg1 18:07 Weight 63.05 kg; Height 5 ft. 4 in. (162.56 cm); Pain 5/10; vg1 18:35 BP 165 / 90; Pulse 56; Resp 16; Pulse Ox 98% on R/A; vg1 19:00 BP 150 / 83; Pulse 52; Resp 18; Pulse Ox 97% on R/A; vg1 19:30 BP 151 / 96; Pulse 67; Resp 16; Pulse Ox 97% on R/A; vg1 20:00 BP 166 / 84; Pulse 65; Resp 16; Pulse Ox 96% on R/A; vg1 20:33 BP 148 / 77; Pulse 70; Resp 16; Pulse Ox 98% on R/A; vg1 18:07 Body Mass Index 23.86 (63.05 kg, 162.56 cm) vg1 ED Course: 17:55 Patient arrived in ED. rosangela 17:55 Kareem Suarez MD is Attending Physician. rosangela 17:57 Jes Castanon, RN is Primary Nurse. vg1 18:08 Triage completed. vg1 18:09 EKG done, by ED staff, reviewed by Kareem Suarez MD. 3 18:13 Arm band placed on. vg1 18:13 Patient has correct armband on for positive identification. Bed in low position. Call 1 light in reach. Side rails up X2. Adult w/ patient. 18:15 Initial lab(s) drawn, by mi, sent to lab. Inserted saline lock: 20 gauge in right dh3 antecubital area, using aseptic technique. Blood collected. 18:40 XRAY Chest (1 view) In Process Unspecified. EDMS 19:13 Patrice Burger NP is PHCP. pm1 19:[address] via stretcher. vg1 19:20 CT Abd/Pelvis - IV Contrast Only In Process Unspecified. EDMS 19:39 Primary Nurse role handed off by Jes Castanon, RN mw2 19:58 Jes Castanon, RN is Primary Nurse. vg1 19:59 US at bedside. vg1 20:23 US Abdomen Limited In Process Unspecified. EDMS 21:50 Villa Zaidi MD is Referral Physician. pm1 22:18 No provider procedures requiring assistance completed. IV discontinued, intact, vg1 bleeding controlled, No redness/swelling at site. Pressure dressing applied. Administered Medications: 18:34 Drug: NS 0.9% 1000 ml Route: IV; Rate: 125 ml/hr; Site: right antecubital; vg1 22:19 Follow up: IV Status: Completed infusion; IV Intake: 1000ml vg1 18:34 Drug: Pepcid 20 mg Route: IVP; Site: right antecubital; vg1 19:36 Follow up: Response: No adverse reaction; Pain is decreased vg1 18:34 Drug: Zofran (Ondansetron) 4 mg Route: IVP; Site: right antecubital; vg1 19:36 Follow up: Response: No adverse reaction; Nausea is decreased vg1 Intake: 22:19 IV: 1000ml; Total: 1000ml. vg1 Outcome: 21:50 Discharge ordered by . pm1 22:18 Discharged to home via wheelchair, with family. vg1 22:18 Condition: stable 22:18 Discharge instructions given to patient, family, Instructed on discharge instructions, follow up and referral plans. medication usage, Demonstrated understanding of instructions, follow-up care, medications, Prescriptions given X 3. 22:19 Patient left the ED. vg1 Signatures: Dispatcher [employer] EDMS Kareem Suarez MD MD cha Marinas, Patrick, ACID PAINTER ACID PAINTER pm1 Natividad Garcia 3 Hailey Wolfe 2 Jes Castanon, EHSAN RN vg1
--- NOTE | 2020-10-26 21:50 | EDPHYS ---
Physician Documentation [facility] Name: Jd Rico Age: 60 yrs Sex: Male : 1960 Arrival Date: 10/26/2020 Time: 17:55 Bed 20 Private MD: ED Physician Kareem Suarez HPI: 10/26 17:59 This 60 yrs old Male presents to ER via Unassigned with complaints of rosangela abdominal pain x 2 hours. 17:59 The patient presents with abdominal pain in the upper abdomen. Onset: The rosangela symptoms/episode began/occurred just prior to arrival. The symptoms do not radiate. Associated signs and symptoms: none. The symptoms are described as constant, crampy. Modifying factors: The symptoms are alleviated by nothing, the symptoms are aggravated by nothing. Severity of pain: At its worst the pain was. The patient has not experienced similar symptoms in the past. Historical: - Allergies: 18:12 Trazodone; vg1 - Home Meds: 18:12 Amitriptyline Oral 4 times per day [Active]; aspirin 81 mg Oral TbEC 1 tab once daily vg1 [Active]; divalproex 500 mg Oral Tb24 3 tabs once daily [Active]; lisinopril-hydrochlorothiazide 10-12.5 mg Oral tab 1 tab once daily [Active]; metoprolol tartrate 50 mg Oral tab 1 tab once daily [Active]; pravastatin 40 mg Oral tab 1 tab once daily [Active]; Xanax 0.5 mg Oral tab twice a day [Active]; Depakote Oral [Active]; atorvastatin oral oral [Active]; Alprazolam Oral [Active]; - PMHx: 18:12 Angina; Bipolar disorder; CVA; Dementia; Hypertension; insomnia; Myocardial infarction; vg1 Parkinsons; peripheral vision loss; Seizures; - PSHx: 18:12 Hernia repair; Back; Stent; vg1 - Immunization history:: Adult Immunizations up to date. - Social history:: Smoking status: Patient/guardian denies using tobacco. - Family history:: not pertinent. ROS: 17:59 Constitutional: Negative for fever, chills, and weight loss, Eyes: Negative for injury, rosangela pain, redness, and discharge, ENT: Negative for injury, pain, and discharge, Neck: Negative for injury, pain, and swelling, Cardiovascular: Negative for chest pain, palpitations, and edema, Respiratory: Negative for shortness of breath, cough, wheezing, and pleuritic chest pain, Back: Negative for injury and pain, : Negative for injury, bleeding, discharge, and swelling, MS/Extremity: Negative for injury and deformity, Skin: Negative for injury, rash, and discoloration, Neuro: Negative for headache, weakness, numbness, tingling, and seizure, Psych: Negative for depression, anxiety, suicide ideation, homicidal ideation, and hallucinations, Allergy/Immunology: Negative for hives, rash, and allergies, Endocrine: Negative for neck swelling, polydipsia, polyuria, polyphagia, and marked weight changes, Hematologic/Lymphatic: Negative for swollen nodes, abnormal bleeding, and unusual bruising. 17:59 Abdomen/GI: Positive for abdominal pain, of the right upper quadrant and left upper quadrant. Exam: 17:59 Constitutional: This is a well developed, well nourished patient who is awake, alert, rosangela and in no acute distress. Head/Face: Normocephalic, atraumatic. Eyes: Pupils equal round and reactive to light, extra-ocular motions intact. Lids and lashes normal. Conjunctiva and sclera are non-icteric and not injected. Cornea within normal limits. Periorbital areas with no swelling, redness, or edema. ENT: Nares patent. No nasal discharge, no septal abnormalities noted. Tympanic membranes are normal and external auditory canals are clear. Oropharynx with no redness, swelling, or masses, exudates, or evidence of obstruction, uvula midline. Mucous membranes moist. Neck: Trachea midline, no thyromegaly or masses palpated, and no cervical lymphadenopathy. Supple, full range of motion without nuchal rigidity, or vertebral point tenderness. No Meningismus. Chest/axilla: Normal chest wall appearance and motion. Nontender with no deformity. No lesions are appreciated. Cardiovascular: Regular rate and rhythm with a normal S1 and S2. No gallops, murmurs, or rubs. Normal PMI, no JVD. No pulse deficits. Respiratory: Lungs have equal breath sounds bilaterally, clear to auscultation and percussion. No rales, rhonchi or wheezes noted. No increased work of breathing, no retractions or nasal flaring. Abdomen/GI: Soft, non-tender, with normal bowel sounds. No distension or tympany. No guarding or rebound. No evidence of tenderness throughout. Back: No spinal tenderness. No costovertebral tenderness. Full range of motion. Male : Normal genitalia with no discharge or lesions. Skin: Warm, dry with normal turgor. Normal color with no rashes, no lesions, and no evidence of cellulitis. MS/ Extremity: Pulses equal, no cyanosis. Neurovascular intact. Full, normal range of motion. Neuro: Awake and alert, GCS 15, oriented to person, place, time, and situation. Cranial nerves II-XII grossly intact. Motor strength 5/5 in all extremities. Sensory grossly intact. Cerebellar exam normal. Normal gait. Psych: Awake, alert, with orientation to person, place and time. Behavior, mood, and affect are within normal limits. 17:59 Abdomen/GI: Inspection: abdomen appears normal, Bowel sounds: normal, active, Palpation: soft, in all quadrants, Liver: no appreciated palpable abnormalities, Hernia: not appreciated. 17:59 Musculoskeletal/extremity: DVT Exam: No signs of deep vein thrombosis. no pain, no swelling, no tenderness, negative Homans' sign noted on exam, no appreciated bluish discoloration, no erythema, no increased warmth. 18:36 ECG was reviewed by the Attending Physician. [facility] Vital Signs: 18:07 BP 169 / 85; Pulse 56; Resp 16; Pulse Ox 97% on R/A; vg1 18:07 Weight 63.05 kg; Height 5 ft. 4 in. (162.56 cm); Pain 5/10; vg1 18:35 BP 165 / 90; Pulse 56; Resp 16; Pulse Ox 98% on R/A; vg1 19:00 BP 150 / 83; Pulse 52; Resp 18; Pulse Ox 97% on R/A; vg1 19:30 BP 151 / 96; Pulse 67; Resp 16; Pulse Ox 97% on R/A; vg1 20:00 BP 166 / 84; Pulse 65; Resp 16; Pulse Ox 96% on R/A; vg1 20:33 BP 148 / 77; Pulse 70; Resp 16; Pulse Ox 98% on R/A; vg1 18:07 Body Mass Index 23.86 (63.05 kg, 162.56 cm) [facility] MDM: 17:55 Patient medically screened. [facility] 18:02 Differential diagnosis: appendicitis, bowel obstruction, cholecystitis, Cholelithiasis, rosangela diverticulitis, gastritis, gastroesophageal reflux disease, non-specific abd pain, Peptic Ulcer Disease, Ureterolithiasis, urinary tract infection. Data reviewed: vital signs, nurses notes, EMS record, lab test result(s), EKG, radiologic studies. Data interpreted: material checker: rate is 80 beats/min, rhythm is regular, Pulse oximetry: on room air is 99 %. Test interpretation: by ED physician or midlevel provider: ECG, plain radiologic studies. Counseling: I had a detailed discussion with the patient and/or guardian regarding: the historical points, exam findings, and any diagnostic results supporting the discharge/admit diagnosis, lab results, radiology results, the need for outpatient follow up, for definitive care, a family practitioner. 10/26 17:58 Order name: Basic Metabolic Panel [facility] 10/26 17:58 Order name: CBC with Diff [facility] 10/26 17:58 Order name: LFT's [facility] 10/26 17:58 Order name: Magnesium [facility] 10/26 17:58 Order name: Troponin (emerg Dept Use Only) [facility] 10/26 17:58 Order name: Lipase [facility] 10/26 17:58 Order name: XRAY Chest (1 view); Complete Time: 19:39 [facility] 10/26 17:58 Order name: CT Abd/Pelvis - IV Contrast Only; Complete Time: 19:39 [facility] 10/26 17:58 Order name: Basic Metabolic Panel; Complete Time: 19:08 [facility] 10/26 17:58 Order name: CBC with Automated Diff; Complete Time: 19:08 [facility] 10/26 17:58 Order name: Liver (Hepatic) Function; Complete Time: 19:08 [facility] 10/26 17:58 Order name: Magnesium; Complete Time: 19:08 [facility] 10/26 17:58 Order name: Troponin (Emerg Dept Use Only); Complete Time: 19:08 [facility] 10/26 17:58 Order name: Lipase; Complete Time: 19:08 [facility] 10/26 17:58 Order name: EKG; Complete Time: 17:59 [facility] 10/26 17:58 Order name: Cardiac monitoring; Complete Time: 18:19 [facility] 10/26 17:58 Order name: EKG - Nurse/Tech; Complete Time: 18:19 [facility] 10/26 17:58 Order name: IV Saline Lock; Complete Time: 18:19 [facility] 10/26 17:58 Order name: Labs collected and sent; Complete Time: 18:19 [facility] 10/26 17:58 Order name: O2 Per Protocol; Complete Time: 18:19 [facility] 10/26 17:58 Order name: O2 Sat Monitoring; Complete Time: 18:18 [facility] 10/26 19:09 Order name: US Abdomen Limited; Complete Time: 20:58 [facility] EC:36 Rate is 50 beats/min. Rhythm is regular. QRS [place] is Normal. [place] interval is normal. QRS rosangela interval is normal. QT interval is normal. No Q waves. T waves are Normal. No ST changes noted. Clinical impression: Sinus bradycardia. Interpreted by me. Reviewed by me. Administered Medications: 18:34 Drug: NS 0.9% 1000 ml Route: IV; Rate: 125 ml/hr; Site: right antecubital; vg1 22:19 Follow up: IV Status: Completed infusion; IV Intake: 1000ml vg1 18:34 Drug: Pepcid 20 mg Route: IVP; Site: right antecubital; vg1 19:36 Follow up: Response: No adverse reaction; Pain is decreased vg1 18:34 Drug: Zofran (Ondansetron) 4 mg Route: IVP; Site: right antecubital; vg1 19:36 Follow up: Response: No adverse reaction; Nausea is decreased vg1 Disposition: 10/26/20 21:50 Discharged to Home. Impression: Abdominal tenderness. - Condition is Stable. - Discharge Instructions: Abdominal Pain, Adult, Abdominal Pain, Adult, [id number]. - Prescriptions for Bentyl 20 mg Oral Tablet - take 1 tablet by ORAL route every 6 hours As needed; 20 tablet. Pepcid 20 mg Oral Tablet - take 1 tablet by ORAL route every 12 hours for 10 days; 20 tablet. Zofran 4 mg Oral Tablet - take 1 tablet by ORAL route every 12 hours As needed; 20 tablet. - Medication Reconciliation Form, Thank You Letter, Antibiotic Education, Prescription Opioid Use form. - Follow up: Private Physician; When: 2 - 3 days; Reason: Recheck today's complaints, Continuance of care, Re-evaluation by your physician. Follow up: [facility] Za[facility]; When: 2 - 3 days; Reason: Recheck today's complaints, Re-evaluation by your physician. - Problem is new. - Symptoms have improved. Signatures: Dispatcher [employer] EDMS Kareem Suarez MD MD cha Marinas, Patrick, ARTILLERY MAINTENANCE SUPERVISOR ARTILLERY MAINTENANCE SUPERVISOR pm1 Jes Castanon, RN RN vg1 Corrections: (The following items were deleted from the chart) 22:19 21:50 10/26/2020 21:50 Discharged to Home. Impression: Abdominal tenderness. Condition vg1 is Stable. Discharge Instructions: Abdominal Pain, Adult, Abdominal Pain, Adult, [id number]. Prescriptions for Bentyl 20 mg Oral Tablet - take 1 tablet by ORAL route every 6 hours As needed; 20 tablet, Pepcid 20 mg Oral Tablet - take 1 tablet by ORAL route every 12 hours for 10 days; 20 tablet, Zofran 4 mg Oral Tablet - take 1 tablet by ORAL route every 12 hours As needed; 20 tablet. and Forms are Medication Reconciliation Form, Thank You Letter, Antibiotic Education, Prescription Opioid Use. Follow up: Private Physician; When: 2 - 3 days; Reason: Recheck today's complaints, Continuance of care, Re-evaluation by your physician. Follow up: [facility] Zaidi; When: 2 - 3 days; Reason: Recheck today's complaints, Re-evaluation by your physician. Problem is new. Symptoms have improved. pm1
[2020-10-26 23:33] VITALS: BP 148/77; O2SAT 98
--- NOTE | 2020-10-28 05:40 | EKG ---
Test Date: 2020-10-26 Test Time: 18:09:11 Poultry Hatchery Supervisor: SADI MEASUREMENT RESULTS: Intervals: Rate: 50 DE: 140 QRSD: 92 QT: 414 QTc: 377 [place]: P: 53 DE: 140 QRS: -9 T: 56 INTERPRETIVE STATEMENTS: Sinus bradycardia Minimal voltage criteria for LVH, may be normal variant Anteroseptal infarct, age undetermined Abnormal ECG Compared to ECG 06/22/2019 19:41:26 Sinus rhythm no longer present Early repolarization no longer present Myocardial infarct finding still present Electronically Signed On 10-28-20 05:35:58 NYLON HOT WIRE CUTTER by Gavino Looney
== END 2020-10-26 22:19 | disposition home or self-care (01) ==
LOC: ER 17:43
DX: R10.819 Abdominal tenderness, unspecified site (principal); I10 Essential (primary) hypertension; G20 Parkinson's disease; F02.80 Dementia in other diseases classified elsewhere, unspecified severity, without behavioral disturbance, psychotic disturbance, mood disturbance, and anxiety; I25.2 Old myocardial infarction; F31.9 Bipolar disorder, unspecified; Z79.82 Long term (current) use of aspirin; Z88.5 Allergy status to narcotic agent
CPT/HCPCS: 85025; 80048; 36415; 83735; 80076; 84484; 83690; 74177; 71045; 76705; Q9967; J7030; J2405; 93005; 96361; 96374; 96375; 99285

== ENCOUNTER 2020-11-08 19:37 | Emergency (ER) | payer OTHER ==
--- OUTSIDE RECORDS SUMMARY | 2020-11-08 19:40 | XMS REPORT | Continuity of Care Document ---
:1960 Author Organization [facility] t Address [address] [place] [address] [address]. [address] [place] [address] Care Team Providers Name Role Phone Keegan [...] ID 2020-09-28 2020-09-28 Office ALEKS Allison [id number] 34 13:02:10 14:09:10 Visit Seb Franco [id number] Yuki [id number] Faraz [id number] nal 059 Building Results This patient has no known results.
[2020-11-08] MEDS ORDERED: ONDANSETRON 4 MG/2 ML VIAL ONE (22:18)
[2020-11-08] MEDS ORDERED: NA CHLORIDE 0.9% 1,000 ML ONE ×2 (22:18→22:30)
[2020-11-08 22:29] LABS: ALT/SGPT 24 U/L (12-78); AST/SGOT 14 U/L (15-37); Albumin 3.6 g/dL (3.4-5.0); Alkaline Phosphatase 69 U/L (45-117); BUN Blood Urea Nitrogen 24 mg/dL (7-18); Bicarbonate 33 mmol/L (21-32); Bilirubin Direct < 0.1 mg/dL (0-0.2); Bilirubin Total 0.4 mg/dL (0.2-1.0); Glucose Level 129 mg/dL (74-106); Lipase 140 U/L (73-393); Potassium 3.5 mmol/L (3.5-5.1); Protein, Total 7.6 g/dL (6.4-8.2); Sodium Level 142 mmol/L (136-145)
[2020-11-08] MEDS ORDERED: FAMOTIDINE 20 MG/2 ML VIAL IV ONE (22:30)
[2020-11-08 22:45] LABS: Absolute Lymphocytes (CBC) 1.1 K/uL (0.7-4.9); Basophils % 0.2 % (0-1.3); Hematocrit 44.5 % (39.6-49.0); MPV 9.3 fL (7.6-11.3); RBC Red Blood Cell Count 4.78 M/uL (4.33-5.43)
[2020-11-08 23:09] LABS: Troponin (Emerg Dept Use Only) < 0.02 ng/mL (0.0-0.045)
[2020-11-09] MEDS ORDERED: NA CHLORIDE 0.9% 1,000 ML ONE (00:27)
--- NOTE | 2020-11-09 00:32 | EDPHYS ---
Physician Documentation [facility] Name: Jd Rico Age: 60 yrs Sex: Male : 1960 Arrival Date: 11/08/2020 Time: 19:42 Bed 6 Private MD: ALHAJI Physician Kareem Suarez HPI: 11/08 22:09 This 60 yrs old Male presents to ER via EMS with complaints of Nausea/Vomiting.rosangela 22:09 The patient presents to the emergency department with nausea, vomiting, that is rosangela continuous. Onset: The symptoms/episode began/occurred today. Possible causes: unknown. The symptoms are aggravated by nothing. The symptoms are alleviated by nothing. Associated signs and symptoms: The patient has no apparent associated signs or symptoms. Severity of symptoms: At their worst the symptoms were moderate in the emergency department the symptoms have improved moderately. The patient has experienced similar episodes in the past, several times. Historical: - Allergies: 19:45 Trazodone; ll1 - Home Meds: 19:45 Amitriptyline Oral 4 times per day [Active]; ll1 - PMHx: 19:45 Angina; Bipolar disorder; Myocardial infarction; insomnia; Parkinsons; Hypertension; ll1 Dementia; CVA; peripheral vision loss; Seizures; - PSHx: 19:45 Hernia repair; Back; Stent; ll1 - Immunization history:: Flu vaccine is up to date. - Social history:: Smoking status: Patient/guardian denies using tobacco, the patient reports quitting approximately 21 years ago. ROS: 22:10 Constitutional: Negative for fever, chills, and weight loss, Eyes: Negative for injury, rosangela pain, redness, and discharge, ENT: Negative for injury, pain, and discharge, Neck: Negative for injury, pain, and swelling, Cardiovascular: Negative for chest pain, palpitations, and edema, Respiratory: Negative for shortness of breath, cough, wheezing, and pleuritic chest pain, Back: Negative for injury and pain, : Negative for injury, bleeding, discharge, and swelling, MS/Extremity: Negative for injury and deformity, Skin: Negative for injury, rash, and discoloration, Neuro: Negative for headache, weakness, numbness, tingling, and seizure, Psych: Negative for depression, anxiety, suicide ideation, homicidal ideation, and hallucinations, Allergy/Immunology: Negative for hives, rash, and allergies, Endocrine: Negative for neck swelling, polydipsia, polyuria, polyphagia, and marked weight changes, Hematologic/Lymphatic: Negative for swollen nodes, abnormal bleeding, and unusual bruising. 22:10 Abdomen/GI: Positive for nausea and vomiting, abdominal cramps. Exam: 22:10 Constitutional: This is a well developed, well nourished patient who is awake, alert, rosangela and in no acute distress. Head/Face: Normocephalic, atraumatic. Eyes: Pupils equal round and reactive to light, extra-ocular motions intact. Lids and lashes normal. Conjunctiva and sclera are non-icteric and not injected. Cornea within normal limits. Periorbital areas with no swelling, redness, or edema. ENT: Nares patent. No nasal discharge, no septal abnormalities noted. Tympanic membranes are normal and external auditory canals are clear. Oropharynx with no redness, swelling, or masses, exudates, or evidence of obstruction, uvula midline. Mucous membranes moist. Neck: Trachea midline, no thyromegaly or masses palpated, and no cervical lymphadenopathy. Supple, full range of motion without nuchal rigidity, or vertebral point tenderness. No Meningismus. Chest/axilla: Normal chest wall appearance and motion. Nontender with no deformity. No lesions are appreciated. Cardiovascular: Regular rate and rhythm with a normal S1 and S2. No gallops, murmurs, or rubs. Normal PMI, no JVD. No pulse deficits. Respiratory: Lungs have equal breath sounds bilaterally, clear to auscultation and percussion. No rales, rhonchi or wheezes noted. No increased work of breathing, no retractions or nasal flaring. Abdomen/GI: Soft, non-tender, with normal bowel sounds. No distension or tympany. No guarding or rebound. No evidence of tenderness throughout. Back: No spinal tenderness. No costovertebral tenderness. Full range of motion. Male : Normal genitalia with no discharge or lesions. Skin: Warm, dry with normal turgor. Normal color with no rashes, no lesions, and no evidence of cellulitis. MS/ Extremity: Pulses equal, no cyanosis. Neurovascular intact. Full, normal range of motion. Neuro: Awake and alert, GCS 15, oriented to person, place, time, and situation. Cranial nerves II-XII grossly intact. Motor strength 5/5 in all extremities. Sensory grossly intact. Cerebellar exam normal. Normal gait. Psych: Awake, alert, with orientation to person, place and time. Behavior, mood, and affect are within normal limits. 11/09 00:00 ECG was reviewed by the Attending Physician. [facility] Vital Signs: 11/08 19:43 BP 150 / 105; Pulse 71; Resp 17; Temp 97.9; Pulse Ox 100% ; Weight 61.23 kg; Height 5 ll1 ft. 4 in. (162.56 cm); Pain 0/10; 23:11 BP 126 / 81; Pulse 73; Resp 18; Pulse Ox 100% on R/A; mg2 11/09 00:23 BP 125 / 79; Pulse 66; Resp 18; Pulse Ox 99% on R/A; wh 11/08 19:43 Body Mass Index 23.17 (61.23 kg, 162.56 cm) ll1 MDM: 11/08 21:37 Patient medically screened. rosangela 22:11 Differential diagnosis: Nonspecific abd pain, gastritis, diverticulitis, viral rosangela gastroenteritis, gastroenteritis. Data reviewed: vital signs, nurses notes, lab test result(s), EKG, radiologic studies, plain films. Data interpreted: obstetrics scrub nurse: rate is 71 beats/min, rhythm is regular, Pulse oximetry: on room air is 100 %. Test interpretation: by ED physician or midlevel provider: ECG, plain radiologic studies. Counseling: I had a detailed discussion with the patient and/or guardian regarding: the historical points, exam findings, and any diagnostic results supporting the discharge/admit diagnosis, lab results, radiology results, the need for outpatient follow up, for definitive care, a family practitioner, a scraper meat. 11/08 21:57 Order name: Basic Metabolic Panel mg2 11/08 21:57 Order name: CBC with Diff mg2 11/08 21:57 Order name: Hepatic Function mg2 11/08 21:57 Order name: Lipase mg2 11/08 21:58 Order name: Basic Metabolic Panel; Complete Time: 23:59 EDMS 11/08 21:58 Order name: CBC with Automated Diff; Complete Time: 23:59 EDMS 11/08 21:58 Order name: Liver (Hepatic) Function; Complete Time: 23:59 EDMS 11/08 21:58 Order name: Lipase; Complete Time: 23:59 EDMS 11/08 22:08 Order name: Chest Single View XRAY [facility] 11/08 22:08 Order name: Troponin (emerg Dept Use Only) [facility] 11/08 22:50 Order name: Troponin (Emerg Dept Use Only); Complete Time: 23:59 EDMS 11/08 21:57 Order name: IV Saline Lock; Complete Time: 21:57 [facility] 11/08 21:57 Order name: Labs collected and sent; Complete Time: 21:57 [facility] 11/08 22:08 Order name: EKG; Complete Time: 22:[address] [facility] 11/08 22:08 Order name: EKG - Nurse/Tech; Complete Time: 22:[address] [facility] 11/08 23:59 Order name: PO challenge; Complete Time: 00:[address] [facility] EC/09 00:00 Rate is 64 beats/min. Rhythm is regular. QRS [place] is Normal. [place] interval is normal. QRS rosangela interval is normal. QT interval is normal. No Q waves. T waves are Normal. No ST changes noted. Clinical impression: NSR w/ Non-specific ST/T Changes and No evidence of ischemia. Interpreted by me. Reviewed by me. Administered Medications: 11/08 22:05 Drug: Zofran (Ondansetron) 4 mg Route: IVP; Site: right antecubital; mg2 23:04 Follow up: Response: No adverse reaction mg2 22:05 Drug: NS 0.9% 1000 ml Route: IV; Rate: 1 bolus; Site: right antecubital; mg2 11/09 00:51 Follow up: Response: No adverse reaction; IV Status: Completed infusion 11/08 22:22 Drug: Pepcid 20 mg Route: IVP; Site: right antecubital; mg2 23:04 Follow up: Response: No adverse reaction mg2 23:18 Drug: NS 0.9% 1000 ml Route: IV; Rate: 1 bolus; Site: right antecubital; [facility] 11/09 00:51 Follow up: Response: No adverse reaction; IV Status: Completed infusion 00:12 Drug: NS 0.9% 1000 ml Route: IV; Rate: 125 ml/hr; Site: right antecubital; 00:51 Follow up: Response: No adverse reaction; IV Status: Order to discontinue infusion Disposition: 11/09/20 00:31 Discharged to Home. Impression: Vomiting, Unspecified kidney failure - renal insufficency. - Condition is Stable. - Discharge Instructions: Nausea and Vomiting, Adult, Parkinson Disease, Nausea and Vomiting, Adult, Schv-[id number], Chronic Kidney Disease, Adult, [id number]-ib-[id number], Parkinson Disease, [id number]-[id number]. - Prescriptions for Pepcid 20 mg Oral Tablet - take 1 tablet by ORAL route every 12 hours for 10 days; 20 tablet. Zofran 4 mg Oral Tablet - take 1 tablet by ORAL route every 12 hours As needed; 20 tablet. - Medication Reconciliation Form, Thank You Letter, Antibiotic Education, Prescription Opioid Use form. - Follow up: Private Physician; When: 2 - 3 days; Reason: Recheck today's complaints, Continuance of care, Re-evaluation by your physician. Follow up: Patricia Baltazar; When: 2 - 3 days; Reason: Recheck today's complaints, Re-evaluation by your physician. - Problem is new. - Symptoms have improved. Signatures: Dispatcher [employer] [facility] Kareem Suarez MD MD cha Habalo, Winsy, RN RN Leonel Ly RN RN [facility] Blaze Menard RN RN ll1 Corrections: (The following items were deleted from the chart) 11/08 22:50 22:09 Troponin (Emerg Dept Use Only) ordered. [facility] 11/09 00:31 00:31 11/09/2020 00:31 Discharged to Home. Impression: Vomiting. Condition is Stable. rosangela Discharge Instructions: Nausea and Vomiting, Adult, Parkinson Disease, Nausea and Vomiting, Adult, [id number]-[id number], Parkinson Disease, [id number]-[id number]. Prescriptions for Pepcid 20 mg Oral Tablet - take 1 tablet by ORAL route every 12 hours for 10 days; 20 tablet, Zofran 4 mg Oral Tablet - take 1 tablet by ORAL route every 12 hours As needed; 20 tablet. and Forms are Medication Reconciliation Form, Thank You Letter, Antibiotic Education, Prescription Opioid Use. Follow up: Private Physician; When: 2 - 3 days; Reason: Recheck today's complaints, Continuance of care, Re-evaluation by your physician. Follow up: Patricia Baltazar; When: 2 - 3 days; Reason: Recheck today's complaints, Re-evaluation by your physician. Problem is new. Symptoms have improved. [facility] 00:51 00:31 11/09/2020 00:31 Discharged to Home. Impression: Vomiting; Unspecified kidney wh failure - renal insufficency. Condition is Stable. Discharge Instructions: Nausea and Vomiting, Adult, Parkinson Disease, Nausea and Vomiting, Adult, [id number], Parkinson Disease, Zgpv-[id number]. Prescriptions for Pepcid 20 mg Oral Tablet - take 1 tablet by ORAL route every 12 hours for 10 days; 20 tablet, Zofran 4 mg Oral Tablet - take 1 tablet by ORAL route every 12 hours As needed; 20 tablet. and Forms are Medication Reconciliation Form, Thank You Letter, Antibiotic Education, Prescription Opioid Use. Follow up: Private Physician; When: 2 - 3 days; Reason: Recheck today's complaints, Continuance of care, Re-evaluation by your physician. Follow up: Patricia Baltazar; When: 2 - 3 days; Reason: Recheck today's complaints, Re-evaluation by your physician. Problem is new. Symptoms have improved. [facility]
--- NOTE | 2020-11-09 00:32 | ER ---
Nurse's Notes [facility] Name: Jd Rico Age: 60 yrs Sex: Male : 1960 Arrival Date: 11/08/2020 Time: 19:42 Bed 6 Private MD: Diagnosis: Vomiting;Unspecified kidney failure-renal insufficency Presentation: 11/08 19:43 Chief complaint: Patient states: N/V since 6 pm. Ate [employer] then started ll1 vomiting. Coronavirus screen: Client denies travel out of the [place] in the last 14 days. At this time, the client does not indicate any symptoms associated with coronavirus-19. Ebola Screen: Patient denies travel to an Ebola-affected area in the 21 days before illness onset. Initial Sepsis Screen: Does the patient meet any 2 criteria? No. Patient's initial sepsis screen is negative. Does the patient have a suspected source of infection? Yes: Acute abdominal pain. Risk Assessment: Do you want to hurt yourself or someone else? Patient reports no desire to harm self or others. Onset of symptoms was November 08, 2020. 19:43 Method Of Arrival: EMS ll1 19:43 Acuity: MARIA L 3 ll1 Historical: - Allergies: 19:45 Trazodone; ll1 - Home Meds: 19:45 Amitriptyline Oral 4 times per day [Active]; ll1 - PMHx: 19:45 Angina; Bipolar disorder; Myocardial infarction; insomnia; Parkinsons; Hypertension; ll1 Dementia; CVA; peripheral vision loss; Seizures; - PSHx: 19:45 Hernia repair; Back; Stent; ll1 - Immunization history:: Flu vaccine is up to date. - Social history:: Smoking status: Patient/guardian denies using tobacco, the patient reports quitting approximately 21 years ago. Screenin:59 Abuse screen: Denies threats or abuse. Denies injuries from another. Nutritional mg2 screening: No deficits noted. Tuberculosis screening: No symptoms or risk factors identified. Fall Risk IV access (20 points). Assessment: 21:58 General: Appears in no apparent distress. comfortable, Behavior is calm, cooperative. mg2 Pain: Denies pain. Neuro: Level of Consciousness is awake, alert, obeys commands, Oriented to person, place, time, situation. Cardiovascular: Denies chest pain. Respiratory: Airway is patent Respiratory effort is even, unlabored, Respiratory pattern is regular, symmetrical. GI: Abdomen is non-distended, Reports nausea, vomiting. : No signs and/or symptoms were reported regarding the genitourinary system. EENT: No signs and/or symptoms were reported regarding the EENT system. Derm: Skin is intact, is healthy with good turgor, Skin is pink, warm \T\ dry. normal. Musculoskeletal: Circulation, motion, and sensation intact. Capillary refill < 3 seconds. 11/09 00:00 Reassessment: Patient appears in no apparent distress at this time. Patient and/or family updated on plan of care and expected duration. Pain level reassessed. Patient is alert, oriented x 3, equal unlabored respirations, skin warm/dry/pink. Vital Signs: 11/08 19:43 BP 150 / 105; Pulse 71; Resp 17; Temp 97.9; Pulse Ox 100% ; Weight 61.23 kg; Height 5 ll1 ft. 4 in. (162.56 cm); Pain 0/10; 23:11 BP 126 / 81; Pulse 73; Resp 18; Pulse Ox 100% on R/A; mg2 11/09 00:23 BP 125 / 79; Pulse 66; Resp 18; Pulse Ox 99% on R/A; wh 11/08 19:43 Body Mass Index 23.17 (61.23 kg, 162.56 cm) ll1 ED Course: 11/08 19:42 Patient arrived in ED. ll1 19:44 Triage completed. ll1 19:45 Arm band placed on. ll1 21:37 Kareem Suarez MD is Attending Physician. rosangela 21:40 Cesar De Jesus, RN is Primary Nurse. 21:59 Patient has correct armband on for positive identification. mg2 21:59 No provider procedures requiring assistance completed. Inserted saline lock: 20 gauge mg2 in right antecubital area, using aseptic technique. Blood collected. 22:31 Chest Single View XRAY In Process Unspecified. EDMS 11/09 00:31 Patricia Baltazar MD is Referral Physician. rosangela 00:51 IV discontinued, intact, bleeding controlled, No redness/swelling at site. wh Administered Medications: 11/08 22:05 Drug: Zofran (Ondansetron) 4 mg Route: IVP; Site: right antecubital; [facility] [place]:04 Follow up: Response: No adverse reaction [facility] 22:05 Drug: NS 0.9% 1000 ml Route: IV; Rate: 1 bolus; Site: right antecubital; [facility] 11/09 00:51 Follow up: Response: No adverse reaction; IV Status: Completed infusion 11/08 22:22 Drug: Pepcid 20 mg Route: IVP; Site: right antecubital; mg2 23:04 Follow up: Response: No adverse reaction [facility] 23:18 Drug: NS 0.9% 1000 ml Route: IV; Rate: 1 bolus; Site: right antecubital; [facility] 11/09 00:51 Follow up: Response: No adverse reaction; IV Status: Completed infusion 00:12 Drug: NS 0.9% 1000 ml Route: IV; Rate: 125 ml/hr; Site: right antecubital; 00:51 Follow up: Response: No adverse reaction; IV Status: Order to discontinue infusion Outcome: 00:31 Discharge ordered by MD. adames 00:50 Discharged to home ambulatory. 00:50 Condition: improved 00:50 Discharge instructions given to patient, Instructed on discharge instructions, follow up and referral plans. medication usage, POC Demonstrated understanding of instructions, follow-up care, medications, POC Prescriptions given X 2. 00:51 Patient left the ED. Signatures: Dispatcher [employer] EDKareem Fontana MD MD cha Habalo, Winsy, RN RN Leonel Ly RN RN [facility] Blaze Menard RN RN ll1
[2020-11-09 00:59] VITALS: TEMP 97.9
[2020-11-09 01:04] VITALS: BP 125/79; O2SAT 99
--- NOTE | 2020-11-09 07:47 | RAD REPORT ---
EXAM DESCRIPTION: Brenden Single View11/08/2020 10:30 pm CLINICAL HISTORY: Abdominal pain COMPARISON: October 2020 FINDINGS: The lungs appear clear of acute infiltrate. The heart is normal size IMPRESSION: No acute abnormalities displayed
--- NOTE | 2020-11-10 05:05 | EKG ---
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: MEASUREMENT RESULTS: Intervals: Rate: 64 MS: 154 QRSD: 90 QT: 392 QTc: 404 Moosic: P: 70 MS: 154 QRS: -10 T: 77 INTERPRETIVE STATEMENTS: Sinus rhythm with marked sinus arrhythmia Minimal voltage criteria for LVH, may be normal variant Anteroseptal infarct, age undetermined ST & T wave abnormality, consider lateral ischemia Abnormal ECG Compared to ECG 10/26/2020 18:09:11 ST (T wave) deviation now present Possible ischemia now present Sinus bradycardia no longer present Myocardial infarct finding still present Electronically Signed On 11-10-20 05:03:46 HOME PLANNING CONSULTANT SALESPERSON by Gavino Looney
== END 2020-11-09 00:51 | disposition home or self-care (01) ==
LOC: ER 19:37
DX: N19 Unspecified kidney failure (principal); I10 Essential (primary) hypertension; G20 Parkinson's disease; F02.80 Dementia in other diseases classified elsewhere, unspecified severity, without behavioral disturbance, psychotic disturbance, mood disturbance, and anxiety; G40.909 Epilepsy, unspecified, not intractable, without status epilepticus; Z88.5 Allergy status to narcotic agent
CPT/HCPCS: 96361; 93005; 85025; 80048; 36415; 80076; 84484; 83690; 71045; 96375; 96374; 99284; J7030 ×3; J2405

== ENCOUNTER 2021-07-19 09:09 | Day surgery (SDC) | payer OTHER ==
[2021-07-19 10:15] VITALS: BMI 24.9
[2021-07-19 10:36] LABS: Absolute Lymphocytes (CBC) 1.1 K/uL (0.7-4.9); Basophils % 0.4 % (0-1.3); Hematocrit 46.2 % (39.6-49.0); Lymphocytes % 20.6 % (15.3-44.8); MPV 8.5 fL (7.6-11.3); RBC Red Blood Cell Count 4.98 M/uL (4.33-5.43)
[2021-07-19 10:42] LABS: Protime INR 0.93
[2021-07-19] MEDS ORDERED: HYDROCODONE/APAP 7.5/325 MG TAB ONE (12:26)
--- NOTE | 2021-07-19 13:07 | RAD REPORT ---
EXAM DESCRIPTION: RAD - Lumbar Puncture For Dx - 07/19/2021 12:37 pm CLINICAL HISTORY: MILD COGNITIVE IMPAIRMENT COMPARISON: None FINDINGS: The risks, benefits and alternatives to the procedure were explained to the patient and in formed consent obtained. The patient was placed prone into the fluoroscopy suite. The skin and subcutaneous tissues were anest hetized with lidocaine. Under fluoroscopic guidance a 22 gauge spinal needle was advanced into the th ecal sac at L2-3 level. 2 cc of CSF was removed and sent to the lab. Patient experienced no immediate complication IMPRESSION: Lumbar puncture
[2021-07-19 18:05] VITALS: BP 154/94; TEMP 97.2; O2SAT 98
== END 2021-07-19 14:40 | disposition home or self-care (01) ==
LOC: DS 09:09 → EDSTATUS 11:00 → DS 14:40
PROVIDERS: ATTEND Psychiatry & Neurology Neurology with Special Qualifications in Child Neurology
PROC: 00JU3ZZ Inspection of Spinal Canal, Percutaneous Approach (ICD-10-PCS; principal; 2021-07-19)
DX: G31.84 Mild cognitive impairment of uncertain or unknown etiology (principal)
CPT/HCPCS: 36415; 77003; 82542; 85025; 85610; 85730

== ENCOUNTER 2022-06-18 12:13 | Emergency (ER) | payer OTHER ==
--- OUTSIDE RECORDS SUMMARY | 2022-06-18 12:17 | XMS REPORT | Continuity of Care Document ---
:1960 Author Organization [facility] t Address [address] [place] [address] Care Team Providers Name Role Phone Zandra Cowart MD Primary Care Physician [phone] SEB CELESTIN Attending Clinician Unavailable Seb Celestin MD Attending Clinician Laith Lopez MD Attending Clinician Zandra Cowart MD Attending Clinician [phone] DICK CA Attending Clinician Unavailable Nurse, Adc Pob Immunization Attending Clinician Unavailable Dick Ca DO Attending Clinician Doctor Unassigned, [place] Attending Clinician Unavailable ZANDRA COWART Attending Clinician Unavailable Pob, Adc Lab Main Attending Clinician Unavailable LAITH LOPEZ Attending Clinician Unavailable LAITH LOPEZ Attending Clinician Unavailable 2, Adc Lab Attending Clinician Unavailable Pc, Adc Echo Room 1 - Attending Clinician Unavailable MANUEL WALDEN Attending Clinician Unavailable ELIZABETH LANDIN Attending Clinician Unavailable Jose Luis GRANDE, Cheyenne Segovia Attending Clinician 1, Adc Lab Attending Clinician Unavailable Denisse Fu Attending Clinician LAITH LOPEZ Admitting Clinician Unavailable Payers Payer Name Policy Type Policy Number Effective Date Expiration Date S ource MEDICARE PART A [id number] 1996 \T\ B 00:00:00 MEDICAID [facility] [id number] 2013 00:00:00 Problems Condition Condition Condition Status Onset Resolution Last Treating Co mments Source Name Details Category Date Date Treatment Clinician Date Essential Essential Disease Active Uni vers hypertensi hypertensi 3-25 it y of [place] Mixed Mixed Disease Active Univers hyperlipid hyperlipid 3-25 it y of emia emia 00:00: [place] 00 Medical Branch Osteoarthr Osteoarthr Disease Active U nivers itis itis 3-25 ity of 00:00: [place] 00 Medical Branch Anxiety Anxiety Disease Active Univers 3-25 ity of 00:00: [place] 00 Medical Branch Vitamin D Vitamin D Disease Active Overview: Univers deficiency deficiency 3-25 Formattin ity of 00:00: g of this 00 note Medical might be Branch different from the original. ICD10 Diagnosis Term Qualifications Examiner Utility CAD CAD Disease Active Univers (coronary (coronary 3-25 ity of artery artery 00:00: [place] disease) disease) 00 Medica l Branch Seizure Seizure Disease Active Univers disorder disorder 3-25 ity of 00:00: [place] 00 Medical Branch Bipolar 1 Bipolar 1 Disease Active Uni vers disorder disorder 3-25 ity of 00:00: [place] 00 Medical Branch TIA TIA Disease Active Univers (transient (transient 3-25 it y of ischemic ischemic 00:00: [place] attack) attack) 00 Medical Branch Insomnia Insomnia Disease Active Unive rs 3-25 ity of 00:00: [place] 00 Medical Branch Allergies, Adverse Reactions, Alerts Allergy Allergy Status Severity Reaction(s) Onset Inactive Treating Comm ents Source Name Type Date Date Clinician Aripipra Propensi Active Other - See insomnia Univers zole ty to comments 3-12 ity of adverse 00:00: [place] reaction 00 Medical s Branch Trazodon Propensi Active Other - See insomnia Univers e ty to comments 3-12 ity of adverse 00:00: [place] reaction 00 Medical s Branch Social History Social Habit Start Date Stop Date Quantity Comments Source Alcohol intake 2021-06-28 2021-06-28 Current University of 00:00:00 00:00:00 non-drinker of [facility] alcohol (finding) Branch Tobacco use and 2014-11-26 2014-11-26 Smokeless tobacco Un iversity of exposure 00:00:00 00:00:00 non-user [facility] [place] [facility] History of 2000-09-28 Cigarette Smoker Universi ty of tobacco use 00:00:00 [facility] [place] [facility] Sex Ass[birth year] At [birth year] Universit y of 00:00:00 00:00:00 [facility] [place] [facility] Smoking Status Start Date Stop Date Source Ex-smoker 2014-11-26 00:00:00 2014-11-26 00:00:00 Universi ty of [facility] [place] [facility] Medications Ordered Filled Start Stop Current Ordering Indication Dosage Frequency Signature Comments Components Source Medication Medication Date Date Medication? Clinician (SIG) Name Name metoprolol Yes [id number] 25mg Take 1 Un dayna succinate 8-11 tablet by ity o f XL 25 mg 24 00:00[place] tablet 00 the Medical morning. Branch atorvastati Yes [id number] 40mg Take 1 Univers n 40 mg 8-11 tablet by ity of tablet 00:00: mouth in [place] 00 the Medical morning. Branch lisinopriL Yes [id number] 10mg Take 1 Un dayna 10 mg 8-11 tablet by ity of tablet 00:00: mouth in [place] 00 the Medical morning. Branch Lab needed for further refills. metoprolol Yes [id number] 25mg Take 1 Un dayna succinate 8-10 tablet by ity o f XL 25 mg 24 00:[place] 00 the Medical morning. Branch metoprolol 0 Yes [id number] 25mg Take 1 Un dayna succinate 8-10 tablet by ity o f XL 25 mg 24 00:[place] 00 the Medical morning. Branch lisinopriL 2021- No [id number] 10mg Take 1 U nivers 10 mg 7-28 08-11 tablet by ity of tablet 00:00: 00:00 mouth in [place] 00 :00 the Medical morning. Branch Lab needed for further refills. amitriptyli Yes [id number] 25mg Take 1 Univers ne 25 mg 7-15 tablet by ity of tablet 00:00: mouth at [place] 00 bedtime as Medical needed for Branch Insomnia. Needs appointmen t before further refills given. amitriptyli Yes [id number] 25mg Take 1 Univers ne 25 mg 7-15 tablet by ity of tablet 00:00: mouth at [place] 00 bedtime as Medical needed for Branch Insomnia. Needs appointmen t before further refills given. atorvastati 2021- No [id number] 40mg Take 1 Univers n 40 mg - 08-11 tablet by ity of tablet 00:00: 00:00 mouth [place] 00 :00 daily. Medical Branch metoprolol 2021- No [id number] 25mg Take 1 U nivers succinate - 08-10 tablet by ity of XL 25 mg 24 00:00: 00:[place] hr tablet [place] :00 daily. Medical Branch CARBIDOPA-L 2020-09 Yes TAKE 1 Univ ers EVODOPA 2-20 TABLET BY ity of 25-100 mg 00:00: MOUTH [place] tablet 00 TWICE A Medical DAY Branch CARBIDOPA-L 2020-09 Yes TAKE 1 Univ ers EVODOPA 2-20 TABLET BY ity of 25-100 mg 00:00: MOUTH [place] tablet 00 TWICE A Medical DAY Branch MULTIVITAMI 2020-09 Yes Take by Uni vers N ORAL 0-26 mouth. ity of 13:38: [place] [facility] MULTIVITAMI 2020-09 Yes Take by Uni vers N ORAL 0-26 mouth. ity of 13:38: [place] [facility] ziprasidone Yes at Univer s 40 mg 7-26 bedtime. ity of capsule 00:00: Medical Branch ziprasidone Yes at Univer s 40 mg 7-26 bedtime. ity of capsule 00:00: 00 Medical Branch ALPRAZolam Yes [id number] .5mg Take 1 U nivers (XANAX) 0.5 7-12 tablet by ity of mg tablet 00:00: mouth 2 00 (two) Medical times Branch daily. ALPRAZolam Yes [id number] .5mg Take 1 U nivers (XANAX) 0.5 7-12 tablet by ity of mg tablet 00:00: mouth 2 00 (two) Medical times Branch daily. Olopatadine Yes [id number] 1[drp] Place 1 Univers 0.2 % 5-23 Drop in ity of ophthalmic 00:00: each eye [place] as drops 00 daily. Medical Branch Olopatadine Yes [id number] 1[drp] Place 1 Univers 0.2 % 5-23 Drop in ity of ophthalmic 00:00: each eye [place] as drops 00 daily. Medical Branch DICLOFENAC Yes [id number] APPLY TO Univers SODIUM 1 % 5-28 AREA(S) 2 ity of gel 00:00: (TWO) [place] 00 TIMES Medical DAILY Branch NEEDED FOR PAIN (SCALE 4-6). DICLOFENAC Yes [id number] APPLY TO Univers SODIUM 1 % 5-28 AREA(S) 2 ity of gel 00:00: (TWO) [place] 00 TIMES Medical DAILY Branch NEEDED FOR PAIN (SCALE 4-6). aspirin 81 2018-09 Yes [id number] 81mg Take 1 Un dayna mg EC 0-29 tablet by ity of tablet 00:00: mouth [place] 00 daily. Medical Branch cloNIDine 2018-09 Yes [id number] 2 times a Univers 0.1 mg 0-29 day as ity of tablet 00:00: needed for 00 SBP > 180 Medical mmHg Branch aspirin 81 2018-09 Yes [id number] 81mg Take 1 Un dayna mg EC 0-29 tablet by ity of tablet 00:00: mouth [place] 00 daily. Medical Branch cloNIDine 2018-09 Yes [id number] 2 times a Univers 0.1 mg 0-29 day as ity of tablet 00:00: needed for 00 SBP > 180 Medical mmHg Branch divalproex Yes [id number] 1500mg Take 3 Univers 500 mg EC 7-08 tablets by ity of tablet 00:00: mouth [place] 00 daily. Medical Branch divalproex Yes [id number] 1500mg Take 3 Univers 500 mg EC 7-08 tablets by ity of tablet 00:00: mouth [place] 00 daily. Medical Branch Immunizations Ordered Filled Immunization Date Status Comments [facility] e Immunization Name Name SARS-COV-2 COVID-19 2021-06-28 Completed Unive rsity of MODERNA 0.25ML 00:00:00 [facility] BOOSTER VACCINE Branch SARS-COV-2 COVID-19 2021-06-28 Completed Unive rsity of MODERNA 0.25ML 00:00:00 [facility] BOOSTER VACCINE Branch SARS-COV-2 COVID-19 2020-12-23 Completed Unive rsity of MODERNA VACCINE 00:00:00 [facility] ical Branch SARS-COV-2 COVID-19 2020-12-23 Completed Unive rsity of MODERNA VACCINE 00:00:00 [facility] Branch SARS-COV-2 COVID-19 2020-11-25 Completed Unive rsity of MODERNA VACCINE 00:00:00 [facility] Branch SARS-COV-2 COVID-19 2020-11-25 Completed Unive rsity of MODERNA VACCINE 00:00:00 [facility] Influenza Virus 2020-04-14 Completed Universit y of Vaccine Quad IM 3+ 00:00:00 [facility] Influenza Virus 2020-04-14 Completed Universit y of Vaccine Quad IM 3+ 00:00:00 [facility] Pneumococcal 2019-09-09 Completed University o f Polysaccharide, 00:00:00 [facility] ical PPSV23 (PNEUMOVAX) Branch Pneumococcal 2019-09-09 Completed University o f Polysaccharide, 00:00:00 [facility] ical PPSV23 (PNEUMOVAX) Branch Influenza Virus 2019-06-20 Completed Universit y of Vaccine Recomb Quad 00:00:00 [facility], Preserv and ABX Branc h Free 18-64 YRS Influenza Virus 2019-06-20 Completed Universit y of Vaccine Recomb Quad 00:00:00 [facility] [place] [facility] IM, Preserv and ABX Branc h Free 18-64 YRS Influenza Virus 2018-06-03 Completed Universit y of Vaccine 00:00:00 [facility] [place] [facility] Influenza Virus 2018-06-03 Completed Universit y of Vaccine 00:00:00 [facility] [place] [facility] TDAP 2016-11-13 Completed University of 00:00:00 [facility] [place] [facility] TDAP 2016-11-13 Completed University of 00:00:00 [facility] [place] [facility] Influenza Virus 2016-06-15 Completed Universit y of Vaccine 00:00:00 [facility] [place] [facility] Influenza Virus 2016-06-15 Completed Universit y of Vaccine 00:00:00 [facility] [place] [facility] Pneumococcal 2004-08-08 Completed University o f Polysaccharide, 00:00:00 [facility] ical PPSV23 (PNEUMOVAX) Branch Pneumococcal 2004-08-08 Completed University o f Polysaccharide, 00:00:00 [facility] ical PPSV23 (PNEUMOVAX) Branch Procedures This patient has no known procedures. Encounters Start End Encounter Admission Attending Care Care Encounter Source Date/Time Date/Time Type Type Clinicians Facility Department ID 2022-06-28 2022-06-28 [facility] [id number] Univers 11:20:00 11:20:00 SEB ity o f [facility] [place] [facility] 2022-04-13 2022-04-13 [facility] 1.2.840.114 [id number] Univers 00:00:00 00:00:00 Seb [place] [id number] ity [id number] [phone] [address] 2022-04-11 2022-04-11 [facility] 1.2.840.114 [id number] Univers 00:00:00 00:00:00 Seb [place] [id number] [id number] [id number] [address] 2022-03-30 2022-03-30 [facility] 1.2.840.114 [id number] Univers 00:00:00 00:00:00 Seb [place] [id number] ity [id number] [phone] [address] 2022-01-23 2022-01-23 [facility] 1.2.840.114 [id number] Univers 00:00:00 00:00:00 Seb MARTINEZTON [id number] it[place] [id number] [phone] [address] 2022-01-02 2022-01-02 Karey [facility] 1.2.840.114 [id number] Univers 00:00:00 00:00:00 Seb [place] [id number] [id number] [phone] Nj dical NAL 059 [facility] 2021-11-13 2021-11-13 Refwindy LopezG[facility] 1.2.840.114 [id number] Univers 00:00:00 00:00:00 Laith [place] [id number] it[place] of [place] [id number] [phone] Nj dical NAL 044 [facility] 2021-11-02 2021-11-02 [facility] [id number] Univers 00:00:00 00:00:00 Seb [place] [id number] it[id number] [phone] Nj dical NAL 059 [facility] 2021-10-28 2021-10-28 Refill [facility] 1.2.840.114 [id number] Univers 00:00:00 00:00:00 Seb [place] [id number] [id number] [phone] Nj dical NAL 059 [facility] 2021-09-20 2021-09-20 [facility] 1.2.840.114 [id number] Univers 00:00:00 00:00:00 Zandra [place] [id number] it[id number] [phone] Nj dical NAL 231 [facility] 2021-08-22 2021-08-22 Refwindy LopezG[facility] 1.2.840.114 [id number] Univers 00:00:00 00:00:00 Laith [place] [id number] [facility] [id number] [phone] Nj dical NAL 044 [facility] 2021-06-28 2021-06-28 Dangelo CA [facility] [id number] Univers 14:30:00 14:30:00 DICK bullard [facility] 2021-06-28 2021-06-28 Imm/Inj Nurse, Adc Pob Immunization [facility] 1.2.840.114 [id number] Univers 13:55:41 13:55:55 Visit Dick Ca 350.1.13 .10 ity of [place] [id number] [phone] Nj dical nal 421 [facility] 2021-06-28 2021-06-28 Office [facility] 1.2.840.114 [id number] Univers 13:27:56 13:52:13 Visit Seb Fallon [id number] ity of [place] [id number] [phone] Nj dical nal 059 [facility] 2021-06-28 2021-06-28 Outpatient R SABI [facility] [id number] Univers 13:40:00 13:40:00 SEB bullard o f [facility] [place] [facility] 2021-06-25 2021-06-25 Orders Doctor MARTÍNEZ 1.2.840.114 [id number] Univers 00:00:00 00:00:00 Only Unassigned, DONNA 350.1.13.10 ity of [place] [facility] 4.2.7.2.686 [place] as [phone] [address] 2021-03-29 2021-03-29 Outpatient R [facility] [id number] Univers 14:00:00 14:00:00 ity of [facility] [place] [facility] 2021-03-29 2021-03-29 Telephone Sofya [facility] 1.2.840.114 [id number] Univers 00:00:00 00:00:00 Zandra [place]on [id number] it[place] of [id number] [phone] Nj dical nal 044 [facility] 2021-03-28 2021-03-28 Telemedici [facility] 1.2.840.114 [id number] Univers 10:48:20 12:38:06 ne Visit Zandra Fallon [id number] ity of [place] [id number] [phone] Nj dical nal 231 [facility] 2021-03-28 2021-03-28 [facility] [id number] Univers 11:00:00 11:00:00 ZANDRA ity [facility] 2021-03-28 2021-03-28 Telephone [facility] 1.2.840.114 [id number] [facility] 00:00:00 00:00:00 Zandra Fallon 350.1.13.10 it[id number] [phone] [facility] 231 [facility] 2021-03-25 2021-03-25 Mining Analyst Syd, [facility] Lab Main [facility] 1.2.8 40.114 [id number] Univers 09:15:41 09:30:41 Visit Zandra Cowart 350.1. 13.10 ity [place] [id number] [phone] [facility] 353 [facility] 2021-03-25 2021-03-25 Outpatient R SOFYA [facility] [id number] Univers 09:15:00 09:15:00 ZANDRA bullard [facility] 2021-03-25 2021-03-25 Orders Doctor SOLIZ 1.2.840.114 [id number] Univers 00:00:00 00:00:00 Only Unassigned, DONNA 350.1.13.10 ity of [place] [facility] 4.2.7.2.686 David as [phone] [address] 2021-03-24 2021-03-24 Telephone [facility] 1.2.126.292 [id number] [facility] 00:00:00 00:00:00 Seb [place] 350.1.13.10 [id number] [phone] [facility] 059 [facility] 2021-03-16 2021-03-16 Refill Sabi, [facility] 1.2.840.114 [id number] Univers 00:00:00 00:00:00 Shannanfannyhawa [place] 350.1.13.10 ity [place] 4[place].2.[place] [phone] [facility] nal 059 [facility] 2021-03-10 2021-03-10 Refill Sabi, [facility] 1.2.840.114 [id number] Univers 00:00:00 00:00:00 Seb [place] 350.1.13.10 it[place] [id number] [phone] [facility] nal 059 [facility] 2021-03-09 2021-03-09 Refill John, [facility] 1.2.840.114 [id number] Univers 00:00:00 00:00:00 Laith Fallon 350.1.13.10 [place] [phone] [facility] nal 092 [facility] 2021-02-21 2021-02-21 [facility] 1.2.840.114 [id number] Univers 00:00:00 00:00:00 Zandra Martinezton 350.1.13.10 [place] [id number] [phone] Nj dicnd nal 044 [facility] 2021-02-11 2021-02-11 Refill [facility] 1.2.840.114 [id number] Univers 00:00:00 00:00:00 Zandra Martinezton 350.1.13.10 it[place] [id number] [phone] Nj dical nal 044 [facility] 2021-01-24 2021-01-24 [facility] 1.2.840.114 [id number] Univers 00:00:00 00:00:00 Zandra A [place] 350.1.13.10 it[place] 4[place] [phone] Nj dical nal 231 [facility] 2021-01-21 2021-01-21 Outpatient Jessica COWART [facility] [id number] Univers 10:00:00 10:00:00 ZANDRA pastorthierry [facility] 2021-01-21 2021-01-21 Refwindy [facility] 1.2.840.114 [id number] Univers 00:00:00 00:00:00 Zandra Jeffy Salvador 350.1.13.10 it[place] of [place] 4[place] [phone] Nj dicdasha nal 044 [facility] 2021-01-12 2021-01-12 Outpatient LAITH LOPEZ [facility] [id number] Univers 00:00:00 00:00:00 LAITH LOPEZ [facility] 2020-12-31 2020-12-31 Refwindy [facility] 1.2.840.114 [id number] Univers 00:00:00 00:00:00 Zandra Fallon 350.1.13.10 ity of [place] 4[place] [phone] Nj dical ja 044 [facility] 2020-12-30 2020-12-30 Telephone [facility] 1.2.840.114 [id number] Univers 00:00:00 00:00:00 Laith Fallon 350.1.13.10 ity of [place] 4[place].2.[place] [phone] Nj dical nal 092 [facility] 2020-12-21 2020-12-21 Telephone [facility] 1.2.840.114 [id number] Univers 00:00:00 00:00:00 Laith Fallon 350.1.13.10 [place] 4[place].2.[place] [phone] Nj dical nal 092 [facility] 2020-12-08 2020-12-08 Refill [facility] 1.2.840.114 [id number] Univers 00:00:00 00:00:00 Jameelhawa Salvaodr 350.1.13.10 ity of [place] 4[place].2.[place] [phone] Nj dical nal 059 [facility] 2020-12-06 2020-12-06 Refill [facility] 1.2.840.114 [id number] Univers 00:00:00 00:00:00 Shannanfannyhawa Salvador 350.1.13.10 ity of [place] 4[place]7.2.[place] [phone] Nj dical nal 059 [facility] 2020-11-26 2020-11-26 Mining Analyst 2, Adc Lab [facility] 1.2.840.114 [id number] Univers 15:13:40 15:28:40 Visit Laith Lopez 350.1.13 .10 ity of [place] 4[place].2.[place] [phone] Nj dical nal 353 [facility] 2020-11-26 2020-11-26 Office John [facility] 1.2.840.114 [id number] Univers 14:19:32 15:09:03 Visit Laith Fallon 350.1.13.10 ity of [place] 4[place] [phone] Nj dical nal 092 [facility] 2020-11-26 2020-11-26 Outpatient LAITH CHANG [facility] [id number] Univers 14:40:00 14:40:00 LAITH LOPEZ [facility] 2020-11-25 2020-11-25 Office Sofya [facility] 1.2.840.114 [id number] Univers 09:58:19 11:00:26 Visit Zandra Fallon 350.1.13.10 it[place] of [place] 4[place].2.[place] [phone] Nj dical nal 231 [facility] 2020-11-25 2020-11-25 Out[facility] [id number] Univers 10:40:00 10:40:00 ZANDRA bullard [facility] 2020-11-25 2020-11-25 Orders Doctor MARTÍNEZ 1.2.840.114 [id number] Univers 00:00:00 00:00:00 Only Unassigned, DONNA 350.1.13.10 ity of [place] [facility] 4.2.7.2.686 David as [phone] [address] 2020-10-14 2020-10-14 Laboratory Pc, Adc Echo Room 1 - [facility] 1 .2.840.114 [id number] Univers 12:54:28 14:22:04 Only Seb Celestin 350.1.13.10 ity [place] 4.2.7.2.[place] [phone] Nj dical [address] 2020-10-14 2020-10-14 Outpatient R [facility] [id number] Univers 13:00:00 13:00[facility] 2020-[facility]-30 2020-09-30 Out[facility] [id number] Univers 10:20:00 10:20:00 ZANDRA bullard [facility] 2020-09-28 2020-09-28 Office [facility] 1.2.840.114 [id number] 13:02:10 14:09:10 Visit Seb Fallon 350.1.13.10 [place] 4.2.7.2.[address] Professio [phone] [address] 2020-09-28 2020-09-28 Office [facility] 1.2.840.114 [id number] Univers 13:02:10 14:09:10 Visit Seb Fallon 350.1.13.10 ity [place] 4[place].2.[place] [phone] Nj dical [address] 2020-09-28 2020-09-28 [facility] [id number] Univers 14:00:00 14:00:00 SEB bullard o [facility] 2020-09-20 2020-09-20 Refill [facility] 1.2.840.114 [id number] Univers 00:00:00 00:00:00 Zandra Martinezton 350.1.13.10 it[place] of [place] [phone] [facility] 231 [facility] 2020-09-16 2020-09-16 Refill [facility] 1.2.840.114 [id number] Univers 00:00:00 00:00:00 Seb Fallon 350.1.13.10 it[place] of [place] 4[place] [phone] [facility] 059 [facility] 2020-09-08 2020-09-08 Outpatient [facility] [id number] Univers 09:00:00 09:00:00 SEB putnam [facility] 2020-09-06 2020-09-06 Refill [facility] 1.2.840.114 [id number] Univers 00:00:00 00:00:00 Seb Fallon 350.1.13.10 [place] of [place] [phone] [facility] 059 [facility] 2020-08-09 2020-08-09 Refwindy [facility] 1.2.840.114 [id number] Univers 00:00:00 00:00:00 Laith Fallon 350.1.13.10 [place] [phone] [facility] 092 [facility] 2020-07-31 2020-07-31 Refwindy [facility] 1.2.840.114 [id number] Univers 00:00:00 00:00:00 Zandra Fallon 350.1.13.10 [place] of [place] [phone] [facility] 231 [facility] 2020-07-28 2020-07-28 Dangelo WALDEN [facility] [id number] Univers 10:15:00 10:15:00 MANUEL itthierry of [facility] 2020-07-05 2020-07-05 Refill [facility] 1.2.840.114 [id number] Univers 00:00:00 00:00:00 Zandra A [place] 350.1.13.10 [place] [phone] [facility] nal 231 [facility] 2020-06-23 2020-06-23 [facility] 1.2.840.114 [id number] Univers 00:00:00 00:00:00 Qiangjun [place] 350.1.13.10 [place] [phone] [facility] 059 [facility] 2020-06-01 2020-06-01 [facility] 1.2.840.114 [id number] Univers 00:00:00 00:00:00 Zandra A [place] 350.1.13.10 [place] [phone] [place] dicnd nal 044 [facility] 2020-05-31 2020-05-31 [facility]phone [facility] 1.2.746.472 [id number] Univers 00:00:00 00:00:00 Qiafannyjun [place] 350.1.13.10 [place] [phone] [place] dic[place]al 059 [facility] 2020-05-31 2020-05-31 [facility]phone [facility] 1.2.840.114 [id number] Univers 00:00:00 00:00:00 Zandra A [place] 350.1.13.10 [place] [phone] [place] dic[place]al 044 [facility] 2019-12-26 2020-05-05 [facility] 1.2.840.114 [id number] Univers 11:45:30 15:32:45 ne Visit Laith Fallon 350.1.13.10 [place] [phone] [place] dical nal 092 [facility] 2020-04-20 2020-04-20 Telephone [facility] 1.2.840.114 [id number] Univers 00:00:00 00:00:00 Zandra Fallon 350.1.13.10 ity of [place].2.686 [place] [phone] [place] dical [place]al 044 [facility] 2020-03-18 2020-03-18 Telephone Cowart, 1.2.840.0 [id number] Univers 00:00:00 00:00:00 Zandra Christianson 04519.1.1 ity of 3.104.2.7 [place] .3.648345 [facility] .8 [place] 2020-02-06 2020-02-06 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 7 [id number] [facility] 09:14:47 09:29:47 Visit Syd, [facility] Lab Main 60029.1.1 ity of 3.104.2.7 [place] .3.743466 Medica l .8 [place] 2020-02-06 2020-02-06 [facility] [id number] Univers 09:15:00 09:15:00 ZANDRA ity of [facility] [place] [facility] 2020-02-06 2020-02-06 Travel 1.2.840.1 1.2.771.335 [id number] Univers 00:00:00 00:00:00 37886.1.1 350.1.13.10 ity of 3.104.2.7 [place].3.698 [place] .3.202195 084.8 Med[place] l .8 [place] 2020-02-05 2020-02-05 Refill Sabi 1.2.840.7 [id number] Univers 00:00:00 00:00:00 Seb 94487.1.1 ity of 3.104.2.7 [place] .3.162736 Medica l .8 [place] 2020-02-05 2020-02-05 Refill Cowart, 1.2.840.9 [id number] Univers 00:00:00 00:00:00 Zandra Christianson 08157.1.1 ity of 3.104.2.7 [place] .3.028039 Medica l .8 [place] 2020-02-03 2020-02-03 Dangelo COWART, [facility] [id number] Univers 12:00:00 12:00:00 ZANDRA ity of [facility] [place] [facility] 2020-02-02 2020-02-02 Travel 1.2.840.1 1.2.347.757 [id number] Univers 00:00:00 00:00:00 50058.1.1 350.1.13.10 ity of 3.104.2.7 4[place].3.698 [place] .3.013305 084.8 Medica l .8 [place] 2020-01-28 2020-01-28 Refill Cowart, 1.2.840.1 [id number] Univers 00:00:00 00:00:00 Zandra Christianson 56368.1.1 ity of 3.104.2.7 [place] .3.036953 Medica l .8 [place] 2020-01-27 2020-01-27 Refill Sabi, 1.2.840.3 [id number] Univers 00:00:00 00:00:00 Seb 39182.1.1 ity of 3.104.2.7 [place] .3.929116 Medica l .8 [facility] 2020-01-21 2020-01-21 Refill John, 1.2.840.5 [id number] Univers 00:00:00 00:00:00 Laith Matt 41812.1.1 ity of 3.104.2.7 [place] .3.111301 Medica l .8 [facility] 2020-01-08 2020-01-08 Telemedici Cowart, 1.2.840.3 [id number] Univers 08:19:32 15:33:20 ne Visit Zandra Christianson 36317.1.1 ity of 3.104.2.7 [place] .3.099125 Medica l .8 [place] 2020-01-08 2020-01-08 Outpatient R COWART, [facility] [id number] Univers 13:40:00 13:40:00 ZANDRA ity [facility] 2020-01-07 2020-01-07 Travel 1.2.840.1 1.2.793.767 [id number] Univers 00:00:00 00:00:00 03126.1.1 350.1.13.10 ity of 3.104.2.7 [place].3.698 [place] .3.273291 084.8 Medica l .8 [place] 2019-12-26 2019-12-26 Outpatient R LAITH LOPEZ [facility] [id number] Univers 14:40:00 14:40:00 [facility] 2019-12-08 2019-12-08 Telemedicaugusto [facility] 1.2.840.114 [id number] [facility] 07:59:23 12:24:10 ne Visit Shannanfannyhawa Salvador 350.1.13.10 ity of [place] 4.2.7.2.686 Edgar Tracyessio [phone] [place] dical nal 059 [facility] 2019-12-08 2019-12-08 Outpatient Jessica CELESTIN, [facility] [id number] Univers 11:00:00 11:00:00 SEB bullard o [facility] 2019-11-18 2019-11-18 Outpatient R SABI, [facility] [id number] Univers 15:00:00 15:00:00 SEB bullard o f [facility] [place] [facility] 2019-11-17 2019-11-17 Outpatient R SABI, [facility] [id number] Univers 13:00:00 13:00:00 SEB bullard o f [facility] [place] [facility] 2019-11-12 2019-11-12 Outpatient R MUSHTAQ, [facility] [id number] Univers 08:45:00 08:45:00 ELIZABETH ity [facility] 2019-10-13 2019-10-13 Refill Sabi, 1.2.840.4 [id number] Univers 00:00:00 00:00:00 Shannanjerry 31749.1.1 ity of 3.104.2.7 [place] .3.640340 Medica l .8 [facility] 2019-09-15 2019-09-15 Refill Cowart, 1.2.840.5 [id number] Univers 00:00:00 00:00:00 Zandra Christianson 25572.1.1 ity of 3.104.2.7 [place] .3.000136 Medica l .8 [facility] 2019-09-11 2019-09-11 Refill Amaya, 1.2.840.6 [id number] Univers 00:00:00 00:00:00 Cheyenne Segovia 52598.1.1 ity of 3.104.2.7 [place] .3.081335 Medica l .8 [place] 2019-09-09 2019-09-09 Office Sofya, 1.2.840.2 [id number] Univers 14:31:47 16:17:11 Visit Zandra Christianson 03273.1.1 ity of 3.104.2.7 [place] .3.105665 Medica l .8 [facility] 2019-08-25 2019-08-25 Refill John, 1.2.840.7 [id number] Univers 00:00:00 00:00:00 Laith Matt 20139.1.1 ity of 3.104.2.7 [place] .3.132185 Medica l .8 [facility] 2019-08-13 2019-08-13 Refill Sabi, 1.2.840.7 [id number] Univers 00:00:00 00:00:00 Jameelhawa 98685.1.1 ity of 3.104.2.7 [place] .3.563841 Medica l .8 [facility] 2019-08-11 2019-08-11 Refill Amaya, 1.2.840.8 [id number] Univers 00:00:00 00:00:00 Sendmirta K.HEddie 23119.1.1 ity of 3.104.2.7 [place] .3.498682 Medica l .8 [facility] 2019-08-07 2019-08-07 Outpatient R JOHN LAITH [facility] [id number] Univers 10:32:04 23:59:00 JOHN LAITH ity of [facility] [place] [facility] 2019-08-07 2019-08-07 [facility] John, 1.2.840.3 [id number] Univers 10:20:00 23:59:00 Encounter Laith Gene 60686.1.1 ity of 3.104.2.7 [place] .3.577869 Medica l .8 [facility] 2019-08-07 2019-08-07 Telephone John, 1.2.840.5 [id number] Univers 00:00:00 00:00:00 Laith Gene 86963.1.1 ity of 3.104.2.7 [place] .3.886515 Medica l .8 [facility] 2019-07-24 2019-07-24 Telephone John, 1.2.840.1 [id number] Univers 00:00:00 00:00:00 Laith Gene 70859.1.1 ity of 3.104.2.7 [place] .3.235206 Medica l .8 [facility] 2019-07-24 2019-07-24 Telephone [facility], 1.2.840.0 [id number] Univers 00:00:00 00:00:00 Seb 71483.1.1 ity of 3.104.2.7 [place] .3.467241 Medica l .8 [facility] 2019-07-22 2019-07-22 Telephone John, 1.2.840.7 [id number] Univers 00:00:00 00:00:00 Laith Gene 67475.1.1 ity of 3.104.2.7 [place] .3.987009 Medica l .8 [facility] 2019-06-19 2019-07-21 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 1 [id number] Univers 08:35:09 14:39:26 Visit 1, Adc Lab 11477.1.1 i ty of 3.104.2.7 [place] .3.840750 Medica l .8 [place] 2019-07-21 2019-07-21 Orders Doctor 1.2.840.5 [id number] Univers 00:00:00 00:00:00 Only Unassigned, 23545.1.1 ity of [place] 3.104.2.7 [place] .3.737526 Medica l .8 [place] 2019-07-21 2019-07-21 Case Sofya, 1.2.840.4 [id number] Univers 00:00:00 00:00:00 Management Zandra Christianson 29874.1.1 ity of 3.104.2.7 [place] .3.596270 Medica l .8 [place] 2019-07-18 2019-07-18 Office John, 1.2.840.8 [id number] Univers 10:19:11 10:55:55 Visit Laith Matt 92171.1.1 ity of 3.104.2.7 [place] .3.067889 Medica l .8 [place] 2019-07-18 2019-07-18 Orders Doctor 1.2.840.4 [id number] Univers 00:00:00 00:00:00 Only Unassigned, 72804.1.1 ity of [place] 3.104.2.7 [place] .3.695986 Medica l .8 [place] 2019-07-14 2019-07-14 Emergency Cruz, 1.2.840.3 [id number] Univers 17:02:41 19:04:00 Denisse Lazo 64239.1.1 ity of 3.104.2.7 [place] .3.181615 Medica l .8 [place] 2019-07-14 2019-07-14 Orders Doctor 1.2.840.2 [id number] Univers 00:00:00 00:00:00 Only Unassigned, 94785.1.1 ity of [place] 3.104.2.7 [place] .3.623476 Medica l .8 [place] 2019-07-11 2019-07-11 Refill Sabi, 1.2.840.6 [id number] Univers 00:00:00 00:00:00 Seb 78662.1.1 ity of 3.104.2.7 [place] .3.497340 Medica l .8 [facility] 2019-07-01 2019-07-06 Office Sabi, 1.2.840.5 [id number] Univers 14:14:42 16:25:37 Visit Seb 52631.1.1 ity of 3.104.2.7 [place] .3.756136 Medica l .8 [facility] 2019-07-03 2019-07-03 Office Sofya, 1.2.840.8 [id number] Univers 15:12:16 17:01:37 Visit Zandra Christianson 58316.1.1 ity of 3.104.2.7 [place] .3.739648 Medica l .8 [facility] 2019-07-02 2019-07-02 Telephone Sabi, 1.2.840.9 [id number] Univers 00:00:00 00:00:00 Shannanfannyhawa 08668.1.1 ity of 3.104.2.7 [place] .3.778226 Medica l .8 [facility] 2019-07-01 2019-07-01 Orders Doctor 1.2.840.7 [id number] Univers 00:00:00 00:00:00 Only Unassigned, 11794.1.1 ity of [place] 3.104.2.7 [place] .3.319797 Medica l .8 Branch 2019-06-24 2019-06-24 Telephone Sabi, 1.2.840.9 [id number] Univers 00:00:00 00:00:00 Seb 62448.1.1 ity of 3.104.2.7 [place] .3.682412 Medica l .8 [facility] 2019-06-23 2019-06-23 Refill Sofya, 1.2.840.6 [id number] Univers 00:00:00 00:00:00 Zandra A 79764.1.1 ity of 3.104.2.7 [place] .3.365259 Medica l .8 Branch 2019-06-20 2019-06-20 Office Sofya, 1.2.840.1 [id number] Univers 09:09:22 11:23:59 Visit Zandra Christianson 80046.1.1 ity of 3.104.2.7 [place] .3.060607 Medica l .8 Branch 2019-06-12 2019-06-12 Refill John, 1.2.840.9 [id number] Univers 00:00:00 00:00:00 Laith Gene 17758.1.1 ity of 3.104.2.7 [place] .3.106085 Medica l .8 Branch 2019-06-11 2019-06-11 Refill John, 1.2.840.5 [id number] Univers 00:00:00 00:00:00 Laith Gene 35888.1.1 ity of 3.104.2.7 [place] .3.230876 Medica l .8 [facility] 2019-05-19 2019-05-25 Office Sabi, 1.2.840.6 [id number] Univers 13:53:13 14:04:49 Visit Seb 46693.1.1 ity of 3.104.2.7 [place] .3.373750 Medica l .8 [facility] 2019-05-23 2019-05-23 Refill Sofya, 1.2.840.7 [id number] Univers 00:00:00 00:00:00 Zandra Christianson 15005.1.1 ity of 3.104.2.7 [place] .3.402593 Medica l .8 Branch 2019-05-19 2019-05-19 Orders Doctor 1.2.840.9 [id number] Univers 00:00:00 00:00:00 Only Unassigned, 83604.1.1 ity of [place] 3.104.2.7 [place] .3.642455 Medica l .8 Branch 2019-05-09 2019-05-09 Refill Sabi, 1.2.840.4 [id number] Univers 00:00:00 00:00:00 Jameelhawa 81496.1.1 ity of 3.104.2.7 [place] .3.799353 Medica l .8 Branch 2019-05-09 2019-05-09 Telephone Sabi, 1.2.840.1 [id number] Univers 00:00:00 00:00:00 Qiangjun 34510.1.1 ity of 3.104.2.7 [place] .3.157973 Medica l .8 Branch 2019-05-08 2019-05-08 Refwindy Lopez, 1.2.840.4 [id number] Univers 00:00:00 00:00:00 Laith Gene 16035.1.1 ity of 3.104.2.7 [place] .3.487834 Medica l .8 Branch 2019-04-15 2019-04-15 Telephone Cowart, 1.2.840.2 [id number] Univers 00:00:00 00:00:00 Zandra A 89275.1.1 ity of 3.104.2.7 [place] .3.365738 Medica l .8 Branch 2019-04-04 2019-04-04 Telephone Cowart, 1.2.840.8 [id number] Univers 00:00:00 00:00:00 Zandra A 20425.1.1 ity of 3.104.2.7 [place] .3.282601 Medica l .8 Branch 2019-04-02 2019-04-02 Refwindy Lopez, 1.2.840.5 [id number] Univers 00:00:00 00:00:00 Laith Gene 49702.1.1 ity of 3.104.2.7 [place] .3.596177 Medica l .8 Branch Results This patient has no known results.
[2022-06-18 12:42] LABS: Absolute Lymphocytes (CBC) 1.5 K/uL (0.7-4.9); Hematocrit 50.9 % (39.6-49.0); Lymphocytes % 20.7 % (15.3-44.8); MCV 95.5 fL (80-100); MPV 7.9 fL (7.6-11.3); RBC Red Blood Cell Count 5.34 M/uL (4.33-5.43)
[2022-06-18] MEDS ORDERED: ACETAMINOPHEN 325 MG TABLET ONE (12:51)
[2022-06-18] MEDS ORDERED: ONDANSETRON 4 MG/2 ML VIAL ONE (12:52)
[2022-06-18 12:58] LABS: Albumin 3.4 g/dL (3.4-5.0); Bilirubin Direct 0.2 mg/dL (0-0.2); Bilirubin Total 0.5 mg/dL (0.2-1.0); Potassium 4.4 mmol/L (3.5-5.1); Protein, Total 7.8 g/dL (6.4-8.2)
--- NOTE | 2022-06-18 12:59 | RAD REPORT ---
EXAM DESCRIPTION: CT - Head C Spine Cap Wo Con - 06/18/2022 12:44 pm CLINICAL HISTORY: Trauma, head and neck injury. Chest, abdomen and pelvis pain. fall / head injury COMPARISON: No comparisons TECHNIQUE: CT head without contrast. CT cervical spine without contrast with coronal and sagittal reformatted images. CT chest, abdomen and pelvis with coronal and sagittal reformatted images of the spine. All CT scans are performed using dose optimization technique as appropriate and may include automated exposure control or mA/KV adjustment according to patient size. FINDINGS: CT HEAD WITHOUT CONTRAST: No intracranial hemorrhage, hydrocephalus or extra-axial fluid collection. No acute large vascular te rritory infarct. Remote right temporal occipital infarct. Mucous retention cyst in the right maxillary sinus. The calvarium is intact. CT CERVICAL SPINE WITHOUT CONTRAST: No fracture or subluxation. The prevertebral soft tissues are normal in thickness.Multilevel degenerative changes are present in the spine. CT CHEST, ABDOMEN, PELVIS: Thorax: Chest Wall: No abnormal mass Lungs: No acute abnormality. Pleura: No effusions or pneumothorax. Dasia/Mediastinum: No lymphadenopathy. Aorta/Pulmonary Arteries: Unremarkable Heart: Subendocardial fat likely reflecting remote myocardial infarct. Multi-vessel coronary artery d isease. Abdomen/Pelvis: Liver: No acute abnormality or suspicious lesions. Biliary: No biliary ductal dilatation. Stomach: No significant focal abnormality. Duodenum: No significant focal abnormality. Pancreas: No significant abnormality. Spleen: No significant abnormality. Adrenal: No suspicious lesions. Kidney/ureter: No hydronephrosis. No renal calculi. Left lower pole renal cyst. Retroperitoneum: No retroperitoneal adenopathy. Vascular: No aneurysm. Atherosclerosis. Bowel: No significant focal abnormality. Peritoneum: No ascites or free air. Bladder: Grossly unremarkable. Reproductive: No adnexal masses. Bones: No acute fracture. Bridging osteophytes in the spine. Disc height loss at L5-S1. Other: n/a IMPRESSION: 1. No acute intracranial abnormality. Moderate remote right temporal and occipital lobe infarcts. 2. No acute fracture or traumatic malalignment cervical spine. 3. No evidence of significant trauma to the chest, abdomen, or pelvis.
--- NOTE | 2022-06-18 13:33 | ER ---
Nurse's Notes [facility] Name: Jd Rico Age: 62 yrs Sex: Male : 1960 Arrival Date: 06/18/2022 Time: 12:14 Bed 5 Private MD: Diagnosis: History of falling;Fall on same level, unspecified;Unspecified injury of head, initial encounter Presentation: 06/18 12:20 Chief complaint: EMS states: pt fell in bathroom this morning and hit his head. Pt took mb9 aspirin 2 hrs ago, pt takes Plavix. Negative LOC. Coronavirus screen: Vaccine status: Patient reports receiving the 2nd dose of the covid vaccine. Ebola Screen: No symptoms or risks identified at this time. Initial Sepsis Screen: Does the patient meet any 2 criteria? No. Patient's initial sepsis screen is negative. Does the patient have a suspected source of infection? No. Patient's initial sepsis screen is negative. Risk Assessment: Do you want to hurt yourself or someone else? Patient reports no desire to harm self or others. Onset of symptoms was June 18, 2022. 12:20 Method Of Arrival: EMS: [facility] mb9 12:20 Acuity: MARIA L 2 mb9 12:20 Trauma event details: Injury occurred in the [facility], Injury occurred: at aa5 home. Injury occurred: June 18, 2022. 12:20 Care prior to arrival: None. Mechanism of Injury: Fall from standing position. aa5 Triage Assessment: 12:39 General: Appears in no apparent distress. comfortable, Behavior is calm, cooperative, mb9 appropriate for age. Pain: Complains of pain in left side of head Pain currently is 6 out of 10 on a pain scale. Quality of pain is described as pressure, sharp, Pain began suddenly. EENT:. 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 Neuro: Denies LOC. Cardiovascular: Heart tones S1 S2 present Rhythm is regular. Respiratory: Airway is patent Respiratory effort is even, unlabored, Respiratory pattern is regular, symmetrical, Breath sounds are clear bilaterally. GI: Abdomen is flat, Bowel sounds present X 4 quads. : No signs and/or symptoms were reported regarding the genitourinary system. Derm: Skin is pink, warm \T\ dry. abrasions noted to the bilateral knees. Musculoskeletal: Range of motion: intact in all extremities. Trauma Activation: Alert Physician: ED Physician; Name: ; Notified At: ; Arrived At: Physician: General Surgeon; Name: ; Notified At: ; Arrived At: Physician: Radiology; Name: ; Notified At: ; Arrived At: Physician: Respiratory; Name: ; Notified At: ; Arrived At: Physician: Lab; Name: ; Notified At: ; Arrived At: Historical: - Allergies: 12:24 Trazodone; mb9 - Home Meds: 12:24 Alprazolam Oral [Active]; Amitriptyline Oral 4 times per day [Active]; aspirin 81 mg mb9 Oral TbEC 1 tab once daily [Active]; Xanax 0.5 mg Oral tab twice a day [Active]; metoprolol tartrate 50 mg Oral tab 1 tab once daily [Active]; lisinopril-hydrochlorothiazide 10-12.5 mg Oral tab 1 tab once daily [Active]; Plavix 75 mg Oral tab 1 tab once daily [Active]; pravastatin 40 mg Oral tab 1 tab once daily [Active]; Depakote Oral [Active]; atorvastatin Oral [Active]; divalproex 500 mg Oral Tb24 3 tabs once daily [Active]; - PMHx: 12:24 Angina; Bipolar disorder; CVA; Dementia; Hypertension; insomnia; Parkinsons; Myocardial mb9 infarction; peripheral vision loss; Seizures; - Immunization history:: Adult Immunizations up to date. - Social history:: Patient/guardian denies using Smoking status: Patient/guardian denies using tobacco, the patient reports quitting approximately 20 years ago, Patient/guardian denies using alcohol. - Family history:: not pertinent. Screenin:44 Abuse screen: Denies threats or abuse. Nutritional screening: No deficits noted. mb9 Tuberculosis screening: No symptoms or risk factors identified. Fall Risk Fall in past 12 months (25 points). Secondary diagnosis (15 points) Gait- Weak (10 pts.). Primary Survey: 12:20 NO uncontrolled hemorrhage observed. A: The client is awake and alert. The airway is aa5 patent. Breathing/Chest: Spontaneous respiratory effort, equal unlabored respirations, breath sounds clear bilaterally, regular pattern, symmetrical chest rise and fall. Circulation: Skin color: pink. Disability Client is alert. Exposure/Environment: A warming method has been applied: A warm blanket has been provided to the patient. Secondary Survey: 12:20 HEENT: Head Other Report hitting head when he fell today. Pt c/o headache. Negative aa5 LOC. Gastrointestinal: Gastrointestinal: Abdomen is soft. : No signs and/or symptoms were reported regarding the genitourinary system. Musculoskeletal: Abrasions noted to richie lower legs. Assessment: 12:20 General: Appears in no apparent distress. Behavior is calm, cooperative. mb9 12:20 Pain: Complains of pain in left side of head Pain currently is 6 out of 10 on a pain mb9 scale. Quality of pain is described as pressure, sharp, Pain began suddenly. Neuro: Level of Consciousness is awake, alert, obeys commands, Oriented to person, place, time, Moves all extremities. Speech is normal, Pupils are PERRLA, Reports diplopia, headache in left. Cardiovascular: Heart tones S1 S2 present Rhythm is regular. Respiratory: Airway is patent Respiratory effort is even, unlabored, Respiratory pattern is regular, symmetrical, Breath sounds are clear bilaterally. GI: Abdomen is flat, Bowel sounds present X 4 quads. : No signs and/or symptoms were reported regarding the genitourinary system. EENT: No signs and/or symptoms were reported regarding the EENT system. Derm: Skin is pink, warm \T\ dry. abrasion noted to bilateral knees. Musculoskeletal: Range of motion: intact in all extremities. Vital Signs: 12:20 BP 156 / 113; Pulse 98; Resp 18; Pulse Ox 100% on R/A; Pain 6/10; mb9 12:25 BP 158 / 114; Pulse 95; Resp 16; Pulse Ox 98% ; Weight 65.77 kg; Height 5 ft. 4 in. mb9 (162.56 cm); Pain 6/10; 12:25 Body Mass Index 24.89 (65.77 kg, 162.56 cm) mb9 Saida Coma Score: 12:25 Eye Response: spontaneous(4). Verbal Response: oriented(5). Motor Response: obeys aa5 commands(6). Total: 15. Trauma Score (Adult): 12:25 Eye Response: spontaneous(1); Verbal Response: oriented(1); Motor Response: obeys aa5 commands(2); Systolic BP: > 89 mm Hg(4); Respiratory Rate: 10 to 29 per min(4); Saida Score: 15; Trauma Score: 12 ED Course: 12:14 Patient arrived in ED. iw 12:14 Patient has correct armband on for positive identification. Placed in gown. Bed in low mb9 position. Call light in reach. Side rails up X 1. 12:14 Client placed on continuous cardiac and pulse oximetry monitoring. NIBP monitoring mb9 applied. traffic monitor specialist on. 12:16 Kareem Suarez MD is Attending Physician. rosangela 12:18 Marianna Bennett, RN is Primary Nurse. mb9 12:20 Patient maintains SpO2 saturation greater than 95% on room air. Thermoregulation: warm aa5 blanket given to patient. 12:24 Triage completed. mb9 12:38 Basic Metabolic Panel Sent. mb9 12:38 CBC with Diff Sent. mb9 12:38 Type And Screen Sent. mb9 12:38 Inserted saline lock: 20 gauge in right antecubital area, using aseptic technique. mb9 ,using aseptic technique. by tech Carlos Blood collected. 12:46 Head C Spine Cap Wo Con In Process Unspecified. EDMS Administered Medications: 12:45 Drug: Zofran (Ondansetron) 4 mg Route: IVP; Site: right antecubital; mb9 12:45 Drug: Tylenol 650 mg Route: PO; mb9 Medication: 12:44 VIS not applicable for this client. mb9 Outcome: 13:32 Discharge ordered by . rosangela 13:59 Patient left the ED. mb8 Signatures: Dispatcher [employer] EDMS Kareem Suarez MD MD cha Williams, Irene, RN Rashida Recio RN RN Julio Elizondo RN RN Marianna Samuel RN RN mb9 Corrections: (The following items were deleted from the chart) 12:40 12:20 Chief complaint: EMS states: pt fell in bathroom this morning and hit his head. aa5 Pt is on blood thinners and took aspirin 2 hrs ago mb9 12:44 12:20 Chief complaint: EMS states: pt fell in bathroom this morning and hit his head. aa5 Pt took aspirin 2 hrs ago aa5 13:22 12:47 Pain: mb9 mb9 13:23 12:20 Neuro: Level of Consciousness is awake, alert, obeys commands, Oriented to mb9 person, place, time, Moves all extremities. Speech is normal, Pupils are PERRLA, mb9
--- NOTE | 2022-06-18 13:33 | EDPHYS ---
Physician Documentation [facility] Name: Jd Rico Age: 62 yrs Sex: Male : 1960 Arrival Date: 06/18/2022 Time: 12:14 Bed 5 Private MD: ED Physician Kareem Suarez HPI: 06/18 13:28 This 62 yrs old Male presents to ER via EMS with complaints of Fall Injury. rosangela 13:28 Details of fall: The patient fell from an upright position, while walking. Onset: The rosangela symptoms/episode began/occurred just prior to arrival. Associated injuries: The patient sustained injury to the head, neck injury, contusion, decreased range of motion. Severity of symptoms: At their worst the symptoms were mild, in the emergency department the symptoms are unchanged. The patient has experienced similar episodes in the past, several times. Historical: - Allergies: 12:24 Trazodone; mb9 - Home Meds: 12:24 Alprazolam Oral [Active]; Amitriptyline Oral 4 times per day [Active]; aspirin 81 mg mb9 Oral TbEC 1 tab once daily [Active]; Xanax 0.5 mg Oral tab twice a day [Active]; metoprolol tartrate 50 mg Oral tab 1 tab once daily [Active]; lisinopril-hydrochlorothiazide 10-12.5 mg Oral tab 1 tab once daily [Active]; Plavix 75 mg Oral tab 1 tab once daily [Active]; pravastatin 40 mg Oral tab 1 tab once daily [Active]; Depakote Oral [Active]; atorvastatin Oral [Active]; divalproex 500 mg Oral Tb24 3 tabs once daily [Active]; - PMHx: 12:24 Angina; Bipolar disorder; CVA; Dementia; Hypertension; insomnia; Parkinsons; Myocardial mb9 infarction; peripheral vision loss; Seizures; - Immunization history:: Adult Immunizations up to date. - Social history:: Patient/guardian denies using Smoking status: Patient/guardian denies using tobacco, the patient reports quitting approximately 20 years ago, Patient/guardian denies using alcohol. - Family history:: not pertinent. ROS: 13:28 Constitutional: Negative for fever, chills, and weight loss, Eyes: Negative for injury, rosangela pain, redness, and discharge, ENT: Negative for injury, pain, and discharge, Neck: Negative for injury, pain, and swelling, Cardiovascular: Negative for chest pain, palpitations, and edema, Respiratory: Negative for shortness of breath, cough, wheezing, and pleuritic chest pain, Abdomen/GI: Negative for abdominal pain, nausea, vomiting, diarrhea, and constipation, Back: Negative for injury and pain, : Negative for injury, bleeding, discharge, and swelling, MS/Extremity: Negative for injury and deformity, Skin: Negative for injury, rash, and discoloration, Psych: Negative for depression, anxiety, suicide ideation, homicidal ideation, and hallucinations, Allergy/Immunology: Negative for hives, rash, and allergies, Endocrine: Negative for neck swelling, polydipsia, polyuria, polyphagia, and marked weight changes, Hematologic/Lymphatic: Negative for swollen nodes, abnormal bleeding, and unusual bruising. 13:28 Neuro: Positive for headache. Exam: 13:28 Constitutional: This is a well developed, well nourished patient who is awake, alert, rosangela and in no acute distress. Eyes: Pupils equal round and reactive to light, extra-ocular motions intact. Lids and lashes normal. Conjunctiva and sclera are non-icteric and not injected. Cornea within normal limits. Periorbital areas with no swelling, redness, or edema. ENT: Nares patent. No nasal discharge, no septal abnormalities noted. Tympanic membranes are normal and external auditory canals are clear. Oropharynx with no redness, swelling, or masses, exudates, or evidence of obstruction, uvula midline. Mucous membranes moist. Neck: Trachea midline, no thyromegaly or masses palpated, and no cervical lymphadenopathy. Supple, full range of motion without nuchal rigidity, or vertebral point tenderness. No Meningismus. Chest/axilla: Normal chest wall appearance and motion. Nontender with no deformity. No lesions are appreciated. Cardiovascular: Regular rate and rhythm with a normal S1 and S2. No gallops, murmurs, or rubs. Normal PMI, no JVD. No pulse deficits. Respiratory: Lungs have equal breath sounds bilaterally, clear to auscultation and percussion. No rales, rhonchi or wheezes noted. No increased work of breathing, no retractions or nasal flaring. Abdomen/GI: Soft, non-tender, with normal bowel sounds. No distension or tympany. No guarding or rebound. No evidence of tenderness throughout. Back: No spinal tenderness. No costovertebral tenderness. Full range of motion. Male : Normal genitalia with no discharge or lesions. Skin: Warm, dry with normal turgor. Normal color with no rashes, no lesions, and no evidence of cellulitis. MS/ Extremity: Pulses equal, no cyanosis. Neurovascular intact. Full, normal range of motion. Neuro: Awake and alert, GCS 15, oriented to person, place, time, and situation. Cranial nerves II-XII grossly intact. Motor strength 5/5 in all extremities. Sensory grossly intact. Cerebellar exam normal. Normal gait. Psych: Awake, alert, with orientation to person, place and time. Behavior, mood, and affect are within normal limits. 13:28 Head/face: Noted is tenderness, that is mild, of the top of head, left frontal area, left side of the back of head, right frontal area, right side of the back of head and right occipital area. Vital Signs: 12:20 BP 156 / 113; Pulse 98; Resp 18; Pulse Ox 100% on R/A; Pain 6/10; mb9 12:25 BP 158 / 114; Pulse 95; Resp 16; Pulse Ox 98% ; Weight 65.77 kg; Height 5 ft. 4 in. mb9 (162.56 cm); Pain 6/10; 12:25 Body Mass Index 24.89 (65.77 kg, 162.56 cm) mb9 Saida Coma Score: 12:25 Eye Response: spontaneous(4). Verbal Response: oriented(5). Motor Response: obeys aa5 commands(6). Total: 15. Trauma Score (Adult): 12:25 Eye Response: spontaneous(1); Verbal Response: oriented(1); Motor Response: obeys aa5 commands(2); Systolic BP: > 89 mm Hg(4); Respiratory Rate: 10 to 29 per min(4); Rankin Score: 15; Trauma Score: 12 MDM: 12:17 Patient medically screened. 06/18 12:19 Order name: Basic Metabolic Panel; Complete Time: 13:33 [facility] 06/18 12:19 Order name: CBC with Diff; Complete Time: 13:33 [facility] 06/18 12:19 Order name: Type And Screen [facility] 06/18 12:20 Order name: LFT's; Complete Time: 13:33 rosangela 06/18 12:23 Order name: Head C Spine Cap Wo Con; Complete Time: 13:33 [facility] 06/18 12:19 Order name: Labs collected and sent; Complete Time: 12:38 rosangela Administered Medications: 12:45 Drug: Zofran (Ondansetron) 4 mg Route: IVP; Site: right antecubital; mb9 12:45 Drug: Tylenol 650 mg Route: PO; mb9 Disposition Summary: 06/18/22 13:32 Discharge Ordered Location: Home [facility] Problem: new rosangela Symptoms: have improved rosangela Condition: Stable rosangela Diagnosis - History of falling rosangela - Fall on same level, unspecified rosangela - Unspecified injury of head, initial encounter rosangela Followup: rosangela - With: Private Physician - When: 2 - 3 days - Reason: Recheck today's complaints, Re-evaluation by your physician Discharge Instructions: - Discharge Summary Sheet rosangela - Head Injury, Adult rosangela - Fall Prevention in the Home, Adult rosangela - Fall Prevention in the Home, Adult, [id number] Forms: - Medication Reconciliation Form [facility] - Thank You Letter [facility] - Antibiotic Education [facility] - Prescription Opioid Use [facility] Prescriptions: - Tylenol 325 mg Oral Tablet - take 2 tablets by ORAL route every 6 hours as needed; 1 bottle; Refills: 0, [facility] Product Selection Permitted Signatures: Dispatcher [employer] EDKareem Fontana MD MD cha Breneman, Mary RN RN mb9 Corrections: (The following items were deleted from the chart) 13:59 12:20 Urine Dipstick-Ancillary ordered. rosangela mb8
[2022-06-18 14:18] VITALS: BP 158/114; O2SAT 98
== END 2022-06-18 13:59 | disposition home or self-care (01) ==
LOC: ER 12:13
DX: S09.90XA Unspecified injury of head, initial encounter (principal); R51.9 Headache, unspecified; W18.30XA Fall on same level, unspecified, initial encounter; Z91.81 History of falling; G20 Parkinson's disease; F02.80 Dementia in other diseases classified elsewhere, unspecified severity, without behavioral disturbance, psychotic disturbance, mood disturbance, and anxiety; I10 Essential (primary) hypertension; Z79.82 Long term (current) use of aspirin; Z79.01 Long term (current) use of anticoagulants; Z88.5 Allergy status to narcotic agent
CPT/HCPCS: 85025; 80048; 36415; 86900; 86850; 86901; 80076; 70450; 71250; 72125; 96374; 99285; J2405

== ENCOUNTER 2022-07-17 08:09 | Emergency (ER) | payer OTHER ==
--- OUTSIDE RECORDS SUMMARY | 2022-07-17 08:15 | XMS REPORT | Continuity of Care Document ---
:1960 Author Organization [facility] t Address [address] [place] [address] Dr. [address] [place] [address] Care Team Providers Name Role Phone ZANDRA COWART Primary Care Physician Unavailable SEB CELESTIN Attending Clinician Unavailable Seb Celestin MD Attending Clinician Doctor Unassigned, [place] Attending Clinician Unavailable Laith Lopez MD Attending Clinician Zandra Cowart MD Attending Clinician [phone] DICK CA Attending Clinician Unavailable Nurse, Adc Pob Immunization Attending Clinician Unavailable Dick Ca DO Attending Clinician ZANDRA COWART Attending Clinician Unavailable Pob, Adc [...] Expiration Date S ource MEDICARE PART A [id number] 1996 \T\ B 00:00:00 MEDICAID OF [place] [id number] 2013 00:00:00 Problems Condition Condition Condition Status [...] Formattin ity of 00:00: g of this [place] 00 note Medical might be Branch different from the original. 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 CAD CAD Disease Active Univers (coronary [...] ents Source Name Type Date Date Clinician ARIPIPRA DRUG Active Other-Cmnt Univ ers ZOLE INGREDI 3-12 ity of 00:00: [place] 00 Medical Branch TRAZODON DRUG Active Other-Cmnt Univ ers E INGREDI 3-12 ity of 00:00: [place] 00 Medical Branch Aripipra Propensi Active Other - See insomnia Univers zole ty to comments 3-12 ity of adverse 00:00: [place] reaction 00 Medical s Branch Trazodon Propensi Active Other - See insomnia Univers e ty to comments 3-12 ity of adverse 00:00: [place] reaction 00 Medical s Branch Social History Social Habit Start Date Stop Date Quantity Comments Source Exposure to 2022-06-18 2022-06-[address] [facility] SARS-CoV-2 00:00:00 11:21:00 [facility] (event) Branch Tobacco use and 2022-06-28 2022-06-28 Smokeless tobacco Un iversity of exposure 00:00:00 00:00:00 non-user [facility] [place] [facility] Alcohol intake 2022-06-28 2022-06-28 Current University of 00:00:00 00:00:00 non-drinker of [facility] alcohol (finding) Branch History of 2000-09-28 Cigarette Smoker Universi ty of tobacco use 00:00:00 [facility] [place] [facility] Sex Ass[birth year] At [birth year] Universit y of 00:00:00 00:00:00 [facility] [place] [facility] Smoking Status Start Date Stop Date Source Ex-smoker 2022-06-28 00:00:00 2022-06-28 00:00:00 Universi ty of [facility] [place] [facility] Medications Ordered Filled Start Stop Current Ordering Indication Dosage Frequency Signature Comments Components Source Medication Medication Date Date Medication? Clinician (SIG) Name Name suvorexant 2021-09 Yes Take by [facility] ers (BELSOMRA) 0-26 mouth. ity of 10 mg Tab 11:27: [address] suvorexant 2021-09 Yes Take by [facility] ers (BELSOMRA) 0-26 mouth. ity of 10 mg Tab 11:27: [address] suvorexant 2021-09 Yes Take by [facility] ers (BELSOMRA) 0-26 mouth. ity of 10 mg Tab 11:27: [address] metoprolol Yes [id number] 25mg Take 1 Un dayna succinate 8-11 tablet by ity o f XL 25 mg 24 00:00: [place] hr tablet 00 the Medical morning. Branch atorvastati Yes [id number] 40mg Take 1 Univers n 40 mg 8-11 tablet by ity of tablet 00:00: mouth in [place] 00 the Medical morning. Branch lisinopriL Yes [id number] 10mg Take 1 Un dayna 10 mg 8-11 tablet by ity of tablet 00:00: mouth in [place] 00 the Medical morning. Branch Lab needed for further refills. metoprolol 2021-0 Yes [id number] 25mg Take 1 Un dayna succinate 8-11 tablet by ity o f XL 25 mg 24 00:[place] 00 the Medical morning. Branch atorvastati 2021-0 Yes [id number] 40mg Take 1 Univers n 40 mg 8-11 tablet by ity of tablet 00:00: mouth in [place] 00 the Medical morning. Branch lisinopriL 2021-0 Yes [id number] 10mg Take 1 Un dayna 10 mg 8-11 tablet by ity of tablet 00:00: mouth in [place] 00 the Medical morning. Branch Lab needed for further refills. metoprolol 2021-0 Yes [id number] 25mg Take 1 Un dayna succinate 8-11 tablet by ity o f XL 25 mg 24 00:[place]: [place] 00 the Medical morning. Branch atorvastati 2021-0 Yes [id number] 40mg Take 1 Univers n 40 mg 8-11 tablet by ity of tablet 00:00: mouth in [place] 00 the Medical morning. Branch lisinopriL 2021-0 Yes [id number] 10mg Take 1 Un dayna 10 mg 8-11 tablet by ity of tablet 00:00: mouth in [place] 00 the Medical morning. Branch Lab needed for further refills. metoprolol 2-0 Yes [id number] 25mg Take 1 Un dayna succinate 8-11 tablet by ity o f XL 25 mg 24 00:00: [place] 00 the Medical morning. Branch atorvastati 2021-0 Yes [id number] 40mg Take 1 Univers n 40 mg 8-11 tablet by ity of tablet 00:00: mouth in [place] 00 the Medical morning. Branch lisinopriL 2021-0 Yes [id number] 10mg Take 1 Un dayna 10 mg 8-11 tablet by ity of tablet 00:00: mouth in [place] 00 the Medical morning. Branch Lab needed for further refills. metoprolol 2-0 Yes [id number] 25mg Take 1 Un dayna succinate 8-11 tablet by ity o f XL 25 mg 24 00:00: [place] 00 the Medical morning. Branch atorvastati Yes [id number] 40mg Take 1 Univers n 40 mg 8-11 tablet by ity of tablet 00:00: mouth in [place] 00 the Medical morning. Branch lisinopriL Yes [id number] 10mg Take 1 Un dayna 10 mg 8-11 tablet by ity of tablet 00:00: mouth in [place] 00 the Medical morning. Branch Lab needed for further refills. metoprolol Yes [id number] 25mg Take 1 Un dayna succinate 8-10 tablet by ity o f XL 25 mg 24 00:00: [place] tablet 00 the Medical morning. Branch metoprolol Yes [id number] 25mg Take 1 Un dayna succinate 8-10 tablet by ity o f XL 25 mg 24 00:00: [place] tablet 00 the Medical morning. Branch metoprolol Yes [id number] 25mg Take 1 Un dayna succinate 8-10 tablet by ity o f XL 25 mg 24 00:00: [place] 00 the Medical morning. Branch metoprolol 2021- No [id number] 25mg Take 1 U nivers succinate 8-10 10-26 tablet by ity of XL 25 mg 24 00:00: 00:00 [place] hr tablet 00 :00 the Medical morning. Branch metoprolol 2021- No [id number] 25mg Take 1 U nivers succinate 8-10 10-26 tablet by ity of XL 25 mg 24 00:00: 00:00 [place] hr tablet 00 :00 the Medical morning. Branch metoprolol 2021- No [id number] 25mg Take 1 U nivers succinate 8-10 10-26 tablet by ity of XL 25 mg 24 00:00: 00:00 [place] hr tablet 00 :00 the Medical morning. Branch lisinopriL 2021- No [id number] 10mg Take 1 U nivers 10 mg 7-28 08-11 tablet by ity of tablet 00:00: 00:00 mouth in [place] 00 :00 the Medical morning. Branch Lab needed for further refills. amitriptyli Yes [id number] 25mg Take 1 Univers ne 25 mg 7-15 tablet by ity of tablet 00:00: mouth at [place] 00 bedtime as Medical needed for Branch Insomnia. Needs appointmen t before further refills given. amitriptyli Yes [id number] 25mg Take 1 Univers ne 25 mg 7-15 tablet by ity of tablet 00:00: mouth at [place] 00 bedtime as Medical needed for Branch Insomnia. Needs appointmen t before further refills given. amitriptyli Yes [id number] 25mg Take 1 Univers ne 25 mg 7-15 tablet by ity of tablet 00:00: mouth at [place] 00 bedtime as Medical needed for Branch Insomnia. Needs appointmen t before further refills given. amitriptyli Yes [id number] 25mg Take 1 Univers ne 25 mg 7-15 tablet by ity of tablet 00:00: mouth at [place] 00 bedtime as Medical needed for Branch Insomnia. Needs appointmen t before further refills given. amitriptyli Yes [id number] 25mg Take 1 Univers ne 25 mg 7-15 tablet by ity of tablet 00:00: mouth at [place] 00 bedtime as Medical needed for Branch Insomnia. Needs appointmen t before further refills given. amitriptyli Yes [id number] 25mg Take 1 Univers ne 25 mg 7-15 tablet by ity of tablet 00:00: mouth at [place] 00 bedtime as Medical needed for Branch Insomnia. Needs appointmen t before further refills given. atorvastati 2021- No [id number] 40mg Take 1 Univers n 40 mg 5-23 08-11 tablet by ity of tablet 00:00: 00:00 mouth [place] 00 :00 daily. Medical Branch metoprolol 2021- No [id number] 25mg Take 1 U nivers succinate 5-23 08-10 tablet by ity of XL 25 [...] N ORAL 0-26 mouth. ity of 13:38: [address] [facility] 2020-09 Yes Take by Uni vers N ORAL 0-26 mouth. ity of 13:38: [address] [facility] 2020-09 Yes Take by Uni vers N ORAL 0-26 mouth. ity of 13:38: [address] MULTIVITAMI 2020-09 Yes Take by Uni vers N ORAL 0-26 mouth. ity of 13:38: [address] MULTIVITAMI 2020-09 Yes Take by Uni vers N ORAL 0-26 mouth. ity of 13:38: [address] MULTIVITAMI 2020-09 Yes Take by Uni vers N ORAL 0-26 mouth. ity of 13:38: [address] ziprasidone 2020-0 Yes at Univer s 40 mg 7-26 bedtime. ity of capsule 00:00: [facility] ziprasidone 2020-0 Yes at Univer s 40 mg 7-26 bedtime. ity of capsule 00:00: [facility] ziprasidone 2020-0 Yes at Univer s 40 mg 7-26 bedtime. ity of capsule 00:00: [facility] ziprasidone 2020-0 Yes at Univer s 40 mg 7-26 bedtime. ity of capsule 00:00: [facility] ziprasidone 2020-0 Yes at Univer s 40 mg 7-26 bedtime. ity of capsule 00:00: Medical Branch ziprasidone 2020-0 Yes at [facility] s 40 mg 7-26 bedtime. ity of capsule 00:00: Medical Branch ALPRAZolam 2020-0 Yes [id number] .5mg Take 1 U nivers (XANAX) 0.5 7-12 tablet by ity of mg tablet 00:00: mouth 2 (two) Medical times Branch daily. ALPRAZolam 2020-0 Yes [id number] .5mg Take 1 U nivers (XANAX) 0.5 7-12 tablet by ity of mg tablet 00:00: mouth 2 (two) Medical times Branch daily. ALPRAZolam 2020-0 Yes [id number] .5mg Take 1 U nivers (XANAX) 0.5 7-12 tablet by ity of mg tablet 00:00: mouth 2 (two) Medical times Branch daily. ALPRAZolam 2020-0 Yes [id number] .5mg Take 1 U nivers (XANAX) 0.5 7-12 tablet by ity of mg tablet 00:00: mouth 2 (two) Medical times Branch daily. ALPRAZolam 2020-0 Yes [id number] .5mg Take 1 U nivers (XANAX) 0.5 7-12 tablet by ity of mg tablet 00:00: mouth 2 (two) Medical times Branch daily. ALPRAZolam 2020-0 Yes [id number] .5mg Take 1 U nivers (XANAX) 0.5 7-12 tablet by ity of mg tablet 00:00: mouth (two) Medical times Branch daily. Olopatadine 0 Yes [id number] 1[drp] Place 1 Univers 0.2 % 5-23 Drop in ity of ophthalmic 00:00: each eye [place] as drops 00 daily. Medical Branch Olopatadine 0 Yes [id number] 1[drp] Place 1 Univers 0.2 % 5-23 Drop in ity of ophthalmic 00:00: each eye [place] drops 00 daily. Medical Branch Olopatadine 0 Yes [id number] 1[drp] Place 1 Univers 0.2 % 5-23 Drop in ity of ophthalmic 00:00: each eye [place] drops 00 daily. Medical Branch Olopatadine 0 Yes [id number] 1[drp] Place 1 Univers 0.2 % 5-23 Drop in ity of ophthalmic 00:00: each eye [place] drops 00 daily. Medical Branch Olopatadine 0 Yes [id number] 1[drp] Place 1 Univers 0.2 % 5-23 Drop in ity of ophthalmic 00:00: each eye [place] drops 00 daily. Medical Branch Olopatadine 0 Yes [id number] 1[drp] Place 1 Univers 0.2 % 5-23 Drop in ity of ophthalmic 00:00: each eye [place] as drops 00 daily. Medical Branch DICLOFENAC 2020-0 Yes [id number] APPLY TO Univers SODIUM 1 % 5-28 AREA(S) 2 ity of gel 00:00: (TWO) [place] 00 TIMES Medical DAILY Branch NEEDED FOR PAIN (SCALE 4-6). DICLOFENAC 2020-0 Yes [id number] APPLY TO Univers SODIUM 1 % 5-28 AREA(S) 2 ity of gel 00:00: (TWO) [place] 00 TIMES Medical DAILY Branch NEEDED FOR PAIN (SCALE 4-6). DICLOFENAC 2020-0 Yes [id number] APPLY TO Univers SODIUM 1 % 5-28 AREA(S) 2 ity of gel 00:00: (TWO) [place] 00 TIMES Medical DAILY Branch NEEDED FOR PAIN (SCALE 4-6). DICLOFENAC 2020-0 Yes [id number] APPLY TO Univers SODIUM 1 % 5-28 AREA(S) 2 ity of gel 00:00: (TWO) [place] 00 TIMES Medical DAILY Branch NEEDED FOR PAIN (SCALE 4-6). DICLOFENAC 2020-0 Yes [id number] APPLY TO Univers SODIUM 1 % 5-28 AREA(S) 2 ity of gel 00:00: (TWO) [place] 00 TIMES Medical DAILY Branch NEEDED FOR PAIN (SCALE 4-6). DICLOFENAC 2020-0 Yes [id number] APPLY TO Univers SODIUM 1 % 5-28 AREA(S) 2 ity of gel 00:00: (TWO) [place] 00 TIMES Medical DAILY Branch NEEDED FOR PAIN (SCALE 4-6). aspirin 81 2019-1 Yes [id number] 81mg Take 1 Un dayna mg EC 0-29 tablet by ity of tablet 00:00: mouth [place] 00 daily. Medical Branch cloNIDine 2018- Yes [id number] 2 times a Univers 0.1 mg 0-29 day as ity of tablet 00:00: needed for SBP > 180 Medical mmHg Branch aspirin 81 2018- Yes [id number] 81mg Take 1 Un dayna mg EC 0-29 tablet by ity of tablet 00:00: mouth [place] 00 daily. Medical Branch cloNIDine 2018- Yes [id number] 2 times a Univers 0.1 mg 0-29 day as ity of tablet 00:00: needed for SBP > 180 Medical mmHg Branch aspirin 81 2018-09 Yes [id number] 81mg Take 1 Un dayna mg EC 0-29 tablet by ity of tablet 00:00: mouth [place] 00 daily. Medical Branch cloNIDine 2018- Yes [id number] 2 times a Univers 0.1 mg 0-29 day as ity of tablet 00:00: needed for SBP > 180 Medical mmHg Branch aspirin 81 2018-09 Yes [id number] 81mg Take 1 Un dayna mg EC 0-29 tablet by ity of tablet 00:00: mouth [place] 00 daily. Medical Branch cloNIDine 2018- Yes [id number] 2 times a Univers 0.1 mg 0-29 day as ity of tablet 00:00: needed for SBP > 180 Medical mmHg Branch aspirin 81 2018- Yes [id number] 81mg Take 1 Un dayna mg EC 0-29 tablet by ity of tablet 00:00: mouth [place] 00 daily. Medical Branch cloNIDine 2018- Yes [id number] 2 times a Univers 0.1 mg 0-29 day as ity of tablet 00:00: needed for SBP > 180 Medical mmHg Branch aspirin 81 2018- Yes [id number] 81mg Take 1 Un dayna mg EC 0-29 tablet by ity of tablet 00:00: mouth [place] 00 daily. Medical Branch cloNIDine 2018- Yes [id number] 2 times a Univers 0.1 mg 0-29 day as ity of tablet 00:00: needed for 00 SBP > 180 Medical mmHg Branch divalproex 2019- Yes [id number] 1500mg Take 3 Univers 500 mg EC 7-08 tablets by ity of tablet 00:00: mouth [place] 00 daily. Medical Branch divalproex 2019- Yes [id number] 1500mg Take 3 Univers 500 mg EC 7-08 tablets by ity of tablet 00:00: mouth [place] 00 daily. Medical Branch divalproex 2019-0 Yes [id number] 1500mg Take 3 Univers 500 mg EC 7-08 tablets by ity of tablet 00:00: mouth [place] 00 daily. Medical Branch divalproex 2019-0 Yes [id number] 1500mg Take 3 Univers 500 mg EC 7-08 tablets by ity of tablet 00:00: mouth [place] 00 daily. Medical Branch divalproex 2019-0 Yes [id number] 1500mg Take 3 Univers 500 mg EC 7-08 tablets by ity of tablet 00:00: mouth [place] 00 daily. Medical Branch divalproex Yes [id number] 1500mg Take 3 Univers 500 mg EC 7-08 tablets by ity of tablet 00:00: mouth [place] 00 daily. Medical Branch Immunizations Ordered Filled Immunization Date Status Comments [facility] e Immunization Name Name Influenza Virus 2022-05-21 Completed Universit y of Vaccine Quad .5 mL 00:00:00 [place] [facility] IM 6+ MO Branch Influenza Virus 2022-05-21 Completed Universit y of Vaccine Quad .5 mL 00:00:00 [place] [facility] IM 6+ MO Branch Influenza Virus 2022-05-21 Completed Universit y of Vaccine Quad .5 mL 00:00:00 [facility] IM 6+ MO Branch SARS-COV-2 COVID-19 2021-06-28 Completed Unive rsity of MODERNA 0.25ML 00:00:00 [place] Medi muna BOOSTER VACCINE Branch SARS-COV-2 COVID-19 2021-06-28 Completed Unive rsity of MODERNA 0.25ML 00:00:00 [place] Medi muna BOOSTER VACCINE Branch SARS-COV-2 COVID-19 2021-06-28 Completed Unive rsity of MODERNA 0.25ML 00:00:00 [place] Medi muna BOOSTER VACCINE Branch SARS-COV-2 COVID-19 2021-06-28 Completed Unive rsity of MODERNA 0.25ML 00:00:00 [place] Medi muna BOOSTER VACCINE Branch SARS-COV-2 COVID-19 2021-06-28 Completed Unive rsity of MODERNA 0.25ML 00:00:00 [place] Medi muna BOOSTER VACCINE Branch SARS-COV-2 COVID-19 2021-06-28 Completed Unive rsity of MODERNA 0.25ML 00:00:00 [place] Medi mnua BOOSTER VACCINE Branch SARS-COV-2 COVID-19 2020-12-23 Completed Unive rsity of MODERNA VACCINE 00:00:00 [place] Med ical Branch SARS-COV-2 COVID-19 2020-12-23 Completed Unive rsity of MODERNA VACCINE 00:00:00 [place] Med ical Branch SARS-COV-2 COVID-19 2020-12-23 Completed Unive rsity of MODERNA 12+ YRS 00:00:00 [place] Med ical VACCINE Branch SARS-COV-2 COVID-19 2020-12-23 Completed Unive rsity of MODERNA 12+ YRS 00:00:00 [place] Med ical VACCINE Branch SARS-COV-2 COVID-19 2020-12-23 Completed Unive rsity of MODERNA 12+ YRS 00:00:00 [place] Med ical VACCINE Branch SARS-COV-2 COVID-19 2020-12-23 Completed Unive rsity of MODERNA 12+ YRS 00:00:00 [place] Med ical VACCINE Branch SARS-COV-2 COVID-19 2020-11-25 Completed Unive rsity of MODERNA VACCINE 00:00:00 [place] Med ical Branch SARS-COV-2 COVID-19 2020-11-25 Completed Unive rsity of MODERNA VACCINE 00:00:00 [place] Med ical Branch SARS-COV-2 COVID-19 2020-11-25 Completed Unive rsity of MODERNA 12+ YRS 00:00:00 [place] [facility] ical VACCINE Branch SARS-COV-2 COVID-19 2020-11-25 Completed Unive rsity of MODERNA 12+ YRS 00:00:00 [place] Med ical VACCINE Branch SARS-COV-2 COVID-19 2020-11-25 Completed Unive rsity of MODERNA 12+ YRS 00:00:00 [place] [facility] ical VACCINE Branch SARS-COV-2 COVID-19 2020-11-25 Completed Unive rsity of MODERNA 12+ YRS 00:00:00 [place] Med ical VACCINE Branch Influenza Virus 2020-04-14 Completed Universit y of Vaccine Quad IM 3+ 00:00:00 [facility] Branch Influenza Virus 2020-04-14 Completed Universit y of Vaccine Quad IM 3+ 00:00:00 [facility] Branch Influenza Virus 2020-04-14 Completed Universit y of Vaccine Quad IM 3+ [facility] Virus 2020-04-14 Completed Universit y of Vaccine Quad IM 3+ 00:00:00 [facility] Influenza Virus 2020-04-14 Completed Universit y of Vaccine Quad IM 3+ 00:00:00 [facility] Influenza Virus 2020-04-14 Completed Universit y of Vaccine Quad IM 3+ 00:00:00 [facility] Pneumococcal 2019-09-09 Completed University o f Polysaccharide, 00:00:00 [place] Med ical PPSV23 (PNEUMOVAX) Branch Pneumococcal 2019-09-09 Completed University o f Polysaccharide, 00:00:00 [place] [facility] ical PPSV23 (PNEUMOVAX) Branch Pneumococcal 2019-09-09 Completed University o f Polysaccharide, 00:00:00 [place] [facility] ical PPSV23 (PNEUMOVAX) Branch Pneumococcal 2019-09-09 Completed University o f Polysaccharide, 00:00:00 [place] [facility] ical PPSV23 (PNEUMOVAX) Branch Pneumococcal 2019-09-09 Completed University o f Polysaccharide, 00:00:00 [place] [facility] ical PPSV23 (PNEUMOVAX) Branch Pneumococcal 2019-09-09 Completed University o f Polysaccharide, 00:00:00 [place] [facility] ical PPSV23 (PNEUMOVAX) Branch Influenza Virus 2019-06-20 Completed Universit y of Vaccine Recomb Quad 00:00:00 [place] [facility] IM, Preserv and ABX Branc h Free 18-64 YRS Influenza Virus 2019-06-20 Completed Universit y of Vaccine Recomb Quad 00:00:00 [place] [facility] IM, Preserv and ABX Branc h Free 18-64 YRS Influenza Virus 2019-06-20 Completed Universit y of Vaccine Recomb Quad 00:00:00 [place] [facility] IM, Preserv and ABX Branc h Free 18-64 YRS Influenza Virus 2019-06-20 Completed Universit y of Vaccine Recomb Quad 00:00:00 [place] [facility] IM, Preserv and ABX Branc h Free 18-64 YRS Influenza Virus 2019-06-20 Completed Universit y of Vaccine Recomb Quad 00:00:00 [place] [facility] IM, Preserv and ABX Branc h Free 18-64 YRS Influenza Virus 2019-06-20 Completed Universit y of Vaccine Recomb Quad 00:00:00 [place] [facility] IM, Preserv and ABX Branc h Free 18-64 YRS Influenza Virus 2018-06-03 Completed Universit y of Vaccine 00:00:00 [facility] [place] [facility] Influenza Virus 2018-06-03 Completed Universit y of Vaccine 00:00:00 [facility] [place] [facility] Influenza Virus 2018-06-03 Completed Universit y of Vaccine 00:00:00 [facility] [place] [facility] Influenza Virus 2018-06-03 Completed Universit y of Vaccine 00:00:00 [facility] [place] [facility] Influenza Virus 2018-06-03 Completed Universit y of Vaccine 00:00:00 [facility] [place] [facility] Influenza Virus 2018-06-03 Completed Universit y of Vaccine 00:00:00 [facility] [place] [facility] TDAP 2016-11-13 Completed University of 00:00:00 [facility] [place] [facility] TDAP 2016-11-13 Completed University of 00:00:00 [facility] [place] [facility] TDAP 2016-11-13 Completed University of 00:00:00 [facility] [place] [facility] TDAP 2016-11-13 Completed University of 00:00:00 [facility] [place] [facility] TDAP 2016-11-13 Completed University of 00:00:00 [facility] [place] [facility] TDAP 2016-11-13 Completed University of 00:00:00 [facility] [place] [facility] Influenza Virus 2016-06-15 Completed Universit y of Vaccine 00:00:00 [facility] [place] [facility] Influenza Virus 2016-06-15 Completed Universit y of Vaccine 00:00:00 [facility] [place] [facility] Influenza Virus 2016-06-15 Completed Universit y of Vaccine 00:00:00 [facility] [place] [facility] Influenza Virus 2016-06-15 Completed Universit y of Vaccine 00:00:00 [facility] [place] [facility] Influenza Virus 2016-06-15 Completed Universit y of Vaccine 00:00:00 [facility] [place] [facility] Influenza Virus 2016-06-15 Completed Universit y of Vaccine 00:00:00 [facility] [place] [facility] Pneumococcal 2004-08-08 Completed University o f Polysaccharide, 00:00:00 [place] [facility] ical PPSV23 (PNEUMOVAX) Branch Pneumococcal 2004-08-08 Completed University o f Polysaccharide, 00:00:00 [place] [facility] ical PPSV23 (PNEUMOVAX) Branch Pneumococcal 2004-08-08 Completed University o f Polysaccharide, 00:00:00 [place] [facility] ical PPSV23 (PNEUMOVAX) Branch Pneumococcal 2004-08-08 Completed University o f Polysaccharide, 00:00:00 [place] [facility] ical PPSV23 (PNEUMOVAX) Branch Pneumococcal 2004-08-08 Completed University o f Polysaccharide, 00:00:00 [place] [facility] ical PPSV23 (PNEUMOVAX) Branch Pneumococcal 2004-08-08 Completed University o f Polysaccharide, 00:00:00 [facility] ical PPSV23 (PNEUMOVAX) Skipwith Vital Signs Vital Name Observation Time Observation Value Comments Source Systolic blood 2022-06-28 16:31:00 128 mm[Hg] Univer sity of pressure [facility] [place] [facility] Diastolic blood 2022-06-28 16:31:00 92 mm[Hg] Unive rsity of [facility] Heart rate 2022-06-28 16:31:00 97 /min [facility] Body temperature 2022-06-28 16:29:00 [facility] height 2022-06-28 16:29:[address] [facility] Body weight 2022-06-28 16:29:[address] [facility] BMI 2022-06-28 16:29:00 27.65 kg/m2 [facility] Oxygen saturation in 2022-06-28 16:29:00 96 /min [facility] Arterial blood by [facility] Pulse oximetry Branch Procedures Procedure Date / Time Performed Performing Clinician Sour e CONSENT/REFUSAL FOR 2022-06-28 16:22:37 Doctor Unassigned, No Un [facility] DIAGNOSIS AND Name Medical Branch TREATMENT Encounters Start End Encounter Admission Attending Care Care Encounter Source Date/Time Date/Time Type Type Clinicians Facility Department ID 2022-08-31 2022-08-31 Outpatient R SABI, [facility] [id number] Univers 11:00:00 11:00:00 SEB bullard o f [facility] 2022-08-01 2022-08-01 Outpatient R SABI, [facility] [id number] Univers 11:30:00 11:30:00 SEB bullard o f [facility] 2022-07-11 2022-07-11 Outpatient R SABI, [facility] [id number] Univers 00:00:00 00:00:00 SEB bullard o f [facility] 2022-06-28 2022-06-28 Office Sabi, [facility] [id number] Univers 11:20:00 12:00:54 Visit [place] [id number] ity of [place] [id number] [place] [id number] Ms dical NAL 9 [facility] 2022-06-28 2022-06-28 Outpatient R SABI [facility] [id number] [facility] 11:20:00 12:00:54 QIAKATHERINE ity o f [facility] 2022-06-28 2022-06-28 Orders Doctor MARTÍNEZ 1.2.840.114 [id number] Univers 00:00:00 00:00:00 Only Unassigned, DONNA 350.1.13.10 [facility] 4.2.7.2.686 David as [phone] [address] 2022-04-13 2022-04-13 Ref[facility]y [facility] 1.2.840.114 [id number] Univers 00:00:00 00:00:00 Qiafannyjun [place] 350.1.13.10 [facility] [place] [phone] Ms dical NAL [address] [place] [address] 2022-04-11 2022-04-11 Refwindy [facility] 1.2.840.114 [id number] Univers 00:00:00 00:00:00 Seb [place] 350.1.13.10 ity [facility] 4.2.[place] [phone] Ms dical NAL [address] [place] [address] 2022-03-30 2022-03-30 Karey [facility] 1.2.840.114 [id number] Univers 00:00:00 00:00:00 Seb [place] 350.1.13.10 it[place].7.2.[place] [phone] Ms dical NAL [address] [place] [address] 2022-01-23 2022-01-23 K[facility]y [facility] 1.2.840.114 [id number] Univers 00:00:00 00:00:00 Qiafannyjun [place] 350.1.13.10 [place] [phone] Me dical NAL 059 [facility] 2022-01-02 2022-01-02 Refill Sabi [facility] 1.2.840.114 [id number] Univers 00:00:00 00:00:00 Seb [place] 350.1.13.10 ity of [facility] 4.2.7.2.[place] [phone] Ms dical NAL 059 [facility] 2021-11-13 2021-11-13 Refill John, [facility] 1.2.840.114 [id number] Univers 00:00:00 00:00:00 Laith [place] 350.1.13.10 ity of [facility] 4.2.7.2.[place] [phone] Ms dical NAL 044 [facility] 2021-11-02 2021-11-02 Telephone [facility] 1.2.594.155 [id number] [id number] Univers 00:00:00 00:00:00 Seb [place] 350.1.13.10 ity [facility] 4.2.7.2.[place] [phone] Ms dical NAL 059 [facility] 2021-10-28 2021-10-28 Refill [facility] 1.2.840.114 [id number] Univers 00:00:00 00:00:00 Seb [place] 350.1.13.10 it[place] 4.[place].7.2.[place] [phone] Ms dical NAL 059 [facility] 2021-09-20 2021-09-20 Refwindy Cowart [facility] 1.2.840.114 [id number] [id number] Univers 00:00:00 00:00:00 Zandra [place] 350.1.13.10 [place] 4[place].2.[place] [phone] Ms dical NAL 231 [facility] 2021-08-22 2021-08-22 Refwindy Lopez [facility] 1.2.840.114 [id number] Univers 00:00:00 00:00:00 Laith [place] 350.1.13.10 ity of [facility] 4.2.[place].2.[place] [phone] Me dical NAL 044 [facility] 2021-06-28 2021-06-28 Outpatient R ROBY [facility] [id number] Univers 14:30:00 14:30:00 DICK itthierry [facility] 2021-06-28 2021-06-28 Imm/Inj Nurse, Adc Pob Immunization [facility] 1.2.840.114 [id number] Univers 13:55:41 13:55:55 Visit Dick Ca 350.1.13 .10 [place].2.[place] [phone] Me dical nal [address] [facility] 2021-06-28 2021-06-28 Office Sabi [facility] 1.2.840.114 [id number] Univers 13:27:56 13:52:13 Visit Seb [place] 350.1.13.10 [place].2.[place] [phone] Ms dical nal 059 [facility] 2021-06-28 2021-06-28 Outpatient R SABI [facility] [id number] Univers 13:40:00 13:40:00 SEB bullard o f [facility] 2021-06-25 2021-06-25 Orders Doctor SOLIZ 1.2.840.114 [id number] Univers 00:00:00 00:00:00 Only Unassigned, DONNA 350.1.13.10 ity of [place] [facility] 4.2.7.2.686 David as [phone] [address] 2021-03-29 2021-03-29 Outpatient R [facility] [id number] Univers 14:00:00 14:00:00 ity of [facility] 2021-03-29 2021-03-29 Telephone Sofya [facility] 1.2.840.114 [id number] Univers 00:00:00 00:00:00 Zandra [place] 350.1.13.10 [place] [phone] [facility] [address] [facility] 2021-03-28 2021-03-28 Telemedici [facility] 1.2.840.114 [id number] Univers 10:48:20 12:38:06 ne Visit Zandra Jeffy [place] 350.1.13.10 [place].2.[place] [phone] [facility] [address] [facility] 2021-03-28 2021-03-28 Outpatient [facility] [id number] Univers 11:00:00 11:00:00 ZANDRA bullard [facility] 2021-03-28 2021-03-28 Telephone [facility] 1.2.840.114 [id number] [facility] 00:00:00 00:00:00 Zandra [place] 350.1.13.10 [place] [phone] [facility] [address] [facility] 2021-03-25 2021-03-25 Sql Data Architect Syd, [facility] Main [facility] 1.2.8 40.114 [id number] Univers 09:15:41 09:30:41 Visit Zandra [place]art 350.1. 13.10 [place].2.[place] [phone] [facility] [address] [facility] 2021-03-25 2021-03-25 Outpatient R SOFYA [facility] 1034 [id number] Univers 09:15:00 09:15:00 ZANDRA ity [facility] 2021-03-25 2021-03-25 Orders Doctor MARTÍNEZ 1.2.840.114 [id number] Univers 00:00:00 00:00:00 Only Unassigned, DONNA 350.1.13.10 ity of [place] [facility] 4.2.7.2.686 David as [phone] [address] 2021-03-24 2021-03-24 Telephone Sabi [facility] 1.2.007.057 [id number] 7082 Univers 00:00:00 00:00:00 Seb [place] 350.1.13.10 [place].2.[place] [phone] Ms dical nal 0[address] [facility] 2021-03-16 2021-03-16 [facility] 1.2.840.114 [id number] Univers 00:00:00 00:00:00 Seb [place] 350.1.13.10 [place]2.[place] [phone] Ms dical nal 059 [facility] 2021-03-10 2021-03-10 [facility] 1.2.840.114 [id number] Univers 00:00:00 00:00:00 Seb [place] 350.1.13.10 [place]2.[place] [phone] Ms dicmn nal 059 [facility] 2021-03-09 2021-03-09 [facility] 1.2.840.[id number] [place] [address] 00:00:00 00:00:00 Laith [place]on 350.1.13.10 [place]2.[place] [phone] Ms dical nal 092 [facility] 2021-02-21 2021-02-21 [facility] 1.2.840.114 [id number] Univers 00:00:00 00:00:00 Zandra Fallon 350.1.13.10 [place]2.[place] [phone] Ms dical nal 044 [facility] 2021-02-11 2021-02-11 [facility] 1.2.840.114 [id number] [facility] 00:00:00 00:00:00 Zandra [place] 350.1.13.10 [place]7.2.[place] [phone] Ms dical nal 044 [facility] 2021-01-24 2021-01-24 [facility]art[facility] 1.2.840.114 [id number] Univers 00:00:00 00:00:00 Zandra A [place] 350.1.13.10 [place].2.[place] [phone] Ms dical nal [address] [facility] 2021-01-21 2021-01-21 Outpatient Jessica COWART [facility] [id number] [id number] Univers 10:00:00 10:00:00 ZANDRA ity [facility] 2021-01-21 2021-01-21 [facility] 1.2.840.114 [id number] Univers 00:00:00 00:00:00 Zandra [place] 350.1.13.10 [place]2.[place] [phone] Ms dical nal 044 [facility] 2021-01-12 2021-01-12 Outpatient LAITH LOPEZ [facility] [id number] Univers 00:00:00 00:00:00 LAITH LOPEZ [facility] 2020-12-31 2020-12-31 [facility] 1.2.840.114 [id number] Univers 00:00:00 00:00:00 Zandra Fallon 350.1.13.10 [place]2.[place] [phone] Ms dical nal 044 [facility] 2020-12-30 2020-12-30 Telephone [facility] 1.2.840.114 [id number] Univers 00:00:00 00:00:00 Laith [place] 350.1.13.10 [place]2.[place] [phone] Ms dical nal 0[address] [facility] 2020-12-21 2020-12-21 Telephone [facility] 1.2.840.114 [id number] Univers 00:00:00 00:00:00 Laith Fallon 350.1.13.10 [place]2.[place] [phone] Ms dical nal 092 [facility] 2020-12-08 2020-12-08 Refill [facility] 1.2.840.114 [id number] Univers 00:00:00 00:00:00 Seb Fallon 350.1.13.10 [place]2.[place] [phone] Ms dical nal 059 [facility] 2020-12-06 2020-12-06 Refill [facility] 1.2.840.114 [id number] Univers 00:00:00 00:00:00 Seb Fallon 350.1.13.10 [place].2.[place] [phone] Ms dical nal 059 [facility] 2020-11-26 2020-11-26 Sql Data Architect 2, [facility] 1.2.840.114 [id number] Univers 15:13:40 15:28:40 Visit Laith Lopez 350.1.13 .10 [place].2.[place] [phone] Ms dical nal 353 [facility] 2020-11-26 2020-11-26 Office oJhn [facility] 1.2.840.114 [id number] Univers 14:19:32 15:09:03 Visit Laith [place]on 350.1.13.10 [place].2.[place] [phone] Ms dical nal 0[address] [facility] 2020-11-26 2020-11-26 Outpatient LAITH CHANG [facility] [id number] Univers 14:40:00 14:40:00 LAITH LOPEZ itthierry [facility] 2020-11-25 2020-11-25 Office Sofya [facility] 1.2.840.114 [id number] Univers 09:58:19 11:00:26 Visit Zandra Fallon 350.1.13.10 [place] [phone] Ms dical nal [address] [facility] 2020-11-25 2020-11-25 Outpatient R SOFYA [facility] [id number] Univers 10:40:00 10:40:00 ZANDRA bullard [facility] 2020-11-25 2020-11-25 Orders Doctor SOLIZ 1.2.840.114 [id number] Univers 00:00:00 00:00:00 Only Unassigned, DONNA 350.1.13.10 [facility] 4.2.7.2.686 David as [phone] [address] 2020-10-14 2020-10-14 Laboratory Pc, Adc Echo Room 1 - [facility] 1 .2.840.114 [id number] Univers 12:54:28 14:22:04 Only Seb Celestin 350.1.13.10 [place] [phone] [place] [id number] [facility] 2020-10-14 2020-10-14 Outpatient R [facility] [id number] Univers 13:00:00 13:00:00 ity [facility] 2020-09-30 2020-09-30 Outpatient [facility] [id number] Univers 10:20:00 10:20:00 ZANDRA bullard [facility] 2020-09-28 2020-09-28 Office [facility] 1.2.840.114 [id number] 13:02:10 14:09:10 Visit Seb [place] 350.1.13.10 [place] 4.2.7.2.[phone] 2020-09-28 2020-09-28 Office [facility] 1.2.840.114 [id number] Univers 13:02:10 14:09:10 Visit Seb Fallon 350.1.13.10 [place] [phone] Me dic[address] 2020-09-28 2020-09-28 Outpatient [facility] [id number] Univers 14:00:00 14:00:00 SEB alfonso [facility] 2020-09-20 2020-09-20 Refwindy [facility] 1.2.840.114 [id number] Univers 00:00:00 00:00:00 Zandra Fallon 350.1.13.10 [place] [phone] [facility] [address] [facility] 2020-09-16 2020-09-16 Refill [facility] 1.2.840.114 [id number] Univers 00:00:00 00:00:00 Seb Fallon 350.1.13.10 [place] [phone] [facility] nal 9 [facility] 2020-09-08 2020-09-08 Outpatient R SABI, [facility] [id number] Univers 09:00:00 09:00:00 SEB pastorthierry alfonso [facility] 2020-09-06 2020-09-06 Refwindy [facility] 1.2.840.114 [id number] Univers 00:00:00 00:00:00 Seb Fallon 350.1.13.10 [place] [phone] [facility] [address] [facility] 2020-08-09 2020-08-09 Refwindy [facility]PRES[facility] 1.2.840.114 [id number] Univers 00:00:00 00:00:00 Laith Fallon 350.1.13.10 [place] [phone] [facility] [address] [facility] 2020-07-31 2020-07-31 Refwindy [facility] 1.2.840.114 [id number] Univers 00:00:00 00:00:00 Zandra Fallon 350.1.13.10 [place] [phone] [facility] [address] [facility] 2020-07-28 2020-07-28 Dangelo WALDEN [facility] [id number] Univers 10:15:00 10:15:00 MANUEL ity of [facility] 2020-07-05 2020-07-05 Refill [facility] 1.2.840.114 [id number] Univers 00:00:00 00:00:00 Zandra A [place] 350.1.13.10 [place] [phone] [facility] [address] [facility] 2020-06-23 2020-06-23 Refill [facility] 1.2.840.114 [id number] Univers 00:00:00 00:00:00 Qiangjun [place] 350.1.13.10 [place]2.[place] [phone] [facility] [address] [facility] 2020-06-01 2020-06-01 Telephone [facility] 1.2.840.114 [id number] Univers 00:00:00 00:00:00 Zandra A [place] 350.1.13.10 [place]2.[place] [phone] [facility] [address] [facility] 2020-05-31 2020-05-31 Telephone [facility] 1.2.972.579 [id number] [id number] Univers 00:00:00 00:00:00 Qiangjun [place] 350.1.13.10 [place].2.[place] [phone] [facility] 059 [facility] 2020-05-31 2020-05-31 Telephone [facility] 1.2.840.114 [id number] Univers 00:00:00 00:00:00 Zandra A [place] 350.1.13.10 [place]2.[place] [phone] Ms dical nal 044 [facility] 2019-12-26 2020-05-05 [facility] 1.2.840.114 [id number] [facility] 11:45:30 15:32:45 ne Visit Laith Fallon 350.1.13.10 [place]2.[place] [phone] [facility] nal 0[address] [facility] 2020-04-20 2020-04-20 Telephone [facility] 1.2.840.114 [id number] Univers 00:00:00 00:00:00 Zandrazac Fallon 350.1.13.10 ity of [place] 4.2.7.2.686 [place] [phone] Ms dicmn nal 044 [facility] 2020-03-18 2020-03-18 Telephone Sofya, 1.2.840.7 [id number] Univers 00:00:00 00:00:00 Zandra Christianson 18637.1.1 ity of 3.104.2.7 [place] .3.418470 Medica l .8 [place] 2020-02-06 2020-02-06 Sql Data Architect Zandra Cowart 1.2.840. 2 [id number] [facility] 09:14:47 09:29:47 Visit Rodo [facility] Main 00126.1.1 ity of 3.104.2.7 [place] .3.875475 Medica l .8 [place] 2020-02-06 2020-02-06 Outpatient R SOFYA [facility] 1027 [id number] Univers 09:15:00 09:15:00 ZANDRA ity of [facility] 2020-02-06 2020-02-06 Travel 1.2.840.1 1.2.797.785 [id number] Univers 00:00:00 00:00:00 44013.1.1 350.1.13.10 ity of 3.104.2.7 4[place].3.698 [place] .3.397114 084.8 Medica l .8 [place] 2020-02-05 2020-02-05 Refill Sabi, 1.2.840.3 [id number] Univers 00:00:00 00:00:00 Qiangjun 17642.1.1 ity of 3.104.2.7 [place] .3.391420 Medica l .8 Branch 2020-02-05 2020-02-05 Refill Cowart, 1.2.840.4 [id number] Univers 00:00:00 00:00:00 Zandra A 48414.1.1 ity of 3.104.2.7 [place] .3.016587 Medica l .8 Branch 2020-02-03 2020-02-03 [facility] R SOFYA, [facility] [id number] Univers 12:00:00 12:00:00 ZANDRA ity of [facility] 2020-02-02 2020-02-02 Travel 1.2.840.1 1.2.526.900 [id number] 0961 Univers 00:00:00 00:00:00 86015.1.1 350.1.13.10 ity of 3.104.2.7 4[place]7.3.698 [place] .3.950305 084.8 Medica l .8 Branch 2020-01-28 2020-01-28 Refill Cowart, 1.2.840.6 [id number] Univers 00:00:00 00:00:00 Zandra A 53902.1.1 ity of 3.104.2.7 [place] .3.141865 Medica l .8 Branch 2020-01-27 2020-01-27 Refill Sabi, 1.2.840.4 [id number] Univers 00:00:00 00:00:00 Qiangjun 18476.1.1 ity of 3.104.2.7 [place] .3.977154 Medica l .8 Branch 2020-01-21 2020-01-21 Refill John, 1.2.840.2 [id number] [id number] Univers 00:00:00 00:00:00 Laith Matt 11356.1.1 ity of 3.104.2.7 [place] .3.427838 Medica l .8 Branch 2020-01-08 2020-01-08 Telemedici Sofya, 1.2.840.4 [id number] Univers 08:19:32 15:33:20 ne Visit Zandra Christianson 64931.1.1 ity of 3.104.2.7 [place] .3.909370 Medica l .8 [place] 2020-01-08 2020-01-08 Outpatient R SOFYA, [facility] [id number] [id number] Univers 13:40:00 13:40:00 ZANDRA ity of [facility] 2020-01-07 2020-01-07 Travel 1.2.840.1 1.2.585.828 [id number] [id number] Univers 00:00:00 00:00:00 34101.1.1 350.1.13.10 ity of 3.104.2.7 4[place].3.698 [place] .3.341044 084.8 Medica l .8 [place] 2019-12-26 2019-12-26 Outpatient R LAITH LOPEZ [facility] [id number] Univers 14:40:00 14:40:00 JOHN LAITH ity [facility] 2019-12-08 2019-12-08 Telemedici [facility] 1.2.840.114 [id number] Univers 07:59:23 12:24:10 ne Visit Seb Salvador 350.1.13.10 ity of [place] 4.2.7.2.686 [place] Tracyessio [phone] Ms dical nal 0[address] [facility] 2019-12-08 2019-12-08 Outpatient R SABI, [facility] [id number] Univers 11:00:00 11:00:00 SEB bullard o [facility] 2019-11-18 2019-11-18 Outpatient R SABI, [facility] [id number] Univers 15:00:00 15:00:00 SEB bullard o naty [facility] 2019-11-17 2019-11-17 Outpatient R ASBI, [facility] [id number] Univers 13:00:00 13:00:00 SEB putnam [facility] 2019-11-12 2019-11-12 Dangelo LANDIN, [facility] [id number] Univers 08:45:00 08:45:00 ELIZABETH ity of [facility] 2019-10-13 2019-10-13 Refill Sabi, 1.2.840.4 [id number] Univers 00:00:00 00:00:00 Qiakatherine 40310.1.1 ity of 3.104.2.7 [place] .3.001321 Medica l .8 Branch 2019-09-15 2019-09-15 Refill Cowart, 1.2.840.9 [id number] Univers 00:00:00 00:00:00 Zandra Christianson 94639.1.1 ity of 3.104.2.7 [place] .3.009893 Medica l .8 Branch 2019-09-11 2019-09-11 Refill Amaya, 1.2.840.6 [id number] Univers 00:00:00 00:00:00 Cheyenne Segovia 72420.1.1 ity of 3.104.2.7 [place] .3.594543 Medica l .8 Branch 2019-09-09 2019-09-09 Office Cowart, 1.2.840.1 [id number] Univers 14:31:47 16:17:11 Visit Zandra Christianson 52664.1.1 ity of 3.104.2.7 [place] .3.149991 Medica l .8 Branch 2019-08-25 2019-08-25 Refill John, 1.2.840.6 [id number] Univers 00:00:00 00:00:00 Laith Matt 98563.1.1 ity of 3.104.2.7 [place] .3.353818 Medica l .8 Branch 2019-08-13 2019-08-13 Refill Sabi, 1.2.840.1 [id number] Univers 00:00:00 00:00:00 Qiafannyjun 98058.1.1 ity of 3.104.2.7 [place] .3.244486 Medica l .8 Branch 2019-08-11 2019-08-11 Refill Amaya, 1.2.840.3 [id number] Univers 00:00:00 00:00:00 Cheyenne Segovia 36365.1.1 ity of 3.104.2.7 [place] .3.463526 Medica l .8 Branch 2019-08-07 2019-08-07 Outpatient R LAITH LOPEZ [facility] [id number] Univers 10:32:04 23:59:00 LAITH LOPEZ ity of [facility] 2019-08-07 2019-08-07 [facility] 1.2.840.5 [id number] Univers 10:20:00 23:59:00 Encounter Laith Matt 85218.1.1 ity of 3.104.2.7 [place] .3.161064 Medica l .8 Branch 2019-08-07 2019-08-07 Telephone John, 1.2.840.6 [id number] Univers 00:00:00 00:00:00 Laith Gene 47815.1.1 ity of 3.104.2.7 [place] .3.633476 Medica l .8 Branch 2019-07-24 2019-07-24 Telephone [facility], 1.2.840.3 [id number] Univers 00:00:00 00:00:00 Shannankatherine 31988.1.1 ity of 3.104.2.7 [place] .3.584624 Medica l .8 Branch 2019-07-24 2019-07-24 Telephone John, 1.2.840.6 [id number] Univers 00:00:00 00:00:00 Laith Gene 30240.1.1 ity of 3.104.2.7 [place] .3.845559 Medica l .8 Branch 2019-07-22 2019-07-22 Telephone John, 1.2.840.2 [id number] Univers 00:00:00 00:00:00 Laith Gene 49848.1.1 ity of 3.104.2.7 [place] .3.336659 Medica l .8 Branch 2019-06-19 2019-07-21 Sql Data Architect Zandra Cowart 1.2.840. 3 [id number] Univers 08:35:09 14:39:26 Visit 1, [facility] 56541.1.1 i ty of 3.104.2.7 [place] .3.786199 Medica l .8 [place] 2019-07-21 2019-07-21 Orders Doctor 1.2.840.3 [id number] Univers 00:00:00 00:00:00 Only Unassigned, 14284.1.1 ity of [place] 3.104.2.7 [place] .3.283381 Medica l .8 [place] 2019-07-21 2019-07-21 Case Sofya, 1.2.840.0 [id number] Univers 00:00:00 00:00:00 Management Zandra Christianson 86315.1.1 ity of 3.104.2.7 [place] .3.322370 Medica l .8 [place] 2019-07-18 2019-07-18 Office John, 1.2.840.5 [id number] Univers 10:19:11 10:55:55 Visit Laith Gene 97421.1.1 ity of 3.104.2.7 [place] .3.966474 Medica l .8 [place] 2019-07-18 2019-07-18 Orders Doctor 1.2.840.7 [id number] Univers 00:00:00 00:00:00 Only Unassigned, 86068.1.1 ity of [place] 3.104.2.7 [place] .3.324979 Medica l .8 [place] 2019-07-14 2019-07-14 Emergency Cruz, 1.2.840.0 [id number] Univers 17:02:41 19:04:00 Denisse Lazo 25904.1.1 ity of 3.104.2.7 [place] .3.512251 Medica l .8 Branch 2019-07-14 2019-07-14 Orders Doctor 1.2.840.7 [id number] Univers 00:00:00 00:00:00 Only Unassigned, 48113.1.1 ity of [place] 3.104.2.7 [place] .3.157660 Medica l .8 Branch 2019-07-11 2019-07-11 Refill Sabi, 1.2.840.4 [id number] Univers 00:00:00 00:00:00 Seb 47644.1.1 ity of 3.104.2.7 [place] .3.490037 Medica l .8 [place] 2019-07-01 2019-07-06 Office Sabi, 1.2.840.3 [id number] Univers 14:14:42 16:25:37 Visit Shannankatherine 94740.1.1 ity of 3.104.2.7 [place] .3.402047 Medica l .8 [place] 2019-07-03 2019-07-03 Office Sofya, 1.2.840.9 [id number] Univers 15:12:16 17:01:37 Visit Zandra Christianson 42442.1.1 ity of 3.104.2.7 [place] .3.733430 Medica l .8 [place] 2019-07-02 2019-07-02 Telephone Sabi, 1.2.840.8 [id number] Univers 00:00:00 00:00:00 Seb 21881.1.1 ity of 3.104.2.7 [place] .3.476389 Medica l .8 [place] 2019-07-01 2019-07-01 Orders Doctor 1.2.840.4 [id number] Univers 00:00:00 00:00:00 Only Unassigned, 09624.1.1 ity of [place] 3.104.2.7 [place] .3.626645 Medica l .8 [place] 2019-06-24 2019-06-24 Telephone Sabi, 1.2.840.6 [id number] Univers 00:00:00 00:00:00 Seb 23307.1.1 ity of 3.104.2.7 [place] .3.731109 Medica l .8 [place] 2019-06-23 2019-06-23 Refill Cowart, 1.2.840.6 [id number] Univers 00:00:00 00:00:00 Zanrda Christianson 73425.1.1 ity of 3.104.2.7 [place] .3.563567 Medica l .8 Branch 2019-06-20 2019-06-20 Office Cowart, 1.2.840.9 [id number] Univers 09:09:22 11:23:59 Visit Zandra Christianson 97143.1.1 ity of 3.104.2.7 [place] .3.312297 Medica l .8 Branch 2019-06-12 2019-06-12 Refill John, 1.2.840.5 [id number] Univers 00:00:00 00:00:00 Laith Gene 96295.1.1 ity of 3.104.2.7 [place] .3.405244 Medica l .8 Branch 2019-06-11 2019-06-11 Refill John, 1.2.840.2 [id number] Univers 00:00:00 00:00:00 Laith Gene 12286.1.1 ity of 3.104.2.7 [place] .3.408661 Medica l .8 Branch 2019-05-19 2019-05-25 Office Sabi, 1.2.840.9 [id number] Univers 13:53:13 14:04:49 Visit Seb 44876.1.1 ity of 3.104.2.7 [place] .[id number] Medica l .8 Branch 2019-05-23 2019-05-23 Refill Sofya, 1.2.840.8 [id number] Univers 00:00:00 00:00:00 Zandra Christianson 82542.1.1 ity of 3.104.2.7 [place] .3.477280 Medica l .8 Branch 2019-05-19 2019-05-19 Orders Doctor 1.2.840.8 [id number] Univers 00:00:00 00:00:00 Only Unassigned, 54136.1.1 ity of [place] 3.104.2.7 [place] .3.021588 Medica l .8 Branch 2019-05-09 2019-05-09 Refill Sabi, 1.2.840.2 [id number] Univers 00:00:00 00:00:00 Qiangjun 21211.1.1 ity of 3.104.2.7 [place] .3.530335 Medica l .8 Branch 2019-05-09 2019-05-09 Telephone Sabi, 1.2.840.4 [id number] Univers 00:00:00 00:00:00 Qiangjun 42394.1.1 ity of 3.104.2.7 [place] .3.802306 Medica l .8 Branch 2019-05-08 2019-05-08 Refwindy Lopez, 1.2.840.8 [id number] Univers 00:00:00 00:00:00 Laith Gene 52355.1.1 ity of 3.104.2.7 [place] .3.903544 Medica l .8 Branch 2019-04-15 2019-04-15 Telephone [place], 1.2.840.1 [id number] Univers 00:00:00 00:00:00 Zandra A 44960.1.1 ity of 3.104.2.7 [place] .3.992348 Medica l .8 Branch 2019-04-04 2019-04-04 Telephone [place], 1.2.840.7 [id number] Univers 00:00:00 00:00:00 Zandra A 94360.1.1 ity of 3.104.2.7 [place] .3.920494 Medica l .8 Branch 2019-04-02 2019-04-02 Refwindy Lopez, 1.2.840.6 [id number] Univers 00:00:00 00:00:00 Laith Gene 56939.1.1 ity of 3.104.2.7 [place] .3.310619 Medica l .8 Branch Results This patient has no known results.
--- NOTE | 2022-07-17 09:04 | RAD REPORT ---
EXAM DESCRIPTION: CT - Head C Spine Mpr Wo Con - 07/17/2022 8:45 am CLINICAL HISTORY: Head and neck injury status post fall. Head and neck pain COMPARISON: 2018 TECHNIQUE: Computed axial tomography of the head and cervical spine was obtained. Sagittal and coronal reconstruction was performed. All CT scans are performed using dose optimization technique as appropriate and may include automated exposure control or mA/KV adjustment according to patient size. 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 An intracranial bleed is not seen. The ventricles are normal in caliber. An extra-axial fluid collect ion is not noted.Fluid within the visualized sinuses and mastoids is not seen A cervical fracture is not visualized. No dislocation is noted. IMPRESSION: No acute intracranial abnormality is seen. A cervical fracture is not visualized. If the patient continues to have symptoms to suggest intracra nial /spinal cord pathology then MRI would be recommended
[2022-07-17 09:30] LABS: Absolute Lymphocytes (CBC) 0.7 K/uL (0.7-4.9); Hematocrit 51.6 % (39.6-49.0); Lymphocytes % 7.2 % (15.3-44.8); MCV 95.1 fL (80-100); MPV 7.5 fL (7.6-11.3); RBC Red Blood Cell Count 5.43 M/uL (4.33-5.43)
[2022-07-17 09:34] LABS: Protime INR 0.95
[2022-07-17] MEDS ORDERED: NA CHLORIDE 0.9% 500 ML ONE (09:36)
[2022-07-17 09:44] LABS: Urine Blood Negative (Negative); Urine Glucose Negative (Negative); Urine Protein Negative (Negative)
[2022-07-17 09:44] LABS: Potassium 4.9 mmol/L (3.5-5.1)
--- NOTE | 2022-07-17 09:51 | RAD REPORT ---
EXAM DESCRIPTION: RAD - Pelvis - 07/17/2022 9:14 am CLINICAL HISTORY: Pelvic pain status post injury FINDINGS: No fracture or dislocation is seen. Bones are osteoporotic If the patient continues to have symptoms to suggest an occult fracture then MRI would be recommended
--- NOTE | 2022-07-17 09:51 | RAD REPORT ---
EXAM DESCRIPTION: RAD - Hip Right 2 View - 07/17/2022 9:14 am CLINICAL HISTORY: Right hip pain FINDINGS: No fracture or dislocation is seen. Bones are osteoporotic If the patient continues to have symptoms to suggest an occult fracture then MRI would be recommended
--- NOTE | 2022-07-17 09:51 | RAD REPORT ---
EXAM DESCRIPTION: Brenden Single View07/17/2022 9:14 am CLINICAL HISTORY: Chest pain COMPARISON: 2020 FINDINGS: The lungs appear clear of acute infiltrate. The heart is normal size IMPRESSION: No acute abnormalities displayed
[2022-07-17 10:01] LABS: Urine Mucus Slight /HPF (None Seen); Urine RBC <5 /HPF (None Seen)
[2022-07-17 10:23] LABS: SARS-COV-2 RT PCR NEGATIVE (NEGATIVE)
--- NOTE | 2022-07-17 10:42 | EDPHYS ---
Physician Documentation [facility] Name: Jd Rico Age: 62 yrs Sex: Male : 1960 Arrival Date: 07/17/2022 Time: 08:18 Bed 5 Private MD: ED Physician Christiano Mccormack HPI: 07/17 08:25 This 62 yrs old Male presents to ER via Unassigned with complaints of fall. rn 08:25 Details of fall: The patient fell from a supine position, out of bed. Onset: The rn symptoms/episode began/occurred this morning. Associated injuries: The patient sustained injury to the head, right hip, right ribs. Severity of symptoms: At their worst the symptoms were mild, in the emergency department the symptoms are unchanged. The patient has experienced similar episodes in the past. The patient has not recently seen a physician. Pt reports fall from bed while reaching out to put something on nightstand, thinks may have hit head on something, no LOC. No fever. + cough for a few weeks. Unable to get off floor since fall around 0230 this AM. Has multiple falls due to parkinsons. No vomiting/diarrhea. No abd pain. Reports may have hit right side of chest but doesn't feel like broke a rib. Pt does not think he broke anything. . Historical: - Allergies: 08:33 Trazodone; ss - Home Meds: 09:05 Xanax 0.5 mg Oral tab twice a day [Active]; Alprazolam Oral [Active]; Amitriptyline tw2 Oral 4 times per day [Active]; aspirin 81 mg Oral TbEC 1 tab once daily [Active]; Depakote Oral [Active]; atorvastatin Oral [Active]; divalproex 500 mg Oral Tb24 3 tabs once daily [Active]; Plavix 75 mg Oral tab 1 tab once daily [Active]; pravastatin 40 mg Oral tab 1 tab once daily [Active]; metoprolol tartrate 50 mg Oral tab 1 tab once daily [Active]; lisinopril-hydrochlorothiazide 10-12.5 mg Oral tab 1 tab once daily [Active]; - PMHx: 08:33 Angina; insomnia; Hypertension; Dementia; CVA; Myocardial infarction; Parkinsons; ss Bipolar disorder; peripheral vision loss; Seizures; - Immunization history:: Adult Immunizations. - Family history:: not pertinent. - Social history:: Smoking status: . - Hospitalizations: : No recent hospitalization is reported. ROS: 08:25 Constitutional: Negative for fever, chills, and weight loss, Eyes: Negative for injury, rn pain, redness, and discharge, ENT: + nasal congestion Neck: Negative for injury, pain, and swelling, Cardiovascular: Negative for chest pain, palpitations, and edema, Respiratory: + cough, neg for sob Abdomen/GI: Negative for abdominal pain, nausea, vomiting, diarrhea, and constipation, Back: Negative for injury and pain, MS/Extremity: Negative for injury and deformity, Skin: Negative for injury, rash, and discoloration, Neuro: Negative for numbness, tingling, and seizure. Exam: 08:25 Constitutional: This is a well developed, well nourished patient who is awake, alert, rn and in no acute distress. Head/Face: Normocephalic, atraumatic. Eyes: Pupils equal round and reactive to light, extra-ocular motions intact. Lids and lashes normal. Conjunctiva and sclera are non-icteric and not injected. Cornea within normal limits. Periorbital areas with no swelling, redness, or edema. ENT: dry MM Neck: NO midline cervical tenderness Chest/axilla: Mild right sided chest wall tenderness, no ecchymosis, no crepitus Cardiovascular: Regular rate and rhythm. No pulse deficits. Respiratory: No increased work of breathing, no retractions or nasal flaring. Abdomen/GI: Soft, non-tender Skin: Warm, dry MS/ Extremity: Pulses equal, no cyanosis. Neurovascular intact. Full, normal range of motion. Equal circumference. Neuro: Awake and alert, GCS 15, oriented to person, place, time, and situation. Cranial nerves II-XII grossly intact. Motor strength 4/5 in all extremities. Sensory grossly intact. 09:33 ECG was reviewed by the Attending Physician. rn Vital Signs: 08:36 BP 159 / 92; Pulse 90; Resp 17; Temp 98.1; Pulse Ox 95% on R/A; Weight 72.57 kg (R); tw2 Height 5 ft. 4 in. (162.56 cm); Pain 5/10; 09:31 BP 145 / 91; Pulse 92; Resp 19; Pulse Ox 99% on R/A; tw2 10:49 BP 141 / 90; Pulse 92; Resp 18; Temp 97.9; Pulse Ox 100% on R/A; ph 08:36 Body Mass Index 27.46 (72.57 kg, 162.56 cm) tw2 MDM: 08:18 Patient medically screened. rn 10:39 Differential diagnosis: closed head injury, contusion, multiple trauma, sprain, strain. rn Data reviewed: vital signs, nurses notes, lab test result(s), radiologic studies, CT scan, plain films, and as a result, I will discharge patient. Counseling: I had a detailed discussion with the patient and/or guardian regarding: the historical points, exam findings, and any diagnostic results supporting the discharge/admit diagnosis, lab results, radiology results, the need for outpatient follow up, to return to the emergency department if symptoms worsen or persist or if there are any questions or concerns that arise at home. ED course: Pt improved, no acute traumatic findings on imaging, will dc home with abx for respiratory infection and dived caution for falls and persistent weakness. . 07/17 08:20 Order name: COVID-19/FLU A+B/RSV (Document "Date of Onset" if Symptomatic); Complete rn Time: 1007/17 08:20 Order name: CBC with Diff; Complete Time: 07/17 08:20 Order name: Basic Metabolic Panel; Complete Time: 07/17 08:20 Order name: Protime (+inr); Complete Time: : 07/17 08:20 Order name: Ptt, Activated; Complete Time: : 07/17 08:20 Order name: Urine Microscopic Only; Complete Time: 10:34 rn 07/17 08:20 Order name: CT Head C Spine; Complete Time: 09:31 07/17 08:20 Order name: XRAY Chest (1 view); Complete Time: : 07/17 08:20 Order name: CK; Complete Time: : 07/17 08:20 Order name: XRAY Pelvis; Complete Time: : 07/17 08:20 Order name: XRAY Hip RIGHT 2 view; Complete Time: : 07/17 08:42 Order name: BNP; Complete Time: : 07/17 09:45 Order name: Urine Dipstick-Ancillary; Complete Time: 09:57 [facility] 07/17 08:20 Order name: IV Start; Complete Time: 09:30 rn 07/17 08:20 Order name: Urine Dipstick-Ancillary (obtain specimen); Complete Time: 09:48 rn 07/17 08:20 Order name: EKG; Complete Time: 08:21 rn 07/17 08:20 Order name: EKG - Nurse/Tech; Complete Time: 09:29 rn EC:33 Rate is 86 beats/min. Rhythm is regular. Left axis deviation noted. QRS is positive in rn lead I and negative in lead aVF. SC interval is normal. QRS interval is normal. QT interval is normal. No Q waves. T waves are Normal. No ST changes noted. Clinical impression: NSR w/ Non-specific ST/T Changes and LAD. Interpreted by me. Reviewed by me. Administered Medications: 09:40 Drug: NS 0.9% 500 ml Route: IV; Rate: bolus; Site: right antecubital; tw2 10:49 Follow up: Response: No adverse reaction; IV Status: Completed infusion; IV Intake: ph 500ml 10:49 Drug: Zithromax (azithromycin) 500 mg Route: PO; ph 11:08 Follow up: Response: No adverse reaction; Medication administered at discharge. 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 Day 2, 3, 4 , 5 take one (1) tablet once daily.; 6 tablet; Refills: 0, Product Selection Permitted Signatures: Dispatcher [employer] Christiano Guadalupe MD MD rn Olimpia, Doris, RN RN ss Eli Ding RN RN Katelyn Brandon RN RN tw2
--- NOTE | 2022-07-17 10:42 | ER ---
Nurse's Notes [facility] Name: Jd Rico Age: 62 yrs Sex: Male : 1960 Arrival Date: 07/17/2022 Time: 08:18 Bed 5 Private MD: Diagnosis: Fall on same level, unspecified;Dehydration;Muscle weakness (generalized) Presentation: 07/17 08:29 Chief complaint: EMS states: pt fell out of bed, now c/o right hip pain, also c/o chest iw congestion X 4 weeks. Coronavirus screen: At this time, the client does not indicate any symptoms associated with coronavirus-19. Ebola Screen: Patient negative for fever greater than or equal to 101.5 degrees Fahrenheit, and additional compatible Ebola Virus Disease symptoms Patient denies exposure to infectious person. Patient denies travel to an Ebola-affected area in the 21 days before illness onset. No symptoms or risks identified at this time. Onset of symptoms was July 17, 2022. 08:29 Method Of Arrival: EMS: [facility] iw 08:29 Acuity: MARIA L 3 iw 08:39 Initial Sepsis Screen: Does the patient meet any 2 criteria? No. Patient's initial tw2 sepsis screen is negative. Does the patient have a suspected source of infection? No. Patient's initial sepsis screen is negative. Risk Assessment: Do you want to hurt yourself or someone else? Patient reports no desire to harm self or others. Triage Assessment: 08:38 General: Appears in no apparent distress. obese, Behavior is calm, cooperative, tw2 appropriate for age. Pain: Complains of pain in right knee. Neuro: Level of Consciousness is awake, alert, obeys commands, Oriented to person, place, time, situation. Cardiovascular: Patient's skin is warm and dry. Respiratory: Airway is patent Respiratory effort is even, unlabored, Respiratory pattern is regular, symmetrical. GI: Musculoskeletal: Range of motion: intact in all extremities, Reports pain in right knee and right hip. Historical: - Allergies: 08:33 Trazodone; ss - Home Meds: 09:05 Xanax 0.5 mg Oral tab twice a day [Active]; Alprazolam Oral [Active]; Amitriptyline tw2 Oral 4 times per day [Active]; aspirin 81 mg Oral TbEC 1 tab once daily [Active]; Depakote Oral [Active]; atorvastatin Oral [Active]; divalproex 500 mg Oral Tb24 3 tabs once daily [Active]; Plavix 75 mg Oral tab 1 tab once daily [Active]; pravastatin 40 mg Oral tab 1 tab once daily [Active]; metoprolol tartrate 50 mg Oral tab 1 tab once daily [Active]; lisinopril-hydrochlorothiazide 10-12.5 mg Oral tab 1 tab once daily [Active]; - PMHx: 08:33 Angina; insomnia; Hypertension; Dementia; CVA; Myocardial infarction; Parkinsons; ss Bipolar disorder; peripheral vision loss; Seizures; - Immunization history:: Adult Immunizations. - Family history:: not pertinent. - Social history:: Smoking status: . - Hospitalizations: : No recent hospitalization is reported. Screenin:39 Abuse screen: Denies threats or abuse. Nutritional screening: No deficits noted. tw2 Tuberculosis screening: No symptoms or risk factors identified. Fall Risk Secondary diagnosis (15 points) impaired mobility. Assessment: 08:39 Reassessment: see triage assessment. tw2 09:36 Reassessment: Patient appears in no apparent distress at this time. No changes from tw2 previously documented assessment. Patient and/or family updated on plan of care and expected duration. Pain level reassessed. Patient is alert, oriented x 3, equal unlabored respirations, skin warm/dry/pink. Vital Signs: 08:36 BP 159 / 92; Pulse 90; Resp 17; Temp 98.1; Pulse Ox 95% on R/A; Weight 72.57 kg (R); tw2 Height 5 ft. 4 in. (162.56 cm); Pain 5/10; 09:31 BP 145 / 91; Pulse 92; Resp 19; Pulse Ox 99% on R/A; tw2 10:49 BP 141 / 90; Pulse 92; Resp 18; Temp 97.9; Pulse Ox 100% on R/A; ph 08:36 Body Mass Index 27.46 (72.57 kg, 162.56 cm) tw2 ED Course: 08:18 Patient arrived in ED. rn 08:18 Christiano Mccormack MD is Attending Physician. rn 08:30 Triage completed. iw 08:33 Arm band placed on right wrist. ss 08:36 Brandon, Katelyn, RN is Primary Nurse. tw2 08:36 Bed in low position. Call light in reach. Side rails up X2. Adult w/ patient. Pulse ox tw2 on. NIBP on. Warm blanket given. 08:47 CT Head C Spine In Process Unspecified. EDMS 09:16 XRAY Chest (1 view) In Process Unspecified. EDMS 09:16 XRAY Pelvis In Process Unspecified. EDMS 09:16 XRAY Hip RIGHT 2 view In Process Unspecified. EDMS 09:20 Inserted saline lock: 20 gauge in right antecubital area, using aseptic technique. tw2 Blood collected. 09:48 Urine Microscopic Only Sent. tw2 10:50 No provider procedures requiring assistance completed. ph 11:08 IV discontinued, intact, bleeding controlled, No redness/swelling at site. Pressure ph dressing applied. Administered Medications: 09:40 Drug: NS 0.9% 500 ml Route: IV; Rate: bolus; Site: right antecubital; tw2 10:49 Follow up: Response: No adverse reaction; IV Status: Completed infusion; IV Intake: ph 500ml 10:49 Drug: Zithromax (azithromycin) 500 mg Route: PO; ph 11:08 Follow up: Response: No adverse reaction; Medication administered at discharge. ph Medication: 08:40 VIS not applicable for this client. tw2 Intake: 10:49 IV: 500ml; Total: 500ml. ph Outcome: 10:41 Discharge ordered by . rn 11:08 Discharged to home via wheelchair, with significant other. ph 11:08 Condition: good 11:08 Discharge instructions given to patient, significant other, Instructed on discharge instructions, follow up and referral plans. medication usage, Demonstrated understanding of instructions, follow-up care, medications, Prescriptions given X 1. 11:08 Patient left the ED. ph Signatures: Dispatcher [employer] Janine Patel RN RN Christiano Mccormack MD MD rn Smirch, Shelby, RN RN ss Hall, Patricia, RN RN ph Wise, Tara, RN RN tw2
[2022-07-17] MEDS ORDERED: AZITHROMYCIN 250 MG TAB ONE (10:45)
[2022-07-17 11:51] VITALS: BP 141/90; TEMP 97.9; O2SAT 100
--- NOTE | 2022-07-18 08:24 | EKG ---
Test Date: 2022-07-17 Test Time: 09:25:28 Prosthetist: [place] MEASUREMENT RESULTS: Intervals: Rate: 86 NH: 158 QRSD: 100 QT: 308 QTc: 368 Prospect: P: 52 NH: 158 QRS: -31 T: 23 INTERPRETIVE STATEMENTS: Normal sinus rhythm Left axis deviation Left ventricular hypertrophy with repolarization abnormality Abnormal ECG Compared to ECG 11/08/2020 22:18:04 Left-axis deviation now present Early repolarization now present Sinus arrhythmia no longer present Myocardial infarct finding no longer present ST (T wave) deviation no longer present Possible ischemia no longer present Electronically Signed On 07-18-22 08:20:26 UTILITY AIRCREWMAN by Gavino Looney
== END 2022-07-17 11:08 | disposition home or self-care (01) ==
LOC: ER 08:09
DX: M62.81 Muscle weakness (generalized) (principal); E86.0 Dehydration; W18.30XA Fall on same level, unspecified, initial encounter; Z20.822 Contact with and (suspected) exposure to COVID-19; I10 Essential (primary) hypertension; G20 Parkinson's disease; F02.80 Dementia in other diseases classified elsewhere, unspecified severity, without behavioral disturbance, psychotic disturbance, mood disturbance, and anxiety; Z86.73 Personal history of transient ischemic attack (TIA), and cerebral infarction without residual deficits; Z88.5 Allergy status to narcotic agent; Z79.01 Long term (current) use of anticoagulants; Z79.82 Long term (current) use of aspirin
CPT/HCPCS: 93005; 85025; 80048; 36415; 82550; 85610; 85730; 83880; 0241U; 70450; 72125; 71045; 72170; 73502; 96360; 99284; J7040; 81003; 81015

== ENCOUNTER 2022-07-18 08:37 | Inpatient (IN) | payer OTHER ==
--- OUTSIDE RECORDS SUMMARY | 2022-07-18 08:41 | XMS REPORT | Continuity of Care Document ---
:1960 Author Organization [facility] t Address [address] [place] [address] Dr. [address]. [address] [place] [address] Care Team Providers Name Role Phone ZANDRA COWART Primary Care Physician Unavailable SEB CELESTIN Attending Clinician Unavailable Seb Celestin MD Attending Clinician Doctor Unassigned, [place] Attending Clinician Unavailable Laith Lopez MD Attending Clinician Zandra Cowart MD Attending Clinician [phone] DICK [place] Attending Clinician Unavailable Nurse, [...] Expiration Date S ource MEDICARE PART A [id number] 1996 \T\ B 00:00:00 MEDICAID OF [place] [id number] 2013 00:00:00 Problems Condition Condition Condition Status [...] different from the original. ICD10 Diagnosis Term Naturopath Utility CAD CAD Disease Active Univers (coronary [...] Source Exposure to 2022-06-18 2022-06-28 Not sure [facility] SARS-CoV-2 00:00:00 11:21:00 [facility] (event) Branch Tobacco use and 2022-06-28 2022-06-28 Smokeless tobacco Un iversity of exposure 00:00:00 00:00:00 non-user [facility] Alcohol intake 2022-06-28 2022-06-28 Current University of 00:00:00 00:00:00 non-drinker of [facility] alcohol (finding) Branch History of 2000-09-28 Cigarette Smoker Universi ty of tobacco use 00:00:00 [facility] Sex Assigned At [birth year] Universit y of 00:00:00 00:00:00 [facility] Smoking Status Start Date Stop Date Source Ex-smoker 2022-06-28 00:00:00 2022-06-28 00:00:00 Universi ty of [facility] Medications Ordered Filled Start Stop Current Ordering Indication Dosage Frequency Signature Comments Components Source Medication Medication Date Date Medication? Clinician (SIG) Name Name suvorexant 2021-09 Yes Take by [facility] ers (BELS[facility]) 0-26 mouth. ity of 10 mg Tab 11:27: [address] suvorexant 2021-09 Yes Take by [facility] ers (BELSOM[facility]) 0-26 mouth. ity of 10 mg Tab 11:27: [address] suvorexant 2021-09 Yes Take by [facility] ers (BELSOMRA) 0-26 mouth. ity of 10 mg Tab 11:27: [address] metoprolol Yes [id number] 25mg Take 1 Un dayna succinate 8-11 tablet by ity o f XL 25 mg 24 00:00: [place] hr tablet 00 the Medical morning. Branch atorvastati Yes [id number] 40mg Take 1 Univers n 40 mg 8-11 tablet by ity of tablet 00:00: mouth in [place] 00 the Medical morning. Branch lisinopriL Yes [id number] 10mg Take 1 Un dayna 10 mg 8-11 tablet by ity of tablet 00:00: mouth in [place] 00 the Medical morning. Branch Lab needed for further refills. metoprolol 2021-0 Yes [id number] 25mg Take 1 Un dayna succinate 8-11 tablet by ity o f XL 25 mg 24 00:[place] 00 the Medical morning. Branch atorvastati 2021-0 Yes [id number] 40mg Take 1 Univers n 40 mg 8-11 tablet by ity of tablet 00:00: mouth in [place] 00 the Medical morning. Branch lisinopriL 2021-0 Yes [id number] 10mg Take 1 Un dayna 10 mg 8-11 tablet by ity of tablet 00:00: mouth in [place] 00 the Medical morning. Branch Lab needed for further refills. metoprolol 2021-0 Yes [id number] 25mg Take 1 Un dayna succinate 8-11 tablet by ity o f XL 25 mg 24 00:[place]: [place] 00 the Medical morning. Branch atorvastati 2021-0 Yes [id number] 40mg Take 1 Univers n 40 mg 8-11 tablet by ity of tablet 00:00: mouth in [place] 00 the Medical morning. Branch lisinopriL 2021-0 Yes [id number] 10mg Take 1 Un dayna 10 mg 8-11 tablet by ity of tablet 00:00: mouth in [place] 00 the Medical morning. Branch Lab needed for further refills. metoprolol 2-0 Yes [id number] 25mg Take 1 Un dayna succinate 8-11 tablet by ity o f XL 25 mg 24 00:00: [place] tablet 00 the Medical morning. Branch atorvastati 2021-0 Yes [id number] 40mg Take 1 Univers n 40 mg 8-11 tablet by ity of tablet 00:00: mouth in [place] 00 the Medical morning. Branch lisinopriL 2021-0 Yes [id number] 10mg Take 1 Un dayna 10 mg 8-11 tablet by ity of tablet 00:00: mouth in [place] 00 the Medical morning. Branch Lab needed for further refills. metoprolol 2-0 Yes [id number] 25mg Take 1 Un dayna succinate 8-11 tablet by ity o f XL 25 mg 24 00:00: [place] 00 the Medical morning. Branch atorvastati Yes [id number] 40mg Take 1 Univers n 40 mg 8-11 tablet by ity of tablet 00:00: mouth in [place] 00 the Medical morning. Branch lisinopriL Yes [id number] 10mg Take 1 Un dayna 10 mg 8-11 tablet by ity of tablet 00:00: mouth in [place] 00 the Medical morning. Branch Lab needed for further refills. metoprolol Yes [id number] 25mg Take 1 Un dayna succinate 8-10 tablet by ity o f XL 25 mg 24 00:00: [place] tablet 00 the Medical morning. Branch metoprolol Yes [id number] 25mg Take 1 Un dayna succinate 8-10 tablet by ity o f XL 25 mg 24 00:00: [place] tablet 00 the Medical morning. Branch metoprolol Yes [id number] 25mg Take 1 Un dayna succinate 8-10 tablet by ity o f XL 25 mg 24 00:00: [place] 00 the Medical morning. Branch metoprolol 2021- No [id number] 25mg Take 1 U nivers succinate 8-10 10-26 tablet by ity of XL 25 mg 24 00:00: 00:00 [place] hr tablet 00 :00 the Medical morning. Branch metoprolol 2021- No [id number] 25mg Take 1 U nivers succinate 8-10 10-26 tablet by ity of XL 25 mg 24 00:00: 00:00 mouth [place] hr tablet 00 :00 the Medical morning. Branch metoprolol 2021- No [id number] 25mg Take 1 U nivers succinate 8-10 10-26 tablet by ity of XL 25 mg 24 00:00: 00:00 mouth [place] hr tablet 00 :00 the Medical morning. Branch lisinopriL 2021- No [id number] 10mg Take 1 U nivers 10 mg 7-28 08-11 tablet by ity of tablet 00:00: 00:00 mouth in [place] 00 :00 the Medical morning. Branch Lab needed for further refills. amitriptyli Yes [id number] 25mg Take 1 Univers ne 25 mg 7-15 tablet by ity of tablet 00:00: mouth at [place] 00 bedtime as Medical needed for Branch Insomnia. Needs appointmen t before further refills given. amitriptyli Yes [id number] 25mg Take 1 Univers ne 25 mg 7-15 tablet by ity of tablet 00:00: mouth at [place] 00 bedtime as Medical needed for Branch Insomnia. Needs appointmen t before further refills given. amitriptyli Yes [id number] 25mg Take 1 Univers ne 25 mg 7-15 tablet by ity of tablet 00:00: mouth at [place] 00 bedtime as Medical needed for Branch Insomnia. Needs appointmen t before further refills given. amitriptyli Yes [id number] 25mg Take 1 Univers ne 25 mg 7-15 tablet by ity of tablet 00:00: mouth at [place] 00 bedtime as Medical needed for Branch Insomnia. Needs appointmen t before further refills given. amitriptyli Yes [id number] 25mg Take 1 Univers ne 25 mg 7-15 tablet by ity of tablet 00:00: mouth at [place] 00 bedtime as Medical needed for Branch Insomnia. Needs appointmen t before further refills given. amitriptyli Yes [id number] 25mg Take 1 Univers ne 25 mg 7-15 tablet by ity of tablet 00:00: mouth at [place] 00 bedtime as Medical needed for Branch Insomnia. Needs appointmen t before further refills given. atorvastati 2021- No [id number] 40mg Take 1 Univers n 40 mg 5-23 08-11 tablet by ity of tablet 00:00: 00:00 mouth [place] 00 :00 daily. Medical Branch metoprolol 2021- No [id number] 25mg Take 1 U nivers succinate 5-23 [...] N ORAL 0-26 mouth. ity of 13:38: [address] [facility] Yes Take by Uni vers N ORAL 0-26 mouth. ity of 13:38: [address] [facility] Yes Take by Uni vers N ORAL 0-26 mouth. ity of 13:38: [address] MULTIVITAMI 2020-09 Yes Take by Uni vers N ORAL 0-26 mouth. ity of 13:38: [address] MULTIVITAMI 2020-09 Yes Take by Uni vers N ORAL 0-26 mouth. ity of 13:38: [address] MULTIVITAMI 2020-09 Yes Take by Uni vers N ORAL 0-26 mouth. ity of 13:38: [address] ziprasidone 2020-0 Yes at Univer s 40 mg 7-26 bedtime. ity of capsule 00:00: [facility] ziprasidone 2020-0 Yes at Univer s 40 mg 7-26 bedtime. ity of capsule 00:00: [facility] ziprasidone 2020-0 Yes at Univer s 40 mg 7-26 bedtime. ity of capsule 00:00: [facility] ziprasidone 2020-0 Yes at Univer s 40 mg 7-26 bedtime. ity of capsule 00:00: [facility] ziprasidone 2020-0 Yes at Univer s 40 mg 7-26 bedtime. ity of capsule 00:00: Medical Branch ziprasidone 2020-0 Yes at [facility] s 40 mg 7-26 bedtime. ity of capsule 00:00: Medical Branch ALPRAZolam 2020-0 Yes [id number] .5mg Take 1 U nivers (XANAX) 0.5 7-12 tablet by ity of mg tablet 00:00: mouth 2 (two) Medical times Branch daily. ALPRAZolam 2020-0 Yes [id number] .5mg Take 1 U nivers (XANAX) 0.5 7-12 tablet by ity of mg tablet 00:00: mouth 2 (two) Medical times Branch daily. ALPRAZolam 2020-0 Yes [id number] .5mg Take 1 U nivers (XANAX) 0.5 7-12 tablet by ity of mg tablet 00:00: mouth 2 (two) Medical times Branch daily. ALPRAZolam 2020-0 Yes [id number] .5mg Take 1 U nivers (XANAX) 0.5 7-12 tablet by ity of mg tablet 00:00: mouth 2 (two) Medical times Branch daily. ALPRAZolam 2020-0 Yes [id number] .5mg Take 1 U nivers (XANAX) 0.5 7-12 tablet by ity of mg tablet 00:00: mouth 2 (two) Medical times Branch daily. ALPRAZolam 2020-0 Yes [id number] .5mg Take 1 U nivers (XANAX) 0.5 7-12 tablet by ity of mg tablet 00:00: mouth (two) Medical times Branch daily. Olopatadine 0 Yes [id number] 1[drp] Place 1 Univers 0.2 % 5-23 Drop in ity of ophthalmic 00:00: each eye [place] as drops 00 daily. Medical Branch Olopatadine 0 Yes [id number] 1[drp] Place 1 Univers 0.2 % 5-23 Drop in ity of ophthalmic 00:00: each eye [place] as drops 00 daily. Medical Branch Olopatadine 0 Yes [id number] 1[drp] Place 1 Univers 0.2 % 5-23 Drop in ity of ophthalmic 00:00: each eye [place] drops 00 daily. Medical Branch Olopatadine 0 Yes [id number] 1[drp] Place 1 Univers 0.2 % 5-23 Drop in ity of ophthalmic 00:00: each eye [place] as drops 00 daily. Medical Branch Olopatadine 0 Yes [id number] 1[drp] Place 1 Univers 0.2 % 5-23 Drop in ity of ophthalmic 00:00: each eye [place] as drops 00 daily. Medical Branch Olopatadine 0 Yes [id number] 1[drp] Place 1 Univers 0.2 % 5-23 Drop in ity of ophthalmic 00:00: each eye [place] as drops 00 daily. Medical Branch DICLOFENAC 2020-0 Yes [id number] APPLY TO Univers SODIUM 1 % 5-28 AREA(S) 2 ity of gel 00:00: (TWO) [place] 00 TIMES Medical DAILY Branch NEEDED FOR PAIN (SCALE 4-6). DICLOFENAC 2020-0 Yes [id number] APPLY TO Univers SODIUM 1 % 5-28 AREA(S) 2 ity of gel 00:00: (TWO) [place] 00 TIMES Medical DAILY Branch NEEDED FOR PAIN (SCALE 4-6). DICLOFENAC 2020-0 Yes [id number] APPLY TO Univers SODIUM 1 % 5-28 AREA(S) 2 ity of gel 00:00: (TWO) [place] 00 TIMES Medical DAILY Branch NEEDED FOR PAIN (SCALE 4-6). DICLOFENAC 2020-0 Yes [id number] APPLY TO Univers SODIUM 1 % 5-28 AREA(S) 2 ity of gel 00:00: (TWO) [place] 00 TIMES Medical DAILY Branch NEEDED FOR PAIN (SCALE 4-6). DICLOFENAC 2020-0 Yes [id number] APPLY TO Univers SODIUM 1 % 5-28 AREA(S) 2 ity of gel 00:00: (TWO) [place] 00 TIMES Medical DAILY Branch NEEDED FOR PAIN (SCALE 4-6). DICLOFENAC 2020-0 Yes [id number] APPLY TO Univers SODIUM 1 % 5-28 AREA(S) 2 ity of gel 00:00: (TWO) [place] 00 TIMES Medical DAILY Branch NEEDED FOR PAIN (SCALE 4-6). aspirin 81 2019-1 Yes [id number] 81mg Take 1 Un dayna mg EC 0-29 tablet by ity of tablet 00:00: mouth [place] 00 daily. Medical Branch cloNIDine 2018- Yes [id number] 2 times a Univers 0.1 mg 0-29 day as ity of tablet 00:00: needed for SBP > 180 Medical mmHg Branch aspirin 81 2018- Yes [id number] 81mg Take 1 Un dayna mg EC 0-29 tablet by ity of tablet 00:00: mouth [place] 00 daily. Medical Branch cloNIDine 2018- Yes [id number] 2 times a Univers 0.1 mg 0-29 day as ity of tablet 00:00: needed for SBP > 180 Medical mmHg Branch aspirin 81 2018-09 Yes [id number] 81mg Take 1 Un dayna mg EC 0-29 tablet by ity of tablet 00:00: mouth [place] 00 daily. Medical Branch cloNIDine 2018- Yes [id number] 2 times a Univers 0.1 mg 0-29 day as ity of tablet 00:00: needed for SBP > 180 Medical mmHg Branch aspirin 81 2018-09 Yes [id number] 81mg Take 1 Un dayna mg EC 0-29 tablet by ity of tablet 00:00: mouth [place] 00 daily. Medical Branch cloNIDine 2018- Yes [id number] 2 times a Univers 0.1 mg 0-29 day as ity of tablet 00:00: needed for SBP > 180 Medical mmHg Branch aspirin 81 2018- Yes [id number] 81mg Take 1 Un dayna mg EC 0-29 tablet by ity of tablet 00:00: mouth [place] 00 daily. Medical Branch cloNIDine 2018- Yes [id number] 2 times a Univers 0.1 mg 0-29 day as ity of tablet 00:00: needed for SBP > 180 Medical mmHg Branch aspirin 81 2018- Yes [id number] 81mg Take 1 Un dayna mg EC 0-29 tablet by ity of tablet 00:00: mouth [place] 00 daily. Medical Branch cloNIDine 2018- Yes [id number] 2 times a Univers 0.1 mg 0-29 day as ity of tablet 00:00: needed for 00 SBP > 180 Medical mmHg Branch divalproex 2019- Yes [id number] 1500mg Take 3 Univers 500 mg EC 7-08 tablets by ity of tablet 00:00: mouth [place] 00 daily. Medical Branch divalproex 2019- Yes [id number] 1500mg Take 3 Univers 500 mg EC 7-08 tablets by ity of tablet 00:00: mouth [place] 00 daily. Medical Branch divalproex 2019-0 Yes [id number] 1500mg Take 3 Univers 500 mg EC 7-08 tablets by ity of tablet 00:00: mouth [place] 00 daily. Medical Branch divalproex 2019-0 Yes [id number] 1500mg Take 3 Univers 500 mg EC 7-08 tablets by ity of tablet 00:00: mouth [place] 00 daily. Medical Branch divalproex 2019-0 Yes [id number] 1500mg Take 3 Univers 500 mg EC 7-08 tablets by ity of tablet 00:00: mouth [place] 00 daily. Medical Branch divalproex Yes [id number] 1500mg Take 3 Univers 500 mg EC 7-08 tablets by ity of tablet 00:00: mouth [place] 00 daily. Medical Branch Immunizations Ordered Filled Immunization Date Status Comments [facility] e Immunization Name Name Influenza Virus 2022-05-21 Completed Universit y of Vaccine Quad .5 mL 00:00:00 [place] Medical IM 6+ MO Branch Influenza Virus 2022-05-21 Completed Universit y of Vaccine Quad .5 mL 00:00:00 [place] Medical IM 6+ MO Branch Influenza Virus 2022-05-21 Completed Universit y of Vaccine Quad .5 mL 00:00:[address] [facility] IM 6+ MO Branch SARS-COV-2 COVID-19 2021-06-28 [...] Medi muna BOOSTER VACCINE Branch SARS-COV-2 COVID-19 2020-12-23 Completed [...] y of Vaccine Quad IM 3+ 00:00:00 [facility] Branch Influenza Virus 2020-04-14 Completed Universit y of Vaccine Quad IM 3+ 00:00:00 [facility] Branch Influenza Virus 2020-04-14 Completed Universit y of Vaccine Quad IM 3+ 00:00:00 [facility] Influenza Virus 2020-04-14 Completed Universit y of Vaccine Quad IM 3+ 00:00:00 [facility] Influenza Virus 2020-04-14 Completed Universit y of Vaccine Quad IM 3+ 00:00:00 [facility] Influenza Virus 2020-04-14 Completed Universit y of Vaccine Quad IM 3+ 00:00:00 [facility] Pneumococcal 2019-09-09 Completed University o f [...] 2019-09-09 Completed University o f Polysaccharide, 00:00:00 [place] Med ical PPSV23 (PNEUMOVAX) Branch Influenza Virus 2019-06-20 Completed Universit y of Vaccine Recomb Quad 00:00:00 [place] Medical IM, Preserv and ABX Branc h Free 18-64 YRS Influenza Virus 2019-06-20 Completed Universit y of Vaccine Recomb Quad 00:00:00 [place] Medical IM, Preserv and ABX Branc h Free 18-64 YRS Influenza Virus 2019-06-20 Completed Universit y of Vaccine Recomb Quad 00:00:00 [place] Medical IM, Preserv and ABX Branc h Free 18-64 YRS Influenza Virus 2019-06-20 Completed Universit y of Vaccine Recomb Quad 00:00:00 [place] Medical IM, Preserv and ABX Branc h Free 18-64 YRS Influenza Virus 2019-06-20 Completed Universit y of Vaccine Recomb Quad 00:00:00 [place] Medical IM, Preserv and ABX Branc h Free 18-64 YRS Influenza Virus 2019-06-20 Completed Universit y of Vaccine Recomb Quad 00:00:00 [place] Medical IM, Preserv and ABX Branc h Free 18-64 YRS Influenza Virus 2018-06-03 Completed Universit y of Vaccine 00:00:00 [facility] Influenza Virus 2018-06-03 Completed Universit y of Vaccine 00:00:00 [facility] Influenza Virus 2018-06-03 Completed Universit y of Vaccine 00:00:00 [facility] Influenza Virus 2018-06-03 Completed Universit y of Vaccine 00:00:00 [facility] Influenza Virus 2018-06-03 Completed Universit y of Vaccine 00:00:00 [facility] Influenza Virus 2018-06-03 Completed Universit y of Vaccine 00:00:00 [facility] TDAP 2016-11-13 Completed University of 00:00:00 [facility] TDAP 2016-11-13 Completed University of 00:00:00 [facility] TDAP 2016-11-13 Completed University of 00:00:00 [facility] TDAP 2016-11-13 Completed University of 00:00:00 [facility] TDAP 2016-11-13 Completed University of 00:00:00 [facility] TDAP 2016-11-13 Completed University of 00:00:00 [facility] Influenza Virus 2016-06-15 Completed Universit y of Vaccine 00:00:00 [facility] Influenza Virus 2016-06-15 Completed Universit y of Vaccine 00:00:00 [facility] Influenza Virus 2016-06-15 Completed Universit y of Vaccine 00:00:00 [facility] Influenza Virus 2016-06-15 Completed Universit y of Vaccine 00:00:00 [facility] Influenza Virus 2016-06-15 Completed Universit y of Vaccine 00:00:00 [facility] Influenza Virus 2016-06-15 Completed Universit y of Vaccine 00:00:00 [facility] Pneumococcal 2004-08-08 Completed University o f Polysaccharide, [...] 2004-08-08 Completed University o f Polysaccharide, 00:00:00 [facility] ical PPSV23 (PNEUMOVAX) [place] Vital Signs Vital Name Observation Time Observation Value Comments Source Systolic blood 2022-06-28 16:31:00 128 mm[Hg] Univer sity of pressure [facility] Diastolic blood 2022-06-28 16:31:00 92 mm[Hg] Unive rsity of [facility] Heart rate 2022-06-28 16:31:00 97 /min [facility] Body temperature 2022-06-28 16:29:00 [facility].56 [place] [facility] height 2022-06-28 16:29:00 162.6 cm [facility] Body weight 2022-06-28 16:29:00 73.074 kg [facility] BMI 2022-06-28 16:29:00 27.65 kg/m2 [facility] Oxygen saturation in 2022-06-28 16:29:00 96 /min [facility] Arterial blood by [facility] Pulse oximetry Branch Procedures Procedure Date / Time Performed Performing Clinician Sour e CONSENT/REFUSAL FOR 2022-06-28 16:22:37 Doctor Unassigned, [facility] DIAGNOSIS AND Name Medical Branch TREATMENT Encounters Start End Encounter Admission Attending Care Care Encounter Source Date/Time Date/Time Type Type Clinicians Facility Department ID 2022-08-31 2022-08-31 Outpatient R SABI, [facility] [id number] Univers 11:00:00 11:00:00 SEB bullard o f [facility] 2022-08-01 2022-08-01 Outpatient R SABI, [facility] [id number] Univers 11:30:00 11:30:00 SEB bullard o f [facility] 2022-07-11 2022-07-11 Outpatient R SABI, [facility] [id number] Univers 00:00:00 00:00:00 SEB bullard o f [facility] 2022-06-28 2022-06-28 Office Sabi, [facility] 1.2.840.114 [id number] Univers 11:20:00 12:00:54 Visit Qiangjun [place] [id number] ity [place] [id number] [phone] Nh dical NAL 9 [facility] 2022-06-28 2022-06-28 Outpatient R SABI [facility] [id number] [facility] 11:20:00 12:00:54 QIAKATHERINE ity o f [facility] 2022-06-28 2022-06-28 Orders Doctor MARTÍNEZ 1.2.840.114 [id number] Univers 00:00:00 00:00:00 Only Unassigned, DONNA [id number] [facility] [id number] [place] as [phone] [address] 2022-04-13 2022-04-13 [facility] 1.2.840.114 [id number] Univers 00:00:00 00:00:00 Qiafannyjun [place] [id number] [facility] [id number] [phone] Nh dical NAL [address] [place] [address] 2022-04-11 2022-04-11 [facility]y [facility] 1.2.840.114 [id number] Univers 00:00:00 00:00:00 Seb [place] [id number] [facility] [id number] [phone] Nh dical NAL [address] [place] [address] 2022-03-30 2022-03-30 Karey [facility] 1.2.840.114 [id number] Univers 00:00:00 00:00:00 Seb [place] [id number] [place]y [id number] [phone] Nh dical NAL [address] [place] [address] 2022-01-23 2022-01-23 [facility]y [facility] 1.2.840.114 [id number] Univers 00:00:00 00:00:00 Qiafannyjun [place] [id number] [place]y of [place] [phone] Me dical NAL 059 [facility] 2022-01-02 2022-01-02 Refill Sabi [facility] 1.2.840.114 [id number] Univers 00:00:00 00:00:00 Seb [place] [id number] [facility] [id number] [phone] Nh dical NAL 059 [facility] 2021-11-13 2021-11-13 Refill John, [facility] 1.2.840.114 [id number] Univers 00:00:00 00:00:00 Laith [place] [id number] [facility] [id number] [phone] Nh dical NAL 044 [facility] 2021-11-02 2021-11-02 Telephone [facility] [id number] Univers 00:00:00 00:00:00 Seb [place] [id number] [facility] [id number] [phone] Nh dical NAL 059 [facility] 2021-10-28 2021-10-28 [facility]ill [facility] 1.2.840.114 [id number] Univers 00:00:00 00:00:00 Seb [place] [id number] ity of [place] [id number] [phone] Nh dical NAL 059 [facility] 2021-09-20 2021-09-20 Refwindy Cowart [facility] 1.2.840.114 [id number] Univers 00:00:00 00:00:00 Zandra [place] [id number] [place]y of [place] [id number] [phone] Nh dical NAL 231 [facility] 2021-08-22 2021-08-22 Refwindy Lopez [facility] 1.2.840.114 [id number] Univers 00:00:00 00:00:00 Laith [place] [id number] [facility] [id number] [phone] Me dical NAL 044 [facility] 2021-06-28 2021-06-28 Outpatient R ROBY [facility] [id number] Univers 14:30:00 14:30:00 DICK itthierry [facility] 2021-06-28 2021-06-28 Imm/Inj Nurse, Adc Pob Immunization [facility] 1.2.840.114 [id number] Univers 13:55:41 13:55:55 Visit Dick [place] 350.1.13 .10 [id number] [phone] Me dical nal 421 [facility] 2021-06-28 2021-06-28 Office Sabi [facility] 1.2.840.114 [id number] Univers 13:27:56 13:52:13 Visit Seb [place] [id number] [id number] Profess[place] [phone] Nh dical nal 059 [facility] 2021-06-28 2021-06-28 Outpatient R SABI [facility] [id number] Univers 13:40:00 13:40:00 SEB bullard o f [facility] 2021-06-25 2021-06-25 Orders Doctor SOLIZ 1.2.840.114 [id number] Univers 00:00:00 00:00:00 Only Unassigned, [place] 350.1.13.10 ity of [place] [facility] [facility] 4.2.7.2.686 Daivd as [phone] [address] 2021-03-29 2021-03-29 Outpatient R [facility] [id number] Univers 14:00:00 14:00:00 ity of [facility] 2021-03-29 2021-03-29 Telephone Sofya [facility] 1.2.840.114 [id number] Univers 00:00:00 00:00:00 Zandra Fallon 350.1.13.10 [place] [phone] [facility] 044 [facility] 2021-03-28 2021-03-28 Telemedici [facility] 1.2.840.114 [id number] Univers 10:48:20 12:38:06 ne Visit Zandra Jeffy Fallon 350.1.13.10 [place] [phone] [facility] 231 [facility] 2021-03-28 2021-03-28 [facility] [id number] Univers 11:00:00 11:00:00 ZANDRA bullard [facility] 2021-03-28 2021-03-28 Telephone [facility] 1.2.840.114 [id number] [facility] 00:00:00 00:00:00 Zandra Fallon 350.1.13.10 [place] [phone] [facility] 231 [facility] 2021-03-25 2021-03-25 Transport Conductor Syd, Rodo Lab Main [facility] 1.2.8 40.114 [id number] Univers 09:15:41 09:30:41 Visit Zandra Cowart 350.1. 13.10 [place] [phone] [facility] 353 [facility] 2021-03-25 2021-03-25 Outpatient R SOFYA [facility] [id number] Univers 09:15:00 09:15:00 ZANDRA ity [facility] 2021-03-25 2021-03-25 Orders Doctor MARTÍNEZ 1.2.840.114 [id number] Univers 00:00:00 00:00:00 Only Unassigned, DONNA 350.1.13.10 ity of [place] [facility] 4.2.7.2.686 David as [phone] [address] 2021-03-24 2021-03-24 Telephone Sabi [facility] 1.2.050.838 [id number] Univers 00:00:00 00:00:00 Seb Martinezton 350.1.13.10 [place] [phone] Nh dical nal 059 [facility] 2021-03-16 2021-03-16 Refpremier health [facility] 1.2.840.114 [id number] Univers 00:00:00 00:00:00 Seb Martinezton 350.1.13.10 [place] [phone] Nh dical nal 059 [facility] 2021-03-10 2021-03-10 [facility] 1.2.840.114 [id number] Univers 00:00:00 00:00:00 Seb Martinezton 350.1.13.10 [place] [phone] Nh dicco nal 059 [facility] 2021-03-09 2021-03-09 [facility] 1.2.840.[id number] [place] [address] 00:00:00 00:00:00 Laith Fallon 350.1.13.10 [place] [phone] Nh dical nal 092 [facility] 2021-02-21 2021-02-21 [facility] 1.2.840.114 [id number] Univers 00:00:00 00:00:00 Zandra Fallon 350.1.13.10 [place] [phone] Nh dical nal 044 [facility] 2021-02-11 2021-02-11 [facility] 1.2.840.114 [id number] [facility] 00:00:00 00:00:00 Zandra Martinezton 350.1.13.10 [place] [phone] Nh dical nal 044 [facility] 2021-01-24 2021-01-24 [facility] 1.2.840.114 [id number] Univers 00:00:00 00:00:00 Zandra A [place] 350.1.13.10 [place] [phone] Nh dical nal 231 [facility] 2021-01-21 2021-01-21 Outpatient Jessica COWART [facility] [id number] Univers 10:00:00 10:00:00 ZANDRA ity [facility] 2021-01-21 2021-01-21 [facility] 1.2.840.114 [id number] Univers 00:00:00 00:00:00 Zandra Martinezton 350.1.13.10 [place] [phone] Nh dical nal 044 [facility] 2021-01-12 2021-01-12 Outpatient LAITH LOPEZ [facility] [id number] Univers 00:00:00 00:00:00 LAITH LOPEZ [facility] 2020-12-31 2020-12-31 [facility] 1.2.840.114 [id number] Univers 00:00:00 00:00:00 Zandra Fallon 350.1.13.10 [place] [phone] Nh dical nal 044 [facility] 2020-12-30 2020-12-30 Telephone [facility] 1.2.840.114 [id number] Univers 00:00:00 00:00:00 Laith Fallon 350.1.13.10 [place] [phone] Nh dical nal 092 [facility] 2020-12-21 2020-12-21 Telephone [facility] 1.2.840.114 [id number] Univers 00:00:00 00:00:00 Laith Fallon 350.1.13.10 [place] [phone] Nh dical nal 092 [facility] 2020-12-08 2020-12-08 Refill [facility] 1.2.840.114 [id number] Univers 00:00:00 00:00:00 Seb Fallon 350.1.13.10 [place] [phone] Nh dical nal 059 [facility] 2020-12-06 2020-12-06 Refill [facility] 1.2.840.114 [id number] Univers 00:00:00 00:00:00 Seb Fallon 350.1.13.10 [place] [phone] Nh dical nal 059 [facility] 2020-11-26 2020-11-26 Transport Conductor 2, [facility] 1.2.840.114 [id number] Univers 15:13:40 15:28:40 Visit Laith Lopez 350.1.13 .10 [place] [phone] Nh dical nal 353 [facility] 2020-11-26 2020-11-26 Office John [facility] 1.2.840.114 [id number] Univers 14:19:32 15:09:03 Visit Laith Fallon 350.1.13.10 [place] [phone] Nh dical nal 092 [facility] 2020-11-26 2020-11-26 Outpatient LAITH CHANG [facility] [id number] Univers 14:40:00 14:40:00 LAITH LOPEZ itthierry [facility] 2020-11-25 2020-11-25 Office Sofya [facility] 1.2.840.114 [id number] Univers 09:58:19 11:00:26 Visit Zandra Fallon 350.1.13.10 [place] [phone] Nh dical nal 231 [facility] 2020-11-25 2020-11-25 Outpatient R SOFYA [facility] [id number] Univers 10:40:00 10:40:00 ZANDRA bullard [facility] 2020-11-25 2020-11-25 Orders Doctor SOLIZ 1.2.840.114 [id number] Univers 00:00:00 00:00:00 Only Unassigned, DONNA 350.1.13.10 [facility] 4.2.7.2.686 David as [phone] [address] 2020-10-14 2020-10-14 Laboratory Pc, Adc Echo Room 1 - [facility] 1 .2.840.114 [id number] Univers 12:54:28 14:22:04 Only Seb Celestin 350.1.13.10 [place] [phone] [place] 6[address] [facility] 2020-10-14 2020-10-14 Outpatient R [facility] [id number] Univers 13:00:00 13:00:00 ity [facility] 2020-09-30 2020-09-30 [facility] [id number] Univers 10:20:00 10:20:00 ZANDRA bullard [facility] 2020-09-28 2020-09-28 Office [facility] 1.2.840.114 [id number] 13:02:10 14:09:10 Visit Seb Fallon 350.1.13.10 [place] 4.2.7.2.686 Professio [phone] [address] 2020-09-28 2020-09-28 Office [facility] 1.2.840.114 [id number] Univers 13:02:10 14:09:10 Visit Seb Fallon 350.1.13.10 [place] [phone] Me dic[address] 2020-09-28 2020-09-28 [facility] [id number] Univers 14:00:00 14:00:00 SEB alfonso [facility] 2020-09-20 2020-09-20 Refwindy [facility] 1.2.840.114 [id number] Univers 00:00:00 00:00:00 Zandra Fallon 350.1.13.10 [place] [phone] [facility] 231 [facility] 2020-09-16 2020-09-16 Refill [facility] 1.2.840.114 [id number] Univers 00:00:00 00:00:00 Seb Fallon 350.1.13.10 [place] [phone] [facility] nal 9 [facility] 2020-09-08 2020-09-08 Outpatient R SABI, [facility] [id number] Univers 09:00:00 09:00:00 SEB pastorthierry alfonso [facility] 2020-09-06 2020-09-06 Refwindy [facility] 1.2.840.114 [id number] Univers 00:00:00 00:00:00 Seb Fallon 350.1.13.10 [place] [phone] [facility] 059 [facility] 2020-08-09 2020-08-09 Refwindy [facility] 1.2.840.114 [id number] Univers 00:00:00 00:00:00 Laith Fallon 350.1.13.10 [place] [phone] [facility] 092 [facility] 2020-07-31 2020-07-31 Refwindy [facility] 1.2.840.114 [id number] Univers 00:00:00 00:00:00 Zandra Fallon 350.1.13.10 [place] [phone] [facility] 231 [facility] 2020-07-28 2020-07-28 Dangelo WALDEN [facility] [id number] Univers 10:15:00 10:15:00 MANUEL ity of [facility] 2020-07-05 2020-07-05 Refill [facility] 1.2.840.114 [id number] Univers 00:00:00 00:00:00 Zandra A [place] 350.1.13.10 it[place] [phone] [facility] 231 [facility] 2020-06-23 2020-06-23 Refill [facility] 1.2.840.114 [id number] Univers 00:00:00 00:00:00 Qiangjun [place] 350.1.13.10 [place] [phone] [facility] 059 [facility] 2020-06-01 2020-06-01 Telephone [facility] 1.2.840.114 [id number] Univers 00:00:00 00:00:00 Zandra A [place] 350.1.13.10 [place] [phone] [facility] 044 [facility] 2020-05-31 2020-05-31 Telephone [facility] 1.2.432.491 [id number] Univers 00:00:00 00:00:00 Qiangjun [place] 350.1.13.10 it[place] of [place] [phone] [facility] 059 [facility] 2020-05-31 2020-05-31 Telephone [facility] 1.2.840.114 [id number] Univers 00:00:00 00:00:00 Zandra A [place] 350.1.13.10 [place] [phone] Nh dical nal 044 [facility] 2019-12-26 2020-05-05 [facility] 1.2.840.114 [id number] [facility] 11:45:30 15:32:45 ne Visit Laith Fallon 350.1.13.10 [place] [phone] [facility] nal 092 [facility] 2020-04-20 2020-04-20 Telephone [facility] 1.2.840.114 [id number] Univers 00:00:00 00:00:00 Zandrazac Fallon 350.1.13.10 it[place] of [place].2.7.2.686 [place] [phone] Nh dicco nal 044 [facility] 2020-03-18 2020-03-18 Telephone Sofya, 1.2.840.0 [id number] Univers 00:00:00 00:00:00 Zandra Christianson 06309.1.1 ity of 3.104.2.7 [place] .3.664426 Medica l .8 [place] 2020-02-06 2020-02-06 Transport Conductor Zandra Cowart 1.2.840. 3 [id number] [facility] 09:14:47 09:29:47 Visit Rodo Velarde Lab Main 09526.1.1 ity of 3.104.2.7 [place] .3.212519 Medica l .8 [place] 2020-02-06 2020-02-06 Outpatient R SOFYA [facility] [id number] Univers 09:15:00 09:15:00 ZANDRA ity of [facility] 2020-02-06 2020-02-06 Travel 1.2.840.1 1.2.501.799 [id number] Univers 00:00:00 00:00:00 59582.1.1 350.1.13.10 ity of 3.104.2.7 4[place].3.698 [place] .3.[place] 084.8 Medica l .8 [place] 2020-02-05 2020-02-05 Refill Sabi, 1.2.840.6 [id number] Univers 00:00:00 00:00:00 Qiangjun 52039.1.1 ity of 3.104.2.7 [place] .3.069638 Medica l .8 Branch 2020-02-05 2020-02-05 Refill Cowart, 1.2.840.6 [id number] Univers 00:00:00 00:00:00 Zandra A 98430.1.1 ity of 3.104.2.7 [place] .3.013197 Medica l .8 Branch 2020-02-03 2020-02-03 [facility] R SOFYA, [facility] [id number] Univers 12:00:00 12:00:00 ZANDRA ity of [facility] 2020-02-02 2020-02-02 Travel 1.2.840.1 1.2.958.930 [id number] Univers 00:00:00 00:00:00 30515.1.1 350.1.13.10 ity of 3.104.2.7 4[place].7.3.698 [place] .3.046736 084.8 Medica l .8 Branch 2020-01-28 2020-01-28 Refill Cowart, 1.2.840.7 [id number] Univers 00:00:00 00:00:00 Zandra A 23434.1.1 ity of 3.104.2.7 [place] .3.528128 Medica l .8 [facility] 2020-01-27 2020-01-27 Refill Sabi, 1.2.840.6 [id number] Univers 00:00:00 00:00:00 Qiangjun 60697.1.1 ity of 3.104.2.7 [place] .3.705706 Medica l .8 Branch 2020-01-21 2020-01-21 Refill John, 1.2.840.5 [id number] [id number] Univers 00:00:00 00:00:00 Laith Matt 08953.1.1 ity of 3.104.2.7 [place] .3.559633 Medica l .8 Branch 2020-01-08 2020-01-08 Telemedici Sofya, 1.2.840.6 [id number] Univers 08:19:32 15:33:20 ne Visit Zandra Christianson 77341.1.1 ity of 3.104.2.7 [place] .3.173500 Medica l .8 [place] 2020-01-08 2020-01-08 Outpatient R SOFYA, [facility] [id number] Univers 13:40:00 13:40:00 ZANDRA ity of [facility] 2020-01-07 2020-01-07 Travel 1.2.840.1 1.2.785.268 [id number] Univers 00:00:00 00:00:00 12454.1.1 350.1.13.10 ity of 3.104.2.7 4[place].7.3.698 [place] .3.192556 084.8 Medica l .8 [place] 2019-12-26 2019-12-26 Outpatient R LAITH LOPEZ [facility] [id number] Univers 14:40:00 14:40:00 JOHN LAITH ity [facility] 2019-12-08 2019-12-08 Telemedici [facility] 1.2.840.114 [id number] Univers 07:59:23 12:24:10 ne Visit Seb Salvador 350.1.13.10 ity of [place] 4.2.7.2.686 [place] Tracy[place] [phone] Nh dical nal 059 [facility] 2019-12-08 2019-12-08 Outpatient R SABI, [facility] [id number] Univers 11:00:00 11:00:00 SEB bullard o [facility] 2019-11-18 2019-11-18 Outpatient R SABI, [facility] [id number] Univers 15:00:00 15:00:00 SEB bullard o naty [facility] 2019-11-17 2019-11-17 Outpatient R SABI, [facility] [id number] Univers 13:00:00 13:00:00 SEB putnam [facility] 2019-11-12 2019-11-12 Dangelo LANDIN, [facility] [id number] Univers 08:45:00 08:45:00 ELIZABETH ity of [facility] 2019-10-13 2019-10-13 Refill Sabi, 1.2.840.8 [id number] Univers 00:00:00 00:00:00 Qiakatherine 84637.1.1 ity of 3.104.2.7 [place] .3.491006 Medica l .8 Branch 2019-09-15 2019-09-15 Refill Cowart, 1.2.840.4 [id number] Univers 00:00:00 00:00:00 Zandra Christianson 29285.1.1 ity of 3.104.2.7 [place] .3.024839 Medica l .8 Branch 2019-09-11 2019-09-11 Refill Amaya, 1.2.840.0 [id number] Univers 00:00:00 00:00:00 Cheyenne Segovia 30586.1.1 ity of 3.104.2.7 [place] .3.356628 Medica l .8 Branch 2019-09-09 2019-09-09 Office Cowart, 1.2.840.9 [id number] Univers 14:31:47 16:17:11 Visit Zandra Christianson 35887.1.1 ity of 3.104.2.7 [place] .3.270252 Medica l .8 Branch 2019-08-25 2019-08-25 Refill John, 1.2.840.9 [id number] Univers 00:00:00 00:00:00 Laith Matt 47469.1.1 ity of 3.104.2.7 [place] .3.189231 Medica l .8 Branch 2019-08-13 2019-08-13 Refill Sabi, 1.2.840.1 [id number] Univers 00:00:00 00:00:00 Qiafannyjun 03703.1.1 ity of 3.104.2.7 [place] .3.825869 Medica l .8 Branch 2019-08-11 2019-08-11 Refill Amaya, 1.2.840.2 [id number] Univers 00:00:00 00:00:00 Cheyenne Segovia 25084.1.1 ity of 3.104.2.7 [place] .3.111889 Medica l .8 Branch 2019-08-07 2019-08-07 Outpatient R LAITH LOPEZ [facility] [id number] Univers 10:32:04 23:59:00 LAITH LOPEZ ity of [facility] 2019-08-07 2019-08-07 [facility] 1.2.840.6 [id number] Univers 10:20:00 23:59:00 Encounter Latih Matt 93836.1.1 ity of 3.104.2.7 [place] .3.676258 Medica l .8 Branch 2019-08-07 2019-08-07 Telephone John, 1.2.840.7 [id number] Univers 00:00:00 00:00:00 Laith Gene 38170.1.1 ity of 3.104.2.7 [place] .3.607515 Medica l .8 Branch 2019-07-24 2019-07-24 Telephone [facility], 1.2.840.9 [id number] Univers 00:00:00 00:00:00 Shannankatherine 57362.1.1 ity of 3.104.2.7 [place] .3.487506 Medica l .8 Branch 2019-07-24 2019-07-24 Telephone John, 1.2.840.9 [id number] Univers 00:00:00 00:00:00 Laith Gene 23769.1.1 ity of 3.104.2.7 [place] .3.328957 Medica l .8 Branch 2019-07-22 2019-07-22 Telephone John, 1.2.840.6 [id number] Univers 00:00:00 00:00:00 Laith Gene 52866.1.1 ity of 3.104.2.7 [place] .3.071654 Medica l .8 Branch 2019-06-19 2019-07-21 Transport Conductor Zandra Cowart 1.2.840. 6 [id number] Univers 08:35:09 14:39:26 Visit 1, [facility] 11426.1.1 i ty of 3.104.2.7 [place] .3.297079 Medica l .8 [place] 2019-07-21 2019-07-21 Orders Doctor 1.2.840.8 [id number] Univers 00:00:00 00:00:00 Only Unassigned, 21160.1.1 ity of [place] 3.104.2.7 [place] .3.838761 Medica l .8 [place] 2019-07-21 2019-07-21 Case Sofya, 1.2.840.2 [id number] Univers 00:00:00 00:00:00 Management Zandra Christianson 82100.1.1 ity of 3.104.2.7 [place] .3.312636 Medica l .8 [place] 2019-07-18 2019-07-18 Office John, 1.2.840.2 [id number] Univers 10:19:11 10:55:55 Visit Laith Gene 11021.1.1 ity of 3.104.2.7 [place] .3.338919 Medica l .8 [place] 2019-07-18 2019-07-18 Orders Doctor 1.2.840.7 [id number] Univers 00:00:00 00:00:00 Only Unassigned, 38807.1.1 ity of [place] 3.104.2.7 [place] .3.060203 Medica l .8 [place] 2019-07-14 2019-07-14 Emergency Cruz, 1.2.840.2 [id number] [id number] Univers 17:02:41 19:04:00 Denisse Lazo 50656.1.1 ity of 3.104.2.7 [place] .3.611152 Medica l .8 Branch 2019-07-14 2019-07-14 Orders Doctor 1.2.840.2 [id number] Univers 00:00:00 00:00:00 Only Unassigned, 98803.1.1 ity of [place] 3.104.2.7 [place] .3.326111 Medica l .8 Branch 2019-07-11 2019-07-11 Refill Sabi, 1.2.840.1 [id number] Univers 00:00:00 00:00:00 Seb 08782.1.1 ity of 3.104.2.7 [place] .3.938421 Medica l .8 [place] 2019-07-01 2019-07-06 Office Sabi, 1.2.840.7 [id number] Univers 14:14:42 16:25:37 Visit Shannankatherine 57677.1.1 ity of 3.104.2.7 [place] .3.082798 Medica l .8 [place] 2019-07-03 2019-07-03 Office Sofya, 1.2.840.9 [id number] Univers 15:12:16 17:01:37 Visit Zandra Christianson 48999.1.1 ity of 3.104.2.7 [place] .3.931731 Medica l .8 [place] 2019-07-02 2019-07-02 Telephone Sabi, 1.2.840.0 [id number] [id number] Univers 00:00:00 00:00:00 Seb 86580.1.1 ity of 3.104.2.7 [place] .3.111429 Medica l .8 [place] 2019-07-01 2019-07-01 Orders Doctor 1.2.840.6 [id number] Univers 00:00:00 00:00:00 Only Unassigned, 40515.1.1 ity of [place] 3.104.2.7 [place] .3.697122 Medica l .8 [place] 2019-06-24 2019-06-24 Telephone Sabi, 1.2.840.3 [id number] [id number] Univers 00:00:00 00:00:00 Seb 22244.1.1 ity of 3.104.2.7 [place] .3.844866 Medica l .8 [place] 2019-06-23 2019-06-23 Refill Cowart, 1.2.840.0 [id number] Univers 00:00:00 00:00:00 Zandra Christianson 13228.1.1 ity of 3.104.2.7 [place] .3.308531 Medica l .8 Branch 2019-06-20 2019-06-20 Office Cowart, 1.2.840.6 [id number] Univers 09:09:22 11:23:59 Visit Zandra Christianson 44886.1.1 ity of 3.104.2.7 [place] .3.269830 Medica l .8 Branch 2019-06-12 2019-06-12 Refill John, 1.2.840.3 [id number] Univers 00:00:00 00:00:00 Laith Gene 15939.1.1 ity of 3.104.2.7 [place] .3.856049 Medica l .8 Branch 2019-06-11 2019-06-11 Refill John, 1.2.840.4 [id number] Univers 00:00:00 00:00:00 Laith Gene 65910.1.1 ity of 3.104.2.7 [place] .3.216684 Medica l .8 Branch 2019-05-19 2019-05-25 Office Sabi, 1.2.840.2 [id number] Univers 13:53:13 14:04:49 Visit Seb 56011.1.1 ity of 3.104.2.7 [place] .3.528267 Medica l .8 Branch 2019-05-23 2019-05-23 Refill Sofya, 1.2.840.3 [id number] [facility] 00:00:00 00:00:00 Zandra Christianson 31705.1.1 ity of 3.104.2.7 [place] .3.110832 Medica l .8 Branch 2019-05-19 2019-05-19 Orders Doctor 1.2.840.6 [id number] [facility] 00:00:00 00:00:00 Only Unassigned, 98963.1.1 ity of [place] 3.104.2.7 [place] .3.727234 Medica l .8 Branch 2019-05-09 2019-05-09 Refill Sabi, 1.2.840.5 [id number] Univers 00:00:00 00:00:00 Qiangjun 01673.1.1 ity of 3.104.2.7 [place] .3.349552 Medica l .8 Branch 2019-05-09 2019-05-09 Telephone Sabi, 1.2.840.0 [id number] [facility] 00:00:00 00:00:00 Qiangjun 84355.1.1 ity of 3.104.2.7 [place] .3.428138 Medica l .8 Branch 2019-05-08 2019-05-08 Refwindy Lopez, 1.2.840.7 [id number] [facility] 00:00:00 00:00:00 Laith Gene 81945.1.1 ity of 3.104.2.7 [place] .3.797559 Medica l .8 Branch 2019-04-15 2019-04-15 Telephone [place], 1.2.840.1 [id number] [facility] 00:00:00 00:00:00 Zandra A 19941.1.1 ity of 3.104.2.7 [place] .3.247705 Medica l .8 Branch 2019-04-04 2019-04-04 Telephone [place], 1.2.840.8 [id number] [facility] 00:00:00 00:00:00 Zandra A 09751.1.1 ity of 3.104.2.7 [place] .3.366166 Medica l .8 Branch 2019-04-02 2019-04-02 Refwindy Lopez, 1.2.840.0 [id number] [facility] 00:00:00 00:00:00 Laith Gene 92496.1.1 ity of 3.104.2.7 [place] .3.153151 Medica l .8 Branch Results This patient has no known results.
[2022-07-18] MEDS ORDERED: NA CHLORIDE 0.9% 500 ML ONE (09:05)
--- NOTE | 2022-07-18 09:21 | ER ---
Nurse's Notes [facility] Name: Jd Rico Age: 62 yrs Sex: Male : 1960 Arrival Date: 07/18/2022 Time: 08:38 Bed 18 Private MD: Diagnosis: Muscle weakness (generalized);Altered mental status, unspecified;Dehydration Presentation: 07/18 08:40 Chief complaint: EMS states: "pt was seen here yesterday for having weakness and jd3 bronchitis. he was discharged. his reported that he has gotten weaker since yesterday and more lethargic. it was also reported that he had another fall, but nether his or the pt reports any injury related to the fall.". Coronavirus screen: At this time, the client does not indicate any symptoms associated with coronavirus-19. Ebola Screen: No symptoms or risks identified at this time. Initial Sepsis Screen: Does the patient meet any 2 criteria? No. Patient's initial sepsis screen is negative. Does the patient have a suspected source of infection? No. Patient's initial sepsis screen is negative. Risk Assessment: Do you want to hurt yourself or someone else? Patient reports no desire to harm self or others. Onset of symptoms was July 18, 2022. 08:40 Method Of Arrival: EMS: [facility] jd3 08:40 Acuity: MARIA L 3 jd3 Historical: - Allergies: 08:43 Trazodone; jd3 - Home Meds: 08:43 Alprazolam Oral [Active]; Amitriptyline Oral 4 times per day [Active]; aspirin 81 mg jd3 Oral TbEC 1 tab once daily [Active]; atorvastatin Oral [Active]; Depakote Oral [Active]; divalproex 500 mg Oral Tb24 3 tabs once daily [Active]; lisinopril-hydrochlorothiazide 10-12.5 mg Oral tab 1 tab once daily [Active]; metoprolol tartrate 50 mg Oral tab 1 tab once daily [Active]; Plavix 75 mg Oral tab 1 tab once daily [Active]; pravastatin 40 mg Oral tab 1 tab once daily [Active]; Xanax 0.5 mg Oral tab twice a day [Active]; - PMHx: 08:43 insomnia; Parkinsons; Myocardial infarction; Hypertension; Dementia; CVA; Bipolar jd3 disorder; Angina; peripheral vision loss; Seizures; - Immunization history:: Adult Immunizations up to date, Client reports receiving the 2nd dose of the Covid vaccine, Flu vaccine is up to date. - Social history:: Smoking status: Patient denies any tobacco usage or history of. - Family history:: not pertinent. - Hospitalizations: : No recent hospitalization is reported. Screenin:48 Abuse screen: Denies threats or abuse. Nutritional screening: No deficits noted. jd3 Tuberculosis screening: No symptoms or risk factors identified. Fall Risk Secondary diagnosis (15 points) impaired mobility, Ambulatory Aid- None/Bed Rest/Nurse Assist (0 pts). Gait- Weak (10 pts.). Mental Status- Oriented to own ability (0 pts). Total Stephen Fall Scale indicates Low Risk Score (25-44 pts). Fall prevention measures have been instituted. Side Rails Up X 2 Placed close to Nursing Station Frequent Obs/Assesments occuring As available Patient and Family Educated on Fall Prevention Program and strategies. Assessment: 08:45 General: Appears comfortable, Behavior is calm, cooperative, appropriate for age, jd3 drowsy. Pain: Denies pain. Neuro: Dillard Agitation-Sedation Scale (RASS): -1 Drowsy Level of Consciousness is awake, obeys commands, confused, lethargic, Oriented to person, general weakness noted. Speech is slurred. Cardiovascular: Denies chest pain, Capillary refill < 3 seconds Patient's skin is warm and dry. Respiratory: Reports cough that is non-productive, persistent Airway is patent Respiratory effort is even, unlabored, Respiratory pattern is regular, symmetrical. GI: No signs and/or symptoms were reported involving the gastrointestinal system. : No signs and/or symptoms were reported regarding the genitourinary system. EENT: No signs and/or symptoms were reported regarding the EENT system. Derm: Skin is intact, with poor turgor Skin is dry, Skin is pale, Skin temperature is warm. Musculoskeletal: No signs and/or symptoms reported regarding the musculoskeletal system. 09:30 Reassessment: Patient appears in no apparent distress at this time. No changes from jd3 previously documented assessment. Patient and/or family updated on plan of care and expected duration. Pain level reassessed. Patient denies pain at this time. 10:35 Reassessment: Patient appears in no apparent distress at this time. No changes from jd3 previously documented assessment. Patient and/or family updated on plan of care and expected duration. Pain level reassessed. 11:37 Reassessment: Patient appears in no apparent distress at this time. Patient and/or jd3 family updated on plan of care and expected duration. Pain level reassessed. pt is awake and alert at this time. talking with staff and family at bedside. pt remains confused on situation and time, but is oriented to person and place. Patient states feeling better. 13:48 Reassessment: Patient appears in no apparent distress at this time. No changes from jd3 previously documented assessment. Patient and/or family updated on plan of care and expected duration. Pain level reassessed. pt returned from MRI. 14:44 Reassessment: Patient appears in no apparent distress at this time. No changes from jd3 previously documented assessment. Patient and/or family updated on plan of care and expected duration. Pain level reassessed. charting continued in [facility]. : Jodi [phone]. 20:01 Reassessment: pt. being transfer in hospital bed by [facility]. Report given to conrado Carcamo RN. Vital Signs: 08:45 BP 150 / 92; Pulse 83; Resp 20 S; Temp 98.3(O); Pulse Ox 97% on R/A; Weight 72.57 kg jd3 (R); Height 5 ft. 4 in. (162.56 cm) (R); Pain 0/10; 10:35 BP 146 / 87; Pulse 84; Resp 18; Pulse Ox 100% on R/A; jd3 11:39 BP 160 / 91; Pulse 86; Resp 16; Pulse Ox 100% on R/A; jd3 13:48 BP 163 / 92; Pulse 82; Resp 20 S; Pulse Ox 96% on R/A; jd3 08:45 Body Mass Index 27.46 (72.57 kg, 162.56 cm) jd3 ED Course: 08:38 Patient arrived in ED. rn 08:38 Christiano Mccormack MD is Attending Physician. rn 08:40 Grey Lewis RN is Primary Nurse. jd3 08:43 Triage completed. jd3 08:45 Arm band placed on. EKG completed in triage. Results shown to MD. jd3 08:48 Patient has correct armband on for positive identification. Bed in low position. Call jd3 light in reach. Side rails up X2. Client placed on continuous cardiac and pulse oximetry monitoring. NIBP monitoring applied. cafeteria monitor on. Pulse ox on. NIBP on. Warm blanket given. 09:21 Marie Reilly MD is Hospitalizing Provider. rn 09:29 Accessed peripheral vein via ultrasound, utilizing dynamic ultrasound technique using jd3 20G Nexia IV catheter Clean \\T\\ dry. Dressing intact. Good blood return. Flushes easily. 09:34 CT Head Brain wo Cont In Process Unspecified. EDMS 09:49 XRAY Chest (1 view) In Process Unspecified. EDMS 10:23 Joey Navarrete is Hospitalizing Provider. rn 14:45 No provider procedures requiring assistance completed. Patient admitted, IV remains in jd3 place. Administered Medications: 09:55 Drug: NS 0.9% 500 ml Route: IV; Rate: bolus; Site: left antecubital; jd3 10:55 Follow up: Response: No adverse reaction; IV Status: Completed infusion jd3 11:37 Drug: Depakote (divalproex) 500 mg Route: PO; jd3 12:30 Follow up: Response: No adverse reaction jd3 Medication: 08:48 VIS not applicable for this client. jd3 Outcome: 09:21 Decision to Hospitalize by Provider. rn 14:45 Admitted to ER Hold. Please see [facility] for further documentation. jd3 14:45 Condition: stable 14:45 Instructed on the need for admit. 20:03 Patient left the ED. ha1 Signatures: Dispatcher [employer] EDMS Christiano Mccormack MD MD rn Davies, Jonathon, RN RN jd3 Ayala, Heidy, RN RN ha1 Corrections: (The following items were deleted from the chart) 10:01 08:45 Neuro: Dillard Agitation-Sedation Scale (RASS): -1 Drowsy Level of Consciousness jd3 is awake, obeys commands, lethargic, Oriented to person, place, time, situation, general weakness noted. Speech is slurred, jd3
--- NOTE | 2022-07-18 09:21 | EDPHYS ---
Physician Documentation [facility] Name: Jd Rico Age: 62 yrs Sex: Male : 1960 Arrival Date: 07/18/2022 Time: 08:38 Bed 18 Private MD: ED Physician Christiano Mccormack HPI: 07/18 09:05 This 62 yrs old Male presents to ER via EMS with complaints of weakness, falls.rn 09:05 Pt reports increased weakness, unknown if new fall, seen here yesterday, discharged rn after neg w/u following a fall. No fever. Still with cough/congestion. Given abx yesterday. No vomiting/abd pain/chest pain/diarrhea. . Onset: The symptoms/episode began/occurred at an unknown time. Severity of symptoms: At their worst the symptoms were moderate in the emergency department the symptoms are unchanged. The patient has experienced similar episodes in the past. The patient has been recently seen at the [facility] Emergency Department. Historical: - Allergies: 08:43 Trazodone; jd3 - Home Meds: 08:43 Alprazolam Oral [Active]; Amitriptyline Oral 4 times per day [Active]; aspirin 81 mg jd3 Oral TbEC 1 tab once daily [Active]; atorvastatin Oral [Active]; Depakote Oral [Active]; divalproex 500 mg Oral Tb24 3 tabs once daily [Active]; lisinopril-hydrochlorothiazide 10-12.5 mg Oral tab 1 tab once daily [Active]; metoprolol tartrate 50 mg Oral tab 1 tab once daily [Active]; Plavix 75 mg Oral tab 1 tab once daily [Active]; pravastatin 40 mg Oral tab 1 tab once daily [Active]; Xanax 0.5 mg Oral tab twice a day [Active]; - PMHx: 08:43 insomnia; Parkinsons; Myocardial infarction; Hypertension; Dementia; CVA; Bipolar jd3 disorder; Angina; peripheral vision loss; Seizures; - Immunization history:: Adult Immunizations up to date, Client reports receiving the 2nd dose of the Covid vaccine, Flu vaccine is up to date. - Social history:: Smoking status: Patient denies any tobacco usage or history of. - Family history:: not pertinent. - Hospitalizations: : No recent hospitalization is reported. ROS: 09:05 Constitutional: Negative for fever, chills, and weight loss, Eyes: Negative for injury, rn pain, redness, and discharge, ENT: + congestion Neck: Negative for injury, pain, and swelling, Cardiovascular: Negative for chest pain, palpitations, and edema, Respiratory: + cough, neg for sob Abdomen/GI: Negative for abdominal pain, nausea, vomiting, diarrhea, and constipation, MS/Extremity: Negative for injury and deformity, Skin: Negative for injury, rash, and discoloration, Neuro: Negative for numbness, tingling, and seizure, Positive for generalized weakness and headache Exam: 09:05 Constitutional: This is a well developed, well nourished patient who is somnolent, rn worse than yesterday Head/Face: Normocephalic, atraumatic. Eyes: Periorbital areas with no swelling, redness, or edema. ENT: dry MM Neck: No midline cervical tenderness Cardiovascular: Regular rate and rhythm. No pulse deficits. Respiratory: No increased work of breathing, no retractions or nasal flaring. Abdomen/GI: Soft, non-tender Skin: Warm, dry MS/ Extremity: Pulses equal, no cyanosis. Neuro: Somnolent, moves all 4 extremities with generalized weakness, no lateralizing signs Vital Signs: 08:45 BP 150 / 92; Pulse 83; Resp 20 S; Temp 98.3(O); Pulse Ox 97% on R/A; Weight 72.57 kg jd3 (R); Height 5 ft. 4 in. (162.56 cm) (R); Pain 0/10; 10:35 BP 146 / 87; Pulse 84; Resp 18; Pulse Ox 100% on R/A; jd3 11:39 BP 160 / 91; Pulse 86; Resp 16; Pulse Ox 100% on R/A; jd3 13:48 BP 163 / 92; Pulse 82; Resp 20 S; Pulse Ox 96% on R/A; jd3 08:45 Body Mass Index 27.46 (72.57 kg, 162.56 cm) jd3 MDM: 08:38 Patient medically screened. rn 09:19 Differential Diagnosis altered mental status, dehydration, worsening rn Parkinson's/dementia, UTI, pneumonia. Data reviewed: vital signs, nurses notes, old medical records, lab test result(s), and as a result, I will admit patient. Counseling: I had a detailed discussion with the patient and/or guardian regarding: the historical points, exam findings, and any diagnostic results supporting the discharge/admit diagnosis, lab results, the need for further work-up and treatment in the hospital. Response to treatment: There is no appreciated change of the patient's symptoms at this time, and as a result, I will admit patient. Admission orders: after a detailed discussion of the patient's condition and case, the admit orders are written by me. ED course: Pt with worsening weakness, no focal neuro findings, stable vitals, unable to care for patient at home in this condition, will admit for further care. . 07/18 08:41 Order name: CBC with Diff; Complete Time: 10:20 07/18 08:41 Order name: Basic Metabolic Panel; Complete Time: 10:20 07/18 08:41 Order name: Urine Microscopic Only; Complete Time: 13:38 07/18 08:41 Order name: SARS RAPID 07/18 09:13 Order name: COVID-19/FLU A+B/RSV (Document "Date of Onset" if Symptomatic); Complete kj1 Time: 10:07/18 12:36 Order name: Phosphorus; Complete Time: 13:38 EDVA 07/18 08:41 Order name: CT Head Brain wo Cont; Complete Time: 10:20 rn 07/18 08:57 Order name: XRAY Chest (1 view); Complete Time: 10:20 rn 07/18 12:36 Order name: NT PRO-BNP; Complete Time: 13:38 EDVA 07/18 12:36 Order name: T4 Free; Complete Time: 13:38 EDVA 07/18 12:36 Order name: Magnesium; Complete Time: 13:38 EDMS 07/18 12:36 Order name: Thyroid Stimulating Hormone; Complete Time: 13:38 EDVA 07/18 13:21 Order name: Urine Dipstick-Ancillary; Complete Time: 13:38 EDVA 07/18 16:10 Order name: Basic Metabolic Panel; Complete Time: 17:25 EDVA 07/18 08:41 Order name: IV Start; Complete Time: 09:30 rn 07/18 08:41 Order name: Urine Dipstick-Ancillary (obtain specimen); Complete Time: 13:21 07/18 08:41 Order name: EKG; Complete Time: 08:42 rn 07/18 08:41 Order name: EKG - Nurse/Tech; Complete Time: 08:54 rn 07/18 08:57 Order name: Glucose Level; Complete Time: 09:59 rn 07/18 11:58 Order name: Brain Wo Cont; Complete Time: 13:38 EDMS 07/18 17:16 Order name: CT; Complete Time: 17:25 EDMS Administered Medications: 09:55 Drug: NS 0.9% 500 ml Route: IV; Rate: bolus; Site: left antecubital; jd3 10:55 Follow up: Response: No adverse reaction; IV Status: Completed infusion jd3 11:37 Drug: Depakote (divalproex) 500 mg Route: PO; jd3 12:30 Follow up: Response: No adverse reaction jd3 Disposition Summary: 07/18/22 09:21 Hospitalization Ordered Hospitalization Status: Observation rn Condition: Stable rn Problem: an ongoing problem rn Symptoms: are unchanged rn Bed/Room Type: Standard rn Provider: Joey Navarrete(07/18/22 10:23) rn Location: Telemetry/MedSurg (observation)(07/18/22 19:32) cg Room Assignment: [facility](07/18/22 19:32) cg Diagnosis - Muscle weakness (generalized) rn - Altered mental status, unspecified rn - Dehydration rn Forms: - Medication Reconciliation Form rn - SBAR form rn Signatures: Dispatcher [employer] EDJanine Catalan RN RN iw Nieto, Roman, MD MD rn Garcia, Cindy, RN RN cg Davies, Jonathon, RN RN jottoniel Corrections: (The following items were deleted from the chart) 10:23 09:21 Marie Reilly rn rn 16:16 09:21 Telemetry/MedSurg (observation) rn jd3 16:16 09:21 rn jd3 19:32 16:16 [facility] ER HOLD jd3 cg 19:32 16:16 ERHOLD- jd3 cg
[2022-07-18 09:39] LABS: Absolute Lymphocytes (CBC) 1.1 K/uL (0.7-4.9); Hematocrit 44.9 % (39.6-49.0); Lymphocytes % 15.1 % (15.3-44.8); MCV 94.7 fL (80-100); MPV 7.7 fL (7.6-11.3); RBC Red Blood Cell Count 4.74 M/uL (4.33-5.43)
[2022-07-18 09:51] LABS: Potassium 5.5 mmol/L (3.5-5.1)
--- NOTE | 2022-07-18 09:52 | RAD REPORT ---
EXAM DESCRIPTION: CT - Head Brain Wo Cont - 07/18/2022 9:32 am CLINICAL HISTORY: fall, headache, weakness Fall, trauma, headache COMPARISON: Head Brain Wo Cont dated 06/22/2019; Head Brain Wo Cont dated 06/22/2018 TECHNIQUE: All CT scans are performed using dose optimization technique as appropriate and may inclu de automated exposure control or mA/KV adjustment according to patient size. FINDINGS: No intracranial hemorrhage, hydrocephalus or extra-axial fluid collection.Advanced brain a trophy is present with gliosis related to old infarct in the right occipital lobe. Small polyp or retention cyst right maxillary antrum. The paranasal sinuses mastoids otherwise clear. The calvarium is intact. Mild vertebral atherosclerosis. IMPRESSION: No acute intracranial abnormality.
[2022-07-18 10:06] LABS: SARS-COV-2 RT PCR NEGATIVE (NEGATIVE)
--- NOTE | 2022-07-18 10:15 | RAD REPORT ---
EXAM DESCRIPTION: RAD - Chest Single View - 07/18/2022 9:47 am CLINICAL HISTORY: COUGH Chest pain. COMPARISON: Chest Single View dated 07/17/2022; Chest Single View dated 11/08/2020; Chest Single View dated 10/26/2020; Chest Single View dated 06/22/2019 FINDINGS: Portable technique limits examination quality. Artifact is present on the study vertically. The lungs are underinflated resulting in vascular crowdi ng. The heart is normal in size. No displaced fractures. IMPRESSION: No acute intrathoracic process suspected.
[2022-07-18] MEDS ORDERED: DIVALPROEX DR 500MG TAB PO ONE (11:30)
[2022-07-18] MEDS ORDERED: HYDROCODONE/APAP 5/325 MG TAB PO PRN (11:55)
[2022-07-18] MEDS ORDERED: ACETAMINOPHEN 325 MG TABLET PO PRN (11:55)
[2022-07-18] MEDS ORDERED: HYDRALAZINE HCL 20 MG/ML VIAL IV PRN (11:56)
[2022-07-18] MEDS ORDERED: ONDANSETRON 4 MG/2 ML VIAL IV PRN (11:58)
--- NOTE | 2022-07-18 12:04 | P.HP ---
Certification for Inpatient Patient admitted to: Observation With expected LOS: <2 Midnights Patient will require the following post-hospital care: None Practitioner: I am a practitioner with admitting privileges, knowledge of patient current condition, hospital course, and medical plan of care. Services: Services provided to patient in accordance with Admission requirements found in Title 42 Section 412.3 of the Code of Federal Regulations Patient History Date of Service: 07/18/22 Reason for admission: Generalized weakness, frequent falls History of Present Illness: Patient is a 62-year-old male with a past medical history significant for anxiety disorder, MD, CAD with stents, hypertension, dementia, CVA, bipolar disorder, Parkinson's disease, insomnia who presents with complaint of increased weakness and falls. Patient was discharged from the hospital yesterday for similar symptoms. Spouse reported that patient became very lethargic and weak this morning. Patient reported associated signs and symptoms of fever, headache and chronic cough. Patient reported that he has been having coughing spells for the past 1 month. Patient denies any other signs and symptoms. Symptoms are aggravated or relieved by nothing. Family decided to bring patient to the hospital for medical evaluation. Of note, family reported that patient fell yesterday but did not hit his head or lose consciousness. Allergies trazodone Allergy (Verified 06/23/19 09:33) Nausea/Vomiting Home Medications: Amitriptyline HCl 25 mg PO BEDTIME 04/18/19 Atorvastatin Calcium [Lipitor] 80 mg PO DAILY 04/18/19 Divalproex Sodium [Depakote] 1 tab PO TID 04/18/19 ALPRAZolam [Alprazolam] 1 tab PO BID 06/23/19 Aspirin 81 mg PO DAILY #30 tab.chew 06/23/19 Metoprolol Succinate [Toprol Xl*] 1 tab PO DAILY 06/23/19 lisinopriL [Lisinopril] 1 tab PO DAILY 06/23/19 Carbidopa/Levodopa [Carbidopa-Levo 25-100 mg Odt] 1 tab PO BID 07/19/21 Memantine HCl [Namenda] 10 mg PO BEDTIME 07/19/21 Mirtazapine 15 mg PO DAILY 07/19/21 Olopatadine [Patanol Opth*] 1 gtt OPTH DAILY 07/19/21 - Past Medical/Surgical History Diabetic: No -: MD -: CARDIAC STENTS -: HYPERTENSION -: HYPERLIPIDEMIA -: STROKE -: PARKINSONS -: CVA -: ANGINA -: BIPOLAR DISORDER -: INSOMNIA -: BACK SURGERY FOR HERNIATED DISC -: CARDIAC STENTS -: HERNIA REPAIR - Family History Father -: Heart disease, Hypertension Mother -: Heart disease Notes: NO MEDICAL HISTORY - Social History Smoking Status: Never smoker Alcohol use: No CD- Drugs: No Caffeine use: Yes Place of Residence: Home Review of Systems General: Fever, Weakness, Other (Lethargy ) Eyes: Unremarkable ENT: Unremarkable Respiratory: Cough Cardiovascular: Unremarkable Gastrointestinal: Unremarkable Genitourinary: Unremarkable Musculoskeletal: Other (Falls) Integumentary: Unremarkable Neurological: Weakness, Other (Headache) Lymphatics: Unremarkable Physical Examination - Physical Exam General: Alert, Oriented x3 HEENT: Atraumatic, Normocephalic Neck: Supple, 2+ carotid pulse no bruit, JVD not distended Respiratory: Clear to auscultation bilaterally, Diminished Cardiovascular: No edema Capillary refill: <2 Seconds Gastrointestinal: Normal bowel sounds, Soft and benign Musculoskeletal: No clubbing, No swelling, No tenderness, No warmth Integumentary: No rashes, No breakdown, No significant lesion, No tenderness/swelling Neurological: Normal speech, Sensation intact, Normal affect, Abnormal gait Lymphatics: No axilla or inguinal lymphadenopathy - Studies Laboratory Data (last 24 hrs) 07/18/22 09:26: Sodium 135 L, Potassium 5.5 H, BUN 23 H, Creatinine 1.58 H, Glucose 100 07/18/22 09:26: WBC 7.60, Hgb 15.0 D, Hct 44.9, Plt Count 134 L Assessment and Plan - Plan -- Generalized weakness\frequent falls. MRI brain unremarkable for any acute abnormality. PT eval and treat. --Parkinson's disease. Continue home medication. --History of CVA\MD\CAD with stents. Continue aspirin and statin. --Anxiety disorder\bipolar disorder. Continue home medications. --Headache. Tylenol as needed. --Dementia. Stable. Continue supportive care. --Hypertension. Poorly controlled. Continue home medications and hydralazine as needed. -- Hyperlipidemia. Continue statin. --Insomnia. Continue home medication. -- Chronic cough. CT chest pending for further evaluation. Sputum culture pending. Continue Robitussin as needed. --Dementia. Continue home medication. --Hyperkalemia. Repeat labs indicates resolution. -- CKD 3 A. Stable. We will continue to monitor renal functions -- DVT prophylaxis with Lovenox subQ. Discharge Plan: Home Plan to discharge in: 48 Hours - Advance Directives Does patient have a Living Will: No Does patient have a Durable POA for Healthcare: No - Code Status/Comfort Care Code Status Assessed: Yes Code Status: Full Code Physician Review: Patient Assessed, Agree with Above Assessment and Plan Critical Care: No
[2022-07-18 12:36] LABS: Magnesium 2.4 mg/dL (1.8-2.4); Phosphorus 2.3 mg/dL (2.5-4.9); Thyroid Stimulating Hormone 2.18 uIU/mL (0.360-3.740)
[2022-07-18 13:21] LABS: Urine Blood Negative (Negative); Urine Glucose Negative (Negative); Urine Protein Negative (Negative); Urine Specific Gravity 1.015 (1.005-1.030)
--- NOTE | 2022-07-18 13:25 | RAD REPORT ---
EXAM DESCRIPTION: MRI - Brain Wo Cont - 07/18/2022 12:59 pm CLINICAL HISTORY: Weakness, frequent falls COMPARISON: Brain Wo Cont dated 06/23/2019; Head Brain Wo Cont dated 07/18/2022 TECHNIQUE: Sagittal T1-weighted images were obtained along with axial PD, heavily T2-weighted and T2 -FLAIR images. Axial DWI and ADC mapping sequences were also obtained along with coronal heavily T2-w eighted images. FINDINGS: No intracranial hemorrhage, mass or acute infarction. There is no edema or shift of midlin e structures. Patient has a large area of cystic encephalomalacia involving medial right occipital lo be and medial right temporal lobe classic right posterior cerebral artery distribution infarction. Pr ominent for age atrophy is present. Ventricles are in proportion to the amount of volume loss has occ urred. Chronic ischemic changes are scattered in the cerebral white matter sparing the brainstem basa l ganglia and left thalamus. Portions of the posterior right thalamus are involved by the old infarct ion. Richardson-matter/white matter junction is preserved. Signal voids are seen as a normal finding in the major intracranial vessels. No globe or orbital content abnormality. Mastoid air cells and paranasal sinuses are clear acute or significant finding. IMPRESSION: No hemorrhage, mass or acute intracranial finding. Large of old infarction involving medial occipital and temporal lobes. Patient has advanced for age a trophy with mild chronic ischemic change.
[2022-07-18 13:28] LABS: Urine Mucus Slight /HPF (None Seen); Urine RBC <5 /HPF (None Seen)
[2022-07-18] MEDS ORDERED: DIVALPROEX DR 500MG TAB PO SCH (14:00)
[2022-07-18 15:56] LABS: Potassium 4.3 mmol/L (3.5-5.1)
[2022-07-18] MEDS ORDERED: MELATONIN 5 MG TABLET PO PRN (16:11)
[2022-07-18] MEDS ORDERED: GUAIFENESIN/CODEINE 5ML UCUP PO PRN (16:11)
--- NOTE | 2022-07-18 17:15 | RAD REPORT ---
EXAM DESCRIPTION: CT - Thorax Wo Con - 07/18/2022 4:50 pm CLINICAL HISTORY: Chronic cough COMPARISON: Chest Single View dated 07/18/2022; Abdomen Pelvis W Contrast dated 10/26/2020 TECHNIQUE: Axial 5 mm thick images of the chest were obtained without IV contrast. All CT scans are performed using dose optimization technique as appropriate and may include automated exposure control or mA/KV adjustment according to patient size. FINDINGS: Minimal posterior dependent atelectasis is seen. No focal consolidation. No endobronchial lesions seen. Bronchial jeffers are not abnormally thickened. No pleural thickening or pleural effusion . No pneumothorax. No abnormal mediastinal or hilar masses or lymphadenopathy seen. No gross aortic or pulmonary artery finding suspected. Coronary artery calcifications are present. No cardiomegaly. No chest wall mass or abnormal axillary lymphadenopathy. IMPRESSION: Negative non-contrast CT chest examination for acute or significant finding.
[2022-07-18 20:39] VITALS: BMI 28.0
[2022-07-18] MEDS: CARBIDOPA PO SCH (21:00)
[2022-07-18] MEDS: LEVODOPA PO SCH (21:00)
[2022-07-18] MEDS ORDERED: CARBIDOPA/LEVODOPA 25/100 TAB ONE (21:32)
[2022-07-18] MEDS: DIVALPROEX DR 500MG TAB PO SCH (21:39)
[2022-07-18] MEDS: ALPRAZOLAM 0.5 MG TABLET PO SCH (21:39)
[2022-07-18] MEDS: MEMANTINE HCL 10 MG TABLET PO SCH (21:39)
[2022-07-18] MEDS: AMITRIPTYLINE 25 MG TAB PO SCH (21:39)
[2022-07-19 03:52] LABS: Absolute Lymphocytes (CBC) 1.5 K/uL (0.7-4.9); Hematocrit 44.1 % (39.6-49.0); Lymphocytes % 22.1 % (15.3-44.8); MCV 94.2 fL (80-100); MPV 7.5 fL (7.6-11.3); RBC Red Blood Cell Count 4.68 M/uL (4.33-5.43)
[2022-07-19 03:59] LABS: Potassium 4.6 mmol/L (3.5-5.1)
[2022-07-19] MEDS: POTASS/SODIUM PHOSPHATE 1 PKT POWD.PACK PO SCH ×3 (06:38→10:10)
[2022-07-19] MEDS: LEVODOPA PO SCH ×2 (08:55→20:50)
[2022-07-19] MEDS: CARBIDOPA PO SCH ×2 (08:55→20:50)
[2022-07-19] MEDS: METOPROLOL XL 25 MG TAB PO SCH (08:58)
[2022-07-19] MEDS: ASPIRIN EC 81 MG TAB PO SCH (08:58)
[2022-07-19] MEDS: ALPRAZOLAM 0.5 MG TABLET PO SCH ×2 (08:58→20:46)
[2022-07-19] MEDS: MIRTAZAPINE 15 MG TAB PO SCH (08:58)
[2022-07-19] MEDS: ATORVASTATIN 80 MG TAB PO SCH (08:58)
[2022-07-19] MEDS: OLOPATADINE OPTH SCH (08:59)
[2022-07-19] MEDS: DIVALPROEX DR 500MG TAB PO SCH ×2 (08:59→20:47)
[2022-07-19] MEDS ORDERED: ENOXAPARIN 40 MG/0.4 ML SQ SCH (09:00)
[2022-07-19] MEDS ORDERED: HEPARIN/D5W 25,000 UNIT/500 ML BAG IV PRN (13:22)
[2022-07-19] MEDS ORDERED: HEPARIN 10,000 UNIT/10 ML VIAL IV ONE (13:35)
--- NOTE | 2022-07-19 13:37 | P.PN ---
Subjective Date of Service: 07/19/22 Chief Complaint: Generalized weakness, frequent falls Patient complaining of cough productive of greenish sputum. Chest x-ray and CT chest shows no infiltrate. Patient complaining of inability to ambulate. He also reported poor oral intake over the past several weeks. Physical Examination - Vital Signs Temperature: 98.1 F Blood Pressure: 166/94 Pulse: 79 Respirations: 16 Pulse Ox (%): 98 Assessment And Plan - Current Problems (Diagnosis) (1) Acute bronchitis Current Visit: Yes Status: Acute (2) Left ventricular thrombus Current Visit: Yes Status: Acute (3) History of CVA (cerebrovascular accident) Current Visit: No Status: Chronic (4) History of Parkinson's disease Current Visit: No Status: Chronic (5) Seizure disorder Current Visit: No Status: Chronic (6) Chronic kidney disease, stage III (moderate) Current Visit: Yes Status: Acute - Plan Physical Exam General: Alert, Oriented x3 HEENT: Atraumatic, Normocephalic Neck: Supple, 2+ carotid pulse no bruit, JVD not distended Respiratory: Clear to auscultation bilaterally, Diminished Cardiovascular: No edema Capillary refill: <2 Seconds Gastrointestinal: Normal bowel sounds, Soft and benign Musculoskeletal: No clubbing, No swelling, No tenderness, No warmth Integumentary: No rashes, No breakdown, No significant lesion, No tenderness/swelling Neurological: Normal speech, Sensation intact, Normal affect, Abnormal gait Lymphatics: No axilla or inguinal lymphadenopathy. Plan: We will treat acute bronchitis with bronchodilators, oral Levaquin to provide Pseudomonas coverage. Echocardiogram revealing large cardiac thrombus per Dr. Looney. Cardiology consult. Dr. Looney recommend heparin and Coumadin anticoagulation. Patient with a history of large cerebral infarct. History of Parkinson's disease with progressive declining functional status. He states he is not able to walk due to progressive decrease in strength and incoordination. Neurology consulted. Patient may need his Parkinson disease titrated. He has no problem with swallowing. PT evaluation Continue antihypertensives Continue Depakote for seizures. Physician Review: Patient Assessed, Agree with Above Assessment and Plan
[2022-07-19] MEDS ORDERED: HEPARIN 5000 UNIT/ML 1 ML VIAL IV ONE (14:00)
[2022-07-19 14:18] LABS: Absolute Lymphocytes (CBC) 1.4 K/uL (0.7-4.9); Hematocrit 45.1 % (39.6-49.0); Lymphocytes % 20.5 % (15.3-44.8); MCV 94.8 fL (80-100); MPV 7.5 fL (7.6-11.3); RBC Red Blood Cell Count 4.76 M/uL (4.33-5.43)
[2022-07-19 14:22] LABS: Protime INR 1.05
[2022-07-19] MEDS: WARFARIN SODIUM 7.5 MG TAB PO SCH (17:01)
--- NOTE | 2022-07-19 19:04 | EKG ---
Test Date: 2022-07-18 Test Time: 08:46:47 Meat Packager: MARCO MEASUREMENT RESULTS: Intervals: Rate: 81 ME: 156 QRSD: 102 QT: 340 QTc: 394 Thornton: P: 62 ME: 156 QRS: -28 T: 33 INTERPRETIVE STATEMENTS: Normal sinus rhythm Minimal voltage criteria for LVH, may be normal variant Septal infarct, age undetermined Abnormal ECG Compared to ECG 07/17/2022 09:25:28 Myocardial infarct finding now present Left-axis deviation no longer present Early repolarization no longer present Electronically Signed On 07-19-22 19:00:43 JEWEL CORNER BRUSHING MACHINE OPERATOR by Gavino Looney
[2022-07-19] MEDS: MEMANTINE HCL 10 MG TABLET PO SCH (20:47)
[2022-07-19] MEDS: AMITRIPTYLINE 25 MG TAB PO SCH (20:47)
[2022-07-20 02:29] VITALS: O2SAT 97
[2022-07-20 02:31] LABS: MPV 7.7 fL (7.6-11.3)
[2022-07-20 02:38] LABS: Potassium 4.3 mmol/L (3.5-5.1)
--- NOTE | 2022-07-20 07:45 | ECHO ---
HEIGHT: 5 ft 4 in WEIGHT: 163 lb 1.6 oz DATE OF STUDY: 07/19/[address]: Lillian Pond 2-DIMENSIONAL: YES M.MODE: YES DOPPLER: YES COLOR FLOW: YES TDS: YES PORTABLE: YES DEFINITY: NO BUBBLE STUDY: NO DIAGNOSIS: ELEVATED BNP CARDIAC HISTORY: CATHERIZATION:YES SURGERY: NO PROSTHETIC VALVE: NO PACEMAKER: NO MEASUREMENTS (cm) DIASTOLIC (NORMALS) SYSTOLIC (NORMALS) IVSd (0.6-1.2) LA Diam (1.9-4.0) LVEF 30-35% LVIDd (3.5-5.7) LVIDs (2.0-3.5) %FS % LVPWd (0.6-1.2) Ao Diam (2.0-3.7) 2 DIMENSIONAL ASSESSMENT: RIGHT ATRIUM: NORMAL LEFT ATRIUM: NORMAL RIGHT VENTRICLE: NORMAL LEFT VENTRICLE: LV APICAL THROMBUS TRICUSPID VALVE: NORMAL MITRAL VALVE: NORMAL PULMONIC VALVE: NORMAL AORTIC VALVE: NORMAL PERICARDIAL EFFUSION: NONE AORTIC ROOT: NORMAL LEFT VENTRICULAR WALL MOTION: ANTEROAPICAL AKINESIS. DOPPLER/COLOR FLOW: NORMAL COMMENTS: 1. LARGE LEFT VENTRICULAR APICAL THROMBUS. 2. TECHNICALLY DIFFICULT STUDY. 3. ANTEROAPICAL AKINESIS. 4. LEFT VENTRICULAR EJECTION FRACTION 30-35% TECHNOLOGIST: Rossy CONTRERAS
[2022-07-20] MEDS: METOPROLOL XL 25 MG TAB PO SCH (08:53)
[2022-07-20] MEDS: DIVALPROEX DR 500MG TAB PO SCH (08:53)
[2022-07-20] MEDS: ASPIRIN EC 81 MG TAB PO SCH ×2 (08:53→08:54)
[2022-07-20] MEDS: ATORVASTATIN 80 MG TAB PO SCH (08:54)
[2022-07-20] MEDS: ALPRAZOLAM 0.5 MG TABLET PO SCH (08:54)
[2022-07-20] MEDS: MIRTAZAPINE 15 MG TAB PO SCH (08:54)
[2022-07-20] MEDS: OLOPATADINE OPTH SCH (08:55)
[2022-07-20] MEDS: CARBIDOPA/LEVODOPA 25/100 TAB PO SCH ×2 (09:59→14:32)
--- NOTE | 2022-07-20 15:20 | CON ---
Date of Consultation: 07/19/2022 Reason For Consultation: Left ventricular apical thrombus. History Of Present Illness: Mr. Rico is a 62. Has had a history of CAD, CHF, CVA, status post sten t, dementia, bipolar disorder, parkinsonism, anxiety, hypertension, and dyslipidemia. Came into the hospital with dehydration and weakness, creatinine is 1.34, elevated PTT, old CVA on MRI. Echo showe d a left ventricular apical thrombus with a low ejection fraction. He has no cardiac symptoms. Allergies: HE IS ALLERGIC TO TRAZODONE. Past Medical History: As stated above. Review of Systems: Negative. Social History: Negative. Family History: Negative. Medications: Presently include heparin, Coumadin, metoprolol Xanax, aspirin, and Sinemet. Physical Examination: General: Very pleasant, no acute distress. Vital Signs: Stable, afebrile, sinus rhythm. HEENT: Negative. Neck: Supple with no bruit. Chest: Clear. Cardiac: Revealed a regular rhythm and rate with S3 gallops. No murmurs or rubs. Abdomen: Benign. Extremities: Revealed no clubbing, cyanosis, or edema. Diagnostic Data: As stated earlier. Impression And Plan: The patient with history of coronary artery disease, congestive heart failure, status post stent, low ejection fraction, acute on chronic systolic congestive heart failure, LV thro mbus and needs to be on heparin. He needs to be coumadinized. We will repeat echocardiogram in 3 or 6 months and see how he does. He follows up at the [facility]. His other issues including anxiety , parkinsonism, dementia, bipolar disorder are stable. He has had an old cerebrovascular accident, w hich is stable. We will continue to follow him. DAY/KELVIN Voice ID: [id number] Report ID: [id number]
[2022-07-20 16:09] VITALS: BP 135/99; TEMP 98.2
--- NOTE | 2022-07-20 16:44 | P.DS ---
Admission Date: 07/19/22 Discharge Date: 07/20/22 Disposition: HOSPICE-HOME Discharge Condition: FAIR Reason for Admission: Generalized weakness, frequent falls - Problems (1) Acute bronchitis Current Visit: Yes Status: Acute (2) Left ventricular thrombus Current Visit: Yes Status: Acute (3) History of CVA (cerebrovascular accident) Current Visit: No Status: Chronic (4) History of Parkinson's disease Current Visit: No Status: Chronic (5) Seizure disorder Current Visit: No Status: Chronic (6) Chronic kidney disease, stage III (moderate) Current Visit: Yes Status: Acute Brief History of Present Illness: Patient is a 62-year-old male with a past medical history significant for anxiety disorder, [place], CAD with stents, hypertension, dementia, CVA, bipolar disorder, Parkinson's disease, insomnia who presented with complaint of increased weakness and falls. Patient was discharged from the hospital the day before for similar symptoms. Spouse reported that patient became very lethargic and weak. Patient reported associated signs and symptoms of headache and chronic cough. Patient reported that he has been having coughing spells for the past 1 month. Family reported that patient fell and could not get up. No loss of consciousness. Patient hospitalized for further management. Hospital Course: Patient admitted to the medical floor, had a CT chest done with did not show any infiltrate. Patient treated supportively with antitussives. He had an echocardiogram done which showed left ventricular thrombus. Cardiology consulted who recommended anticoagulation with Coumadin. Dr. Looney stated the cardiac thrombus does not look acute. Patient initially started on heparin bridge. Dr. Looney recommended CT surgery for the cardiac thrombus. Patient and decided to pursue hospice but want to continue anticoagulation. Patient has been accepted to home with hospice. He is prescribed Coumadin and informed he will need PT/INR checked at least 3 times a week until his INR is stable. Target INR is 2.5. Patient was seen by Dr. Sellers for Parkinson's disease with decreased functional status. Patient was later able to ambulate the hallway with a walker and currently at baseline. We did not increase his Sinemet dose. Dr. Sellers recommend to continue same Sinemet dose at home. Vital Signs/Physical Exam: Temp Pulse Resp BP Pulse Ox 98.2 F 95 H 14 135/99 H 94 07/20/22 16:00 07/20/22 16:00 07/20/22 16:00 07/20/22 16:00 07/20/22 16:00 General: Alert, In no apparent distress, Oriented x3 HEENT: Mucous membr. moist/pink Neck: JVD not distended Respiratory: Clear to auscultation bilaterally, Normal air movement Cardiovascular: Regular rate/rhythm, Normal S1 S2 Gastrointestinal: Soft and benign, Non-distended Musculoskeletal: No swelling Integumentary: No cyanosis Laboratory Data at Discharge: WBC 6.90 K/uL (4.3-10.9) 07/19/22 14:08 Hgb 15.1 g/dL (13.6-17.9) 07/19/22 14:08 Hct 45.1 % (39.6-49.0) 07/19/22 14:08 Plt Count 141 K/uL (152-406) L 07/20/22 01:56 PT 11.5 SECONDS (9.5-12.5) 07/19/22 14:08 INR 1.05 07/19/22 14:08 APTT Cancelled 07/20/22 16:20 Sodium 135 mmol/L (136-145) L 07/20/22 01:56 Potassium 4.3 mmol/L (3.5-5.1) 07/20/22 01:56 BUN 20 mg/dL (7-18) H 07/20/22 01:56 Creatinine 1.30 mg/dL (0.55-1.3) 07/20/22 01:56 Glucose 129 mg/dL (74-106) H 07/20/22 01:56 Phosphorus 2.3 mg/dL (2.5-4.9) L 07/18/22 09:26 Magnesium 2.4 mg/dL (1.8-2.4) 07/18/22 09:26 Home Medications: Amitriptyline HCl 25 mg PO BEDTIME 04/18/19 Atorvastatin Calcium [Lipitor] 80 mg PO DAILY 04/18/19 Divalproex Sodium [Depakote] 1 tab PO TID 04/18/19 ALPRAZolam [Alprazolam] 1 tab PO BID 06/23/19 Aspirin 81 mg PO DAILY #30 tab.chew 06/23/19 Metoprolol Succinate [Toprol Xl*] 1 tab PO DAILY 10/21/19 lisinopriL [Lisinopril] 1 tab PO DAILY 06/23/19 Memantine HCl [Namenda*] 10 mg PO BEDTIME 07/19/21 Mirtazapine 15 mg PO DAILY 07/19/21 Olopatadine [Patanol Opth*] 1 gtt OPTH DAILY 07/19/21 Carbidopa/Levodopa 25-100 [Sinemet 25-100*] 1 tab PO TID #90 tab 07/20/22 Guaifen W/Codeine Syrup [ROBITUSSIN A-C Syrup*] 10 ml PO QID PRN #1 bottle 07/20/22 Warfarin Sodium 7.5 mg PO DAILY 6PM #30 tab 07/20/22 New Medications: Guaifen W/Codeine Syrup [ROBITUSSIN A-C Syrup*] 10 ml PO QID PRN #1 bottle PRN Reason: Cough Carbidopa/Levodopa 25-100 [Sinemet 25-100*] 1 tab PO TID #90 tab Warfarin Sodium 7.5 mg PO DAILY 6PM #30 tab Diet: AHA Activity: Fall precautions Followup: Unknown,U [Primary Care Provider] - Time spent managing pt's care (in minutes): 37
[2022-07-20] MEDS: WARFARIN SODIUM 7.5 MG TAB PO SCH (17:19)
--- NOTE | 2022-07-20 22:39 | CON ---
Reason For Consultation: Consultation called because patient has Parkinson disease and I see him in clinic. History Of Present Illness: Mr. Rico is a 62-year-old patient admitted to [facility] on with generalized weakness and multiple falls. His medical history also includes myocardial infarction, coronary artery disease status post cardiac stents, hypertension, stroke, bipolar disorde r, insomnia, along with Parkinson disease for which he is taking Sinemet 25/100 twice daily. He has had more lethargy and weakness on the morning of admission than usual and apparently there was headac he, cough, and fever. The patient has had ongoing coughing spells that have been present perhaps for a month and he was eventually brought to [facility]. A chest x-ray showed no acute cardiot horacic processes. Electrocardiogram showed normal sinus rhythm with minimal voltage criteria for le ft ventricular hypertrophy and to rule out a stroke, a brain MRI was ordered. This study showed an a maya of old large infarction involving the medial occipital and temporal lobes on the right, in the di stribution of the right posterior cerebral artery. Further, there was prominent atrophy for age and the ventricles were expanded in proportion to the loss of cerebral volume. There was small-vessel is chemic disease in the periventricular white matter, sparing the brain stem, basal ganglia and left th alamus. As noted, the right thalamus was involved in the stroke in the right temporal and occipital lobe. No acute ischemic or hemorrhagic changes were identified. The patient had an echocardiogram, which revealed a large left ventricular apical thrombus and anteroapical akinesis. The left ventricu lar ejection fraction was 30%-35%. The patient was placed on anticoagulation with heparin and then s tarted on Coumadin with target INR of 2.5-3.5 and he is followed by the certified hyperbaric technologist, Dr. Gavino ware. Regarding his Parkinson's, the patient's medication was adjusted to 3 times a day Sinemet 25/100 from twice daily and he ambulated with physical therapy covering over 130 feet and 120 feet with contact guard assistance using a rolling walker. His transfers from [id number] and [id number] are with contact guard assistance. The patient did have a shuffling gait, but when allowed to walk longer dis tances then extends his stride length and arm swing. Past Medical History: Myocardial infarction, hypertension, dyslipidemia, stroke, Parkinson disease, bipolar disorder, and insomnia. Past Surgical History: Back surgery, cardiac stent placement, and hernia repair. Allergies: TRAZODONE. Medications: Amitriptyline 25 mg twice daily, Lipitor 80 mg daily, Depakote daily, alprazolam daily, aspirin 81 mg daily, Toprol-XL 1 daily, lisinopril daily, levodopa carbidopa 25/100 twice daily, mem antine 10 mg at bedtime, mirtazapine 15 mg at night, and Patanol Ophthalmic 1 drop in each eye daily. Family History: Heart disease and hypertension in father and heart disease in mother. Social History: No alcohol, tobacco, or IV drug use. Patient lives at home with family. Review of Systems: He has noted some fatigue, weakness, and fever along with cough. No rash. Mild headaches. No weigh t change. No gastrointestinal or genitourinary issues. No other positives on a 10 point systems rev iew other than diffuse weakness with a tendency to fall. Physical Examination: Vital Signs: Blood pressure 135/99, pulse 95, respiratory rate 14, temperature 98.2, oxygen saturati on 97% on room air. Weight 163 pounds, height 5 feet 4 inches, BMI 28. General: Mr. Rico is resting in bed. He is in no significant distress. HEENT: He is normocephalic, atraumatic. Sclerae anicteric. Oropharynx pink and moist. Neck: Supple. Chest: Clear. Heart: Regular. Extremities: No clubbing, cyanosis, or edema. Neurologic: He is alert and oriented to situation, place, and time. He follows commands appropriate ly. He has the labial, lingual and guttural sounds. In terms of cranial nerves, there is a left teresa onymous hemianopsia and otherwise intact cranial nerves. On motor examination, 5/5 proximally and di stally in upper and lower extremities. Coordination is slow, but intact. Gait: He has small stride s with shuffling gait and decreased arm swing. Reflexes are symmetric. Laboratory Studies: Complete blood count with differential essentially unremarkable. Platelet count is slightly low at 141. INR is followed by Cardiology. His PTT when on heparin was 78.2 up to 100. 6. Chemistry: Sodium 135, potassium 4.3, chloride 103, carbon dioxide 27, BUN 20, creatinine 1.3, g lucose 129, calcium 9.0, phosphorus 2.3, magnesium 2.4. TSH 2.180, free T4 0.96. Urinalysis unremar kable. COVID testing is negative. Influenza A negative. RSV RNA negative. Influenza type B negati ve. Assessment: Mr. Rico is a 62-year-old patient with a large left cardiac thrombus on heparin as well as Coumadin. He has Parkinson disease with an adjustment made to the frequency of his carbidopa lev odopa. He is able to ambulate with contact guard assistance using rolling walker. He has multiple c omorbidities as noted above. He is managed by Primary Team. Plan: 1.Carbidopa levodopa 25/100 three times daily. 2.Physical and occupational therapy on outpatient basis. 3.Follow up with Cardiology regarding the thrombus. 4.After discharge, follow up in Dr. Sellers's clinic within the month. KIMANI Voice ID: [id number] Report ID: [id number]
== END 2022-07-20 17:51 | disposition hospice, home (50) | DRG 291 ==
LOC: ER 08:37 → ERHOLD 11:52 → 4TH 19:47 → OBSVTOIN 07-19 13:21 → UNDODISIN 07-19 18:15
PROVIDERS: ADMIT Internal Medicine; ATTEND Internal Medicine
DX: I13.0 Hypertensive heart and chronic kidney disease with heart failure and stage 1 through stage 4 chronic kidney disease, or unspecified chronic kidney disease (principal); I50.23 Acute on chronic systolic (congestive) heart failure; I24.0 Acute coronary thrombosis not resulting in myocardial infarction; N18.31 Chronic kidney disease, stage 3a; G20 Parkinson's disease; F41.9 Anxiety disorder, unspecified; F31.9 Bipolar disorder, unspecified; E78.5 Hyperlipidemia, unspecified; J20.9 Acute bronchitis, unspecified; G47.00 Insomnia, unspecified; E87.5 Hyperkalemia; E86.0 Dehydration; G40.909 Epilepsy, unspecified, not intractable, without status epilepticus; F03.90 Unspecified dementia, unspecified severity, without behavioral disturbance, psychotic disturbance, mood disturbance, and anxiety; I25.2 Old myocardial infarction; R05.3 Chronic cough; R51.9 Headache, unspecified; Z95.5 Presence of coronary angioplasty implant and graft; Z88.8 Allergy status to other drugs, medicaments and biological substances; Z79.82 Long term (current) use of aspirin; Z79.02 Long term (current) use of antithrombotics/antiplatelets; Z79.01 Long term (current) use of anticoagulants; Z86.73 Personal history of transient ischemic attack (TIA), and cerebral infarction without residual deficits; Z79.899 Other long term (current) drug therapy; Z20.822 Contact with and (suspected) exposure to COVID-19
CPT/HCPCS: 0241U; 36415; 70450; 70551; 71045; 71250; 72125; 72170; 80048; 81003; 81015; 82550; 83735; 83880; 84100; 84439; 84443; 85025; 85049; 85610; 85730; 87070; 87205; 93005; 93306; 96360; 97116; 97161; 97530; 99284; 99285; G0378; J1644; J1650; J7040; Q0144